=== PATIENT | male | born 1935 | race Caucasian/White ===

== ENCOUNTER 2016-07-15 08:56 | Inpatient (IN) | payer MEDICARE, OTHER ==
[~2016-07-15] VITALS: Ht 172.7 cm; Wt 85.5 kg
[~2016-07-15 08:56] MED LIST: ALEN70TA30 PO; AMLO-147 PO; ASPI81TA3 PO; ATEN50TA PO; BISA-57 PO; CLON-379 PO; CYCL5TAB PO; DIPH1TAB25 PO; DOCU50CA4 PO; FAMO10TA84 PO; LORA10CA PO; SIMV20TA2 PO; VALS320T11 PO
[2016-07-15] MEDS ORDERED: ONDANSETRON 4 MG INJ IV STA (09:17)
[2016-07-15] MEDS ORDERED: morphine 2 MG INJ IV ONE (09:30)
[2016-07-15 09:42] LABS: ADD SCAN DIFF NO
[2016-07-15 09:51] LABS: BASOPHILS % 0.3 % (0.0-2.0); EOSINOPHILS # 0.2 10^3/ul (0.0-0.5); EOSINOPHILS % 3.2 % (0.0-7.0); HEMATOCRIT 29.1 % (42.0-52.0); HEMOGLOBIN 9.6 g/dl (14.0-18.0); LYMPHOCYTES # 1.3 10^3/ul (0.8-2.9); LYMPHOCYTES % 17.8 % (15.0-51.0); MEAN CORPUSCULAR HEMOGLOBIN 32.7 pg (29.0-33.0); MEAN PLATELET VOLUME 9.9 fl (7.4-10.4); MONOCYTE # 0.6 10^3/ul (0.3-0.9); NEUTROPHILS % 70.3 % (39.0-77.0); PLATELET COUNT 247 10^3/UL (140-415); RED BLOOD COUNT 2.94 10^6/ul (4.70-6.10); RED CELL DISTRIBUTION WIDTH 13.1 % (11.5-14.5); WHITE BLOOD COUNT 7.2 10^3/ul (4.8-10.8)
[2016-07-15 10:03] LABS: ALBUMIN 3.3 g/dl (3.3-4.9)
[2016-07-15 10:04] LABS: POTASSIUM 4.9 mmol/L (3.5-5.1)
[2016-07-15 10:06] LABS: CREATININE 2.19 mg/dl (0.61-1.24)
[2016-07-15 10:07] LABS: ALBUMIN/GLOBULIN RATIO 0.89; CALCIUM 8.8 mg/dl (8.4-10.2)
[2016-07-15 10:13] LABS: ADD UMIC YES; URINE BILIRUBIN (Dip) NEGATIVE (NEGATIVE); URINE BLOOD (Dip) TRACE (NEGATIVE); URINE COLOR LT. YELLOW (YELLOW); URINE GLUCOSE (Dip) NEGATIVE (NEGATIVE); URINE KETONES (Dip) NEGATIVE (NEGATIVE); URINE LEUKOCYTE ESTERASE (Dip) 1+ (NEGATIVE); URINE NITRITE (Dip) NEGATIVE (NEGATIVE); URINE TOTAL PROTEIN (Dip) TRACE (NEGATIVE); URINE UROBILINOGEN (Dip) 0.2 E.U./dL (0.1-1.0)
--- NOTE | 2016-07-15 10:45 | RADRPT ---
PROCEDURE: CT Abdomen and pelvis without contrast. CLINICAL INDICATION: Abdominal pain. Rectal bleeding. History of hemorrhoidectomy and diverticul itis. TECHNIQUE: CT scan of the abdomen and pelvis with contrast was performed on a multidetector high-r esolution CT scan. . Coronal and sagittal reformatted images were obtained from the axial source i mages. Standard CT scan of the abdomen pelvis without contrast protocols were performed. The total exam CTDI equals 12.44 mGy and the total exam DLP equals 817.66 mGy-cm. One or more of the following dose reduction techniques were used: - Automated exposure control. - Adjustment of the mA and/or kV according to patient size. Use of iterative reconstruction technique. COMPARISON: CT pelvis without contrast 12/20/2012 FINDINGS: There is a 3.5 x 3.8 x 5.6 cm left perirectal abscess. The stomach, the stomach, small bowel, colon and appendix are unremarkable. Negative for intra-abdom inal free air, free fluid or lymphadenopathy. Again noted are calcified gallstones without gallbladder wall thickening and no evidence of pericho lecystic fluid collections. No evidence of biliary ductal dilation. The kidneys are normal in size without hydronephrosis bilaterally. No change in the large superior left renal cyst. There is a pedunculated lateral right mid renal 1.6 cm mass that may represent a h emorrhagic cyst though other etiologies cannot be excluded and interval follow up renal ultrasound o r triple phase CT scan of the abdomen with without contrast is suggested for further evaluation. The prostate gland is severely enlarged but appears unchanged. Urinary bladder is partially contrac angel with urinary bladder wall thickening and this may all relate to lack of optimal distension no ru le out cystitis. The liver spleen pancreas and adrenal glands are unremarkable. There is a small left pleural effusion. There is bibasilar atelectasis of the lung bases otherwise unremarkable. The heart is within normal limits in size without pericardial effusion. Pacemaker el ectrodes present. There is extensive atherosclerotic vascular disease of the aorta and its branches. There is extensi ve degenerative changes lower thoracic and lumbar spine. There are no acute osseous findings or ost eoblastic/osteolytic lesions. IMPRESSION: 1. 3.5 x 3.8 x 5.6 cm left perirectal abscess. 2. Again noted are calcified gallstones but no gallbladder wall thickening. No evidence biliary du ctal dilation. 3. Stable left superior renal cyst. 1.6 cm intermediate density pedunculated right lateral mid earlene al mass may represent a hemorrhagic cyst however other etiologies are not excluded and recommend fol low-up as above. 4. Severe enlarged prostate gland. 5. Urinary bladder wall thickening may all relate to partially contracted state however cystitis sh ould be considered. 6. Small left pleural effusion. Dr. Roderick hayes was telephoned this results on 07/15/2016 at 1040 hours. RPTAT:AAJJ Physician Jeannine Date Time Electronically viewed and signed by Zach Saxena Physician on 07/15/2016 10:45 BM/
--- NOTE | 2016-07-15 10:48 | ERA ---
ER Documentation Chief Complaint Date/Time DATE: 07/15/16 TIME: 916 Chief Complaint pt bib with c/o hypertension, "pimple to butt area" weakness HPI 81-year-old male presents to the emergency department with his complaining of generalized weakness, fevers, chills, pain in his buttock area. Patient and his explained that the patient has had what they thought is a hernia or a hemorrhoid. Patient has been draining pus and blood for the last 2- 3 weeks. Most recently, patient has had purulent drainage from the area with fevers chills and generalized weakness that has been continuing and worsening. Patient returns to the emergency department today complaining of the generalized weakness and a sensation of discomfort that he reports is a 4/10 and localized to that area. He reports nausea but no vomiting or diarrhea. ROS All systems reviewed and are negative except as per history of present illness. Medications Home Meds Reported Medications Bimatoprost* (Lumigan*) 0.01%-2.5 Ml Opht Drops, 1 DROP BOTH EYES HS, EA 07/15/16 Brimonidine/Timolol* (Combigan*) 5 Ml Drops, 1 DROP BOTH EYES BID, BOTTLE 07/15/16 Sodium Polystyrene Sulfonate (Sodium Polystyrene Sulfonate Powder) 454 Gm Powder , 2 TSP PO DAILY, EA 07/15/16 Clonidine Hcl* (Clonidine Hcl*) 0.2 Mg Tablet, 0.2 MG PO TID Y for ELEVATED BLOOD PRESSURE, TAB 07/15/16 Ergocalciferol (Vitamin D2) (VITAMIN D2) 50,000 Unit Capsule, 43694 UNIT PO every saturday, CAP 07/15/16 Calcitriol* (Rocaltrol*) 0.25 Mcg Capsule, 0.25 MCG PO three times a week, CAP 07/15/16 Docusate Sodium (Col-Rite) 100 Mg Capsule, 100 MG PO BID, CAP 07/15/16 Omeprazole* (Omeprazole*) 40 Mg Capsule.dr, 40 MG PO DAILY, #30 CAP 07/15/16 Furosemide* (Lasix*) 40 Mg Tablet, 60 MG PO DAILY, TAB 07/15/16 Famotidine* (Famotidine*) 20 Mg Tablet, 20 MG PO DAILY, #30 TAB 07/15/16 Alendronate Sodium* (Fosamax*) 70 Mg Tablet, 70 MG PO ON SATURDAYS, TAB 07/28/14 Amlodipine Besylate* (Amlodipine Besylate*) 10 Mg Tablet, 10 MG PO HS, TAB 07/29/13 Aspirin (Aspirin) 81 Mg Chew, 81 MG PO DAILY 12/20/12 Valsartan* (Diovan*) 320 Mg Tablet, 320 MG PO DAILY 12/20/12 Simvastatin (Simvastatin) 20 Mg Tablet, 20 MG PO HS 12/20/12 Atenolol* (Atenolol*) 50 Mg Tablet, 50 MG PO DAILY 12/20/12 Discontinued Reported Medications Loratadine* (Claritin*) 10 Mg Capsule, 10 MG PO DAILY, CAP 07/28/14 Cyclobenzaprine Hcl* (Cyclobenzaprine Hcl*) 5 Mg Tablet, 5 MG PO DAILY Y for MUSCLE SPASMS, TAB 07/28/14 Bisacodyl* (Dulcolax*) 5 Mg Tablet.dr, 10 MG PO DAILY Y for CONSTIPATION, TAB 07/28/14 Docusate Sodium* (Colace*) 50 Mg Capsule, 100 MG PO BID 07/29/13 Famotidine* (Famotidine*) 10 Mg Tablet, 20 MG PO DAILY 12/20/12 Discontinued Scripts Diphenoxylate Hcl-Atropine* (Lomotil*) 1 Tab Tab, 1 TAB PO Q6H Y for DIARRHEA, # 10 TAB Prov:AHMET MILLARD 04/09/15 Clonidine Hcl* (Clonidine Hcl*) 0.1 Mg Tab, 0.1 MG PO Q6, #10 TAB Take one tablet by mouth if systolic blood pressure greater then 150mmHg. Prov:AHMET MILLARD 04/09/15 Allergies Allergies: Coded Allergies: No Known Drug Allergy (Verified Allergy, Unknown, 07/15/16) PMhx/Soc History of Surgery: Yes (removal of lymph nodes to back x2, hemorrhoids removed ) Anesthesia Reaction: No Hx Neurological Disorder: No Hx Respiratory Disorders: No Hx Cardiac Disorders: Yes (htn) Hx Psychiatric Problems: No Hx Miscellaneous Medical Probl: Yes (diverticulitis, arthritis, hemorrhoids, high cholesterol) Hx Alcohol Use: No Hx Substance Use: No Hx Tobacco Use: Yes (1-2 packs a week) Smoking Status: Never smoker FmHx Noncontributory for chief complaint Physical Exam Vitals Vital Signs Date Time Temp Pulse Resp B/P Pulse Ox O2 Delivery O2 Flow Rate FiO2 07/15/16 10:47 68 18 167/60 98 Room Air 07/15/16 09:02 98.3 60 16 152/66 99 Physical Exam GENERAL: The patient is well developed and appropriate for usual state of health in no apparent distress HEENT: Pupils equal, round, and reactive to light. EOMI. There is no scleral icterus. NECK: C-spine is soft and supple, there is no meningismus. There is no cervical lymphadenopathy. LUNGS: Clear to auscultation bilaterally. There are no rales, wheezes or rhonchi. HEART: Regular rate and rhythm, no murmurs, clicks, rubs or gallops. ABDOMEN: Soft, non-tender, non-distended. There are bowel sounds in all four quadrants. No rebound or guarding. EXTREMITIES: There is no peripheral cyanosis or edema. No focal swelling or erythema. NEURO: The patient moves all four extremities with 5/5 strength. Cranial nerves II - XII are intact. Normal gait. Alert and oriented SKIN: Patient has a perirectal abscess. No stranding cellulitis. No crepitus. No involvement of the scrotum. HEME/LYMPHATIC: There is no evidence of excessive bruising or lymphedema. PSYCHIATRIC: The patient does not appear anxious or depressed. Result Diagram: 07/15/1693007/15/16930 Results 24 hrs Laboratory Tests Test 07/15/16 09:31 07/15/16 09:38 White Blood Count 7.210^3/ul Red Blood Count 2.9410^6/ul Hemoglobin 9.6g/dl Hematocrit 29.1% Mean Corpuscular Volume 99.0fl Mean Corpuscular Hemoglobin 32.7pg Mean Corpuscular Hemoglobin Concent 33.0g/dl Red Cell Distribution Width 13.1% Platelet Count 72300^3/UL Mean Platelet Volume 9.9fl Neutrophils % 70.3% Lymphocytes % 17.8% Monocytes % 8.0% Eosinophils % 3.2% Basophils % 0.3% Nucleated Red Blood Cells % 0.0/100WBC Neutrophils # 5.010^3/ul Lymphocytes # 1.310^3/ul Monocytes # 0.610^3/ul Eosinophils # 0.210^3/ul Basophils # 0.010^3/ul Nucleated Red Blood Cells # 0.010^3/ul Sodium Level 139mmol/L Potassium Level 4.9mmol/L Chloride Level 112mmol/L Carbon Dioxide Level 23mmol/L Anion Gap 9 Blood Urea Nitrogen 29mg/dl Creatinine 2.19mg/dl Glucose Level 109mg/dl Calcium Level 8.8mg/dl Total Bilirubin 0.0mg/dl Direct Bilirubin 0.00mg/dl Indirect Bilirubin 0.0mg/dl Aspartate Amino Transf (AST/SGOT) 15IU/L Alanine Aminotransferase (ALT/SGPT) 27IU/L Alkaline Phosphatase 68IU/L Total Protein 7.0g/dl Albumin 3.3g/dl Globulin 3.70g/dl Albumin/Globulin Ratio 0.89 Lipase 40U/L Urine Color LT. YELLOW Urine Clarity CLEAR Urine pH 5.5 Urine Specific [place] 1.010 Urine Ketones NEGATIVE Urine Nitrite NEGATIVE Urine Bilirubin NEGATIVE Urine Urobilinogen 0.2 E.U./dL Urine Leukocyte Esterase 1+ Urine Microscopic RBC 0-2/HPF Urine Microscopic WBC 5-10/HPF Urine Epithelial Cells RARE Urine Bacteria RARE Urine Hemoglobin TRACE Urine Glucose NEGATIVE% Urine Total Protein TRACE Current Medications Medications (Trade) Dose Ordered Sig/Belkis Route PRN Reason Start Time Stop Time Status Last Admin Dose Admin Morphine Sulfate (morphine) 2 mg ONCE ONCE IV 07/15/16 09:30 07/15/16 09:31 DC 07/15/16 09:29 Ondansetron HCl 4 mg 4 mg ONCE STAT IV 07/15/16 09:17 07/15/16 09:19 DC 07/15/16 09:28 Piperacillin Sod/ Tazobactam Sod 100 ml @ 200 mls/hr ONCE ONCE IVPB 07/15/16 11:00 07/15/16 11:29 DC 07/15/16 10:55 Vancomycin HCl (Vancocin) 250 ml @ 125 mls/hr ONCE IVPB 07/15/16 11:00 07/15/16 12:59 07/15/16 11:20 Procedures/MDM Patient was taken to a room, seen and evaluated. Comfort measures were initiated. Diagnostic tests were ordered and reviewed. 3 LEAD RHYTHM STRIP: Normal sinus rhythm without ectopy RADIOLOGY: reviewed with the radiologist CONSULTATION: hospitalist was notified for admission after the primary care doctor did not return the call. Surgical consultation was obtained. REEVALUATION: Patient is remained comfortable and hemodynamically stable. MEDICAL DECISION MAKING: This is an elderly 81-year-old male who presents to the emergency department with what appears to be a perirectal abscess and no systemic concerns regarding fevers and weakness. Given the history of spontaneous drainage with the ongoing systemic symptoms as well as findings on CT scan, I suggest that the patient will be best cared for with IV antibiotics and consideration of surgical management. After consulting with the family, patient will be admitted for IV antibiotics, surgical consultation and further treatment. Departure Diagnosis: Primary Impression: Perirectal abscess SEBAS IBANEZ July 15, 2016 10:48
[2016-07-15] MEDS ORDERED: VANCOMYCIN 1 GM (PMX) 250 ML IVPB SCH (11:00)
[2016-07-15] MEDS ORDERED: PIPER-TAZO 3.375 GM IV (PMX) 100 ML IVPB ONE (11:00)
[2016-07-15 11:04] LABS: BACTERIA,URINE RARE; URINE RBCS 0-2 /HPF (0)
[2016-07-15] MEDS ORDERED: FURO-109 PO (11:17)
[2016-07-15] MEDS ORDERED: OMEP40CA6 PO (11:17)
[2016-07-15] MEDS ORDERED: FAMO20TA18 PO (11:17)
[2016-07-15] MEDS ORDERED: DOCU100C59 PO (11:18)
[2016-07-15] MEDS ORDERED: CALC0.255 PO (11:19)
[2016-07-15] MEDS ORDERED: ERGO500037 PO (11:21)
[2016-07-15] MEDS ORDERED: CLON0.2T5 PO (11:22)
[2016-07-15] MEDS ORDERED: [UNRECOGNIZED DRUG - CODE] PO (11:23)
[2016-07-15] MEDS ORDERED: COMBIG5 BOTH EYES (11:25)
[2016-07-15] MEDS ORDERED: BIMA2.5D BOTH EYES (11:25)
[2016-07-15] MEDS: SOD CHLORIDE 0.9% 1,000 ML IV SCH ×2 (12:39→17:05)
[2016-07-15] MEDS ORDERED: HYDROCODONE/APAP (5/325) TAB PO PRN (13:00)
[2016-07-15] MEDS ORDERED: MAGNESIUM HYDROXIDE 30ML CUP PO PRN (13:00)
[2016-07-15] MEDS ORDERED: ACETAMINOPHEN 650 MG SUPP PR PRN (13:00)
[2016-07-15] MEDS ORDERED: BISACODYL 10 MG SUPP PR PRN (13:00)
[2016-07-15] MEDS ORDERED: ONDANSETRON 4 MG INJ IV PRN (13:00)
[2016-07-15] MEDS ORDERED: DOCUSATE SODIUM 100 MG CAP PO PRN (13:00)
[2016-07-15] MEDS ORDERED: ACETAMINOPHEN 325 MG TAB PO PRN (13:00)
[2016-07-15] MEDS ORDERED: NACL 0.9% 3 ML SYG IV SCH (13:00)
[2016-07-15] MEDS ORDERED: morphine 2 MG INJ IV PRN (13:00)
[2016-07-15 16:15] VITALS: BP 167/74; PULSE 60; RESP 16
[2016-07-15 16:42] VITALS: Ht 172.7 cm; Wt 85.5 kg
[2016-07-15] MEDS: PIPER-TAZO 2.25 GM (PMX) 50 ML IVPB SCH (18:10)
--- NOTE | 2016-07-15 18:33 | CONS ---
DATE OF ADMISSION: 07/15/2016 DATE OF CONSULTATION: 07/15/2016 TYPE OF CONSULTATION: Infectious disease. REASON FOR CONSULTATION: Antibiotic management. HISTORY OF PRESENT ILLNESS: Santo Gaming is an 81-year-old male who comes into the emergency room with generalized weakness, fever, chills, and pain in the buttock area. The explained that he thought he had hemorrhoid. He has been draining pus and blood for the last 2 to 3 weeks. Most rece ntly, he had purulent drainage from the area with fever and chills and generalized weakness that has been continuing and worsening. He was brought to the emergency department today complaining of gen eralized weakness and discomfort. PAST SURGICAL HISTORY: Removal of lymph node in the back x2 and removal of a hemorrhoid. MEDICAL PROBLEMS: Include hypertension, diverticulitis, arthritis, and hypercholesterolemia. FAMILY HISTORY: Noncontributory. SOCIAL HISTORY: He smokes 1 to 2 packs of cigarettes a week. He does not drink or abuse drugs. ALLERGIES: NONE TO PENICILLIN, SULFA, OR FOODS. MEDICATIONS: Per chart. REVIEW OF SYSTEMS: Noncontributory. PHYSICAL EXAMINATION: GENERAL: The patient is a well-developed, well-nourished male who is awake, responsive, in no acute distress. VITAL SIGNS: Stable. He is afebrile. SKIN: Without generalized rash. HEENT: Within normal limits. NECK: Supple. LYMPH NODES: None palpable. CHEST: Decreased breath sounds at the bases. HEART: Without murmur or gallop. ABDOMEN: Soft, nontender without organosplenomegaly or masses. EXTREMITIES: Without cyanosis, clubbing, or edema. RECTAL: Shows a perirectal abscess without crepitus. GENITAL: As outlined. NEUROLOGICAL: No focal neurological abnormality. ANCILLARY LABORATORY DATA: White count was 7.2, H and H 9.6 and 29.1, platelet count 247,000. BUN and creatinine 29/2.19, glucose of 109. IMPRESSION AND PLAN: The patient was started on vancomycin and Zosyn. He has a perirectal abscess. CT scan of the abdomen and pelvis shows a 3.5 x 3.8 x 5.6 left perirectal abscess. Wound care con sultation has been called. Cultures should be done. It should be probably surgical consultation. I will check that the blood culture is done. I will dictate my findings to the hospitalist. Dictated By: CHERYL MORIN MD, JD/RINKU Conf#: [id number] DID#: [id number] CC: FABRIZIO WEN;*EndCC*
[2016-07-15 19:38] VITALS: BP 146/68; RESP 18
[2016-07-15] MEDS: ATORVASTATIN 10 MG TAB PO SCH (21:36)
[2016-07-15] MEDS: DOCUSATE SODIUM 100 MG CAP PO SCH (21:36)
[2016-07-15] MEDS: AMLODIPINE 10 MG TAB PO SCH (21:39)
[2016-07-15] MEDS: LATANOPROST 0.005% 2.5 ML OPH BOTH EYES SCH (22:18)
[2016-07-15] MEDS: BRIMONIDINE 0.2%-TIMOLOL 0.5% 5ML OPH BOTH EYES SCH (22:18)
--- NOTE | 2016-07-15 22:56 | CONS ---
DATE OF ADMISSION: 07/15/2016 DATE OF CONSULTATION: TYPE OF CONSULTATION: Surgical. REFERRING PHYSICIAN: Dr. Sancho Mock CHIEF COMPLAINT: 1. Perirectal pain. 2. Perirectal abscess. HISTORY OF PRESENT ILLNESS: Santo Gaming is an 81-year-old male with comorbidities who presents wi th several weeks of perianal pain, discharge; on-and-off fevers, chills and generalized weakness. Elijah weaver was finally brought in after 3 weeks by family for further evaluation and treatment. He denies an y chest pain, shortness of breath. Denies any cough, seizure, vomiting, dysuria, bloating or abdomi nal pain. In the emergency room, he was found to be afebrile with stable vital signs except elevated blood pre ssure. CBC is normal except anemia. Chemistry shows some abnormalities with elevated creatinine, a nd urine is positive for leukocyte esterase. CT scan identifies 3.5 x 3.8 x 5.6 cm left perirectal abscess with calcified gallstones but no gallbladder wall thickening and no biliary ductal dilatatio n. Stable left superior renal cyst, severely enlarged prostate gland and small left pleural effusio n. The patient is admitted, and surgical consult is obtained for further evaluation and treatment. PAST MEDICAL HISTORY: 1. Subacute versus chronic perirectal abscess, 3.5 x 3.8 x 5.6 cm. 2. Calcified gallstones. 3. Left superior renal cyst. 4. A 1.6 cm pedunculated right lateral mid renal mass, possible hemorrhagic cyst. 5. Severely enlarged prostate gland. 6. Urinary bladder wall thickening. 7. Small left pleural effusion. 8. Hypertension. 9. Dysrhythmia. 10. History of stroke. 11. Diabetes. 12. Diverticulitis history. 13. Arthritis history. 14. Hypercholesterolemia. PAST SURGICAL HISTORY: 1. Excision of multiple lipomas by Dr. Arguello in 2007. 2. Dual chamber pacemaker [address] Whittaker. 3. Possible hemorrhoidectomy. FAMILY HISTORY: Noncontributory. SOCIAL HISTORY: One to 2 packs of cigarettes per week. No recreational drugs or alcohol. ALLERGIES: NONE. REVIEW OF SYSTEMS: A 12-point review of systems negative unless addressed in HPI. PHYSICAL EXAMINATION: VITAL SIGNS: Temperature is 97.8, pulse 60s, blood pressure 167/74, satting 100% per room air. GENERAL: No acute distress, however aggressive initially and angry initially but calmed down after further discussion. HEENT: Pupils equal, reactive. No scleral icterus. Mucous membranes are moist. Nasal deformity. NECK: Supple. Minimal JVD. PULMONARY: Normal respiratory effort. No wheezing. CARDIAC: S1, S2 present. ABDOMEN: Soft, nontender. Positive ventral umbilical reducible hernia. EXTREMITIES: No edema. VASCULAR: Capillary refill less than 2 seconds. NEUROLOGIC: Alert, however somewhat confused to full date but moves extremities grossly. SKIN: No rashes. No jaundice. LYMPHATICS: No inguinal, cervical lymphadenopathy. RECTAL: Indurated left perianal and rectal area with minimal purulent drainage. External hemorrhoi ds. Enlarged prostate. No blood noticed. LABORATORY AND RADIOGRAPHIC: As per chart. ASSESSMENT AND PLAN: Santo Gaming is an 81-year-old male with multiple significant comorbidities. 1. Left perirectal abscess, incompletely drained. Continue antibiotics, warm compress, sitz baths and will benefit from further incision and drainage. Will await medical optimization and clearance. 2. Positive urinalysis, possible urinary tract infection. The patient is already on antibiotics. 3. Anemia without evidence of acute blood loss. Continue monitoring. Will eventually need colonos copy and further workup. 4. Dysrhythmia. On pacemaker. 5. History of stroke. Continue medical and cardiac optimization. 6. Diabetes. Continue nutrition and medication control. 7. Hypertension. Continue medication and nutrition control. 8. Renal insufficiency. Continue judicious fluid management and avoid nephrotoxic agents. Thank you very much for consulting me in this patient's care. Dictated By: REGULO SCHMID/RINKU Conf#: [id number] DID#: [id number]
[2016-07-16] VITALS (22 sets, daily range): BP systolic 147–198; BP diastolic 61–87; PULSE 59–64; RESP 14–19
[2016-07-16] MEDS: PIPER-TAZO 2.25 GM (PMX) 50 ML IVPB SCH ×3 (00:25→11:10)
[2016-07-16] MEDS: SOD CHLORIDE 0.9% 1,000 ML IV SCH ×2 (00:29→06:01)
[2016-07-16] MEDS: PANTOPRAZOLE (EC) 40 MG TAB PO SCH (06:01)
[2016-07-16 06:05] LABS: INR 1.04; PARTIAL THROMBOPLASTIN TIME 32.2 Sec (25.0-35.0); PROTIME 13.6 Sec (12.2-14.2); PT RATIO 1.1
[2016-07-16 06:35] LABS: ALBUMIN/GLOBULIN RATIO 0.96; CALCIUM 9.1 mg/dl (8.4-10.2); CHOL/HDL RATIO 2.8 RATIO; CREATININE 1.9 mg/dl (0.61-1.24); MAGNESIUM 1.7 mg/dl (1.7-2.5); PHOSPHORUS 3.5 mg/dl (2.5-4.9); POTASSIUM 4.9 mmol/L (3.5-5.1); TOTAL PROTEIN 6.1 g/dl (6.1-8.1)
[2016-07-16 06:47] LABS: T3 UPTAKE 41.9 % (23.5-40.5)
[2016-07-16 07:01] LABS: THYROID STIMULATING HORMONE 0.893 MIU/L (0.465-4.680)
[2016-07-16] MEDS ORDERED: morphine SULFATE/PF (10 MG/10 ML) INJ ONE (08:25)
--- NOTE | 2016-07-16 08:29 | PN ---
Date/Time of Note Date/Time of Note DATE: 07/16/16 TIME: 08:27 Assessment/Plan Lines/Catheters IV Catheter Type (from [facility]): Saline Lock Romero in Place (from [facility]): No Assessment/Plan Chief Complaint/Hosp Course 1. Left perirectal abscess, incompletely drained. -antibiotics, -warm compress/sitz baths -incision and drainage 2. Positive urinalysis, possible urinary tract infection. The patient is already on antibiotics. 3. Anemia without evidence of acute blood loss. Continue monitoring. Will eventually need colonoscopy and further workup. 4. Dysrhythmia. On pacemaker. 5. History of stroke. Continue medical and cardiac optimization. 6. Diabetes. Continue nutrition and medication control. 7. Hypertension. Continue medication and nutrition control. 8. Renal insufficiency. Continue judicious fluid management and avoid nephrotoxic agents. Thank you Problems: Subjective 24 Hr Interval Summary No pain. No f/c. No n/v. No cp/sob. No cough. No baum/dizzy/visual or neuro changes. No dysuria. Exam/Review of Systems Vital Signs Vitals Vital Signs Date Time Temp Pulse Resp B/P Pulse Ox O2 Delivery O2 Flow Rate FiO2 07/15/16 19:38 98.1 60 18 146/68 98 07/15/16 16:15 Room Air Intake and Output 07/15/16 07/15/16 07/16/16 15:00 23:00 07:00 Intake Total 190 ml 1330 ml Output Total 1500 ml Balance 190 ml -170 ml Exam Free Text/Dictation GENERAL: No acute distress, pleasant today HEENT: Pupils equal, reactive. No scleral icterus. Mucous membranes are moist. Nasal deformity. NECK: Supple. Minimal JVD. PULMONARY: Normal respiratory effort. No wheezing. CARDIAC: S1, S2 present. ABDOMEN: Soft, nontender. Positive ventral umbilical reducible hernia. EXTREMITIES: No edema. VASCULAR: Capillary refill less than 2 seconds. NEUROLOGIC: Alert, however somewhat confused to full date but moves extremities grossly. SKIN: No rashes. No jaundice. LYMPHATICS: No inguinal, cervical lymphadenopathy. RECTAL: Indurated left perianal and rectal area with minimal purulent drainage. External hemorrhoids. Enlarged prostate. No blood noticed. Results Result Diagram: 07/15/16 0931 07/16/16 0433 REGULO JACQUES MD July 16, 2016 08:29
[2016-07-16] MEDS ORDERED: PHENYLephrine (100 MCG/ML) 5ML SYG ONE (08:35)
[2016-07-16] MEDS ORDERED: ONDANSETRON 4 MG INJ ONE (08:48)
[2016-07-16] MEDS: ASPIRIN 81 MG TAB PO SCH ×2 (09:00→11:07)
[2016-07-16] MEDS: DOCUSATE SODIUM 100 MG CAP PO SCH ×3 (09:00→21:18)
[2016-07-16] MEDS: VALSARTAN 160 MG TAB PO SCH ×2 (09:00→11:08)
[2016-07-16] MEDS: CALCITRIOL 0.25 MCG CAP PO SCH ×2 (09:00→11:06)
[2016-07-16] MEDS: ATENOLOL 50 MG TAB PO SCH ×2 (09:00→11:09)
[2016-07-16] MEDS: FUROSEMIDE 20 MG TAB PO SCH ×2 (09:00→11:10)
[2016-07-16] MEDS: BRIMONIDINE 0.2%-TIMOLOL 0.5% 5ML OPH BOTH EYES SCH ×3 (09:00→21:17)
[2016-07-16] MEDS: FAMOTIDINE 20 MG TAB PO SCH ×2 (09:00→11:06)
[2016-07-16] MEDS ORDERED: PROPOFOL 40 ML ONE (09:11)
[2016-07-16] MEDS ORDERED: BUPIVACAINE 0.25%/EPI (SDV) 30 ML INJ ONE (09:11)
[2016-07-16] MEDS ORDERED: MIDAZOLAM 1 MG/ML 2 ML INJ ONE (09:24)
[2016-07-16] MEDS ORDERED: DIPHENHYDRAMINE 50 MG INJ IV PRN (09:30)
[2016-07-16] MEDS ORDERED: HYDROmorphONE 1 MG/ML SYG IV PRN (09:30)
[2016-07-16] MEDS ORDERED: NALOXONE (0.4 MG/ML) INJ IV PRN (09:30)
[2016-07-16] MEDS ORDERED: ONDANSETRON 4 MG INJ IV PRN (09:30)
--- NOTE | 2016-07-16 13:32 | OPR ---
Date/Time of Note Date/Time of Note DATE: 07/16/16 TIME: 13:26 Operative Report Procedure Date: July 16, 2016 Preoperative Diagnosis Left perirectal abscess BMI 29 Postoperative Diagnosis Left perirectal abscess BMI 29 Operation Performed 1. Incision and drainage of left perirectal abscess 2. Local anesthetic injection Surgeon: REGULO JACQUES MD Anesthesia: spinal, other (local) Anesthesiologist: YENI LEMUS DO Estimated Blood Loss: 10 - 50 ml's Specimens Culture Tubes/Drains Packing Complications: None Pt Condition Post Procedure: stable Disposition: PACU Indications Per notes R/B/A were fully reviewed with patient and as per usual and customary Procedure Description Patient was placed in lithotomy after spinal. Area was prepped and draped sterilly and time out was performed. Local anesthetic was injected at the side. Finger manipulation identified a pocket which was cut into from the buttock and pus was drained. Finger dissection did not identify other pockets. Needle aspiration did not identified other pockets either. Cx was sent. Wound was irrigated and packed with betadine soaked kerlix. Dry dressing was applied. REGULO JACQUES MD July 16, 2016 13:32
--- NOTE | 2016-07-16 13:37 | PN ---
Date/Time of Note Date/Time of Note DATE: 07/16/16 TIME: 13:30 Assessment/Plan VTE Prophylaxis VTE Prophylaxis Intervention: SCD's Lines/Catheters IV C[facility]ter Type (from [facility]): Peripheral IV Urinary Cath still in place: No Assessment/Plan Assessment/Plan 69 yo M with pmhx #buttock abscess: sp I&D discontinue antibiotics given source control achieved with I and D. Given h/o DM2, will prescribe short course of Augmentin (5 days) #?UTI: no current dysuria. Augmentin as above. urine culture pending #CARRI: improving, stop IVFs as tolerating PO. Will watch closely. Unclear if underlying CKD or not. #elevated t4/t3 in setting of normal TSH: unclear why TFTs were checked. Will need to have these repeated by PCP following discharge #HTN, h/o CVA: cont home meds #h/o dysrhythmia: has ICD #DM2: a1c 6 this admission, cont current diet Subjective 24 Hr Interval Summary Free Text/Dictation Pt seen following his I and D. Denies pain. No complaints. Denies dysuria at this time. Had very mild dysuria a few days [employer]WORK[employer]ER Exam/Review of Systems Vital Signs Vitals Vital Signs Date Time Temp Pulse Resp B/P Pulse Ox O2 Delivery O2 Flow Rate FiO2 07/16/16 10:17 62 17 150/78 99 07/16/16 10:13 Room Air 07/16/16 09:45 98.3 Intake and Output 07/15/16 07/15/16 07/16/16 15:00 23:00 07:00 Intake Total 190 ml 1830 ml Output Total 1500 ml Balance 190 ml 330 ml Exam NAD, laying in bed no mrg lungs clear abd soft no rashes L buttock area sp I&D assessed with nurse, copious serosanguinous drainage on dressing. No erythema or induration around I and D area responds to questions appropriately Results Result Diagram: 07/15/16 0931 07/16/16 0433 Results 24 hrs Laboratory Tests Test 07/16/16 04:33 Prothrombin Time 13.6 Prothrombin Time Ratio 1.1 INR International Normalized Ratio 1.04 Activated Partial Thromboplast Time 32.2 Sodium Level 144 Potassium Level 4.9 Chloride Level 110 Carbon Dioxide Level 22 Anion Gap 17 #H Blood Urea Nitrogen 26 H Creatinine 1.90 H Glucose Level 90 Hemoglobin A1c 6.0 H Calcium Level 9.1 Phosphorus Level 3.5 Magnesium Level 1.7 Total Bilirubin 0.0 L Direct Bilirubin 0.00 Indirect Bilirubin 0.0 Aspartate Amino Transf (AST/SGOT) 20 Alanine Aminotransferase (ALT/SGPT) 37 Alkaline Phosphatase 73 Total Protein 6.1 Albumin 3.0 L Globulin 3.10 Albumin/Globulin Ratio 0.96 Triglycerides Level 100 Cholesterol Level 97 L LDL Cholesterol, Calculated 43 HDL Cholesterol 34 Cholesterol/HDL Ratio 2.8 Thyroid Stimulating Hormone (TSH) 0.893 Free Thyroxine Index 4.19 H Thyroxine (T4) 10.0 Triiodothyronine (T3) Uptake 41.9 H Medications Medications Current Medications Amlodipine Besylate (Norvasc) 10 mg HS PO Last administered on 07/15/16 21:39 ; Admin Dose 10 MG; Start 07/15/16 at 21:00 Aspirin (Aspirin) 81 mg DAILY PO Last administered on 07/16/16 11:07; Admin Dose 81 MG; Start 07/16/16 at 09:00 Atenolol (Tenormin) 50 mg DAILY PO Last administered on 07/16/16 11:09; Admin Dose 50 MG; Start 07/16/16 at 09:00 Latanoprost (Xalatan) 1 drop HS BOTH EYES Last administered on 07/15/16 22:18 ; Admin Dose 1 DROP; Start 07/15/16 at 21:00 Brimonidine/ Timolol (Combigan Oph) 1 drop BID BOTH EYES Last administered on 11:08; Admin Dose 1 DROP; Start 07/15/16 at 21:00 Calcitriol (Rocaltrol) 0.25 mcg DAILY PO Last administered on 07/16/16 11:06; Admin Dose 0.25 MCG; Start 07/16/16 at 09:00 Clonidine (Catapres) 0.2 mg TID PRN PO FOR SBP ABOVE 160; Start 07/15/16 at 13: 00 Docusate Sodium (Colace) 100 mg BID PO Last administered on 07/16/16 11:07; Admin Dose 100 MG; Start 07/15/16 at 21:00 Famotidine (Pepcid) 20 mg DAILY PO Last administered on 07/16/16 11:06; Admin Dose 20 MG; Start 07/16/16 at 09:00 Furosemide (Lasix) 60 mg DAILY PO Last administered on 07/16/16 11:10; Admin Dose 60 MG; Start 07/16/16 at 09:00 Valsartan (Diovan) 320 mg DAILY PO Last administered on 07/16/16 11:08; Admin Dose 320 MG; Start 07/16/16 at 09:00 Pantoprazole (Protonix Tab) 40 mg DAILY@06 PO Last administered on 07/16/16 06 :01; Admin Dose 40 MG; Start 07/16/16 at 06:00 Atorvastatin Calcium 10 mg 10 mg DAILY@21 PO Last administered on 07/15/16 21: 36; Admin Dose 10 MG; Start 07/15/16 at 21:00 Sodium Chloride (NS) 1,000 ml @ 80 mls/hr [id number] IV Last administered on 07/16 06:01; Admin Dose 80 MLS/HR; Start 07/15/16 at 12:39 Ondansetron HCl (Zofran Inj) 4 mg Q6H PRN IV NAUSEA AND/OR VOMITING; Start at 13:00 Acetaminophen (Tylenol Tab) 650 mg Q6H PRN PO PAIN LEVEL 1-3 OR FEVER; Start at 13:00 Acetaminophen (Tylenol Supp) 650 mg Q6H PRN [place] PAIN LEVEL 1-3 OR FEVER; Start 07/15/16 at 13:00 Acetaminophen/ Hydrocodone Bitart ([place] (5/325)) 1 tab Q6H PRN PO MODERATE PAIN LEVEL 4-6; Start 07/15/16 at 13:00 Acetaminophen/ Hydrocodone Bitart ([place] (5/325)) 2 tab Q6H PRN PO SEVERE PAIN LEVEL 7-10; Start 07/15/16 at 13:00 Morphine Sulfate (morphine) 2 mg Q4H PRN IV SEVERE PAIN LEVEL 7-10; Start 07/15 at 13:00 Docusate Sodium (Colace) 100 mg Q12H PRN PO CONSTIPATION; Start 07/15/16 at 13: 00 Magnesium Hydroxide (Milk Of Mag) 30 ml DAILY PRN PO CONSTIPATION; Start at 13:00 Bisacodyl 10 mg 10 mg DAILY PRN [place] CONSTIPATION; Start 07/15/16 at 13:00 Piperacillin Sod/ Tazobactam Sod (Zosyn 2.25gm/ 50ml (Pmx)) 50 ml @ 100 mls/hr Q6 IVPB Last administered on 07/16/16t 11:10; Admin Dose 100 MLS/HR; Start at 18:00 Naloxone HCl (Narcan) 0.1 mg Q2M PRN IV FOR RESP RATE 8 OR LESS; Start at 09:30; Stop 07/17/16 at 09:29 Hydromorphone HCl (Dilaudid) 0.2 mg Q3H PRN IV PAIN LEVEL 1-5; Start 07/16/16 at 09:30; Stop 07/17/16 at 09:29 Diphenhydramine HCl (Benadryl) 25 mg Q6H PRN IV ITCHING; Start 07/16/16 at 09: 30; Stop 07/17/16 at 09:29 Ondansetron HCl (Zofran Inj) 4 mg Q6H PRN IV NAUSEA AND/OR VOMITING; Start at 09:30; Stop 07/17/16 at 09:29 KITA SEGAL MD July 16, 2016 13:37 at 09:30; Stop 07/17/16 at 09:29 KITA SEGAL MD July 16, 2016 13:37
--- NOTE | 2016-07-16 15:36 | CONS ---
Date/Time of Note Date/Time of Note DATE: 07/16/16 TIME: 15:36 Assessment/Plan Assessment/Plan Chief Complaint/Hosp Course ID PROGRESS NOTE CURRENT ABX: Unasyn 24H INTERVAL SUMMARY = s/p op today, no fevers, VSS, patient is resting comfortably Procedure Date: July 16, 2016 Postoperative Diagnosis Left perirectal abscess BMI 29 Operation Performed 1. Incision and drainage of left perirectal abscess 2. Local anesthetic injection PHYSICAL EXAMINATION: VITAL SIGNS: Afebrile, VSS, NAD GENERAL:NAD HEENT: Unremarkable NECK: Full ROM LUNGS: Equal chest rise without dyspnea on observation HEART: RRR ABDOMEN: Soft EXTREMITIES: Warm SKIN: Intact ID IMPRESSION: 81 yo M admit with: 1. Left aramis-rectal abscess 2. POD #07/16/16 => s/p Incision and drainage of left perirectal abscess 3. HTN 4. Hx of CVA INVASIVES: PIV CURRENT ABX: UNASYN ID RECOMMENDATION 1. Continue current ABX & await clinical improvement. . Problems: Consultation Date/Type/Reason Admit Date/Time July 15, 2016 at 11:38 Initial Consult Date Exam/Review of Systems Vital Signs Vitals Vital Signs Date Time Temp Pulse Resp B/P Pulse Ox O2 Delivery O2 Flow Rate FiO2 07/16/16 15:00 98.2 60 16 155/72 99 Room Air Intake and Output 07/15/16 07/15/16 07/16/16 15:00 23:00 07:00 Intake Total 190 ml 1830 ml Output Total 1500 ml Balance 190 ml 330 ml Results Result Diagram: 07/15/16 0931 07/16/16 0433 Results 24 hrs Laboratory Tests Test 07/16/16 04:33 Prothrombin Time 13.6 Prothrombin Time Ratio 1.1 INR International Normalized Ratio 1.04 Activated Partial Thromboplast Time 32.2 Sodium Level 144 Potassium Level 4.9 Chloride Level 110 Carbon Dioxide Level 22 Anion Gap 17 #H Blood Urea Nitrogen 26 H Creatinine 1.90 H Glucose Level 90 Hemoglobin A1c 6.0 H Calcium Level 9.1 Phosphorus Level 3.5 Magnesium Level 1.7 Total Bilirubin 0.0 L Direct Bilirubin 0.00 Indirect Bilirubin 0.0 Aspartate Amino Transf (AST/SGOT) 20 Alanine Aminotransferase (ALT/SGPT) 37 Alkaline Phosphatase 73 Total Protein 6.1 Albumin 3.0 L Globulin 3.10 Albumin/Globulin Ratio 0.96 Triglycerides Level 100 Cholesterol Level 97 L LDL Cholesterol, Calculated 43 HDL Cholesterol 34 Cholesterol/HDL Ratio 2.8 Thyroid Stimulating Hormone (TSH) 0.893 Free Thyroxine Index 4.19 H Thyroxine (T4) 10.0 Triiodothyronine (T3) Uptake 41.9 H Medications Medications Current Medications Amlodipine Besylate (Norvasc) 10 mg HS PO Last administered on 07/15/16 21:39 ; Admin Dose 10 MG; Start 07/15/16 at 21:00 Aspirin (Aspirin) 81 mg DAILY PO Last administered on 07/16/16 11:07; Admin Dose 81 MG; Start 07/16/16 at 09:00 Atenolol (Tenormin) 50 mg DAILY PO Last administered on 07/16/16 11:09; Admin Dose 50 MG; Start 07/16/16 at 09:00 Latanoprost (Xalatan) 1 drop HS BOTH EYES Last administered on 07/15/16 22:18 ; Admin Dose 1 DROP; Start 07/15/16 at 21:00 Brimonidine/ Timolol (Combigan Oph) 1 drop BID BOTH EYES Last administered on 11:08; Admin Dose 1 DROP; Start 07/15/16 at 21:00 Calcitriol (Rocaltrol) 0.25 mcg DAILY PO Last administered on 07/16/16 11:06; Admin Dose 0.25 MCG; Start 07/16/16 at 09:00 Clonidine (Catapres) 0.2 mg TID PRN PO FOR SBP ABOVE 160 Last administered on 13:39; Admin Dose 0.2 MG; Start 07/15/16 at 13:00 Docusate Sodium (Colace) 100 mg BID PO Last administered on 07/16/16 11:07; Admin Dose 100 MG; Start 07/15/16 at 21:00 Famotidine (Pepcid) 20 mg DAILY PO Last administered on 07/16/16 11:06; Admin Dose 20 MG; Start 07/16/16 at 09:00 Furosemide (Lasix) 60 mg DAILY PO Last administered on 07/16/16 11:10; Admin Dose 60 MG; Start 07/16/16 at 09:00 Valsartan (Diovan) 320 mg DAILY PO Last administered on 07/16/16 11:08; Admin Dose 320 MG; Start 07/16/16 at 09:00 Pantoprazole (Protonix Tab) 40 mg DAILY@06 PO Last administered on 07/16/16 06 :01; Admin Dose 40 MG; Start 07/16/16 at 06:00 Atorvastatin Calcium (Lipitor) 10 mg DAILY@21 PO Last administered on 21:36; Admin Dose 10 MG; Start 07/15/16 at 21:00 Ondansetron HCl (Zofran Inj) 4 mg Q6H PRN IV NAUSEA AND/OR VOMITING; Start at 13:00 Acetaminophen (Tylenol Tab) 650 mg Q6H PRN PO PAIN LEVEL 1-3 OR FEVER; Start at 13:00 Acetaminophen (Tylenol Supp) 650 mg Q6H PRN [place] PAIN LEVEL 1-3 OR FEVER; Start 07/15/16 at 13:00 Acetaminophen/ Hydrocodone Bitart ([place] (5/325)) 1 tab Q6H PRN PO MODERATE PAIN LEVEL 4-6; Start 07/15/16 at 13:00 Acetaminophen/ Hydrocodone Bitart ([place] (5/325)) 2 tab Q6H PRN PO SEVERE PAIN LEVEL 7-10; Start 07/15/16 at 13:00 Morphine Sulfate (morphine) 2 mg Q4H PRN IV SEVERE PAIN LEVEL 7-10; Start 07/15 at 13:00 Docusate Sodium (Colace) 100 mg Q12H PRN PO CONSTIPATION; Start 07/15/16 at 13: 00 Magnesium Hydroxide (Milk Of Mag) 30 ml DAILY PRN PO CONSTIPATION; Start at 13:00 Bisacodyl (Dulcolax Supp) 10 mg DAILY PRN [place] CONSTIPATION; Start 07/15/16 at 13 :00 Naloxone HCl (Narcan) 0.1 mg Q2M PRN IV FOR RESP RATE 8 OR LESS; Start at 09:30; Stop 07/17/16 at 09:29 Hydromorphone HCl (Dilaudid) 0.2 mg Q3H PRN IV PAIN LEVEL 1-5; Start 07/16/16 at 09:30; Stop 07/17/16 at 09:29 Diphenhydramine HCl (Benadryl) 25 mg Q6H PRN IV ITCHING; Start 07/16/16 at 09: 30; Stop 07/17/16 at 09:29 Ondansetron HCl (Zofran Inj) 4 mg Q6H PRN IV NAUSEA AND/OR VOMITING; Start at 09:30; Stop 07/17/16 at 09:29 Amoxicillin/ Clavulanate Potassium (Augmentin) 875 mg BID PO ; Start 07/16/16 at 21:00 ROMA CARRERO NP July 16, 2016 15:36
[2016-07-16] MEDS: ATORVASTATIN 10 MG TAB PO SCH (21:17)
[2016-07-16] MEDS: LATANOPROST 0.005% 2.5 ML OPH BOTH EYES SCH (21:17)
[2016-07-16] MEDS: AMOXICILLIN/CLAV 875 MG TAB PO SCH (21:18)
[2016-07-16] MEDS: AMLODIPINE 10 MG TAB PO SCH (21:18)
[2016-07-17 00:15] VITALS: BP 153/70; RESP 19
[2016-07-17 05:10] LABS: ADD SCAN DIFF NO
[2016-07-17 05:17] LABS: BASOPHILS % 0.2 % (0.0-2.0); EOSINOPHILS # 0.2 10^3/ul (0.0-0.5); EOSINOPHILS % 2.1 % (0.0-7.0); HEMATOCRIT 30.3 % (42.0-52.0); LYMPHOCYTES # 1.4 10^3/ul (0.8-2.9); LYMPHOCYTES % 13.8 % (15.0-51.0); MEAN CORPUSCULAR HEMOGLOBIN 32.7 pg (29.0-33.0); MEAN PLATELET VOLUME 10.1 fl (7.4-10.4); MONOCYTE # 0.9 10^3/ul (0.3-0.9); MONOCYTES % 9.3 % (0.0-11.0); NEUTROPHIL # 7.4 10^3/ul (1.6-7.5); NEUTROPHILS % 74.2 % (39.0-77.0); PLATELET COUNT 260 10^3/UL (140-415); RED BLOOD COUNT 3.06 10^6/ul (4.70-6.10); RED CELL DISTRIBUTION WIDTH 13.1 % (11.5-14.5); WHITE BLOOD COUNT 9.9 10^3/ul (4.8-10.8)
[2016-07-17 05:36] LABS: CALCIUM 9.2 mg/dl (8.4-10.2); CREATININE 1.91 mg/dl (0.61-1.24); POTASSIUM 4.8 mmol/L (3.5-5.1)
[2016-07-17] MEDS: PANTOPRAZOLE (EC) 40 MG TAB PO SCH (06:27)
--- NOTE | 2016-07-17 07:16 | HP ---
DATE OF ADMISSION: 07/15/2016 CHIEF COMPLAINT: Perirectal abscess. HISTORY OF PRESENT ILLNESS: This is an 81-year-old male with reported past medical history of CKD, hypertension, dyslipidemia, diverticulosis, acid reflux, CHF, CKD, anemia, CVA x5 with left-sided we akness, pacemaker, who came to [facility] due to reports of left inner buttock per irectal abscess. According to the patient, he had been having left inner buttock rectal pain for a few weeks' duration with associated bleeding and pus. He also had associated fevers, but no other n ausea, vomiting, no chest pain or shortness of breath. According to the patient's family, his was the one who did help with placing antibiotic cream on the wound to no avail. Subsequently, he w ent to [facility] for further evaluation. Upon examination, he did have a CT scan of his abdomen that did show him to have a 3.5 x 3.8 x 5.6 cm left perirectal abscess. There were also noted calcified gallstones, but no gallbladder wall thickening, no evidence of biliary ductal dilation. There was also seen a stable left superior renal cyst measuring 1.6 cm and there is a sev erely enlarged prostate and enlarged bladder thickening, suspect for a cystitis. Per his labs, he w as noted with some anemia, but no leukocytosis, and he did remain afebrile upon admission. He did h ave some hypertension with blood pressure as high as 167/60 and, additionally, he was noted with wilver e renal insufficiency with a creatinine of 2.19. Patient, at present, does report having some disco mfort on perirectal area. He denies any other associated symptoms. He does report having some hist ory of hemorrhoids. We will evaluate him for that aforementioned issues. MEDICAL/SURGICAL HISTORY: 1. Chronic kidney disease. 2. Hypertension. 3. Dyslipidemia. 4. Diverticulosis. 5. Acid reflux. 6. Congestive heart failure. 7. Anemia. 8. Cerebrovascular accident x5 with left-sided weakness. 9. History of pacemaker. SOCIAL HISTORY: Patient denies any alcohol consumption or illicit drug use, but he does report smok ing 3 to 4 cigarettes a day. ALLERGIES: NO KNOWN ALLERGIES. FAMILY HISTORY: Noncontributory. REVIEW OF SYSTEMS: A 12-point review of systems obtained and entirely negative except that mentione d in the history of present illness. HOME MEDICATIONS: 1. Amlodipine 10 mg p.o. at bedtime. 2. Atenolol 50 mg p.o. daily. 3. Clonidine 0.2 mg p.o. t.i.d. as needed for elevated blood pressure. 4. Simvastatin 20 mg p.o. at bedtime. 5. Valsartan 320 mg p.o. daily. 6. Aspirin 81 mg p.o. daily. 7. Lasix 60 mg p.o. daily. 8. Sodium polystyrene sulfonate powder 2 teaspoons p.o. daily. 9. Lumigan 1 drop both eyes at bedtime. 10. Combigan 1 drop both eyes b.i.d. 11. Colace 100 mg p.o. b.i.d. 12. Famotidine 20 mg p.o. daily. 13. Omeprazole 40 mg p.o. daily. 14. Calcitriol 0.25 mcg p.o. 3 times a week. 15. Vitamin D2 at 50,000 units p.o. every Saturday. 16. Fosamax 70 mg p.o. on Saturdays. PHYSICAL EXAMINATION VITAL SIGNS: Temperature is 98.3, pulse 62, respiratory rate is 18, blood pressure 136/65, and puls e ox is 98% on room air. GENERAL: This is an 81-year-old male, appears stated age with no apparent distress noted at this ti me. EYES: Pupils equal, round and reactive to light. Anicteric sclerae. NECK: Supple, nontender. No JVD. CARDIAC: S1, S2 auscultated. A pacemaker noted. PULMONARY: Clear to auscultation bilaterally. No wheezing or rhonchi. ABDOMEN: Soft, nontender, nondistended. Noted with umbilical hernia. EXTREMITIES: No pitting edema in bilateral lower extremities. SKIN: Warm, dry, and intact, but noted with perirectal abscess, more in the buttocks. NEUROLOGIC: Alert and oriented x3. LABORATORY DATA: WBC 7.3, hemoglobin is 9.6, hematocrit is 29.1, and platelets are 274. Sodium is 139, potassium 4.9, BUN is 29, creatinine 2.19. IMAGING: Abdominal pelvic CT scan done on 07/15/2016 did show 3.5 x 3.8 x 5.6 cm left perirectal ab scess with also noted severe enlarged prostate and urinary bladder wall thickening, suspect for a cy stitis, as well as stable left superior renal cyst and gallstones, but no gallbladder wall thickenin g. IMPRESSION AND PLAN: 1. Left-sided perirectal abscess. Surgeon consulted. Will get Infectious Disease consult to ramy banegas. We will place on antibiotics for now. Will await recommendations. Analgesics as needed. 1. History of gallstones. No active issues noted at this time. Continue with IV hydration. 2. Suspect cystitis. Patient denies any dysuria. Follow up on urine culture. 3. Acute renal insufficiency, likely acute on-chronic. Will continue with IV hydration. Of note, trend does remain stable since his last admission in March of 2014. Will monitor for now. Will get a Press Assistant And Feeder pending clinical course. Medications to be renally dosed. Patient denies any di alysis at this time. 4. Anemia. It is likely of chronic disease. Will monitor hemoglobin and hematocrit. Stable at pr esent. 5. Essential hypertension. Will provide with antihypertensives and adjust as needed. 6. Benign prostatic hypertrophy. Continue on benign prostatic hypertrophy medications. 7. Dyslipidemia. The patient will be resumed on statin medication. Follow up on fasting lipid collier el. 8. History of congestive heart failure. Continue on Lasix. ADMISSION PROCESS TIME: 40 minutes. Discussed plan of care with Dr. Delgado. Dictated By: KAMRAN MO HOT TOP LINER HELPER for FABRIZIO MORALES/RINKU Conf#: [id number] DID#: [id number]
[2016-07-17 07:31] VITALS: BP 172/79; RESP 19
[2016-07-17] MEDS: BRIMONIDINE 0.2%-TIMOLOL 0.5% 5ML OPH BOTH EYES SCH (08:27)
[2016-07-17] MEDS: VALSARTAN 160 MG TAB PO SCH (08:30)
[2016-07-17] MEDS: ASPIRIN 81 MG TAB PO SCH (08:30)
[2016-07-17] MEDS: CALCITRIOL 0.25 MCG CAP PO SCH (08:30)
[2016-07-17] MEDS: FAMOTIDINE 20 MG TAB PO SCH (08:31)
[2016-07-17] MEDS: FUROSEMIDE 20 MG TAB PO SCH (08:31)
[2016-07-17] MEDS: DOCUSATE SODIUM 100 MG CAP PO SCH (08:31)
[2016-07-17] MEDS: AMOXICILLIN/CLAV 875 MG TAB PO SCH (08:32)
[2016-07-17] MEDS: ATENOLOL 50 MG TAB PO SCH (08:32)
[2016-07-17] MEDS: HYDROCODONE/APAP (5/325) TAB PO PRN ×2 (10:55→18:15)
[2016-07-17 13:15] VITALS: BP 123/60; PULSE 60
--- NOTE | 2016-07-17 13:26 | PN ---
DATE: 07/17/2016 SUBJECTIVE: The patient is awake, looks comfortable, complaining of rectal pain. No fevers. LABORATORY DATA: WBC 9.9, no shift, no bands. BUN 20, creatinine 1.91. MICROBIOLOGY: Rectal drainage growing gram-negative rods and strep species. ANTIMICROBIALS: The patient is on Unasyn. PHYSICAL EXAMINATION: GENERAL: This is a well-nourished, well-developed elderly man who is alert, in no distress. HEENT: Head atraumatic, normocephalic. Sclerae anicteric. Buccal mucosa dry. NECK: Supple. CHEST: Rise symmetrical. Breath sounds clear. HEART: S1, S2. ABDOMEN: Soft, bowel sounds present. EXTREMITIES: Without cyanosis. ASSESSMENT: 1. Rectal abscess, status post I and D. 2. Systemic inflammatory response syndrome. 3. Hypertension. PLAN: The patient remains stable on appropriate antimicrobials, awaiting for final cultures. Angelique nue pain management. Follow surgical recommendations. Dictated By: YOLANDA ANNE SECRETARY OF POLICE for CHERYL CONNER/RINKU Conf#: [id number] DID#: [id number]
--- NOTE | 2016-07-17 14:43 | PN ---
Date/Time of Note Date/Time of Note DATE: 07/17/16 TIME: 14:37 Assessment/Plan VTE Prophylaxis VTE Prophylaxis Intervention: SCD's Lines/Catheters IV Catheter Type (from Nrs): Peripheral IV Urinary Cath still in place: No Assessment/Plan Assessment/Plan 69 yo M with pmhx DM2, HTN, HL admitted for buttock abscess, sp I and D 5.29 #buttock abscess: sp I&D discontinue antibiotics given source control achieved with I and D. Given h/o DM2, cont short course of Augmentin (5 days) #?UTI: no current dysuria. urine culture neg #CARRI: resolved #elevated t4/t3 in setting of normal TSH: unclear why TFTs were checked. Will need to have these repeated by PCP following discharge #HTN, h/o CVA: cont home meds #h/o dysrhythmia: has ICD #DM2: a1c 6 this admission, cont current diet dispo when cleared by gen surg Subjective 24 Hr Interval Summary Free Text/Dictation Pt and wondering when pt can go home Exam/Review of Systems Vital Signs Vitals Vital Signs Date Time Temp Pulse Resp B/P Pulse Ox O2 Delivery O2 Flow Rate FiO2 07/17/16 13:15 60 123/60 07/17/16 07:31 98.0 19 98 07/16/16 15:00 Room Air Intake and Output 07/16/16 07/16/16 07/17/16 15:00 23:00 07:00 Intake Total 450 ml 800 ml 600 ml Output Total 360 ml 900 ml 500 ml Balance 90 ml -100 ml 100 ml Exam nad, laying in bed no mrg lungs clear abd soft wound assessed, packed and no surrounding erythema or drainage no le edema no rashes Results Result Diagram: 07/17/16 0420 07/17/16 0420 Results 24 hrs Laboratory Tests Test 07/17/16 04:20 White Blood Count 9.9 # Red Blood Count 3.06 L Hemoglobin 10.0 L Hematocrit 30.3 L Mean Corpuscular Volume 99.0 Mean Corpuscular Hemoglobin 32.7 Mean Corpuscular Hemoglobin Concent 33.0 Red Cell Distribution Width 13.1 Platelet Count 260 Mean Platelet Volume 10.1 Neutrophils % 74.2 Lymphocytes % 13.8 L Monocytes % 9.3 Eosinophils % 2.1 Basophils % 0.2 Nucleated Red Blood Cells % 0.0 Neutrophils # 7.4 Lymphocytes # 1.4 Monocytes # 0.9 Eosinophils # 0.2 Basophils # 0.0 Nucleated Red Blood Cells # 0.0 Sodium Level 138 Potassium Level 4.8 Chloride Level 108 Carbon Dioxide Level 25 Anion Gap 10 # Blood Urea Nitrogen 20 Creatinine 1.91 H Glucose Level 122 Calcium Level 9.2 Medications Medications Current Medications Amlodipine Besylate (Norvasc) 10 mg HS PO Last administered on 07/16/16 21:18 ; Admin Dose 10 MG; Start 07/15/16 at 21:00 Aspirin (Aspirin) 81 mg DAILY PO Last administered on 07/17/16 08:30; Admin Dose 81 MG; Start 07/16/16 at 09:00 Atenolol (Tenormin) 50 mg DAILY PO Last administered on 07/17/16 08:32; Admin Dose 50 MG; Start 07/16/16 at 09:00 Latanoprost (Xalatan) 1 drop HS BOTH EYES Last administered on 07/16/16 21:17 ; Admin Dose 1 DROP; Start 07/15/16 at 21:00 Brimonidine/ Timolol (Combigan Oph) 1 drop BID BOTH EYES Last administered on 08:27; Admin Dose 1 DROP; Start 07/15/16 at 21:00 Calcitriol (Rocaltrol) 0.25 mcg DAILY PO Last administered on 07/17/16 08:30; Admin Dose 0.25 MCG; Start 07/16/16 at 09:00 Docusate Sodium (Colace) 100 mg BID PO Last administered on 07/17/16 08:31; Admin Dose 100 MG; Start 07/15/16 at 21:00 Famotidine (Pepcid) 20 mg DAILY PO Last administered on 07/17/16 08:31; Admin Dose 20 MG; Start 07/16/16 at 09:00 Furosemide (Lasix) 60 mg DAILY PO Last administered on 07/17/16 08:31; Admin Dose 60 MG; Start 07/16/16 at 09:00 Valsartan (Diovan) 320 mg DAILY PO Last administered on 07/17/16 08:30; Admin Dose 320 MG; Start 07/16/16 at 09:00 Pantoprazole (Protonix Tab) 40 mg DAILY@06 PO Last administered on 07/17/16 06 :27; Admin Dose 40 MG; Start 07/16/16 at 06:00 Atorvastatin Calcium (Lipitor) 10 mg DAILY@21 PO Last administered on 21:17; Admin Dose 10 MG; Start 07/15/16 at 21:00 Ondansetron HCl (Zofran Inj) 4 mg Q6H PRN IV NAUSEA AND/OR VOMITING; Start at 13:00 Acetaminophen (Tylenol Tab) 650 mg Q6H PRN PO PAIN LEVEL 1-3 OR FEVER; Start at 13:00 Acetaminophen (Tylenol Supp) 650 mg Q6H PRN [place] PAIN LEVEL 1-3 OR FEVER; Start 07/15/16 at 13:00 Acetaminophen/ Hydrocodone Bitart ([place] (5/325)) 1 tab Q6H PRN PO MODERATE PAIN LEVEL 4-6; Start 07/15/16 at 13:00 Acetaminophen/ Hydrocodone Bitart ([place] (5/325)) 2 tab Q6H PRN PO SEVERE PAIN LEVEL 7-10 Last administered on 07/17/16 10:55; Admin Dose 2 TAB; Start at 13:00 Morphine Sulfate (morphine) 2 mg Q4H PRN IV SEVERE PAIN LEVEL 7-10; Start 07/15 at 13:00 Docusate Sodium (Colace) 100 mg Q12H PRN PO CONSTIPATION; Start 07/15/16 at 13: 00 Magnesium Hydroxide (Milk Of Mag) 30 ml DAILY PRN PO CONSTIPATION; Start at 13:00 Bisacodyl (Dulcolax Supp) 10 mg DAILY PRN [place] CONSTIPATION; Start 07/15/16 at 13 :00 Amoxicillin/ Clavulanate Potassium (Augmentin) 875 mg BID PO Last administered on 07/17/16 08:32; Admin Dose 875 MG; Start 07/16/16 at 21:00 Clonidine (Catapres) 0.2 mg TID PO Last administered on 07/17/16 08:31; Admin Dose 0.2 MG; Start 07/16/16 at 18:42 KITA SEGAL MD July 17, 2016 14:43
[2016-07-17] MEDS ORDERED: AMOX1TAB10 PO (14:59)
--- NOTE | 2016-07-17 15:01 | PDOCDIS ---
Discharge Instructions CONDITION Patient Condition: Good REFERRALS Other Referrals follow up with with general surgeon in 1-2 weeks the nurse will tell you how to care for your surgical site KITA SEGAL MD July 17, 2016 15:01
--- NOTE | 2016-07-17 15:08 | DS ---
Date/Time of Note Date/Time of Note DATE: 07/17/16 TIME: 15:02 Discharge Summary Admission/Discharge Info Admit Date/Time July 15, 2016 at 11:38 Discharge Date/Time Final Diagnosis perirectal abscess Patient Condition: Good Consults general surgery/Dr Schaefer Procedures 5.28 CT A/P IMPRESSION: 1. 3.5 x 3.8 x 5.6 cm left perirectal abscess. 2. Again noted are calcified gallstones but no gallbladder wall thickening. No evidence biliary ductal dilation. 3. Stable left superior renal cyst. 1.6 cm intermediate density pedunculated right lateral mid renal mass may represent a hemorrhagic cyst however other etiologies are not excluded and recommend follow-up as above. 4. Severe enlarged prostate gland. 5. Urinary bladder wall thickening may all relate to partially contracted state however cystitis should be considered. 6. Small left pleural effusion. L buttock abscess I&D 5.29 Hx of Present Illness This is an 81-year-old male with reported past medical history of CKD, hypertension, dyslipidemia, diverticulosis, acid reflux, CHF, CKD, anemia, CVA x5 with left-sided weakness, pacemaker, who came to [facility] due to reports of left inner buttock perirectal abscess. According to the patient, he had been having left inner buttock rectal pain for a few weeks' duration with associated bleeding and pus. He also had associated fevers, but no other nausea, vomiting, no chest pain or shortness of breath. According to the patient's family, his was the one who did help with placing antibiotic cream on the wound to no avail. Subsequently, he went to [facility] for further evaluation. Upon examination, he did have a CT scan of his abdomen that did show him to have a 3.5 x 3.8 x 5.6 cm left perirectal abscess. There were also noted calcified gallstones, but no gallbladder wall thickening, no evidence of biliary ductal dilation. There was also seen a stable left superior renal cyst measuring 1.6 cm and there is a severely enlarged prostate and enlarged bladder thickening, suspect for a cystitis. Per his labs, he was noted with some anemia, but no leukocytosis, and he did remain afebrile upon admission. He did have some hypertension with blood pressure as high as 167/60 and, additionally, he was noted with some renal insufficiency with a creatinine of 2.19. Patient, at present, does report having some discomfort on perirectal area. He denies any other associated symptoms. He does report having some history of hemorrhoids. We will evaluate him for that aforementioned issues. Hospital Course Pt underwent I and D of buttock abscess 5.29 with significant improvement in his pain. Pt given post drainage abx given his pre existing DM2. BP elevated date of I and D, but on just home meds returned to by date of discharge. Pt to f/u with general surgeon within 2 weeks arranged for wound care for I&D site Pt to f/u with PCP as admission CT A/P noted a small renal lesion. This was communicated to pt and prior to discharge and a copy of pt's CT report was provided. Home Meds Active Scripts Amoxicillin/Potassium Clav (Amox-Clav 875-125 mg Tablet) 875-125 mg Tab, 875 MG PO BID for 4 Days, #8 TAB Prov:KITA SEGAL MD 07/17/16 Reported Medications Bimatoprost* (Lumigan*) 0.01%-2.5 Ml Opht Drops, 1 DROP BOTH EYES HS, EA 07/15/16 Brimonidine/Timolol* (Combigan*) 5 Ml Drops, 1 DROP BOTH EYES BID, BOTTLE 07/15/16 Sodium Polystyrene Sulfonate (Sodium Polystyrene Sulfonate Powder) 454 Gm Powder , 2 TSP PO DAILY, EA 07/15/16 Clonidine Hcl* (Clonidine Hcl*) 0.2 Mg Tablet, 0.2 MG PO TID Y for ELEVATED BLOOD PRESSURE, TAB 07/15/16 Ergocalciferol (Vitamin D2) (VITAMIN D2) 50,000 Unit Capsule, 11533 UNIT PO every saturday, CAP 07/15/16 Calcitriol* (Rocaltrol*) 0.25 Mcg Capsule, 0.25 MCG PO three times a week, CAP 07/15/16 Docusate Sodium (Col-Rite) 100 Mg Capsule, 100 MG PO BID, CAP 07/15/16 Omeprazole* (Omeprazole*) 40 Mg Capsule.dr, 40 MG PO DAILY, #30 CAP 07/15/16 Furosemide* (Lasix*) 40 Mg Tablet, 60 MG PO DAILY, TAB 07/15/16 Famotidine* (Famotidine*) 20 Mg Tablet, 20 MG PO DAILY, #30 TAB 07/15/16 Alendronate Sodium* (Fosamax*) 70 Mg Tablet, 70 MG PO ON SATURDAYS, TAB 07/28/14 Amlodipine Besylate* (Amlodipine Besylate*) 10 Mg Tablet, 10 MG PO HS, TAB 07/29/13 Aspirin (Aspirin) 81 Mg Chew, 81 MG PO DAILY 12/20/12 Valsartan* (Diovan*) 320 Mg Tablet, 320 MG PO DAILY 12/20/12 Simvastatin (Simvastatin) 20 Mg Tablet, 20 MG PO HS 12/20/12 Atenolol* (Atenolol*) 50 Mg Tablet, 50 MG PO DAILY 12/20/12 Discontinued Reported Medications Loratadine* (Claritin*) 10 Mg Capsule, 10 MG PO DAILY, CAP 07/28/14 Cyclobenzaprine Hcl* (Cyclobenzaprine Hcl*) 5 Mg Tablet, 5 MG PO DAILY Y for MUSCLE SPASMS, TAB 07/28/14 Bisacodyl* (Dulcolax*) 5 Mg Tablet.dr, 10 MG PO DAILY Y for CONSTIPATION, TAB 07/28/14 Docusate Sodium* (Colace*) 50 Mg Capsule, 100 MG PO BID 07/29/13 Famotidine* (Famotidine*) 10 Mg Tablet, 20 MG PO DAILY 12/20/12 Discontinued Scripts Diphenoxylate Hcl-Atropine* (Lomotil*) 1 Tab Tab, 1 TAB PO Q6H Y for DIARRHEA, # 10 TAB Prov:AHMET MILLARD 04/09/15 Clonidine Hcl* (Clonidine Hcl*) 0.1 Mg Tab, 0.1 MG PO Q6, #10 TAB Take one tablet by mouth if systolic blood pressure greater then 150mmHg. Prov:AHMET MILLARD 04/09/15 Follow-up Plan follow up with general surgery within 1-2 weeks follow up with PCP for renal CT given cyst on CT A/P. This was communicated to patient and prior to discharge and a copy of CT was provided Primary Care Provider Jackelin Molina DO Time spent on discharge: > 30 minutes Pending Labs Laboratory Tests Test 07/17/16 04:20 White Blood Count 9.910^3/ul (4.8-10.8) Red Blood Count 3.0610^6/ul (4.70-6.10) Hemoglobin 10.0g/dl (14.0-18.0) Hematocrit 30.3% (42.0-52.0) Mean Corpuscular Volume 99.0fl (82.0-101.0) Mean Corpuscular Hemoglobin 32.7pg (29.0-33.0) Mean Corpuscular Hemoglobin Concent 33.0g/dl (32.0-37.0) Red Cell Distribution Width 13.1% (11.5-14.5) Platelet Count 45297^3/UL (140-415) Mean Platelet Volume 10.1fl (7.4-10.4) Neutrophils % 74.2% (39.0-77.0) Lymphocytes % 13.8% (15.0-51.0) Monocytes % 9.3% (0.0-11.0) Eosinophils % 2.1% (0.0-7.0) Basophils % 0.2% (0.0-2.0) Nucleated Red Blood Cells % 0.0/100WBC (0.0-0.0) Neutrophils # 7.410^3/ul (1.6-7.5) Lymphocytes # 1.410^3/ul (0.8-2.9) Monocytes # 0.910^3/ul (0.3-0.9) Eosinophils # 0.210^3/ul (0.0-0.5) Basophils # 0.010^3/ul (0.0-0.1) Nucleated Red Blood Cells # 0.010^3/ul (0.0-0.0) Sodium Level 138mmol/L (135-144) Potassium Level 4.8mmol/L (3.5-5.1) Chloride Level 108mmol/L (97-110) Carbon Dioxide Level 25mmol/L (21-31) Anion Gap 10 (8-16) Blood Urea Nitrogen 20mg/dl (7-20) Creatinine 1.91mg/dl (0.61-1.24) Glucose Level 122mg/dl (70-220) Calcium Level 9.2mg/dl (8.4-10.2) KITA SEGAL MD July 17, 2016 15:08
--- NOTE | 2016-07-17 18:58 | PN ---
Date/Time of Note Date/Time of Note DATE: 07/17/16 TIME: 18:53 Assessment/Plan Lines/Catheters IV Catheter Type (from [facility]): Saline Lock Romero in Place (from [facility]): No Assessment/Plan Chief Complaint/Hosp Course 1. Left perirectal abscess s/p I&D 529 -antibiotics -warm compress/sitz baths -local care -vit c -nutritional optimization 2. Positive urinalysis, possible urinary tract infection. The patient is already on antibiotics. 3. Anemia without evidence of acute blood loss. Continue monitoring. Will eventually need colonoscopy and further workup. 4. Dysrhythmia. On pacemaker. 5. History of stroke. Continue medical and cardiac optimization. 6. Diabetes. Continue nutrition and medication control. 7. Hypertension. Continue medication and nutrition control. 8. Renal insufficiency. Continue judicious fluid management and avoid nephrotoxic agents. Thank you Late entry Problems: Subjective 24 Hr Interval Summary s/p I&D 07/16. Min pain. No f/c. No n/v. No cp/sob. No cough. No baum/dizzy/ visual or neuro changes. No dysuria. Exam/Review of Systems Vital Signs Vitals Vital Signs Date Time Temp Pulse Resp B/P Pulse Ox O2 Delivery O2 Flow Rate FiO2 07/17/16 13:15 60 123/60 07/17/16 07:31 98.0 19 98 07/16/16 15:00 Room Air Intake and Output 07/16/16 07/16/16 07/17/16 15:00 23:00 07:00 Intake Total 450 ml 800 ml 600 ml Output Total 360 ml 900 ml 500 ml Balance 90 ml -100 ml 100 ml Exam Free Text/Dictation GENERAL: No acute distress, pleasant today HEENT: Pupils equal, reactive. No scleral icterus. Mucous membranes are moist. Nasal deformity. NECK: Supple. Minimal JVD. PULMONARY: Normal respiratory effort. No wheezing. CARDIAC: S1, S2 present. ABDOMEN: Soft, nontender. Positive ventral umbilical reducible hernia. EXTREMITIES: No edema. VASCULAR: Capillary refill less than 2 seconds. NEUROLOGIC: Alert, however somewhat confused to full date but moves extremities grossly. SKIN: No rashes. No jaundice. LYMPHATICS: No inguinal, cervical lymphadenopathy. RECTAL: Left perianal wound with packing. External hemorrhoids. No blood noticed. Results Result Diagram: 07/17/16 0420 07/17/16 0420 REGULO JACQUES MD July 17, 2016 18:58
== END 2016-07-17 18:23 | disposition home health service (06) | DRG 345 ==
LOC: E/R 08:56 → MS1 11:38
PROVIDERS: ADMIT Hospitalist; ATTEND Hospitalist
PROC: 0D9P0ZZ Drainage of Rectum, Open Approach (ICD-10-PCS; principal; 2016-07-16 08:00)
DX: K61.1 Rectal abscess (principal); N17.9 Acute kidney failure, unspecified; E11.22 Type 2 diabetes mellitus with diabetic chronic kidney disease; I13.0 Hypertensive heart and chronic kidney disease with heart failure and stage 1 through stage 4 chronic kidney disease, or unspecified chronic kidney disease; I50.9 Heart failure, unspecified; I69.954 Hemiplegia and hemiparesis following unspecified cerebrovascular disease affecting left non-dominant side; D64.9 Anemia, unspecified; F17.210 Nicotine dependence, cigarettes, uncomplicated; Z95.0 Presence of cardiac pacemaker; N18.9 Chronic kidney disease, unspecified; E78.5 Hyperlipidemia, unspecified; K57.90 Diverticulosis of intestine, part unspecified, without perforation or abscess without bleeding; R29.2 Abnormal reflex; N30.90 Cystitis, unspecified without hematuria
CPT/HCPCS: 36415; 74176; 80048; 80053; 80061; 81001; 83036; 83690; 83735; 84100; 84436; 84443; 84479; 85025; 85610; 85730; 87070; 87086; 96374; 96375; J2250; J2270; J2274; J2370; J2405; J2543; J3370; J7030

== ENCOUNTER 2017-05-27 08:32 | Emergency (ER) | END 2017-05-27 10:06 | disposition home or self-care (01) ==

== ENCOUNTER 2018-04-15 07:33 | Observation (INO) | payer MEDICARE, MEDICAID ==
[~2018-04-15] VITALS: Ht 172.7 cm; Wt 75.3 kg
[~2018-04-15 07:33] MED LIST changes: -ALEN70TA30 PO; +ALEN70TA5 PO; +AMOX1TAB10 PO; +ASPI-831 PO; -ASPI81TA3 PO; +BEN50 PO; +BIMA2.5D BOTH EYES; -BISA-57 PO; +CALC0.255 PO; -CLON-379 PO; +CLON0.2T5 PO; +COMBIG5 BOTH EYES; -CYCL5TAB PO; -DIPH1TAB25 PO; +DOCU100C59 PO; -DOCU50CA4 PO; +ERGO500013 PO; -FAMO10TA84 PO; +FAMO20TA18 PO; +FURO-109 PO; +KETO5DRO71 OP; -LORA10CA PO; +OMEP40CA6 PO; +PRED20TA PO; -VALS320T11 PO; +VALS320T2 PO; +[UNRECOGNIZED DRUG - CODE] PO
[2018-04-15] MEDS ORDERED: ASPIRIN 81 MG TAB PO STA (07:56)
[2018-04-15] MEDS ORDERED: NITROGLYCERIN 2% 1 GM OINT PKT TD STA (07:56)
[2018-04-15] MEDS ORDERED: NITROGLYCERIN (SL) 0.4 MG TAB SL PRN ×2 (08:00→12:00)
[2018-04-15] MEDS ORDERED: FER325 PO (09:18)
[2018-04-15] MEDS ORDERED: DOCU-159 PO (09:19)
[2018-04-15] MEDS ORDERED: DONE5TAB7 PO (09:19)
[2018-04-15] MEDS ORDERED: FEBU40TA PO (09:20)
[2018-04-15] MEDS ORDERED: DIFL5DRO BOTH EYES (09:21)
[2018-04-15] MEDS ORDERED: ACETAMINOPHEN 325 MG TAB PO PRN ×2 (10:00→12:00)
[2018-04-15] MEDS ORDERED: ONDANSETRON 4 MG INJ IV PRN ×2 (10:00→12:00)
--- NOTE | 2018-04-15 11:29 | ERD ---
ER Documentation Chief Complaint Chief Complaint C/O CP SINCE THIS MORNING, ON AND OFF PALPITATION, HARD TO WALK, USING CANE HPI Patient is an 82-year-old male with a stroke and hypertension who presents with chest pain. It started this morning. He has had 3 episodes of chest pain that lasted 3-4 minutes apiece. He also has pain in his hands and legs. He has had no treatment as of yet. Upon review of old medical records the patient has multiple visits for various complaints. His primary doctor is Dr. Molina. ROS All systems reviewed and are negative except as per history of present illness. Medications Home Meds Reported Medications Difluprednate (Durezol) 5 Ml Drops, 1 DROP BOTH EYES QID, BOTTLE 04/15/18 Febuxostat* (Uloric*) 40 Mg Tablet, 40 MG PO QHS, TAB 04/15/18 Donepezil* (Donepezil*) 5 Mg Tablet, 5 MG PO DAILY, #30 TAB 04/15/18 Docusate Sodium* (Docusate Sodium*) 100 Mg Capsule, 100 MG PO TID, #30 CAP 04/15/18 Ferrous Sulfate* (Ferrous Sulfate*) 325 Mg Tabec, 325 MG PO TID, TAB 04/15/18 Bimatoprost* (Lumigan*) 0.01%-2.5 Ml Opht Drops, 1 DROP BOTH EYES HS, EA 07/15/16 Clonidine Hcl* (Clonidine Hcl*) 0.2 Mg Tablet, 0.2 MG PO TID PRN for ELEVATED BLOOD PRESSURE, TAB 07/15/16 Calcitriol* (Rocaltrol*) 0.25 Mcg Capsule, 0.25 MCG PO FIVE TIMES WEEKLY, CAP 07/15/16 Furosemide* (Lasix*) 40 Mg Tablet, 60 MG PO DAILY, TAB 07/15/16 Famotidine* (Famotidine*) 20 Mg Tablet, 20 MG PO DAILY, #30 TAB 07/15/16 Alendronate Sodium* (Fosamax*) 70 Mg Tablet, 70 MG PO ON SATURDAYS, TAB 07/28/14 Amlodipine Besylate* (Amlodipine Besylate*) 10 Mg Tablet, 10 MG PO HS, TAB 07/29/13 Aspirin (Aspirin) 81 Mg Chew, 81 MG PO DAILY 12/20/12 Valsartan* (Diovan*) 320 Mg Tablet, 320 MG PO DAILY 12/20/12 Simvastatin (Simvastatin) 20 Mg Tablet, 20 MG PO HS 12/20/12 Atenolol* (Atenolol*) 50 Mg Tablet, 50 MG PO DAILY 12/20/12 Discontinued Reported Medications Brimonidine/Timolol* (Combigan*) 5 Ml Drops, 1 DROP BOTH EYES BID, BOTTLE 07/15/16 Sodium Polystyrene Sulfonate (Sodium Polystyrene Sulfonate Powder) 454 Gm Powder, 2 TSP PO DAILY, EA 07/15/16 Ergocalciferol (Vitamin D2) (VITAMIN D2) 50,000 Unit Capsule, 16486 UNIT PO every saturday, CAP 07/15/16 Omeprazole* (Omeprazole*) 40 Mg Capsule.dr, 40 MG PO DAILY, #30 CAP 07/15/16 Discontinued Scripts Ketotifen Fumarate (ZADITOR) 5 Ml Drops, 1 DROP OP Q12 PRN for it, #1 BOTTLE Prov:CHERI العلي. STILL OPERATOR GIN 05/27/17 Diphenhydramine Hcl* (Benadryl*) 50 Mg Cap, 50 MG PO Q6H PRN for ITCHING/RASH, #30 CAP Prov:CHERI العلي. STILL OPERATOR GIN 05/27/17 Prednisone* (Prednisone*) 20 Mg Tab, 60 MG PO DAILY for 3 Days, TAB Prov:CHERI العلي STILL OPERATOR GIN 05/27/17 Amoxicillin/Potassium Clav (Amox-Clav 875-125 mg Tablet) 875-125 mg Tab, 875 MG PO BID for 4 Days, #8 TAB Prov:KITA SEGAL MD 07/17/16 Allergies Allergies: Coded Allergies: epoetin kayley (Verified Allergy, Severe, ITCHING AND FACE SWELLING, 04/15/18) PER PT AND PMhx/Soc History of Surgery: Yes (BACK SURGERY 2011) Anesthesia Reaction: No Hx Neurological Disorder: No Hx Respiratory Disorders: No Hx Cardiac Disorders: Yes (HTN, HYPERLIPIDEMIA) Hx Psychiatric Problems: No Hx Miscellaneous Medical Probl: Yes (Chronic kidney disease, gout) Hx Alcohol Use: No Hx Substance Use: No Hx Tobacco Use: Yes (2 a day) Smoking Status: Current every day smoker FmHx Family History: No coronary disease Physical Exam Vitals Vital Signs Date Temp Pulse Resp B/P (MAP) Pulse Ox O2 O2 Flow FiO2 Time Delivery Rate 04/15/18 63 18 125/109 100 Room Air 11:20 (114) 04/15/18 63 18 162/82 100 Room Air 08:20 (108) 04/15/18 97.9 88 18 177/76 100 07:38 (109) Physical Exam Const: No acute distress Head: Atraumatic Eyes: Normal Conjunctiva ENT: Normal External Ears, Nose and Mouth. Neck: Full range of motion. No meningismus. Resp: Clear to auscultation bilaterally Cardio: Regular rate and rhythm, no murmurs Abd: Soft, non tender, non distended. Normal bowel sounds Skin: No petechiae or rashes Back: No midline or flank tenderness Ext: No cyanosis, or edema Neur: Awake and alert Psych: Normal Mood and Affect Result Diagram: 04/15/18 0832 04/15/18 0832 Results 24 hrs Laboratory Tests Test 04/15/18 08:32 White Blood Count 7.7 10^3/ul Red Blood Count 3.17 10^6/ul Hemoglobin 10.3 g/dl Hematocrit 31.4 % Mean Corpuscular Volume 99.1 fl Mean Corpuscular Hemoglobin 32.5 pg Mean Corpuscular Hemoglobin Concent 32.8 g/dl Red Cell Distribution Width 12.8 % Platelet Count 192 10^3/UL Mean Platelet Volume 9.6 fl Immature Granulocytes % 0.500 % Neutrophils % 75.4 % Lymphocytes % 16.4 % Monocytes % 6.4 % Eosinophils % 1.0 % Basophils % 0.3 % Nucleated Red Blood Cells % 0.0 /100WBC Immature Granulocytes # 0.040 10^3/ul Neutrophils # 5.8 10^3/ul Lymphocytes # 1.3 10^3/ul Monocytes # 0.5 10^3/ul Eosinophils # 0.1 10^3/ul Basophils # 0.0 10^3/ul Nucleated Red Blood Cells # 0.0 10^3/ul Sodium Level 143 mmol/L Potassium Level 4.9 mmol/L Chloride Level 108 mmol/L Carbon Dioxide Level 26 mmol/L Anion Gap 9 Blood Urea Nitrogen 36 mg/dl Creatinine 2.81 mg/dl Est Glomerular Filtrat Rate mL/min mL/min Glucose Level 112 mg/dl Calcium Level 10.7 mg/dl Troponin I 0.015 ng/ml Current Medications Medications Dose Sig/Belkis Start Time Status Last (Trade) Ordered Route PRN Stop Time Admin Dose Reason Admin Aspirin 162 mg ONCE STAT 04/15/18 DC 04/15/18 (Aspirin) PO 07:56 08:36 04/15/18 07:57 1 inch ONCE STAT 04/15/18 DC 04/15/18 Nitroglycerin TD 07:56 08:39 04/15/18 07:57 (Nitroglyceri n 2% Oint) 1 tab Q5M UP TO 3 04/15/18 04/15/18 Nitroglycerin DOSES PRN 08:00 08:35 SL .CHEST (Nitroglyceri PAIN n (Sl Tab) 0.4 Mg) Ondansetron 4 mg ER BRIDGE 04/15/18 HCl (Zofran PRN IV 10:00 Inj) NAUSEA/VOMITI 04/16/18 09:59 NG 650 mg ER BRIDGE 04/15/18 Acetaminophen PRN PO 10:00 (Tylenol .MILD PAIN 04/16/18 09:59 Tab) 1-3 OR TEMP Procedures/MDM EKG read by me: Rate/Rhythm: Regular rate and rhythm at a normal rate Intervals: Normal Impression: No evidence of ischemia or arrhythmia Chest x-ray read by radiology. Smoking Cessation Therapy: Pt. was lectured for greater than 3 minutes on the health risks of continued smoking and the benefits of cessation. Patient is an 82-year-old male with multiple cardiac risk factors including smoking who presents with chest pain. I am concerned for possible acute coronary syndrome. I doubt pneumonia, pneumothorax, pulmonary embolism, or aortic dissection. The patient will be admitted to the care of the panel team to a telemetry observation bed. Initial troponin is within normal limits. Patient was given aspirin and nitroglycerin. Departure Diagnosis: Primary Impression: Chest pain Chest pain type: unspecified Qualified Codes: R07.9 - Chest pain, unspecified Condition: LATOSHA Navarro MD Apr 15, 2018 11:29
--- NOTE | 2018-04-15 11:43 | HP ---
Date/Time of Note Date/Time of Note DATE: 04/15/18 TIME: 11:43 Assessment/Plan VTE Prophylaxis SCD applied (from Nsg): Yes Pharmacological prophylaxis: heparin Lines/Catheters IV Catheter Type (from Nrsg): Saline Lock Assessment/Plan Hospital Course SUBJECTIVE: Seen and evaluated patient in ER room 8. Currently no chest pain, p alpitation, or other distress. OBJECTIVE: Vital signs-see below PHYSICAL EXAM: Constitutional: Well-developed, adequately built, lying in bed comfortably. Psych: nl mood/affect, no complaints Head: atraumatic, normocephalic Eyes: nl conjunctiva, nl sclera ENMT: mucosa pink and moist, nl external ears & nose Neck: non-tender, supple Respiratory: clear to auscultation, normal air movement Cardiovascular: +Pacemaker. nl pulses, regular rate and rhythm Gastrointestinal: non-tender, soft, bowel sounds active in all 4 quadrants. Musculoskeletal/extremities: nl extremities to inspection, motor strength equal bilaterally, no focal deficit. Normal pulses,no cyanosis, no edema. Neurological: Alert oriented 3,nl speech, nl strength Skin: nl turgor ASSESSMENT/PLAN: 82-year-old male with a history of congestive heart failure, pacemaker placed, dyslipidemia, hypertension, gouty arthritis, here with sudden onset of chest pain w/ palpitation woke him up from bed this morning at 4:40 AM. 1. Chest pain w/high risk factor, rule out acute coronary syndrome. -Serial EKG,Follow cardiac enzymes, ECHO if not done within 6 mos -Morphine for pain control -Continue ASA, NTG SL PRN, O2 if indicated -Cardiology consult -Get lipid profile,A1C and TSH levels in am. 2. Acute kidney injury on likely CKD. Baseline creatinine unknown. -Obtain renal ultrasound -In the setting of heart failure, will hold off to hydration. -Avoid nephrotoxins -Nephrology consult and monitor renal function closely. 3. Congestive heart failure, pacemaker placed -Resume medical management. Currently appears compensated. -We will follow up echocardiogram 4. Iron deficient anemia -Stable H&H. Resume oral iron. 5. Hypertension, suboptimally controlled -Resume home medications will adjust dose as needed. 6. Dyslipidemia -Resume statin 7. Gouty Arthritis -Resume home medications DVT prophylaxis: Heparin PUD prophylaxis: Pepcid CODE STATUS: Full code Diet: Low-cholesterol/low-fat diet. Rest of the management depend on hospital course. Approximately 60 m spent on this history and physical. Patient was seen in collaboration with Result Diagram: 04/15/18 0832 04/15/18 0832 Results 24hrs Laboratory Tests Test 04/15/18 08:32 White Blood Count 7.7 # Red Blood Count 3.17 L Hemoglobin 10.3 L Hematocrit 31.4 L Mean Corpuscular Volume 99.1 Mean Corpuscular Hemoglobin 32.5 Mean Corpuscular Hemoglobin Concent 32.8 Red Cell Distribution Width 12.8 Platelet Count 192 # Mean Platelet Volume 9.6 Immature Granulocytes % 0.500 H Neutrophils % 75.4 Lymphocytes % 16.4 Monocytes % 6.4 Eosinophils % 1.0 Basophils % 0.3 Nucleated Red Blood Cells % 0.0 Immature Granulocytes # 0.040 H Neutrophils # 5.8 Lymphocytes # 1.3 Monocytes # 0.5 Eosinophils # 0.1 Basophils # 0.0 Nucleated Red Blood Cells # 0.0 Sodium Level 143 Potassium Level 4.9 Chloride Level 108 Carbon Dioxide Level 26 Anion Gap 9 Blood Urea Nitrogen 36 H Creatinine 2.81 H Est Glomerular Filtrat Rate mL/min Glucose Level 112 Calcium Level 10.7 H Troponin I 0.015 HPI/ROS Admit Date/Time Admit Date/Time Hx of Present Illness This is a 82-year-old male with a past medical history of CVA, congestive heart failure, status post pacemaker placed, dyslipidemia, hypertension, arthritis, iron deficiency anemia, gouty arthritis, tobacco use, CKD, admitted with sudden onset of substernal chest pain associated with palpitation, woke patient up from bed this morning at 4:45 AM. Patient again had one more episode of chest pain around 5:30 AM. He denied nausea, vomiting, abdominal pain, diaphoresis, loss of consciousness, dizziness, numbness, tingling, speech difficulties, vision c hanges, fever, chills, cough or other constitutional symptoms. In the emergency room, initial labs showed hemoglobin 10.3, hematocrit 31.4, BUN 36, creatinine 2.81. Chest x-ray showed no acute cardiopulmonary disease, there is a left-sided dual-chamber cardiac pacemaker.On arrival patient had a blood pressure 177/76. In ER: Aspirin 162 mg, nitro 1 inch patch. Patient was admitted to rule out A CS. ROS 12 point review of system was assessed and is negative other than what is mentioned in the HPI. PMH/Family/Social Past Medical History See HPI Medications Current Medications Nitroglycerin (Nitroglycerin (Sl Tab) 0.4 Mg) 1 tab Q5M UP TO 3 DOSES PRN SL .CHEST PAIN Last administered on 04/15/18at 08:35; Admin Dose 1 TAB; Start 04/15/18 at 08:00 Ondansetron HCl (Zofran Inj) 4 mg ER BRIDGE PRN IV NAUSEA/VOMITING; Start 04/15/18 at 10:00; Stop 04/16/18 at 09:59 Acetaminophen (Tylenol Tab) 650 mg ER BRIDGE PRN PO .MILD PAIN 1-3 OR TEMP; Start 04/15/18 at 10:00; Stop 04/16/18 at 09:59 Coded Allergies: epoetin kayley (Verified Allergy, Severe, ITCHING AND FACE SWELLING, 04/15/18) PER PT AND Past Surgical History See HPI Social History Current every day tobacco use 2 cigarettes/day. Denied alcohol or other subst ance abuse history. Smoking Status: Current every day smoker Exam/Review of Systems Vital Signs Vitals Vital Signs Date Temp Pulse Resp B/P (MAP) Pulse Ox O2 O2 Flow FiO2 Time Delivery Rate 04/15/18 63 18 125/109 100 Room Air 11:20 (114) 04/15/18 97.9 07:38 MIRANDA COLLINS NP Apr 15, 2018 11:43
--- NOTE | 2018-04-15 11:59 | CONS ---
Assessment/Plan Assessment/Plan Assessment/Plan (Daily) 1. acute Kidney injury vs progressively worsening CKD 2. acute chest pain 3. H/o CHF< acute on chronic 4. H/o HTN 5. H/o HL Plan: seen in ED, will follow up on Floor renal US to assess for Kidney size, to assess for hydronephrosis Urine Na, urine protein/cr ration, urine Eosinophils, CK total, Uric acid cardiology has been consulted for work up fo chest pain if pt needs procedure for work up of chest pain then please let me know. Thanks for consultation, i will continue to follow up Consultation Date/Type/Reason Admit Date/Time 04/15/2018 Date of Consultation: Apr 15, 2018 Type of Consult NEPHROLOGY Reason for Consultation acute vs acute on chronic renal failure Requesting Provider: MIRANDA COLLINS NP Date/Time of Note DATE: 04/15/18 TIME: 11:59 Hx of Present Illness 82-year-old male with a history of congestive heart failure, pacemaker placed, dyslipidemia, hypertension, gouty arthritis, here with sudden onset of chest pain w/ palpitation woke him up from bed today Morning, pt was noted to have BUN/Cr 36/2.81, Ca 10.7- Renal has been consulted for acute kidney injury on CKD and hypercalcemia no h/o kidney stone, no h/o kidney disease before as per family Constitutional: poor po Respiratory: pleuritic pain Cardiovascular: chest pain Gastrointestinal: no complaints Genitourinary: no complaints Musculoskeletal: no complaints Skin: no complaints Neurologic: no complaints Endocrine: no complaints Lymphatic: no complaints Psychological: no complaints Immunologic: no complaints Past Medical History Home Meds Reported Medications Difluprednate (Durezol) 5 Ml Drops, 1 DROP BOTH EYES QID, BOTTLE 04/15/18 Febuxostat* (Uloric*) 40 Mg Tablet, 40 MG PO QHS, TAB 04/15/18 Donepezil* (Donepezil*) 5 Mg Tablet, 5 MG PO DAILY, #30 TAB 04/15/18 Docusate Sodium* (Docusate Sodium*) 100 Mg Capsule, 100 MG PO TID, #30 CAP 04/15/18 Ferrous Sulfate* (Ferrous Sulfate*) 325 Mg Tabec, 325 MG PO TID, TAB 04/15/18 Bimatoprost* (Lumigan*) 0.01%-2.5 Ml Opht Drops, 1 DROP BOTH EYES HS, EA 07/15/16 Clonidine Hcl* (Clonidine Hcl*) 0.2 Mg Tablet, 0.2 MG PO TID PRN for ELEVATED BLOOD PRESSURE, TAB 07/15/16 Calcitriol* (Rocaltrol*) 0.25 Mcg Capsule, 0.25 MCG PO FIVE TIMES WEEKLY, CAP 07/15/16 Furosemide* (Lasix*) 40 Mg Tablet, 60 MG PO DAILY, TAB 07/15/16 Famotidine* (Famotidine*) 20 Mg Tablet, 20 MG PO DAILY, #30 TAB 07/15/16 Alendronate Sodium* (Fosamax*) 70 Mg Tablet, 70 MG PO ON SATURDAYS, TAB 07/28/14 Amlodipine Besylate* (Amlodipine Besylate*) 10 Mg Tablet, 10 MG PO HS, TAB 07/29/13 Aspirin (Aspirin) 81 Mg Chew, 81 MG PO DAILY 12/20/12 Valsartan* (Diovan*) 320 Mg Tablet, 320 MG PO DAILY 12/20/12 Simvastatin (Simvastatin) 20 Mg Tablet, 20 MG PO HS 12/20/12 Atenolol* (Atenolol*) 50 Mg Tablet, 50 MG PO DAILY 12/20/12 Discontinued Reported Medications Brimonidine/Timolol* (Combigan*) 5 Ml Drops, 1 DROP BOTH EYES BID, BOTTLE 07/15/16 Sodium Polystyrene Sulfonate (Sodium Polystyrene Sulfonate Powder) 454 Gm Powder, 2 TSP PO DAILY, EA 07/15/16 Ergocalciferol (Vitamin D2) (VITAMIN D2) 50,000 Unit Capsule, 65346 UNIT PO every saturday, CAP 07/15/16 Omeprazole* (Omeprazole*) 40 Mg Capsule.dr, 40 MG PO DAILY, #30 CAP 07/15/16 Discontinued Scripts Ketotifen Fumarate (ZADITOR) 5 Ml Drops, 1 DROP OP Q12 PRN for it, #1 BOTTLE Prov:CHERI العلي [employer] 05/27/17 Diphenhydramine Hcl* (Benadryl*) 50 Mg Cap, 50 MG PO Q6H PRN for ITCHING/RASH, #30 CAP Prov:CHERI العلي [employer] 05/27/17 Prednisone* (Prednisone*) 20 Mg Tab, 60 MG PO DAILY for 3 Days, TAB Prov:CHERI العلي NP 05/27/17 Amoxicillin/Potassium Clav (Amox-Clav 875-125 mg Tablet) 875-125 mg Tab, 875 MG PO BID for 4 Days, #8 TAB Prov:KITA SEGAL MD 07/17/16 Medications Current Medications Nitroglycerin (Nitroglycerin (Sl Tab) 0.4 Mg) 1 tab Q5M UP TO 3 DOSES PRN SL .CHEST PAIN Last administered on 04/15/18at 08:35; Admin Dose 1 TAB; Start 04/15/18 at 08:00 Ondansetron HCl (Zofran Inj) 4 mg ER BRIDGE PRN IV NAUSEA/VOMITING; Start 04/15/18 at 10:00; Stop 04/16/18 at 09:59 Acetaminophen (Tylenol Tab) 650 mg ER BRIDGE PRN PO .MILD PAIN 1-3 OR TEMP; Start 04/15/18 at 10:00; Stop 04/16/18 at 09:59 Alendronate Sodium (Fosamax) 70 mg Sa@0630 PO ; Start 04/19/18 at 06:30 Amlodipine Besylate (Norvasc) 10 mg HS PO ; Start 04/15/18 at 21:00 Aspirin (Aspirin) 81 mg DAILY PO ; Start 04/16/18 at 09:00 Atenolol (Tenormin) 50 mg DAILY PO ; Start 04/16/18 at 09:00 Bimatoprost (Lumigan 0.01% Oph) 1 drop HS BOTH EYES ; Start 04/15/18 at 21:00 Famotidine (Pepcid) 20 mg DAILY PO ; Start 04/16/18 at 09:00 IV Flush (NS 3 ml) 3 ml PER PROTOCOL IV ; Start 04/15/18 at 12:00 Ondansetron HCl (Zofran Inj) 4 mg Q6H PRN IV NAUSEA/VOMITING; Start 04/15/18 at 12:00 Acetaminophen (Tylenol Tab) 650 mg Q6H PRN PO .PAIN 1-3 OR TEMP; Start 04/15/18 at 12:00 Acetaminophen/ Hydrocodone Bitart ([place] (5/325)) 1 tab Q6H PRN PO .MOD PAIN 4- 6; Start 04/15/18 at 12:00 Heparin Sodium (Porcine) (Heparin (5000 Units/1ml)) 5,000 unit Q12 SC ; Start 04/15/18 at 21:00 Nitroglycerin (Nitroglycerin (Sl Tab) 0.4 Mg) 1 tab Q5M PRN SL ANGINA; Start 04/15/18 at 12:00 Allergies: Coded Allergies: epoetin kayley (Verified Allergy, Severe, ITCHING AND FACE SWELLING, 04/15/18) PER PT AND Social History Smoking Status: Current every day smoker Exam/Review of Systems Exam Vitals Vital Signs Date Temp Pulse Resp B/P (MAP) Pulse Ox O2 O2 Flow FiO2 Time Delivery Rate 04/15/18 63 18 125/109 100 Room Air 11:20 (114) 04/15/18 97.9 07:38 Exam Constitutional: alert, oriented Psych: nl mood/affect Head: normocephalic, atraumatic Eyes: nl conjunctiva, EOMI, nl lids, nl sclera ENMT: nl lips & teeth, nl nasal mucosa & septum, other (nose enlarged) Neck: supple; Respiratory: clear to auscultation, normal air movement Cardiovascular: regular rate and rhythm, nl pulses; Gastrointestinal: soft, nl liver, spleen, non-tender Musculoskeletal: nl extremities to inspection Extremities: normal pulses Neurological: nl mental status, nl speech, other (left hemiparesis) Results Result Diagram: 04/15/18 0832 04/15/18 0832 Results 24hrs Laboratory Tests Test 04/15/18 08:32 White Blood Count 7.7 # Red Blood Count 3.17 L Hemoglobin 10.3 L Hematocrit 31.4 L Mean Corpuscular Volume 99.1 Mean Corpuscular Hemoglobin 32.5 Mean Corpuscular Hemoglobin Concent 32.8 Red Cell Distribution Width 12.8 Platelet Count 192 # Mean Platelet Volume 9.6 Immature Granulocytes % 0.500 H Neutrophils % 75.4 Lymphocytes % 16.4 Monocytes % 6.4 Eosinophils % 1.0 Basophils % 0.3 Nucleated Red Blood Cells % 0.0 Immature Granulocytes # 0.040 H Neutrophils # 5.8 Lymphocytes # 1.3 Monocytes # 0.5 Eosinophils # 0.1 Basophils # 0.0 Nucleated Red Blood Cells # 0.0 Sodium Level 143 Potassium Level 4.9 Chloride Level 108 Carbon Dioxide Level 26 Anion Gap 9 Blood Urea Nitrogen 36 H Creatinine 2.81 H Est Glomerular Filtrat Rate mL/min Glucose Level 112 Calcium Level 10.7 H Troponin I 0.015 Medications Medication Current Medications Nitroglycerin (Nitroglycerin (Sl Tab) 0.4 Mg) 1 tab Q5M UP TO 3 DOSES PRN SL .C HEST PAIN Last administered on 04/15/18at 08:35; Admin Dose 1 TAB; Start 04/15/18 at 08:00 Ondansetron HCl (Zofran Inj) 4 mg ER BRIDGE PRN IV NAUSEA/VOMITING; Start 04/15/18 at 10:00; Stop 04/16/18 at 09:59 Acetaminophen (Tylenol Tab) 650 mg ER BRIDGE PRN PO .MILD PAIN 1-3 OR TEMP; Start 04/15/18 at 10:00; Stop 04/16/18 at 09:59 Alendronate Sodium (Fosamax) 70 mg Sa@0630 PO ; Start 04/19/18 at 06:30 Amlodipine Besylate (Norvasc) 10 mg HS PO ; Start 04/15/18 at 21:00 Aspirin (Aspirin) 81 mg DAILY PO ; Start 04/16/18 at 09:00 Atenolol (Tenormin) 50 mg DAILY PO ; Start 04/16/18 at 09:00 Bimatoprost (Lumigan 0.01% Oph) 1 drop HS BOTH EYES ; Start 04/15/18 at 21:00 Famotidine (Pepcid) 20 mg DAILY PO ; Start 04/16/18 at 09:00 IV Flush (NS 3 ml) 3 ml PER PROTOCOL IV ; Start 04/15/18 at 12:00 Ondansetron HCl (Zofran Inj) 4 mg Q6H PRN IV NAUSEA/VOMITING; Start 04/15/18 at 12:00 Acetaminophen (Tylenol Tab) 650 mg Q6H PRN PO .PAIN 1-3 OR TEMP; Start 04/15/18 at 12:00 Acetaminophen/ Hydrocodone Bitart ([place] (5/325)) 1 tab Q6H PRN PO .MOD PAIN 4- 6; Start 04/15/18 at 12:00 Heparin Sodium (Porcine) (Heparin (5000 Units/1ml)) 5,000 unit Q12 SC ; Start 04/15/18 at 21:00 Nitroglycerin (Nitroglycerin (Sl Tab) 0.4 Mg) 1 tab Q5M PRN SL ANGINA; Start 04/15/18 at 12:00 ABENA CARSON MD Apr 15, 2018 11:59
[2018-04-15] MEDS ORDERED: NACL 0.9% 3 ML SYG IV SCH (12:00)
[2018-04-15] MEDS ORDERED: HYDROCODONE/APAP (5/325) TAB PO PRN (12:00)
--- NOTE | 2018-04-15 14:41 | RADRPT ---
Echocardiogram Report Patient Name: NIRAJ CAMEJOPatient ID: [id number] : 1935 (82y 11m)Study Date: 04/15/2018 1:58:37 PM Gender: MAccession #: [id number] Tech: Vijay Dye RDCS Location: [facility] Ref.Physician: MIRANDA COLLINS Height(Cm): BSA: Weight(Kg): Quality: AdequateAccount #: Procedures: Echocardiographic Report: Transthoracic echocardiogram with complete 2D, M-Mode, and doppler examination. Indications: Chest Pain. Measurements: 2D/M Mode Doppler Measurement Value Normal Range Measurement Value Normal Range LVIDd 2D 4.1 [ 4.2 - 5.8 ] cm AV Peak Vishnu 1.7 [ 100.0 - 170.0 ] cm/sec LVIDs 2D 2.1 [ 2.5 - 4.0 ] cm AV Peak PG 11.0 [ 2.0 - 9.0 ] mmHg LVPWd 2D 1.4 [ 0.6 - 1.0 ] cm LVOT Peak Vishnu 1.1 [ 70.0 - 110.0 ] cm/sec IVSd 2D 1.4 [ 0.6 - 1.0 ] cm LVOT Peak PG 5.0 [ 2.0 - 6.0 ] mmHg IVS/LVPW 2D 1.1 ratio MV E Peak Vishnu 0.7 [ 60.0 - 130.0 ] cm/sec AoR Diam 2D 3.5 [ 2.6 - 3.4 ] cm MV A Peak Vishnu 1.1 [ 100.0 - 120.0 ] cm/sec LA/Ao 2D 1 ratio MV E/A 0.7 [ 0.8 - 1.5 ] ratio LA Dimen 2D 3.2 [ 3.0 - 4.0 ] cm MV Decel Time 352 [ 104 - 258 ] msec Lat E` Vishnu 0.1 [ 10.0 - 15.0 ] cm/sec MV E/A 0.7 [ 0.8 - 1.5 ] ratio TR Peak Vishnu 2.5 [ 100.0 - 280.0 ] cm/sec TR Peak PG 26.0 mmHg RVSP 29.0 [ 10.0 - 36.0 ] mmHg RA Pressure 3.0 mmHg Findings: Left Ventricle: Normal left ventricular systolic function. Normal left ventricular cavity size. Moderate concentric left ventricular hypertrophy. Ejection fraction is visually estimated at 65 %. Tissue Doppler/Mitral Doppler indices are consistent with impaired relaxation (Stage I diastolic dysfunction). Right Ventricle: Normal right ventricular size. Normal right ventricular systolic function. Linear artifact in right ventricle suggestive of catheter, pacer lead, or ICD lead. Left Atrium: The left atrium is normal in size. Right Atrium: The right atrium is normal in size. Mitral Valve: Mild mitral leaflet calcification. Mild mitral annular calcification. Trace mitral regurgitation. Aortic Valve: Aortic valve not well visualized. Aortic cusps appear mildly calcified. Tricuspid Valve: Normal appearance of the tricuspid valve. Estimated peak PA systolic pressure 29 mmHg. There is trace tricuspid regurgitation. Pulmonic Valve: Pulmonic valve not well visualized. Pericardium: Small pericardial effusion. Aorta: Normal aortic root. IVC: Normal size and normal respiratory collapse consistent with normal right atrial pressure. Conclusions: Fair quality study. Moderate concentric left ventricular hypertrophy with normal systolic function. Grade 1 diastolic dysfunction. Pacer wire in RV. Trace tricuspid regurgitaiton and normal pulmonary pressures. Trace mitral regurgitation. Small circumferential pericardial effusion. Electronically Signed By: Zulema Valdez 2018-04-15 14:41:23 PST
[2018-04-15 15:35] VITALS: BP 171/78; PULSE 61; RESP 19
[2018-04-15 16:00] VITALS: Ht 172.7 cm; Wt 75.3 kg
[2018-04-15 16:30] VITALS: BP 148/69
[2018-04-15 16:37] VITALS: PULSE 62
--- NOTE | 2018-04-15 17:41 | CONS ---
Assessment/Plan Assessment/Plan Hospital Course (Demo Recall) 82 yo with multiple medical problems, h/o CVA, pacer in place, who experienced a brief episode of chest pressure, palpitations, and dyspnea. Etiology unclear, troponins negative thus far. Impression: Chest pain/palpitations, unclear etiology H/o CVAs Chronic kidney disease stage 4 with ? acute renal insufficiency Tobacco abuse Recommendations: Tobacco cessation urged He should be on asa and statin, lipids to be checked Contacted Nader from [employer], device will be checked in the AM Continue asa, will start atorvastatin Consultation Date/Type/Reason Admit Date/Time 04/15/2018 Date of Consultation: Apr 15, 2018 Type of Consult Cardiology Reason for Consultation chest pain Requesting Provider: MIRANDA COLLINS NP Date/Time of Note DATE: 04/15/18 TIME: 17:26 Hx of Present Illness 82 yo with pacer, h/o multiple cva's, hypertension, ckd stage 4, presents with sudden onset around 4 am of chest pressure, palpitations, dyspnea and leg cramping, lasted for about 3-4 minutes, has not recurred. At present he feels fine. He gets around the home, uses a cane, but does not do regular exercise. He also smokes two cigarettes a day. He has a [employer] pacer, [place] [address] Whittaker, which was a generator change from [place] [address] Luna, patient has not seen a pipe fitter maintenance in 3 years and does not believe the device has been checked in more than 2 years. At baseline he is not limited by chest pain or dyspnea. Constitutional: no complaints Eyes: no complaints ENT: no complaints Respiratory: shortness of breath Cardiovascular: chest pain, palpitations Gastrointestinal: no complaints Genitourinary: no complaints Musculoskeletal: other (leg pain) Skin: no complaints Neurologic: no complaints Endocrine: no complaints Lymphatic: no complaints Psychological: no complaints Immunologic: no complaints Past Medical History Medical History: congestive heart failure, hypertension, renal disease Home Meds Reported Medications Difluprednate (Durezol) 5 Ml Drops, 1 DROP BOTH EYES QID, BOTTLE 04/15/18 Febuxostat* (Uloric*) 40 Mg Tablet, 40 MG PO QHS, TAB 04/15/18 Donepezil* (Donepezil*) 5 Mg Tablet, 5 MG PO DAILY, #30 TAB 04/15/18 Docusate Sodium* (Docusate Sodium*) 100 Mg Capsule, 100 MG PO TID, #30 CAP 04/15/18 Ferrous Sulfate* (Ferrous Sulfate*) 325 Mg Tabec, 325 MG PO TID, TAB 04/15/18 Bimatoprost* (Lumigan*) 0.01%-2.5 Ml Opht Drops, 1 DROP BOTH EYES HS, EA 07/15/16 Clonidine Hcl* (Clonidine Hcl*) 0.2 Mg Tablet, 0.2 MG PO TID PRN for ELEVATED BLOOD PRESSURE, TAB 07/15/16 Calcitriol* (Rocaltrol*) 0.25 Mcg Capsule, 0.25 MCG PO FIVE TIMES WEEKLY, CAP 07/15/16 Furosemide* (Lasix*) 40 Mg Tablet, 60 MG PO DAILY, TAB 07/15/16 Famotidine* (Famotidine*) 20 Mg Tablet, 20 MG PO DAILY, #30 TAB 07/15/16 Alendronate Sodium* (Fosamax*) 70 Mg Tablet, 70 MG PO ON SATURDAYS, TAB 07/28/14 Amlodipine Besylate* (Amlodipine Besylate*) 10 Mg Tablet, 10 MG PO HS, TAB 07/29/13 Aspirin (Aspirin) 81 Mg Chew, 81 MG PO DAILY 12/20/12 Valsartan* (Diovan*) 320 Mg Tablet, 320 MG PO DAILY 12/20/12 Simvastatin (Simvastatin) 20 Mg Tablet, 20 MG PO HS 12/20/12 Atenolol* (Atenolol*) 50 Mg Tablet, 50 MG PO DAILY 12/20/12 Discontinued Reported Medications Brimonidine/Timolol* (Combigan*) 5 Ml Drops, 1 DROP BOTH EYES BID, BOTTLE 07/15/16 Sodium Polystyrene Sulfonate (Sodium Polystyrene Sulfonate Powder) 454 Gm Powder, 2 TSP PO DAILY, EA 07/15/16 Ergocalciferol (Vitamin D2) (VITAMIN D2) 50,000 Unit Capsule, 01793 UNIT PO every saturday, CAP 07/15/16 Omeprazole* (Omeprazole*) 40 Mg Capsule.dr, 40 MG PO DAILY, #30 CAP 07/15/16 Discontinued Scripts Ketotifen Fumarate (ZADITOR) 5 Ml Drops, 1 DROP OP Q12 PRN for it, #1 BOTTLE Prov:CHERI العلي NP 05/27/17 Diphenhydramine Hcl* (Benadryl*) 50 Mg Cap, 50 MG PO Q6H PRN for ITCHING/RASH, #30 CAP Prov:CHERI العلي. [employer] 05/27/17 Prednisone* (Prednisone*) 20 Mg Tab, 60 MG PO DAILY for 3 Days, TAB Prov:CHERI العلي NP 05/27/17 Amoxicillin/Potassium Clav (Amox-Clav 875-125 mg Tablet) 875-125 mg Tab, 875 MG PO BID for 4 Days, #8 TAB Prov:KITA SEGAL MD 07/17/16 Medications Current Medications Nitroglycerin (Nitroglycerin (Sl Tab) 0.4 Mg) 1 tab Q5M UP TO 3 DOSES PRN SL . CHEST PAIN Last administered on 04/15/18at 08:35; Admin Dose 1 TAB; Start 04/15/18 at 08:00 Ondansetron HCl (Zofran Inj) 4 mg ER BRIDGE PRN IV NAUSEA/VOMITING; Start 04/15/18 at 10:00; Stop 04/16/18 at 09:59 Acetaminophen (Tylenol Tab) 650 mg ER BRIDGE PRN PO .MILD PAIN 1-3 OR TEMP; Start 04/15/18 at 10:00; Stop 04/16/18 at 09:59 Alendronate Sodium (Fosamax) 70 mg Sa@0630 PO ; Start 04/19/18 at 06:30 Amlodipine Besylate (Norvasc) 10 mg HS PO ; Start 04/15/18 at 21:00 Aspirin (Aspirin) 81 mg DAILY PO ; Start 04/16/18 at 09:00 Atenolol (Tenormin) 50 mg DAILY PO ; Start 04/16/18 at 09:00 Bimatoprost ([place] 0.01% Oph) 1 drop HS BOTH EYES ; Start 04/15/18 at 21:00 Famotidine (Pepcid) 20 mg DAILY PO ; Start 04/16/18 at 09:00 IV Flush (NS 3 ml) 3 ml PER PROTOCOL IV ; Start 04/15/18 at 12:00 Ondansetron HCl (Zofran Inj) 4 mg Q6H PRN IV NAUSEA/VOMITING; Start 04/15/18 at 12:00 Acetaminophen (Tylenol Tab) 650 mg Q6H PRN PO .PAIN 1-3 OR TEMP; Start 04/15/18 at 12:00 Acetaminophen/ Hydrocodone Bitart ([place] (5/325)) 1 tab Q6H PRN PO .MOD PAIN 4- 6; Start 04/15/18 at 12:00 Heparin Sodium (Porcine) (Heparin (5000 Units/1ml)) 5,000 unit Q12 SC ; Start 04/15/18 at 21:00 Nitroglycerin (Nitroglycerin (Sl Tab) 0.4 Mg) 1 tab Q5M PRN SL ANGINA; Start 04/15/18 at 12:00 Allergies: Coded Allergies: epoetin kayley (Verified Allergy, Severe, ITCHING AND FACE SWELLING, ) PER PT AND Past Surgical History Past Surgical Hx: other (pacemaker) Family History Significant Family History: no pertinent family hx Social History Smoking Status: Current every day smoker (2 cigarettes daily) Exam/Review of Systems Vital Signs Vitals Vital Signs Date Temp Pulse Resp B/P (MAP) Pulse Ox O2 O2 Flow FiO2 Time Delivery Rate 04/15/18 62 16:37 04/15/18 98.4 19 171/78 99 15:35 (109) 04/15/18 Room Air 15:04 Exam Constitutional: alert, oriented Psych: nl mood/affect Head: normocephalic, atraumatic Eyes: nl conjunctiva, EOMI, nl lids, nl sclera ENMT: nl lips & teeth, nl nasal mucosa & septum, other (nose enlarged) Neck: supple; No jvd, No bruits Respiratory: clear to auscultation, normal air movement Cardiovascular: regular rate and rhythm, nl pulses; No murmurs/extra sounds Gastrointestinal: soft, nl liver, spleen, non-tender Musculoskeletal: nl extremities to inspection Extremities: normal pulses Neurological: nl mental status, nl speech, other (left hemiparesis) Skin: nl turgor; No rash or lesions Labs Result Diagram: 04/15/18 0832 04/15/18 0832 Results 24hrs Laboratory Tests Test 04/15/18 08:32 04/15/18 13:54 04/15/18 14:50 White Blood Count 7.7 # Red Blood Count 3.17 L Hemoglobin 10.3 L Hematocrit 31.4 L Mean Corpuscular Volume 99.1 Mean Corpuscular Hemoglobin 32.5 Mean Corpuscular Hemoglobin Concent 32.8 Red Cell Distribution Width 12.8 Platelet Count 192 # Mean Platelet Volume 9.6 Immature Granulocytes % 0.500 H Neutrophils % 75.4 Lymphocytes % 16.4 Monocytes % 6.4 Eosinophils % 1.0 Basophils % 0.3 Nucleated Red Blood Cells % 0.0 Immature Granulocytes # 0.040 H Neutrophils # 5.8 Lymphocytes # 1.3 Monocytes # 0.5 Eosinophils # 0.1 Basophils # 0.0 Nucleated Red Blood Cells # 0.0 Sodium Level 143 Potassium Level 4.9 Chloride Level 108 Carbon Dioxide Level 26 Anion Gap 9 Blood Urea Nitrogen 36 H Creatinine 2.81 H Est Glomerular Filtrat Rate mL/min Glucose Level 112 Calcium Level 10.7 H Troponin I 0.015 0.012 Creatine Kinase 42 Creatine Kinase Index 1.9 Creatinine Kinase MB (Mass) 0.78 Urine Color YELLOW Urine Clarity CLEAR Urine pH 6.0 Urine Specific [place] 1.011 Urine Ketones NEGATIVE Urine Nitrite NEGATIVE Urine Bilirubin NEGATIVE Urine Urobilinogen NEGATIVE Urine Leukocyte Esterase NEGATIVE Urine Microscopic RBC 2 Urine Microscopic WBC 1 Urine Hemoglobin 1+ H Urine Random Creatinine 57.06 Urine Random Sodium 96 H Urine Protein/Creatinine Ratio 5.78 Urine Glucose 1+ H Urine Total Protein 330.0 H Imaging Imaging EKG shows NSR at 83 bpm, atrial pacing, RBBB, one vpc Echo shows NSR, concentric LVH, small pericardial effusion Medications Medications Current Medications Nitroglycerin (Nitroglycerin (Sl Tab) 0.4 Mg) 1 tab Q5M UP TO 3 DOSES PRN SL .CHEST PAIN Last administered on 04/15/18at 08:35; Admin Dose 1 TAB; Start 04/15/18 at 08:00 Ondansetron HCl (Zofran Inj) 4 mg ER BRIDGE PRN IV NAUSEA/VOMITING; Start 04/15/18 at 10:00; Stop 04/16/18 at 09:59 Acetaminophen (Tylenol Tab) 650 mg ER BRIDGE PRN PO .MILD PAIN 1-3 OR TEMP; Start 04/15/18 at 10:00; Stop 04/16/18 at 09:59 Alendronate Sodium (Fosamax) 70 mg Sa@0630 PO ; Start 04/19/18 at 06:30 Amlodipine Besylate (Norvasc) 10 mg HS PO ; Start 04/15/18 at 21:00 Aspirin (Aspirin) 81 mg DAILY PO ; Start 04/16/18 at 09:00 Atenolol (Tenormin) 50 mg DAILY PO ; Start 04/16/18 at 09:00 Bimatoprost ([place] 0.01% Oph) 1 drop HS BOTH EYES ; Start 04/15/18 at 21:00 Famotidine (Pepcid) 20 mg DAILY PO ; Start 04/16/18 at 09:00 IV Flush (NS 3 ml) 3 ml PER PROTOCOL IV ; Start 04/15/18 at 12:00 Ondansetron HCl (Zofran Inj) 4 mg Q6H PRN IV NAUSEA/VOMITING; Start 04/15/18 at 12:00 Acetaminophen (Tylenol Tab) 650 mg Q6H PRN PO .PAIN 1-3 OR TEMP; Start 04/15/18 at 12:00 Acetaminophen/ Hydrocodone Bitart ([place] (5/325)) 1 tab Q6H PRN PO .MOD PAIN 4- 6; Start 04/15/18 at 12:00 Heparin Sodium (Porcine) (Heparin (5000 Units/1ml)) 5,000 unit Q12 SC ; Start 04/15/18 at 21:00 Nitroglycerin (Nitroglycerin (Sl Tab) 0.4 Mg) 1 tab Q5M PRN SL ANGINA; Start 04/15/18 at 12:00 RAQUEL YOUNG Apr 15, 2018 17:37
[2018-04-15 18:59] VITALS: PULSE 166
[2018-04-15 19:23] VITALS: BP 160/77; PULSE 84; RESP 18
[2018-04-15 20:00] VITALS: PULSE 65
[2018-04-15] MEDS ORDERED: AMLODIPINE 10 MG TAB PO SCH (21:00)
[2018-04-15] MEDS ORDERED: ATORVASTATIN 20 MG TAB PO SCH (21:00)
[2018-04-15] MEDS ORDERED: BIMATOPROST 0.01% 2.5 ML BTL BOTH EYES SCH (21:00)
[2018-04-15] MEDS ORDERED: FAMOTIDINE 20 MG TAB PO SCH (21:00)
[2018-04-15] MEDS: METOPROLOL (XL) 100 MG TAB PO SCH (21:36)
[2018-04-15] MEDS: HEPARIN 5,000 UNIT/1 ML VIAL SC SCH (21:54)
[2018-04-16] VITALS (7 sets, daily range): BP systolic 139–177; BP diastolic 64–78; PULSE 61–84; RESP 18–19
[2018-04-16] MEDS: METOPROLOL (XL) 100 MG TAB PO SCH (08:16)
[2018-04-16] MEDS: HEPARIN 5,000 UNIT/1 ML VIAL SC SCH (08:21)
[2018-04-16] MEDS ORDERED: ASPIRIN 81 MG TAB PO SCH (09:00)
[2018-04-16] MEDS ORDERED: ATENOLOL 50 MG TAB PO SCH (09:00)
[2018-04-16] MEDS ORDERED: FAMOTIDINE 20 MG TAB PO SCH (09:00)
--- NOTE | 2018-04-16 09:13 | CONS ---
Assessment/Plan Assessment/Plan Assessment/Plan (Daily) 1. acute Kidney injury vs progressively worsening CKD 2. acute chest pain 3. H/o CHF< acute on chronic 4. H/o HTN 5. H/o HL Plan: BUN/Cr 31/2.76, BP has been stable US renal c/w Medical renal disease ok to d/c with outpatient renal follow up Consultation Date/Type/Reason Admit Date/Time Apr 15, 2018 at 09:36 Initial Consult Date 04/15/18 Type of Consult NEPHROLOGY Requesting Provider: MIRANDA COLLINS NP Date/Time of Note DATE: 04/16/18 TIME: 09:13 Exam/Review of Systems Exam Vitals Vital Signs Date Temp Pulse Resp B/P (MAP) Pulse Ox O2 O2 Flow FiO2 Time Delivery Rate 04/16/18 64 08:26 04/16/18 155/74 08:22 (101) 04/16/18 98.4 18 98 07:17 04/15/18 Room Air 15:04 Intake and Output 04/15/18 04/15/18 04/16/18 1515:00 23:00 07:00 IntakeIntake Total 240 ml BalanceBalance 240 ml Exam Constitutional: alert, oriented Respiratory: clear to auscultation, normal air movement Cardiovascular: regular rate and rhythm, nl pulses; Gastrointestinal: soft, nl liver, spleen, non-tender Musculoskeletal: nl extremities to inspection Extremities: normal pulses Neurological: awake, alert Results Result Diagram: 04/16/18 0606 04/16/18 0606 Results 24hrs Laboratory Tests Test 04/15/18 13:54 04/15/18 14:50 04/15/18 19:43 04/16/18 06:06 Creatine Kinase 42 53 54 Creatine Kinase 1.9 1.7 Index Creatinine Kinase MB 0.78 0.89 (Mass) Troponin I 0.012 < 0.012 Urine Color YELLOW Urine Clarity CLEAR Urine pH 6.0 Urine Specific 1.011 [place] Urine Ketones NEGATIVE Urine Nitrite NEGATIVE Urine Bilirubin NEGATIVE Urine Urobilinogen NEGATIVE Urine Leukocyte NEGATIVE Esterase Urine Microscopic 2 RBC Urine Microscopic 1 WBC Urine Eosinophils % 0.0 Urine Hemoglobin 1+ H Urine Random 57.06 Creatinine Urine Random Sodium 96 H Urine 5.78 Protein/Creatinine Ratio Urine Glucose 1+ H Urine Total Protein 330.0 H White Blood Count 7.0 Red Blood Count 3.02 L Hemoglobin 10.1 L Hematocrit 29.7 L Mean Corpuscular 98.3 Volume Mean Corpuscular 33.4 H Hemoglobin Mean Corpuscular 34.0 Hemoglobin Concent Red Cell 12.6 Distribution Width Platelet Count 194 Mean Platelet Volume 10.0 Immature 0.400 Granulocytes % Neutrophils % 59.0 Lymphocytes % 30.3 Monocytes % 8.0 Eosinophils % 2.0 Basophils % 0.3 Nucleated Red Blood 0.0 Cells % Immature 0.030 Granulocytes # Neutrophils # 4.2 Lymphocytes # 2.1 Monocytes # 0.6 Eosinophils # 0.1 Basophils # 0.0 Nucleated Red Blood 0.0 Cells # Sodium Level 141 Potassium Level 4.5 Chloride Level 108 Carbon Dioxide Level 26 Anion Gap 7 Blood Urea Nitrogen 31 H Creatinine 2.76 H Est Glomerular Filtrat Rate mL/min Glucose Level 94 Hemoglobin A1c 5.3 Uric Acid 5.0 Calcium Level 10.1 Phosphorus Level 3.7 Magnesium Level 1.8 Total Bilirubin 0.1 L Direct Bilirubin 0.00 Indirect Bilirubin 0.1 Aspartate Amino 21 Transf (AST/SGOT) Alanine 20 Aminotransferase (AL T/SGPT) Alkaline Phosphatase 74 Total Protein 7.0 Albumin 3.8 Globulin 3.20 Albumin/Globulin 1.18 Ratio Triglycerides Level 100 Cholesterol Level 111 LDL Cholesterol, 48 Calculated HDL Cholesterol 43 Cholesterol/HDL 2.5 Ratio Thyroid Stimulating 1.240 Hormone (TSH) Medications Medication Current Medications Nitroglycerin (Nitroglycerin (Sl Tab) 0.4 Mg) 1 tab Q5M UP TO 3 DOSES PRN SL .CHEST PAIN Last administered on 04/15/18at 08:35; Admin Dose 1 TAB; Start 04/15/18 at 08:00 Alendronate Sodium (Fosamax) 70 mg Sa@0630 PO ; Start 04/19/18 at 06:30 Amlodipine Besylate (Norvasc) 10 mg HS PO Last administered on 04/15/18at 21:36; Admin Dose 10 MG; Start 04/15/18 at 21:00 Aspirin (Aspirin) 81 mg DAILY PO Last administered on 04/16/18at 08:14; Admin Dose 81 MG; Start 04/16/18 at 09:00 Bimatoprost (Lumigan 0.01% Oph) 1 drop HS BOTH EYES Last administered on 04/15/18at 21:37; Admin Dose 1 DROP; Start 04/15/18 at 21:00 Famotidine (Pepcid) 20 mg DAILY PO Last administered on 04/16/18at 08:14; Admin Dose 20 MG; Start 04/16/18 at 09:00 IV Flush (NS 3 ml) 3 ml PER PROTOCOL IV ; Start 04/15/18 at 12:00 Ondansetron HCl (Zofran Inj) 4 mg Q6H PRN IV NAUSEA/VOMITING; Start 04/15/18 at 12:00 Acetaminophen (Tylenol Tab) 650 mg Q6H PRN PO .PAIN 1-3 OR TEMP; Start 04/15/18 at 12:00 Acetaminophen/ Hydrocodone Bitart ([place] (5/325)) 1 tab Q6H PRN PO .MOD PAIN 4- 6; Start 04/15/18 at 12:00 Heparin Sodium (Porcine) (Heparin (5000 Units/1ml)) 5,000 unit Q12 SC Last administered on 04/16/18at 08:21; Admin Dose 5,000 UNIT; Start 04/15/18 at 21:00 Nitroglycerin (Nitroglycerin (Sl Tab) 0.4 Mg) 1 tab Q5M PRN SL ANGINA; Start 04/15/18 at 12:00 Atorvastatin Calcium (Lipitor) 20 mg HS PO Last administered on 04/15/18at 21:36; Admin Dose 20 MG; Start 04/15/18 at 21:00 Metoprolol Succinate (Toprol Xl) 100 mg BID PO Last administered on 04/16/18at 08:16; Admin Dose 100 MG; Start 04/15/18 at 20:00 ABENA CARSON MD Apr 16, 2018 09:13
--- NOTE | 2018-04-16 09:18 | CONS ---
Assessment/Plan Assessment/Plan Hospital Course (Demo Recall) 82 yo with multiple medical problems, h/o CVA, pacer in place, who experienced a brief episode of chest pressure, palpitations, and dyspnea, likely secondary to SVT which was documented here. Impression: SVT H/o CVAs Chronic kidney disease stage 4 with ? acute renal insufficiency Tobacco abuse Hypertension Recommendations: Continue aspirin and statin therapy Change atenolol to metoprolol succinate 200 mg po daily. Tobacco cessation urged Pacemaker to be checked today Patient stable for discharge, follow with me in 2 weeks in the office Consultation Date/Type/Reason Admit Date/Time Apr 15, 2018 at 09:36 Initial Consult Date 04/15/18 Type of Consult Cardiology Requesting Provider: MIRANDA COLLINS NP Date/Time of Note DATE: 04/16/18 TIME: 09:14 24 HR Interval Summary Free Text/Dictation Overnight patient had a run of SVT noted on monitor, reviewed by me, none since. Metoprolol tartrate given as a verbal order from me, but metoprolol succinate entered by the RN. Patient feels well, no pain, no palpitations at present. Exam/Review of Systems Vital Signs Vitals Vital Signs Date Temp Pulse Resp B/P (MAP) Pulse Ox O2 O2 Flow FiO2 Time Delivery Rate 04/16/18 64 08:26 04/16/18 155/74 08:22 (101) 04/16/18 98.4 18 98 07:17 04/15/18 Room Air 15:04 Intake and Output 04/15/18 04/15/18 04/16/18 1515:00 23:00 07:00 IntakeIntake Total 240 ml BalanceBalance 240 ml Exam Constitutional: alert, oriented, well developed Psych: nl mood/affect Head: normocephalic, atraumatic Eyes: nl conjunctiva, EOMI, nl lids, nl sclera ENMT: nl external ears & nose Neck: supple; No jvd, No bruits Respiratory: clear to auscultation, normal air movement Cardiovascular: regular rate and rhythm; No murmurs/extra sounds Gastrointestinal: soft, nl liver, spleen, non-tender Musculoskeletal: nl extremities to inspection Extremities: No edema Neurological: nl mental status, nl speech Skin: No rash or lesions Labs Result Diagram: 04/16/1860504/16/18 0606 Results 24hrs Laboratory Tests Test 04/15/18 13:54 04/15/18 14:50 04/15/18 19:43 04/16/18 06:06 Creatine Kinase 42 53 54 Creatine Kinase 1.9 1.7 Index Creatinine Kinase MB 0.78 0.89 (Mass) Troponin I 0.012 < 0.012 Urine Color YELLOW Urine Clarity CLEAR Urine pH 6.0 Urine Specific 1.011 [place] Urine Ketones NEGATIVE Urine Nitrite NEGATIVE Urine Bilirubin NEGATIVE Urine Urobilinogen NEGATIVE Urine Leukocyte NEGATIVE Esterase Urine Microscopic 2 RBC Urine Microscopic 1 WBC Urine Eosinophils % 0.0 Urine Hemoglobin 1+ H Urine Random 57.06 Creatinine Urine Random Sodium 96 H Urine 5.78 Protein/Creatinine Ratio Urine Glucose 1+ H Urine Total Protein 330.0 H White Blood Count 7.0 Red Blood Count 3.02 L Hemoglobin 10.1 L Hematocrit 29.7 L Mean Corpuscular 98.3 Volume Mean Corpuscular 33.4 H Hemoglobin Mean Corpuscular 34.0 Hemoglobin Concent Red Cell 12.6 Distribution Width Platelet Count 194 Mean Platelet Volume 10.0 Immature 0.400 Granulocytes % Neutrophils % 59.0 Lymphocytes % 30.3 Monocytes % 8.0 Eosinophils % 2.0 Basophils % 0.3 Nucleated Red Blood 0.0 Cells % Immature 0.030 Granulocytes # Neutrophils # 4.2 Lymphocytes # 2.1 Monocytes # 0.6 Eosinophils # 0.1 Basophils # 0.0 Nucleated Red Blood 0.0 Cells # Sodium Level 141 Potassium Level 4.5 Chloride Level 108 Carbon Dioxide Level 26 Anion Gap 7 Blood Urea Nitrogen 31 H Creatinine 2.76 H Est Glomerular Filtrat Rate mL/min Glucose Level 94 Hemoglobin A1c 5.3 Uric Acid 5.0 Calcium Level 10.1 Phosphorus Level 3.7 Magnesium Level 1.8 Total Bilirubin 0.1 L Direct Bilirubin 0.00 Indirect Bilirubin 0.1 Aspartate Amino 21 Transf (AST/SGOT) Alanine 20 Aminotransferase (AL T/SGPT) Alkaline Phosphatase 74 Total Protein 7.0 Albumin 3.8 Globulin 3.20 Albumin/Globulin 1.18 Ratio Triglycerides Level 100 Cholesterol Level 111 LDL Cholesterol, 48 Calculated HDL Cholesterol 43 Cholesterol/HDL 2.5 Ratio Thyroid Stimulating 1.240 Hormone (TSH) Medications Medications Current Medications Nitroglycerin (Nitroglycerin (Sl Tab) 0.4 Mg) 1 tab Q5M UP TO 3 DOSES PRN SL .CHEST PAIN Last administered on 04/15/18at 08:35; Admin Dose 1 TAB; Start 04/15/18 at 08:00 Alendronate Sodium (Fosamax) 70 mg Sa@0630 PO ; Start 04/19/18 at 06:30 Amlodipine Besylate (Norvasc) 10 mg HS PO Last administered on 04/15/18at 21:36; Admin Dose 10 MG; Start 04/15/18 at 21:00 Aspirin (Aspirin) 81 mg DAILY PO Last administered on 04/16/18at 08:14; Admin Dose 81 MG; Start 04/16/18 at 09:00 Bimatoprost ([place]um[place] 0.01% Oph) 1 drop HS BOTH EYES Last administered on 04/15/18 21:37; Admin Dose 1 DROP; Start 04/15/18 at 21:00 Famotidine (Pepcid) 20 mg DAILY PO Last administered on 04/16/18 08:14; Admin Dose 20 MG; Start 04/16/18 at 09:00 IV Flush (NS 3 ml) 3 ml PER PROTOCOL IV ; Start 04/15/18 at 12:00 Ondansetron HCl (Zofran Inj) 4 mg Q6H PRN IV NAUSEA/VOMITING; Start 04/15/18 at 12:00 Acetaminophen (Tylenol Tab) 650 mg Q6H PRN PO .PAIN 1-3 OR TEMP; Start 04/15/18 at 12:00 Acetaminophen/ Hydrocodone Bitart ([place] (5/325)) 1 tab Q6H PRN PO .MOD PAIN 4- 6; Start 04/15/18 at 12:00 Heparin Sodium (Porcine) (Heparin (5000 Units/1ml)) 5,000 unit Q12 SC Last administered on 04/16/18at 08:21; Admin Dose 5,000 UNIT; Start 04/15/18 at 21:00 Nitroglycerin (Nitroglycerin (Sl Tab) 0.4 Mg) 1 tab Q5M PRN SL ANGINA; Start 04/15/18 at 12:00 Atorvastatin Calcium (Lipitor) 20 mg HS PO Last administered on 04/15/18at 21:36; Admin Dose 20 MG; Start 04/15/18 at 21:00 Metoprolol Succinate (Toprol Xl) 100 mg BID PO Last administered on 04/16/18at 08:16; Admin Dose 100 MG; Start 04/15/18 at 20:00 RAQUEL YOUNG Apr 16, 2018 09:18
[2018-04-16] MEDS ORDERED: TAMSULOSIN (SR) 0.4 MG CAP PO SCH (09:30)
--- NOTE | 2018-04-16 09:43 | PDOCDIS ---
Discharge Instructions CONDITION [id number] Patient Condition: [id number] Stable FOLLOW UP/APPOINTMENTS Follow-up Plan You have kidney disease and need to follow-up with your Kidney doctor Dr. Boswell in his clinic in 1 week. Travis Boswell M.D., [facility] [address] [facility] [address] [place] [address] Office You need to see building carpenter helper Dr. Valdez in 2 weeks in her clinic. [id number] [facility] [address] [place] [address] Office You need to see her primary care doctor for regular checkups and follow-up in 1 week. MIRANDA COLLINS NP Apr 16, 2018 09:43
[2018-04-16] MEDS ORDERED: METO-336 PO (09:46)
[2018-04-16] MEDS ORDERED: TAMS-14 PO (09:46)
--- NOTE | 2018-04-16 10:19 | DS ---
Date/Time of Note Date/Time of Note DATE: 04/16/18 TIME: 10:11 Discharge Summary Admission/Discharge Info Admit Date/Time Apr 16, 2018 at 09:03 Discharge Date/Time Discharge Diagnosis 1. Chest pain/palpitation, likely secondary to SVT. Stable. ACS ruled out. 2. SVT. Stable. Status post pacemaker interrogation. 3. Acute kidney injury on likely CKD. Stable at baseline. 4. Congestive heart failure, pacemaker placed 5. Iron deficient anemia 6. Hypertension 7. Dyslipidemia 8. Gouty Arthritis Patient Condition: Stable Consults , cardiology Dr. Boswell, nephrology Procedures 04/15/2018. Renal ultrasound. IMPRESSION: 1. No evidence renal calculi or obstructive uropathy. 2. Increased bilateral renal cortical echogenicity suggest medical renal disease. 3. Multiple simple appearing left renal cyst. 4. Incidental prostatomegaly. Recommend correlation with PSA level 04/15/2018 Chest x-ray. IMPRESSION: 1. No acute pulmonary disease. 2. Aortic atherosclerosis. 3. Left-sided dual chamber cardiac pacemaker. 04/15/2018. 2D echocardiogram. Conclusions: Fair quality study. Moderate concentric left ventricular hypertrophy with normal systolic function. Grade 1 diastolic dysfunction. Pacer wire in RV. Trace tricuspid regurgitaiton and normal pulmonary pressures. Trace mitral regurgitation. Small circumferential pericardial effusion. Electronically Signed By: Zulema Valdez 2018-04-15 14:41:23 PST Hx of Present Illness This is a 82-year-old male with a past medical history of CVA, congestive heart failure, status post pacemaker placed, dyslipidemia, hypertension, arthritis, iron deficiency anemia, gouty arthritis, tobacco use, CKD, admitted with sudden onset of substernal chest pain associated with palpitation, woke patient up from bed this morning at 4:45 AM. Patient again had one more episode of chest pain around 5:30 AM. He denied nausea, vomiting, abdominal pain, diaphoresis, loss of consciousness, dizziness, numbness, tingling, speech difficulties, vision changes, fever, chills, cough or other constitutional symptoms. In the emergency room, initial labs showed hemoglobin 10.3, hematocrit 31.4, BUN 36, creatinine 2.81. Chest x-ray showed no acute cardiopulmonary disease, there is a left-sided dual-chamber cardiac pacemaker.On arrival patient had a blood pressure 177/76. In ER: Aspirin 162 mg, nitro 1 inch patch. Patient was admitted to rule out ACS. Hospital Course 82-year-old male with a history of congestive heart failure, pacemaker placed, dyslipidemia, hypertension, gouty arthritis, here with sudden onset of chest pain w/ palpitation woke him up from bed at 4:40 AM. Patient had cardiology evaluation. As per customer operations intern, brief episode of chest pressure with palpitation and dyspnea most likely secondary to SVT which was noted while he was admitted here. Pacemaker interrogation was ordered. He was continued on aspirin and statin therapy. Blood pressure medications titrated to metoprolol from atenolol. 2D echocardiogram with stable ejection fraction. Hospitalization was also noted for acute kidney injury on top of CKD stage IV for which he was being followed by a billboard erector helper. Renal function remains stable at baseline. He was counseled on cessation of tobacco abuse. At this time, as per cardiology and nephrology, patient is medically stable for discharge with outpatient follow-up in clinic. Patient with no further chest pain, palpitation or other symptoms. His labs and vital signs stable at baseline. Patient is stable for discharge after pacemaker is interrogated which is communicated to the nursing staff. Approximately 60 m spent on coordinating the discharge on this patient. [facility] Metoprolol Succinate* (Toprol XL*) 100 Mg Tab.sr.24h, 200 MG PO DAILY, #30 TAB Prov:MIRANDA COLLINS V. NAIL STICKER 04/16/18 Tamsulosin Hcl* (Flomax*) 0.4 Mg Cap.er.24h, 0.4 MG PO BID, #60 CAP Prov:MIRANDA COLLINS V. NAIL STICKER 04/16/18 Reported Medications Difluprednate (Durezol) 5 Ml Drops, 1 DROP BOTH EYES QID, BOTTLE 04/15/18 Febuxostat* (Uloric*) 40 Mg Tablet, 40 MG PO QHS, TAB 04/15/18 Donepezil* (Donepezil*) 5 Mg Tablet, 5 MG PO DAILY, #30 TAB 04/15/18 Docusate Sodium* (Docusate Sodium*) 100 Mg Capsule, 100 MG PO TID, #30 CAP 04/15/18 Ferrous Sulfate* (Ferrous Sulfate*) 325 Mg Tabec, 325 MG PO TID, TAB 04/15/18 Bimatoprost* (Lumigan*) 0.01%-2.5 Ml Opht Drops, 1 DROP BOTH EYES HS, EA 07/15/16 Clonidine Hcl* (Clonidine Hcl*) 0.2 Mg Tablet, 0.2 MG PO TID PRN for ELEVATED BLOOD PRESSURE, TAB 07/15/16 Calcitriol* (Rocaltrol*) 0.25 Mcg Capsule, 0.25 MCG PO FIVE TIMES WEEKLY, CAP 07/15/16 Furosemide* (Lasix*) 40 Mg Tablet, 60 MG PO DAILY, TAB 07/15/16 Famotidine* (Famotidine*) 20 Mg Tablet, 20 MG PO DAILY, #30 TAB 07/15/16 Alendronate Sodium* (Fosamax*) 70 Mg Tablet, 70 MG PO ON SATURDAYS, TAB 07/28/14 Amlodipine Besylate* (Amlodipine Besylate*) 10 Mg Tablet, 10 MG PO HS, TAB 07/29/13 Aspirin (Aspirin) 81 Mg Chew, 81 MG PO DAILY 12/20/12 Valsartan* (Diovan*) 320 Mg Tablet, 320 MG PO DAILY 12/20/12 Simvastatin (Simvastatin) 20 Mg Tablet, 20 MG PO HS 12/20/12 Atenolol* (Atenolol*) 50 Mg Tablet, 50 MG PO DAILY 12/20/12 Discontinued Reported Medications Brimonidine/Timolol* (Combigan*) 5 Ml Drops, 1 DROP BOTH EYES BID, BOTTLE 07/15/16 Sodium Polystyrene Sulfonate (Sodium Polystyrene Sulfonate Powder) 454 Gm Powder, 2 TSP PO DAILY, EA 07/15/16 Ergocalciferol (Vitamin D2) (VITAMIN D2) 50,000 Unit Capsule, 01955 UNIT PO every saturday, CAP 07/15/16 Omeprazole* (Omeprazole*) 40 Mg Capsule.dr, 40 MG PO DAILY, #30 CAP 07/15/16 Discontinued Scripts Ketotifen Fumarate (ZADITOR) 5 Ml Drops, 1 DROP OP Q12 PRN for it, #1 BOTTLE Prov:CHERI العلي. NAIL STICKER 05/27/17 Diphenhydramine Hcl* (Benadryl*) 50 Mg Cap, 50 MG PO Q6H PRN for ITCHING/RASH, #30 CAP Prov:CHERI العلي NAIL STICKER 05/27/17 Prednisone* (Prednisone*) 20 Mg Tab, 60 MG PO DAILY for 3 Days, TAB Prov:SEVERIANOCHERI Bradford. NAIL STICKER 05/27/17 Amoxicillin/Potassium Clav (Amox-Clav 875-125 mg Tablet) 875-125 mg Tab, 875 MG PO BID for 4 Days, #8 TAB Prov:KITA SEGAL MD 07/17/16 Follow-up Plan You have kidney disease and need to follow-up with your Kidney doctor Dr. Boswell in his clinic in 1 week. Travis Boswell M.D[facility] [address] [facility] [address] [place] [address] Office You need to see customer operations intern Dr. Valdez in 2 weeks in her clinic. [address] [facility] [address] [place] [address] Office You need to see her primary care doctor for regular checkups and follow-up in 1 week. Primary Care Provider Jackelin Molina DO Pending Labs Laboratory Tests Test 04/15/18 13:54 04/15/18 14:50 04/15/18 19:43 04/16/18 06:06 Creatine 42 53 54 Kinase IU/L (23-200) IU/L (23-200) IU/L (23-200) Creatine Kinase 1.9 1.7 Index Creatinine 0.78 0.89 Kinase MB ng/ml (0.0-2.4) ng/ml (0.0-2.4 (Mass) ) Troponin I 0.012 < 0.012 ng/ml (0.000-0. ng/ml (0.000-0 120) .120) Urine Color YELLOW (YELLOW ) Urine Clarity CLEAR (CLEAR) Urine pH 6.0 (5.0-9.0) Urine Specific 1.011 (1.003-1 [place] .030) Urine Ketones NEGATIVE mg/dL (NEGATIV E) Urine Nitrite NEGATIVE mg/dL (NEGATIV E) Urine NEGATIVE Bilirubin mg/dL (NEGATIV E) Urine NEGATIVE Urobilinogen mg/dL (NEGATIV E) Urine Leukocyte NEGATIVE Luiz/u Esterase l Urine 2 /HPF (0-5) Microscopic RBC Urine 1 /HPF (0-5) Microscopic WBC Urine 0.0 % (0-1.9) Eosinophils % Urine 1+ Hemoglobin mg/dL (NEGATIV E) Urine Random 57.06 Creatinine mg/dl (20-370) Urine Random 96 Sodium mmol/L (30-90) Urine 5.78 RATIO Protein/Creatin ine Ratio Urine Glucose 1+ mg/dL (NEGATIV E) Urine Total 330.0 Protein mg/dl (0.0-11. 9) White Blood 7.0 Count 10^3/ul (4.8-1 0.8) Red Blood 3.02 Count 10^6/ul (4.70- 6.10) Hemoglobin 10.1 g/dl (14.0-18. 0) Hematocrit 29.7 % (42.0-52.0) Mean 98.3 Corpuscular fl (82.0-101.0 Volume ) Mean 33.4 Corpuscular pg (29.0-33.0) Hemoglobin Mean 34.0 Corpuscular g/dl (32.0-37. Hemoglobin Conc 0) ent Red Cell 12.6 Distribution % (11.5-14.5) Width Platelet Count 194 10^3/UL (140-4 15) Mean Platelet 10.0 Volume fl (7.4-10.4) Immature 0.400 Granulocytes % % (0.001-0.429 ) Neutrophils % 59.0 % (39.0-77.0) Lymphocytes % 30.3 % (15.0-51.0) Monocytes % 8.0 % (0.0-11.0) Eosinophils % 2.0 % (0.0-7.0) Basophils % 0.3 % (0.0-2.0) Nucleated Red 0.0 Blood Cells % /100WBC (0.0-0 .0) Immature 0.030 Granulocytes # 10^3/ul (0.0-0 .031) Neutrophils # 4.2 10^3/ul (1.6-7 .5) Lymphocytes # 2.1 10^3/ul (0.8-2 .9) Monocytes # 0.6 10^3/ul (0.3-0 .9) Eosinophils # 0.1 10^3/ul (0.0-0 .5) Basophils # 0.0 10^3/ul (0.0-0 .1) Nucleated Red 0.0 Blood Cells # 10^3/ul (0.0-0 .0) Sodium Level 141 mmol/L (135-14 4) Potassium 4.5 Level mmol/L (3.5-5. 1) Chloride Level 108 mmol/L (97-110 ) Carbon Dioxide 26 Level mmol/L (21-31) Anion Gap 7 (5-13) Blood Urea 31 Nitrogen mg/dl (7-20) Creatinine 2.76 mg/dl (0.61-1. 24) Est Glomerular mL/min (>60) Filtrat Rate mL/min Glucose Level 94 mg/dl (70-220) Hemoglobin A1c 5.3 % (0-5.9) Uric Acid 5.0 mg/dl (3.1-7.9 ) Calcium Level 10.1 mg/dl (8.4-10. 2) Phosphorus 3.7 Level mg/dl (2.5-4.9 ) Magnesium 1.8 Level mg/dl (1.7-2.5 ) Total 0.1 Bilirubin mg/dl (0.2-1.3 ) Direct 0.00 Bilirubin mg/dl (0.00-0. 20) Indirect 0.1 Bilirubin mg/dl (0-1.1) Aspartate Amino 21 Transf (AST/SGO IU/L (15-46) T) Alanine 20 Aminotransferas IU/L (13-69) e (ALT/SGPT) Alkaline 74 Phosphatase IU/L (42-121) Total Protein 7.0 g/dl (6.1-8.1) Albumin 3.8 g/dl (3.3-4.9) Globulin 3.20 g/dl (1.3-3.2) Albumin/Globuli 1.18 n Ratio Triglycerides 100 Level mg/dl (0-149) Cholesterol 111 Level mg/dl (100-200 ) LDL 48 mg/dl Cholesterol, Calculated HDL 43 Cholesterol mg/dl (31-75) Cholesterol/HDL 2.5 RATIO Ratio Thyroid 1.240 Stimulating MIU/L (0.465-4 Hormone (TSH) .680) Test 04/16/18 09:58 Lab Scanned LAB [id number] Report MIRANDA COLLINS NP Apr 16, 2018 10:19
[2018-04-16] MEDS ORDERED: METOPROLOL (XL) 100 MG TAB PO ONE (12:00)
[2018-04-17] MEDS ORDERED: METOPROLOL (XL) 100 MG TAB PO SCH (20:00)
--- NOTE | 2018-04-18 13:36 | RADRPT ---
Vent Rate: 66 bpm RR Interval: 0 msec NV Interval: 160 msec QRS Duration: 134 msec QT Interval: 420 msec QTC Interval: 440 msec P-R-T [place]: 0 - 21 - 46 degrees Electronic atrial pacemaker Right bundle branch block Abnormal ECG Electronically Signed By: Kyle Barlow
[2018-04-19] MEDS ORDERED: ALENDRONATE 70 MG TAB PO SCH (06:30)
== END 2018-04-16 11:20 | disposition home or self-care (01) ==
LOC: E/R 07:33 → TEL 09:36 → INTOOBSV 04-16 09:03 → OBSVTOIN 04-16 09:03 → UNDODISIN 04-16 11:20
PROVIDERS: ADMIT Hospitalist; ATTEND Hospitalist
DX: I47.1 Supraventricular tachycardia (principal); R07.9 Chest pain, unspecified; R00.2 Palpitations; I13.0 Hypertensive heart and chronic kidney disease with heart failure and stage 1 through stage 4 chronic kidney disease, or unspecified chronic kidney disease; N18.4 Chronic kidney disease, stage 4 (severe); I50.9 Heart failure, unspecified; N17.9 Acute kidney failure, unspecified; D50.9 Iron deficiency anemia, unspecified; E78.5 Hyperlipidemia, unspecified; M10.9 Gout, unspecified; Z95.0 Presence of cardiac pacemaker; F17.200 Nicotine dependence, unspecified, uncomplicated; Z86.73 Personal history of transient ischemic attack (TIA), and cerebral infarction without residual deficits
CPT/HCPCS: 36415; 71045; 76775; 80048; 80053; 80061; 81001; 81003; 82550; 82553; 82570; 83036; 83735; 84100; 84155; 84300; 84443; 84484; 84560; 85025; 89190; 93005; 93306; 99285; G0378; J1644; 99217

== ENCOUNTER 2018-06-23 17:16 | Inpatient (IN) | payer MEDICARE, OTHER ==
[~2018-06-23] VITALS: Ht 167.6 cm; Wt 78.2 kg
[~2018-06-23 17:16] MED LIST changes: -AMOX1TAB10 PO; -ATEN50TA PO; -BEN50 PO; -CLON0.2T5 PO; -COMBIG5 BOTH EYES; +DIFL5DRO BOTH EYES; +DOCU-159 PO; -DOCU100C59 PO; +DONE5TAB7 PO; -ERGO500013 PO; +FEBU40TA PO; +FER325 PO; -FURO-109 PO; -KETO5DRO71 OP; +METO-336 PO; -OMEP40CA6 PO; -PRED20TA PO; +TAMS-14 PO; -VALS320T2 PO; -[UNRECOGNIZED DRUG - CODE] PO
--- NOTE | 2018-06-23 18:30 | ERD ---
ER Documentation Chief Complaint Chief Complaint HATFIELD, Dizziness HPI The patient is a 83-year-old male, presenting to the ER because of headache, dizziness, right eye blurred vision that began about 6:30 AM today. He denies syncope, near syncope, neck pain, chest pain, dyspnea, abdominal pain, vomiting, dizzy, diarrhea denies eye pain. He smokes socially, denies drinking Past medical history: CAD, dyslipidemia, left eye glaucoma, history of 5 CVA with mild right hemiplegia, chronic kidney disease, hypertension Surgical history: Pacemaker 14 years ago ROS All systems reviewed and are negative except as per history of present illness. Medications Home Meds Active Scripts Metoprolol Succinate* (Toprol XL*) 100 Mg Tab.sr.24h, 200 MG PO DAILY, #30 TAB Prov:MIRANDA COLLINS V. SKEINER 04/16/18 Tamsulosin Hcl* (Flomax*) 0.4 Mg Cap.er.24h, 0.4 MG PO BID, #60 CAP Prov:MIRANDA COLLINS V. SKEINER 04/16/18 Reported Medications Difluprednate (Durezol) 5 Ml Drops, 1 DROP BOTH EYES QID, BOTTLE 04/15/18 Febuxostat* (Uloric*) 40 Mg Tablet, 40 MG PO QHS, TAB 04/15/18 Donepezil* (Donepezil*) 5 Mg Tablet, 5 MG PO DAILY, #30 TAB 04/15/18 Docusate Sodium* (Docusate Sodium*) 100 Mg Capsule, 100 MG PO TID, #30 CAP 04/15/18 Ferrous Sulfate* (Ferrous Sulfate*) 325 Mg Tabec, 325 MG PO TID, TAB 04/15/18 Bimatoprost* (Lumigan*) 0.01%-2.5 Ml Opht Drops, 1 DROP BOTH EYES HS, EA 07/15/16 Calcitriol* (Rocaltrol*) 0.25 Mcg Capsule, 0.25 MCG PO FIVE TIMES WEEKLY, CAP 07/15/16 Famotidine* (Famotidine*) 20 Mg Tablet, 20 MG PO DAILY, #30 TAB 07/15/16 Alendronate Sodium* (Fosamax*) 70 Mg Tablet, 70 MG PO ON SATURDAYS, TAB 07/28/14 Amlodipine Besylate* (Amlodipine Besylate*) 10 Mg Tablet, 10 MG PO HS, TAB 07/29/13 Aspirin (Aspirin) 81 Mg Chew, 81 MG PO DAILY 12/20/12 Simvastatin (Simvastatin) 20 Mg Tablet, 20 MG PO HS 12/20/12 Allergies Allergies: Coded Allergies: epoetin kayley (Verified Allergy, Severe, ITCHING AND FACE SWELLING, 04/15/18) PER PT AND PMhx/Soc History of Surgery: Yes Anesthesia Reaction: No Hx Neurological Disorder: No Hx Respiratory Disorders: No Hx Cardiac Disorders: Yes (HTN CHF) Hx Psychiatric Problems: No Hx Miscellaneous Medical Probl: Yes (HX OF CVA) Hx Alcohol Use: No Hx Substance Use: No Hx Tobacco Use: Yes Physical Exam Vitals Vital Signs Date Temp Pulse Resp B/P (MAP) Pulse Ox O2 O2 Flow FiO2 Time Delivery Rate 06/23/18 60 18 143/109 100 Room Air 19:00 (120) 06/23/18 97.0 56 20 155/70 99 17:47 (98) Physical Exam Const: No acute distress. Head: Atraumatic. Eyes: Normal Conjunctiva. ENT: Normal External Ears, Nose and Mouth. He is unable to move his right eye superiorly, no nystagmus Neck: Full range of motion. No meningismus. Resp: Clear to auscultation bilaterally. Cardio: Regular rate and rhythm. Abd: Soft, non distended, normal bowel sounds, non tender. Skin: No petechiae or rashes. Back: No midline or flank tenderness. Ext: No cyanosis, or edema. Neur: Awake and alert. Right upper and right lower extremity 4+, left upper and left lower extremity 5/5 Psych: Normal Mood and Affect. Result Diagram: 06/23/18 1855 06/23/18 1855 Results 24 hrs Laboratory Tests Test 06/23/18 18:55 White Blood Count 6.2 10^3/ul Red Blood Count 2.77 10^6/ul Hemoglobin 9.1 g/dl Hematocrit 28.1 % Mean Corpuscular Volume 101.4 fl Mean Corpuscular Hemoglobin 32.9 pg Mean Corpuscular Hemoglobin Concent 32.4 g/dl Red Cell Distribution Width 14.0 % Platelet Count 159 10^3/UL Mean Platelet Volume 9.8 fl Immature Granulocytes % 0.500 % Neutrophils % 63.5 % Lymphocytes % 23.2 % Monocytes % 8.8 % Eosinophils % 3.7 % Basophils % 0.3 % Nucleated Red Blood Cells % 0.0 /100WBC Immature Granulocytes # 0.030 10^3/ul Neutrophils # 3.9 10^3/ul Lymphocytes # 1.4 10^3/ul Monocytes # 0.5 10^3/ul Eosinophils # 0.2 10^3/ul Basophils # 0.0 10^3/ul Nucleated Red Blood Cells # 0.0 10^3/ul Prothrombin Time 12.9 Sec Prothrombin Time Ratio 1.0 INR International Normalized Ratio 0.96 Activated Partial Thromboplast Time 30.7 Sec Sodium Level 145 mmol/L Potassium Level 4.6 mmol/L Chloride Level 112 mmol/L Carbon Dioxide Level 22 mmol/L Anion Gap 11 Blood Urea Nitrogen 39 mg/dl Creatinine 2.70 mg/dl Est Glomerular Filtrat Rate mL/min mL/min Glucose Level 136 mg/dl Hemoglobin A1c 5.4 % Calcium Level 9.7 mg/dl Troponin I < 0.012 ng/ml Triglycerides Level 56 mg/dl Cholesterol Level 109 mg/dl LDL Cholesterol, Calculated 51 mg/dl HDL Cholesterol 47 mg/dl Cholesterol/HDL Ratio 2.3 [facility] Procedures/[place] [id number] Radiology Main Line: [phone] DIAGNOSTIC IMAGING REPORT Patient: NIRAJ CAMEJO : 1935 Age: 83 Sex: M MR #: [id number] DOS: 06/23/18 1830 Ordering MD: LATOSHA DORMAN MD Location: E/R Room/Bed: PROCEDURE: CT Brain without contrast. CLINICAL INDICATION: Neurologic deficit, possible stroke. History of prior strokes. TECHNIQUE: A CT of the brain was performed on a multi-slice CT scanner utilizing axial imaging from the skull base through the vertex without intraveno us contrast. Multiplanar reformatted images were made. One or more the following dose reduction techniques were utilized: Automated exposure control, adjustment of the mA/ or kV according to patient's size, or use of iterative reconstruction technique. DICOM images are available for review. The CTDIvol is 38.9 mGy and the DLP is 713.5 mGycm. COMPARISON: CT BRAIN 04/09/2015 FINDINGS: There is no acute intracranial hemorrhage, mass effect, or midline shift. No extra-axial fluid collection is seen. Mild to moderate cerebral and cerebellar atrophy is identified with compensatory ventricular and sulcal enlargement. There is moderate vasogenic edema within the left thalamus extending into the cerebral peduncle and much of the midbrain. There appears to be an 11 mm rounded lesion in the inferior left thalamus/cerebral peduncle. Chronic lacunar infarcts are seen in the left velasquez radiata and left lentiform nucleus with asymmetric volume loss and ex vacuo dilatation of the left lateral ventricle. Mild overall decreased attenuation is seen in the periventricular and deep white matter, compatible with microvascular ischemic disease. A punctate calcification is seen in the right posterior operculum, which may reflect sequelae related to prior infection such as cysticercosis. There is a chronic left medial orbital wall fracture. The visualized paranasal sinuses are grossly clear. IMPRESSION: 1. There is moderate vasogenic edema within the left thalamus and midbrain as o utlined above. There appears to be an underlying 11 mm lesion for which further evaluation with a pre and postcontrast enhanced MRI of the brain is recommended. 2. Mild to moderate diffuse atrophy. 3. There is mild microvascular ischemic disease in the periventricular and deep white matter. Chronic lacunar infarcts are seen in the left velasquez radiata and basal ganglia with ex vacuo dilatation of the left lateral ventricle. 4. There is a punctate calcification in the right posterior operculum, which may reflect sequelae from prior infection such as cysticercosis. A call report was made to Latosha Mccartney and Dr. Talbot on 06/23/2018 7:57 PM following completion of the examination by Dr. Comer. RPTAT: HJAH .Rosangela Comer MD, Date Time Electronically viewed and signed by .Rosangela Comer MD, on 06/23/2018 20:02 .H/ CC: LATOSHA DORMAN MD [id number] [place] [id number] Radiology Main Line: [phone] DIAGNOSTIC IMAGING REPORT Patient: NIRAJ CAMEJO : 1935 Age: 83 Sex: M MR #: [id number] DOS: 06/23/18 1830 Ordering MD: LATOSHA DORMAN MD Location: E/R Room/Bed: PROCEDURE: XR Chest. CLINICAL INDICATION: Cerebrovascular accident. TECHNIQUE: PA and Lateral views of the chest were obtained. COMPARISON: Plain film chest dated 04/09/2015. FINDINGS: Left anterior chest wall dual chamber cardiac pacer is without significant private branch exchange service adviser interval. Cardiomegaly. Atherosclerotic calcifications in the thoracic aorta. Pulmonary mass congestion and mild bibasilar atelectasis versus airspace disease. Small bilateral pleural effusions. No pneumothorax. Remote right rib fractures again seen, without significant private branch exchange service adviser interval, involving the third, fourth and fifth ribs. Otherwise, the osseous structures and soft tissues are unremarkable. IMPRESSION: 1. No significant change in cardiomegaly and atherosclerotic calcifications in the thoracic aorta. 2. New mild failure with bilateral small pleural effusions. RPTAT: [facility] Physician Ghassan Date Time Electronically viewed and signed by Physician Ghassan on 06/23/2018 19:04 RS/ CC: LATOSHA DORMAN MD [id number] EKG: Read by emergency physician Rate/Rhythm: pacer 61 beats/min no further attempt to interpret the ECG Consultation: I discussed the patient with the neurosurgeon Dr Vee at 8:10p, who was made aware of the patient condition, CT scan/labs finding. He recommend a CT with IV contrast of the brain because the patient cannot have MRI due to a pacemaker. MEDICAL MAKING DECISION: The patient is 83-year-old male, presenting with probable acute brain lesion, bilateral pleural effusion. I discussed the necessity of the CT scan with IV contrast of the brain requested by neurosurgeon with the patient and the spouse via a optometry teacher. He is aware that he may need dialysis after the CT scan due to CKD and agrees to proceed with a CT scan The differential diagnoses considered include but are not limited CVA, metastatic dz, to subarachnoid hemorrhage, occult trauma, CVA, meningitis, encephalitis, hypertension, tension, migraine, cluster, narcotic withdrawal, cervical spine disease. Departure Diagnosis: Primary Impression: Brain lesion Additional Impressions: Bilateral pleural effusion Anemia Condition: Stable Comments I discussed the findings with the patient. I discussed the patient with Amde at 8:20 PM, who was made aware of the lab, the treatment, the patient condition. The patient is admitted to [facility] Disclaimer: Inadvertent spelling and grammatical errors are likely due to EHR/dictation software use and do not reflect on the overall quality of patient care. Also, please note that the electronic time recorded on this note does not necessarily reflect the actual time of the patient encounter. DEBBY TALBOT MD June 23, 2018 18:30
[2018-06-23] MEDS ORDERED: ATEN50TA PO (21:50)
[2018-06-23] MEDS ORDERED: VALS320T15 PO (21:50)
[2018-06-23] MEDS ORDERED: CLON0.2T5 PO (21:50)
[2018-06-23] MEDS ORDERED: FURO40TA4 PO (21:50)
[2018-06-23] MEDS ORDERED: CLON1PAT2 TD (21:50)
[2018-06-23] MEDS ORDERED: DOCU100C59 PO (21:50)
--- NOTE | 2018-06-23 23:50 | HP ---
Date/Time of Note Date/Time of Note DATE: 06/23/18 TIME: 23:50 Assessment/Plan VTE Prophylaxis SCD contraindicated: low risk/ambulating Pharmacological prophylaxis: NA/contraindicated Pharm contraindication: other (Patient presented with brain lesion so will not initiate at this time ) Lines/Catheters IV Catheter Type (from Nrsg): Saline Lock Assessment/Plan Assessment/Plan 1. Vasogenic edema most likely brain lesion -Neurosurgery was consulted in the ER who recommended CT with IV contrast since patient cannot have an MRI as a result of pacemaker -Follow-up neurosurgery recommendation -Oncology consult as needed 2. Headache: Most likely secondary to above -Pain management 3. Hypertension: Adjust antihypertensive as needed 4. History of CVA with mild right-sided deficit -Aspirin and statin 5. History of diastolic CHF -Continue home meds 6. Pacemaker: Placed 14 years ago 7. Dyslipidemia: Continue statin 8. CKD: Stable 9. History of large pericardial effusion: Status post pericardiocentesis in 2013 -No acute issue 10. Iron deficiency anemia: Continue ferrous sulfate Result Diagram: 06/23/18 1855 06/23/18 1855 Results 24hrs Laboratory Tests Test 06/23/18 18:55 06/23/18 21:33 White Blood Count 6.2 Red Blood Count 2.77 L Hemoglobin 9.1 L Hematocrit 28.1 L Mean Corpuscular Volume 101.4 H Mean Corpuscular Hemoglobin 32.9 Mean Corpuscular Hemoglobin Concent 32.4 Red Cell Distribution Width 14.0 Platelet Count 159 Mean Platelet Volume 9.8 Immature Granulocytes % 0.500 H Neutrophils % 63.5 Lymphocytes % 23.2 Monocytes % 8.8 Eosinophils % 3.7 Basophils % 0.3 Nucleated Red Blood Cells % 0.0 Immature Granulocytes # 0.030 Neutrophils # 3.9 Lymphocytes # 1.4 Monocytes # 0.5 Eosinophils # 0.2 Basophils # 0.0 Nucleated Red Blood Cells # 0.0 Prothrombin Time 12.9 Prothrombin Time Ratio 1.0 INR International Normalized Ratio 0.96 Activated Partial Thromboplast Time 30.7 Sodium Level 145 H Potassium Level 4.6 Chloride Level 112 H Carbon Dioxide Level 22 Anion Gap 11 Blood Urea Nitrogen 39 H Creatinine 2.70 H Est Glomerular Filtrat Rate mL/min Glucose Level 136 Hemoglobin A1c 5.4 Calcium Level 9.7 Troponin I < 0.012 Triglycerides Level 56 Cholesterol Level 109 LDL Cholesterol, Calculated 51 HDL Cholesterol 47 Cholesterol/HDL Ratio 2.3 Urine Color YELLOW Urine Clarity CLEAR Urine pH 5.0 Urine Specific [place] 1.013 Urine Ketones NEGATIVE Urine Nitrite NEGATIVE Urine Bilirubin NEGATIVE Urine Urobilinogen NEGATIVE Urine Leukocyte Esterase NEGATIVE Urine Microscopic RBC 2 Urine Microscopic WBC 1 Urine Bacteria FEW A Urine Mucus FEW A Urine Hemoglobin 1+ H Urine Glucose 1+ H Urine Total Protein 3+ H Urine Opiates Screen Negative Urine Barbiturates Negative Urine Amphetamines Screen Negative Urine Benzodiazepines Screen Negative Urine Cocaine Screen Negative Urine Cannabinoids Negative HPI/ROS Admit Date/Time Admit Date/Time Hx of Present Illness Patient is an 83-year-old male with a history of hypertension, dyslipidemia, CAD, left eye glaucoma, CVA diagnosed 5 years ago with residual mild slurred speech and mild right sided deficit, CKD, CHF, pacemaker, SVT, large pericardial effusion status post pericardiocentesis in 2012 and glaucoma. Patient presented to ER complaining of headache, dizziness and blurry vision x 1 day. was at the bedside the ER and she helped with history. Headache has been going on for the past 1 week. Denied worsening slurred speech or focal weakness. Patient was admitted here about 6 weeks ago for palpitation. At that time he was found with SVT and his pacemaker was interrogated. 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 Head CT in the ER showed the followin. There is moderate vasogenic edema within the left thalamus and midbrain as outlined above. There appears to be an underlying 11 mm lesion for which further evaluation with a pre and postcontrast enhanced MRI of the brain is recommended. 2. Mild to moderate diffuse atrophy. 3. There is mild microvascular ischemic disease in the periventricular and deep white matter. Chronic lacunar infarcts are seen in the left velasquez radiata and basal ganglia with ex vacuo dilatation of the left lateral ventricle. 4. There is a punctate calcification in the right posterior operculum, which may reflect sequelae from prior infection such as cysticercosis. PMH/Family/Social Past Medical History Medical History: other (See HPI) Medications Current Medications IV Flush (NS 3 ml) 3 ml PER PROTOCOL IV ; Start 06/24/18 at 00:00; Status UNV Ondansetron HCl (Zofran Inj) 4 mg Q6H PRN IV NAUSEA/VOMITING; Start 5/7/19 at 00:00; Status UNV Acetaminophen (Tylenol Tab) 650 mg Q6H PRN PO .PAIN 1-3 OR TEMP; Start 06/24/18 at 00:00; Status UNV Coded Allergies: epoetin kayley (Verified Allergy, Severe, ITCHING AND FACE SWELLING, 04/15/18) PER PT AND Past Surgical History Past Surgical Hx: other (See HPI) Family History Significant Family History: no pertinent family hx Social History Alcohol Use: none Smoking Status: Former smoker Drug Use: none Exam/Review of Systems Vital Signs Vitals Vital Signs Date Temp Pulse Resp B/P (MAP) Pulse Ox O2 O2 Flow FiO2 Time Delivery Rate 06/23/18 67 16 157/68 98 Room Air 22:00 (97) 06/23/18 97.0 17:47 Exam Constitutional: other (Patient lying in the gurney. No acute distress) Head: normocephalic, atraumatic Eyes: other (Drooping of the left side of the eye) ENMT: other (What appears to be a lipoma but the nose) Respiratory: clear to auscultation Cardiovascular: regular rate and rhythm Gastrointestinal: soft Extremities: normal pulses Skin: other (There are several soft tissue swelling including surrounding the pacemaker) HIEU RENEE MD June 23, 2018 23:50
[2018-06-24] VITALS (10 sets, daily range): BP systolic 146–175; BP diastolic 69–79; PULSE 60–86; RESP 18–20; Ht 167.6 cm; Wt 78.2 kg
[2018-06-24] MEDS ORDERED: NACL 0.9% 3 ML SYG IV SCH
[2018-06-24] MEDS ORDERED: ONDANSETRON 4 MG INJ IV PRN
[2018-06-24] MEDS ORDERED: FUROSEMIDE 40 MG TAB PO SCH (09:00)
[2018-06-24] MEDS: FERROUS SULFATE (EC) 325 MG TAB PO SCH ×3 (09:30→21:26)
[2018-06-24] MEDS: DONEPEZIL 5 MG TAB PO SCH (09:30)
[2018-06-24] MEDS: FAMOTIDINE 20 MG TAB PO SCH (09:30)
[2018-06-24] MEDS: DOCUSATE SODIUM 100 MG CAP PO SCH ×3 (09:30→21:26)
[2018-06-24] MEDS: TAMSULOSIN (SR) 0.4 MG CAP PO SCH ×2 (09:30→21:26)
[2018-06-24] MEDS: ASPIRIN 81 MG TAB PO SCH (09:30)
[2018-06-24] MEDS: METOPROLOL (XL) 100 MG TAB PO SCH (09:31)
[2018-06-24] MEDS: AMLODIPINE 10 MG TAB PO SCH (09:31)
[2018-06-24] MEDS ORDERED: hydrALAzine 20 MG INJ IV SCH (12:00)
[2018-06-24] MEDS: hydrALAzine 20 MG INJ IV PRN (12:26)
--- NOTE | 2018-06-24 14:59 | PN ---
Date/Time of Note Date/Time of Note DATE: 06/24/18 TIME: 14:50 Assessment/Plan VTE Prophylaxis SCD applied (from Nsg): Yes Pharmacological prophylaxis: other Pharm contraindication: other Lines/Catheters IV Catheter Type (from Nrsg): Peripheral IV Urinary Cath still in place: No Assessment/Plan Assessment/Plan 1. 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 CKD, relatively stable Cr level, will check with nephrology since he needs CT with iv contrast, renal US 3. LVEF 65% on 04/15/2018, hold lasix 4. Hypertension, adjust antihypertensives 5. History of CVA with mild right-sided deficit, on aspirin and lipitor 6. Pacemaker: Placed 14 years ago 7. Dyslipidemia: Continue statin 8. Macrocytic anemia, chronic, follow up with PCP Result Diagram: 06/24/18 0537 06/24/18 0537 Results 24hrs Laboratory Tests Test 06/23/18 18:55 06/23/18 21:33 06/24/18 05:37 White Blood Count 6.2 5.7 Red Blood Count 2.77 L 2.64 L Hemoglobin 9.1 L 8.6 L Hematocrit 28.1 L 26.4 L Mean Corpuscular Volume 101.4 H 100.0 Mean Corpuscular Hemoglobin 32.9 32.6 Mean Corpuscular Hemoglobin Concent 32.4 32.6 Red Cell Distribution Width 14.0 13.7 Platelet Count 159 144 Mean Platelet Volume 9.8 9.4 Immature Granulocytes % 0.500 H 0.400 Neutrophils % 63.5 61.8 Lymphocytes % 23.2 25.0 Monocytes % 8.8 9.1 Eosinophils % 3.7 3.5 Basophils % 0.3 0.2 Nucleated Red Blood Cells % 0.0 0.0 Immature Granulocytes # 0.030 0.020 Neutrophils # 3.9 3.5 Lymphocytes # 1.4 1.4 Monocytes # 0.5 0.5 Eosinophils # 0.2 0.2 Basophils # 0.0 0.0 Nucleated Red Blood Cells # 0.0 0.0 Prothrombin Time 12.9 Prothrombin Time Ratio 1.0 INR International Normalized Ratio 0.96 Activated Partial Thromboplast Time 30.7 Sodium Level 145 H 145 H Potassium Level 4.6 4.2 Chloride Level 112 H 115 H Carbon Dioxide Level 22 24 Anion Gap 11 6 Blood Urea Nitrogen 39 H 36 H Creatinine 2.70 H 2.40 H Est Glomerular Filtrat Rate mL/min Glucose Level 136 90 # Hemoglobin A1c 5.4 Calcium Level 9.7 9.4 Troponin I < 0.012 Triglycerides Level 56 76 Cholesterol Level 109 96 L LDL Cholesterol, Calculated 51 39 HDL Cholesterol 47 42 Cholesterol/HDL Ratio 2.3 2.2 Urine Color YELLOW Urine Clarity CLEAR Urine pH 5.0 Urine Specific [place] 1.013 Urine Ketones NEGATIVE Urine Nitrite NEGATIVE Urine Bilirubin NEGATIVE Urine Urobilinogen NEGATIVE Urine Leukocyte Esterase NEGATIVE Urine Microscopic RBC 2 Urine Microscopic WBC 1 Urine Bacteria FEW A Urine Mucus FEW A Urine Hemoglobin 1+ H Urine Glucose 1+ H Urine Total Protein 3+ H Urine Opiates Screen Negative Urine Barbiturates Negative Urine Amphetamines Screen Negative Urine Benzodiazepines Screen Negative Urine Cocaine Screen Negative Urine Cannabinoids Negative Magnesium Level 1.9 Total Bilirubin 0.2 Direct Bilirubin 0.00 Indirect Bilirubin 0.2 Aspartate Amino Transf (AST/SGOT) 20 Alanine Aminotransferase (ALT/SGPT) 29 Alkaline Phosphatase 67 Total Protein 6.2 Albumin 3.3 Globulin 2.90 Albumin/Globulin Ratio 1.13 Thyroid Stimulating Hormone (TSH) 2.350 Subjective 24 Hr Interval Summary Free Text/Dictation less headache, less blurring Exam/Review of Systems Exam Vitals Vital Signs Date Temp Pulse Resp B/P (MAP) Pulse Ox O2 O2 Flow FiO2 Time Delivery Rate 06/24/18 86 14:44 06/24/18 97.6 20 175/79 100 12:05 (111) 06/24/18 Room Air 10:20 Constitutional: alert, oriented, well developed Psych: no complaints, nl mood/affect Head: normocephalic, atraumatic Eyes: nl conjunctiva, EOMI, nl lids, PERRL ENMT: nl external ears & nose, nl lips & teeth, nl nasal mucosa & septum Neck: supple, non-tender Respiratory: clear to auscultation, normal air movement; No congested cough, No crackles/rales, No diminished breath sounds, No intercostal retraction, No labored breathing, No respirations, No tactile fremitus, No wheezing, No other Cardiovascular: regular rate and rhythm, nl pulses; No bruits, No diastolic murmur, No edema, No gallop, No irregular rhythm, No jugular venous distention (JVD), No murmurs/extra sounds, No rub, No systolic murmur, No S3, No S4, No other Gastrointestinal: soft, nl liver, spleen, non-tender Musculoskeletal: nl extremities to inspection Extremities: normal pulses; No calf tenderness, No cyanosis, No clubbing, No edema, No pitting pedal edema, No palpable cord, No tenderness, No other Neurological: 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 II-XII 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, nl mental status Results Results 24hrs Laboratory Tests Test 06/23/18 18:55 06/23/18 21:33 06/24/18 05:37 White Blood Count 6.2 5.7 Red Blood Count 2.77 L 2.64 L Hemoglobin 9.1 L 8.6 L Hematocrit 28.1 L 26.4 L Mean Corpuscular Volume 101.4 H 100.0 Mean Corpuscular Hemoglobin 32.9 32.6 Mean Corpuscular Hemoglobin Concent 32.4 32.6 Red Cell Distribution Width 14.0 13.7 Platelet Count 159 144 Mean Platelet Volume 9.8 9.4 Immature Granulocytes % 0.500 H 0.400 Neutrophils % 63.5 61.8 Lymphocytes % 23.2 25.0 Monocytes % 8.8 9.1 Eosinophils % 3.7 3.5 Basophils % 0.3 0.2 Nucleated Red Blood Cells % 0.0 0.0 Immature Granulocytes # 0.030 0.020 Neutrophils # 3.9 3.5 Lymphocytes # 1.4 1.4 Monocytes # 0.5 0.5 Eosinophils # 0.2 0.2 Basophils # 0.0 0.0 Nucleated Red Blood Cells # 0.0 0.0 Prothrombin Time 12.9 Prothrombin Time Ratio 1.0 INR International Normalized Ratio 0.96 Activated Partial Thromboplast Time 30.7 Sodium Level 145 H 145 H Potassium Level 4.6 4.2 Chloride Level 112 H 115 H Carbon Dioxide Level 22 24 Anion Gap 11 6 Blood Urea Nitrogen 39 H 36 H Creatinine 2.70 H 2.40 H Est Glomerular Filtrat Rate mL/min Glucose Level 136 90 # Hemoglobin A1c 5.4 Calcium Level 9.7 9.4 Troponin I < 0.012 Triglycerides Level 56 76 Cholesterol Level 109 96 L LDL Cholesterol, Calculated 51 39 HDL Cholesterol 47 42 Cholesterol/HDL Ratio 2.3 2.2 Urine Color YELLOW Urine Clarity CLEAR Urine pH 5.0 Urine Specific [place] 1.013 Urine Ketones NEGATIVE Urine Nitrite NEGATIVE Urine Bilirubin NEGATIVE Urine Urobilinogen NEGATIVE Urine Leukocyte Esterase NEGATIVE Urine Microscopic RBC 2 Urine Microscopic WBC 1 Urine Bacteria FEW A Urine Mucus FEW A Urine Hemoglobin 1+ H Urine Glucose 1+ H Urine Total Protein 3+ H Urine Opiates Screen Negative Urine Barbiturates Negative Urine Amphetamines Screen Negative Urine Benzodiazepines Screen Negative Urine Cocaine Screen Negative Urine Cannabinoids Negative Magnesium Level 1.9 Total Bilirubin 0.2 Direct Bilirubin 0.00 Indirect Bilirubin 0.2 Aspartate Amino Transf (AST/SGOT) 20 Alanine Aminotransferase (ALT/SGPT) 29 Alkaline Phosphatase 67 Total Protein 6.2 Albumin 3.3 Globulin 2.90 Albumin/Globulin Ratio 1.13 Thyroid Stimulating Hormone (TSH) 2.350 Medications Medication Current Medications IV Flush (NS 3 ml) 3 ml PER PROTOCOL IV ; Start 06/24/18 at 00:00 Ondansetron HCl (Zofran Inj) 4 mg Q6H PRN IV NAUSEA/VOMITING; Start 06/24/18 at 00:00 Acetaminophen (Tylenol Tab) 650 mg Q6H PRN PO .PAIN 1-3 OR TEMP; Start 06/24/18 at 00:00 Acetaminophen/ Hydrocodone Bitart ([place] (5/325)) 1 tab Q6H PRN PO .PAIN 4-6; Start 06/24/18 at 00:00 Albuterol/ Ipratropium (Duoneb) 3 ml Q2H RESP THERAPY PRN HHN SHORTNESS OF BREATH; Start 06/24/18 at 00:00 Amlodipine Besylate (Norvasc) 10 mg QAM PO Last administered on 06/24/18at 09:31; Admin Dose 10 MG; Start 06/24/18 at 09:00 Aspirin (Aspirin) 81 mg DAILY PO Last administered on 06/24/18at 09:30; Admin Dose 81 MG; Start 06/24/18 at 09:00 Latanoprost (Xalatan) 1 drop HS BOTH EYES ; Start 06/24/18 at 21:00 Docusate Sodium (Colace) 100 mg TID PO Last administered on 06/24/18at 12:26; Admin Dose 100 MG; Start 06/24/18 at 09:00 Donepezil HCl (Aricept) 5 mg DAILY PO Last administered on 06/24/18at 09:30; Admin Dose 5 MG; Start 06/24/18 at 09:00 Famotidine (Pepcid) 20 mg DAILY PO Last administered on 06/24/18 09:30; Admin Dose 20 MG; Start 06/24/18 at 09:00 Febuxostat (Uloric) 40 mg QHS PO ; Start 06/24/18 at 21:00 Ferrous Sulfate (Ferrous Sulfate (Ec)) 325 mg TID PO Last administered on 06/24/18 12:26; Admin Dose 325 MG; Start 06/24/18 at 09:00 Furosemide (Lasix) 40 mg DAILY PO Last administered on 06/24/18 09:47; Admin Dose 40 MG; Start 06/24/18 at 09:00 Metoprolol Succinate (Toprol Xl) 200 mg DAILY PO Last administered on 06/24/18 09:31; Admin Dose 200 MG; Start 06/24/18 at 09:00 Tamsulosin HCl (Flomax) 0.4 mg BID PO Last administered on 06/24/18 09:30; Admin Dose 0.4 MG; Start 06/24/18 at 09:00 Hydralazine HCl (Apresoline) 10 mg Q6 PRN IV SBP>160 Last administered on 06/24/18 12:26; Admin Dose 10 MG; Start 06/24/18 at 12:00 MATILDA WHITE MD June 24, 2018 14:59
--- NOTE | 2018-06-24 15:58 | CONS ---
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 Cannot have MRI or CT with contrast. - Plan for CT C/A/P to rule out systemic malignancy Consultation Date/Type/Reason Admit Date/Time Date of Consultation: June 24, 2018 Type of Consult Neurosurgery Reason for Consultation Brain lesion Date/Time of Note DATE: 06/24/18 TIME: 15:52 Hx of Present Illness 83 year old male with history of left velasquez radiata stroke who has had 2 days of difficulty with looking up in the right eye. He has no vision in the left eye due to glaucoma. He has longstanding balance difficulty and right sided weakness, but no worsening of these symptoms. He has a pacemaker so he cannot have an MRI, and kidney dysfunction limiting contrast administration. Past Medical History Medical History: other (See HPI) Home Meds Active Scripts Metoprolol Succinate* (Toprol XL*) 100 Mg Tab.sr.24h, 200 MG PO DAILY, #30 TAB Prov:MIRANDA COLLINS V. [employer] 04/16/18 Tamsulosin Hcl* (Flomax*) 0.4 Mg Cap.er.24h, 0.4 MG PO BID, #60 CAP Prov:MIRANDA COLLINS [employer]. [employer] 04/16/18 Reported Medications Furosemide* (Furosemide*) 40 Mg Tablet, 40 MG PO DAILY for 90 Days 06/23/18 Docusate Sodium (Col-Rite) 100 Mg Capsule, 100 MG PO TID for 90 Days, #270 take 1 capsule by mouth three times a day 06/23/18 Valsartan (Valsartan) 320 Mg Tablet, 320 MG PO DAILY for 90 Days, #90 take 1 tablet by mouth once daily 06/23/18 Atenolol* (Atenolol*) 50 Mg Tablet, 50 MG PO DAILY for 90 Days, #90 take 1 tablet by mouth once daily 06/23/18 Clonidine Patch (CLONIDINE PATCH) 0.2 Mg/24 Hr Patch, 1 PATCH.WK TD Q7D, #4 PATCH.WK 06/23/18 Clonidine Hcl* (Clonidine Hcl*) 0.2 Mg Tablet, 0.2 MG PO TID for 30 Days, #90 06/23/18 Difluprednate (Durezol) 5 Ml Drops, 1 DROP BOTH EYES QID, BOTTLE 2/26/19 Febuxostat* (Uloric*) 40 Mg Tablet, 40 MG PO QHS, TAB 04/15/18 Donepezil* (Donepezil*) 5 Mg Tablet, 5 MG PO DAILY, #30 TAB take 1 tablet by mouth once daily 04/15/18 Docusate Sodium* (Docusate Sodium*) 100 Mg Capsule, 100 MG PO TID, #30 CAP 04/15/18 Ferrous Sulfate* (Ferrous Sulfate*) 325 Mg Tabec, 325 MG PO TID, TAB 04/15/18 Bimatoprost* ([place]*) 0.01%-2.5 Ml Opht Drops, 1 DROP BOTH EYES HS, EA 07/15/16 Calcitriol* (Rocaltrol*) 0.25 Mcg Capsule, 0.25 MCG PO FIVE TIMES WEEKLY, CAP 07/15/16 Famotidine* (Famotidine*) 20 Mg Tablet, 20 MG PO DAILY, #30 TAB take 1 tablet by mouth once daily 07/15/16 Alendronate Sodium* (Fosamax*) 70 Mg Tablet, 70 MG PO ON SATURDAYS, TAB 07/28/14 Amlodipine Besylate* (Amlodipine Besylate*) 10 Mg Tablet, 10 MG PO QAM, TAB 07/29/13 Aspirin (Aspirin) 81 Mg Chew, 81 MG PO DAILY take 1 tablet by mouth once daily 12/20/12 Simvastatin (Simvastatin) 20 Mg Tablet, 20 MG PO HS 12/20/12 Medications Current Medications IV Flush (NS 3 ml) 3 ml PER PROTOCOL IV ; Start 06/24/18 at 00:00 Ondansetron HCl (Zofran Inj) 4 mg Q6H PRN IV NAUSEA/VOMITING; Start 06/24/18 at 00:00 Acetaminophen (Tylenol Tab) 650 mg Q6H PRN PO .PAIN 1-3 OR TEMP; Start 06/24/18 at 00:00 Acetaminophen/ Hydrocodone Bitart ([place] (5/325)) 1 tab Q6H PRN PO .PAIN 4-6; Start 06/24/18 at 00:00 Albuterol/ Ipratropium (Duoneb) 3 ml Q2H RESP THERAPY PRN HHN SHORTNESS OF BREATH; Start 06/24/18 at 00:00 Amlodipine Besylate (Norvasc) 10 mg QAM PO Last administered on 06/24/18 09:31; Admin Dose 10 MG; Start 06/24/18 at 09:00 Aspirin (Aspirin) 81 mg DAILY PO Last administered on 06/24/18 09:30; Admin Dose 81 MG; Start 06/24/18 at 09:00 Latanoprost (Xalatan) 1 drop HS BOTH EYES ; Start 06/24/18 at 21:00 Docusate Sodium (Colace) 100 mg TID PO Last administered on 06/24/18 12:26; Adm in Dose 100 MG; Start 06/24/18 at 09:00 Donepezil HCl (Aricept) 5 mg DAILY PO Last administered on 06/24/18 09:30; Admin Dose 5 MG; Start 06/24/18 at 09:00 Famotidine (Pepcid) 20 mg DAILY PO Last administered on 06/24/18 09:30; Admin Dose 20 MG; Start 06/24/18 at 09:00 Febuxostat (Uloric) 40 mg QHS PO ; Start 06/24/18 at 21:00 Ferrous Sulfate (Ferrous Sulfate (Ec)) 325 mg TID PO Last administered on 06/24/18 12:26; Admin Dose 325 MG; Start 06/24/18 at 09:00 Metoprolol Succinate (Toprol Xl) 200 mg DAILY PO Last administered on 06/24/18 09:31; Admin Dose 200 MG; Start 06/24/18 at 09:00 Tamsulosin HCl (Flomax) 0.4 mg BID PO Last administered on 06/24/18 09:30; Admin Dose 0.4 MG; Start 06/24/18 at 09:00 Hydralazine HCl (Apresoline) 10 mg Q6 PRN IV SBP>160 Last administered on 06/24/18 12:26; Admin Dose 10 MG; Start 06/24/18 at 12:00 Allergies: Coded Allergies: epoetin kayley (Verified Allergy, Severe, ITCHING AND FACE SWELLING, 04/15/18) PER PT AND Past Surgical History Past Surgical Hx: other (See HPI) Social History Alcohol Use: none Smoking Status: Current every day smoker Drug Use: none Exam/Review of Systems Exam Vitals Vital Signs Date Temp Pulse Resp B/P (MAP) Pulse Ox O2 O2 Flow FiO2 Time Delivery Rate 06/24/18 86 14:44 06/24/18 97.6 20 175/79 100 12:05 (111) 06/24/18 Room Air 10:20 Exam 4/5 on Left 5/5 on right no vision OS vision intact OD, but EOM limited when looking up Results Result Diagram: 06/24/18 0537 06/24/18 0537 Results 24hrs Laboratory Tests Test 06/23/18 18:55 06/23/18 21:33 06/24/18 05:37 White Blood Count 6.2 5.7 Red Blood Count 2.77 L 2.64 L Hemoglobin 9.1 L 8.6 L Hematocrit 28.1 L 26.4 L Mean Corpuscular Volume 101.4 H 100.0 Mean Corpuscular Hemoglobin 32.9 32.6 Mean Corpuscular Hemoglobin Concent 32.4 32.6 Red Cell Distribution Width 14.0 13.7 Platelet Count 159 144 Mean Platelet Volume 9.8 9.4 Immature Granulocytes % 0.500 H 0.400 Neutrophils % 63.5 61.8 Lymphocytes % 23.2 25.0 Monocytes % 8.8 9.1 Eosinophils % 3.7 3.5 Basophils % 0.3 0.2 Nucleated Red Blood Cells % 0.0 0.0 Immature Granulocytes # 0.030 0.020 Neutrophils # 3.9 3.5 Lymphocytes # 1.4 1.4 Monocytes # 0.5 0.5 Eosinophils # 0.2 0.2 Basophils # 0.0 0.0 Nucleated Red Blood Cells # 0.0 0.0 Prothrombin Time 12.9 Prothrombin Time Ratio 1.0 INR International Normalized Ratio 0.96 Activated Partial Thromboplast Time 30.7 Sodium Level 145 H 145 H Potassium Level 4.6 4.2 Chloride Level 112 H 115 H Carbon Dioxide Level 22 24 Anion Gap 11 6 Blood Urea Nitrogen 39 H 36 H Creatinine 2.70 H 2.40 H Est Glomerular Filtrat Rate mL/min Glucose Level 136 90 # Hemoglobin A1c 5.4 Calcium Level 9.7 9.4 Troponin I < 0.012 Triglycerides Level 56 76 Cholesterol Level 109 96 L LDL Cholesterol, Calculated 51 39 HDL Cholesterol 47 42 Cholesterol/HDL Ratio 2.3 2.2 Urine Color YELLOW Urine Clarity CLEAR Urine pH 5.0 Urine Specific [place] 1.013 Urine Ketones NEGATIVE Urine Nitrite NEGATIVE Urine Bilirubin NEGATIVE Urine Urobilinogen NEGATIVE Urine Leukocyte Esterase NEGATIVE Urine Microscopic RBC 2 Urine Microscopic WBC 1 Urine Bacteria FEW A Urine Mucus FEW A Urine Hemoglobin 1+ H Urine Glucose 1+ H Urine Total Protein 3+ H Urine Opiates Screen Negative Urine Barbiturates Negative Urine Amphetamines Screen Negative Urine Benzodiazepines Screen Negative Urine Cocaine Screen Negative Urine Cannabinoids Negative Magnesium Level 1.9 Total Bilirubin 0.2 Direct Bilirubin 0.00 Indirect Bilirubin 0.2 Aspartate Amino Transf (AST/SGOT) 20 Alanine Aminotransferase (ALT/SGPT) 29 Alkaline Phosphatase 67 Total Protein 6.2 Albumin 3.3 Globulin 2.90 Albumin/Globulin Ratio 1.13 Thyroid Stimulating Hormone (TSH) 2.[address] 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 Medications Medication Current Medications IV Flush (NS 3 ml) 3 ml PER PROTOCOL IV ; Start 06/24/18 at 00:00 Ondansetron HCl (Zofran Inj) 4 mg Q6H PRN IV NAUSEA/VOMITING; Start 06/24/18 at 00:00 Acetaminophen (Tylenol Tab) 650 mg Q6H PRN PO .PAIN 1-3 OR TEMP; Start 06/24/18 at 00:00 Acetaminophen/ Hydrocodone Bitart ([place] (5/325)) 1 tab Q6H PRN PO .PAIN 4-6; Start 06/24/18 at 00:00 Albuterol/ Ipratropium (Duoneb) 3 ml Q2H RESP THERAPY PRN HHN SHORTNESS OF BREATH; Start 06/24/18 at 00:00 Amlodipine Besylate (Norvasc) 10 mg QAM PO Last administered on 06/24/18at 09:31; Admin Dose 10 MG; Start 06/24/18 at 09:00 Aspirin (Aspirin) 81 mg DAILY PO Last administered on 06/24/18at 09:30; Admin Dose 81 MG; Start 06/24/18 at 09:00 Latanoprost (Xalatan) 1 drop HS BOTH EYES ; Start 06/24/18 at 21:00 Docusate Sodium (Colace) 100 mg TID PO Last administered on 06/24/18at 12:26; Admin Dose 100 MG; Start 06/24/18 at 09:00 Donepezil HCl (Aricept) 5 mg DAILY PO Last administered on 06/24/18at 09:30; Admin Dose 5 MG; Start 06/24/18 at 09:00 Famotidine (Pepcid) 20 mg DAILY PO Last administered on 06/24/18 09:30; Admin Dose 20 MG; Start 06/24/18 at 09:00 Febuxostat (Uloric) 40 mg QHS PO ; Start 06/24/18 at 21:00 Ferrous Sulfate (Ferrous Sulfate (Ec)) 325 mg TID PO Last administered on 06/24/18 12:26; Admin Dose 325 MG; Start 06/24/18 at 09:00 Metoprolol Succinate (Toprol Xl) 200 mg DAILY PO Last administered on 06/24/18 09:31; Admin Dose 200 MG; Start 06/24/18 at 09:00 Tamsulosin HCl (Flomax) 0.4 mg BID PO Last administered on 06/24/18 09:30; Admin Dose 0.4 MG; Start 06/24/18 at 09:00 Hydralazine HCl (Apresoline) 10 mg Q6 PRN IV SBP>160 Last administered on 06/24/18 12:26; Admin Dose 10 MG; Start 06/24/18 at 12:00 TYLER MEDINA MD June 24, 2018 15:58
--- NOTE | 2018-06-24 18:24 | CONS ---
DATE OF ADMISSION: 06/23/2018 DATE OF CONSULTATION: 06/24/2018 TYPE OF CONSULTATION: Nephrology. REASON FOR CONSULTATION: Acute kidney injury, CKD. PHYSICIAN REQUESTING CONSULT: Chava Machado MD HISTORY OF PRESENT ILLNESS: This is an 83-year-old male with a past medical history of chronic kidne y disease stage III-B/IV with a baseline eGFR around 30 mL per minute per patient, a history of hyper tension, dyslipidemia, coronary artery disease, history of left eye glaucoma, history of CVA, history of CHF, history of arrhythmia, status post pacemaker, who presents to the emergency room complaining of headaches, dizziness, blurry vision x1 day. The patient in the emergency room states that sympto ms of headache had been ongoing for 1 week. He denied any slurred speech or focal deficits. The pat ient in the emergency room had CT scan of the head which showed moderate vasogenic edema in the left thalamus and midbrain with possible appearance of the left millimeter lesion. The patient was subseq uently admitted to telemetry for evaluation. In terms of the patient's renal history, the patient has a history of CKD. The patient states that h is eGFR baseline is around 30 to 35 mL per minute per patient's . 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 He denies any hemoptysi s, hematemesis, hematochezia, any frothy urine. PAST MEDICAL HISTORY: As stated above, history of CKD, CHF, history of coronary artery disease, dysl ipidemia, hypertension, history of glaucoma. SOCIAL HISTORY: Does not drink or actively smoke. FAMILY HISTORY: No family history of kidney disease. MEDICATIONS: Have been reviewed. PAST SURGICAL HISTORY: Has been reviewed. REVIEW OF SYSTEMS: A 14-point review of systems was conducted. Pertinent positives as stated in the HPI, otherwise negative. PHYSICAL EXAMINATION: VITAL SIGNS: Blood pressure 150/69, respirations 20, pulse 66, temperature 97.9. HEENT: Head is normocephalic. The patient's nose was noted to have bullous lesions. NECK: Supple. HEART: Regular rate. LUNGS: Show diminished breath sounds at the base. ABDOMEN: Soft, nontender to palpation. No rebound or guarding. EXTREMITIES: Negative for clubbing, cyanosis. No edema. DERMATOLOGIC: No rashes. MUSCULOSKELETAL: No joint effusion. NEUROLOGIC: No focal deficits. LABORATORY DATA: Have been reviewed. ASSESSMENT AND PLAN: This is an 83-year-old male who presents with: 1. Nonoliguric acute kidney injury on top of chronic kidney disease with baseline creatinine around 2.0 to 2.5 mg/dL. Etiology of current acute kidney injury may be multifactorial secondary to hemodyn amics, from diuretic use. The patient's urinalysis was reviewed, which shows evidence of proteinuria but no significant pyuria or hematuria. Renal ultrasound was reviewed. No evidence of obstruction. Increased echogenicity consistent with medical renal disease. Recommendation at this point is to r epeat UA with microanalysis. We will check urine electrolytes. Calculate a fractional excretion of urea. We would recommend to hold diuretic therapy. We would continue current treatment plan, suppor tive care, renally dose meds, avoid nephrotoxins. The patient is at moderate risk for possibility of contrast-associated nephropathy given underlying chronic kidney disease, acute kidney injury. We wo uld defer CT angio at this time until renal function stabilized. We would then hydrate the patient a ppropriately before any procedure. We will continue to monitor renal function and electrolytes close ly. 2. Hypernatremia. Encourage free water intake. 3. Anemia. Monitor hemoglobin and hematocrit levels. 4. Mineral bone disorder. Monitor calcium and phosphorus levels. 5. Hypertension. Continue current blood pressure regimen. 6. Diastolic heart failure. The patient is currently compensated. We will hold diuretic therapy. 7. History of cerebrovascular accident with mild right-sided deficit. Continue current medical rosemary men. 8. Arrhythmia, status post pacemaker. Continue to monitor. 9. Dyslipidemia. Continue statin therapy. 10. Possible brain mass. The patient is pending possible CT angio. We will hold at this time until renal function stabilizes. Continue to monitor. Continue medical management. Consider neurology e valuation. Thank you, Dr. Machado, for this interesting consult. It will be a pleasure to follow patient with you throughout the hospital course. Dictated By: CAMPOS JOHNSTON DO NR/NTS Conf#: [id number] DID#: [id number] CC: HIEU RENEE MD; CHAVA MACHADO MD;*EndCC*
[2018-06-24] MEDS: FEBUXOSTAT 40 MG TABLET PO SCH (21:26)
[2018-06-24] MEDS: ACETAMINOPHEN 325 MG TAB PO PRN (21:49)
[2018-06-24] MEDS: LATANOPROST 0.005% 2.5 ML OPH BOTH EYES SCH (23:30)
[2018-06-25] VITALS (12 sets, daily range): BP systolic 150–159; BP diastolic 67–72; PULSE 60–72; RESP 18–20
[2018-06-25] MEDS: ASPIRIN 81 MG TAB PO SCH (08:42)
[2018-06-25] MEDS: DOCUSATE SODIUM 100 MG CAP PO SCH ×3 (08:42→20:23)
[2018-06-25] MEDS: FERROUS SULFATE (EC) 325 MG TAB PO SCH ×3 (08:42→20:23)
[2018-06-25] MEDS: DONEPEZIL 5 MG TAB PO SCH (08:42)
[2018-06-25] MEDS: TAMSULOSIN (SR) 0.4 MG CAP PO SCH ×2 (08:42→20:24)
[2018-06-25] MEDS: FAMOTIDINE 20 MG TAB PO SCH (08:42)
[2018-06-25] MEDS: METOPROLOL (XL) 100 MG TAB PO SCH (08:43)
[2018-06-25] MEDS: AMLODIPINE 10 MG TAB PO SCH (08:44)
--- NOTE | 2018-06-25 09:19 | PN ---
DATE: 06/25/2018 SUBJECTIVE: The patient is stable, no events overnight. No fevers, chills, nausea, or vomiting. OBJECTIVE: VITAL SIGNS: Blood pressure is 159/72, respirations 20, pulse 60, temperature 98.5. HEENT: Head is normocephalic. NECK: Supple. HEART: Regular rate. LUNGS: Show diminished breath sounds at the base. ABDOMEN: Soft, nontender to palpation without rebound or guarding. EXTREMITIES: Negative for clubbing, cyanosis, no edema. DERMATOLOGIC: No rashes. MUSCULOSKELETAL: No joint effusion. NEUROLOGIC: No change in exam. MEDICATIONS: Reviewed. LABORATORY DATA: Reviewed. Urinalysis was reviewed. IMAGING STUDIES: Renal ultrasound was reviewed, shows increased echogenicity, no evidence of obstruc tion, no hydronephrosis. ASSESSMENT AND PLAN: 1. Nonoliguric acute kidney injury on top of chronic kidney disease with previous baseline creatinin e of around 2 to 2.5 mg/dL. Etiology of current acute kidney injury appears to be secondary to hemod ynamics. Renal function is fluctuating between a creatinine 2.4 to 2.7 mg/dL. The patient's urinaly sis was reviewed, no evidence of active sediment. Renal ultrasound shows no evidence of obstruction. 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 Recommendation would be to continue current treatment plan, supportive care, renally dose all medications. Please note that the patient is at moderate risk for contrast-associated nephropathy g iven underlying history of chronic kidney disease. We would monitor closely. If the CT angio needs to be done, we would hydrate the patient prior to procedure. 2. Hypernatremia, improved. Continue to encourage free water intake. 3. Anemia. Continue to monitor hemoglobin and hematocrit levels. 4. Mineral bone disorder, monitor calcium and phosphorus levels. 5. Hypertension. Continue current blood pressure regimen, adjust as needed. 6. Diastolic heart failure. The patient appears compensated. Continue to monitor. 7. History of cerebrovascular accident with right-sided hemideficit. Continue to monitor. 8. Possible brain mass. The patient has been evaluated by neurology. CT angio or MRI may be needed . We will monitor closely. As stated above, the patient does have risk for contrast-associated neph ropathy. Continue to optimize care. We will continue to treat acute kidney injury, chronic kidney i njury as stated above. 9. Dyslipidemia. Continue statin therapy. 10. Arrhythmia, status post pacemaker. Continue to monitor. Dictated By: CAMPOS JOHNSTON DO NR/NTS Conf#: [id number] DID#: [id number] CC: MATILDA WHITE MD; HIEU RENEE MD; CAMPOS JOHNSTON DO;*EndCC*
[2018-06-25] MEDS: NIFEdipine (XL) 60 MG TAB PO SCH (15:06)
[2018-06-25] MEDS: SOD CHLORIDE 0.45% 1,000 ML IV SCH (15:07)
--- NOTE | 2018-06-25 15:13 | PN ---
Date/Time of Note Date/Time of Note DATE: 06/25/18 TIME: 15:02 Assessment/Plan VTE Prophylaxis Risk score (from [facility])>0 risk: 4 SCD applied (from [facility]): Yes Pharmacological prophylaxis: other Pharm contraindication: other Lines/Catheters IV C[facility] Type (from [facility] Saline Lock Assessment/Plan Assessment/Plan 1. 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 CKD, relatively stable Cr level, IVF for CT with iv contrast 3. LVEF 65% on 04/15/2018, hold lasix 4. Hypertension, adjust antihypertensives 5. History of CVA with mild right-sided deficit, on aspirin and lipitor 6. Pacemaker: Placed 14 years ago 7. Dyslipidemia: Continue statin 8. Macrocytic anemia, chronic, follow up with PCP 9. Redness lesion on sacral/left buttock, follow up with wound care Result Diagram: 06/25/18 0715 06/25/18 0715 Results 24hrs Laboratory Tests Test 06/24/18 23:12 06/25/18 07:15 Urine Color STRAW Urine Clarity CLEAR Urine pH 6.0 Urine Specific Dille 1.011 Urine Ketones NEGATIVE Urine Nitrite NEGATIVE Urine Bilirubin NEGATIVE Urine Urobilinogen NEGATIVE Urine Leukocyte Esterase NEGATIVE Urine Microscopic RBC 3 Urine Microscopic WBC 2 Urine Hemoglobin 1+ H Urine Random Creatinine 60.91 Urine Random Sodium 106 H Urine Glucose 1+ H Urine Total Protein 426.0 H White Blood Count 5.7 Red Blood Count 2.44 L Hemoglobin 8.1 L Hematocrit 24.5 L Mean Corpuscular Volume 100.4 Mean Corpuscular Hemoglobin 33.2 H Mean Corpuscular Hemoglobin Concent 33.1 Red Cell Distribution Width 14.1 Platelet Count 137 L Mean Platelet Volume 9.9 Immature Granulocytes % 0.300 Neutrophils % 58.3 Lymphocytes % 29.7 Monocytes % 8.6 Eosinophils % 2.8 Basophils % 0.3 Nucleated Red Blood Cells % 0.0 Immature Granulocytes # 0.020 Neutrophils # 3.3 Lymphocytes # 1.7 Monocytes # 0.5 Eosinophils # 0.2 Basophils # 0.0 Nucleated Red Blood Cells # 0.0 Sodium Level 144 Potassium Level 4.5 Chloride Level 114 H Carbon Dioxide Level 23 Anion Gap 7 Blood Urea Nitrogen 37 H Creatinine 2.64 H Est Glomerular Filtrat Rate mL/min Glucose Level 89 Calcium Level 9.1 Subjective 24 Hr Interval Summary Free Text/Dictation no pain, weak Exam/Review of Systems Exam Vitals Vital Signs Date Temp Pulse Resp B/P (MAP) Pulse Ox O2 O2 Flow FiO2 Time Delivery Rate 06/25/18 72 12:58 06/25/18 98.5 20 157/71 97 Room Air 11:02 (99) Intake and Output 06/24/18 06/24/18 06/25/18 1515:00 23:00 07:00 IntakeIntake Total 1200 ml 300 ml OutputOutput Total 260 ml 500 ml BalanceBalance -260 ml 1200 ml -200 ml Constitutional: alert, oriented, well developed Psych: no complaints, nl mood/affect Head: normocephalic, atraumatic Eyes: nl conjunctiva, EOMI, nl lids, PERRL ENMT: nl external ears & nose, nl lips & teeth, nl nasal mucosa & septum Neck: supple, non-tender Respiratory: clear to auscultation, normal air movement; No congested cough, No crackles/rales, No diminished breath sounds, No intercostal retraction, No labored breathing, No respirations, No tactile fremitus, No wheezing, No other Cardiovascular: regular rate and rhythm, nl pulses; No bruits, No diastolic murmur, No edema, No gallop, No irregular rhythm, No jugular venous distention (JVD), No murmurs/extra sounds, No rub, No systolic murmur, No S3, No S4, No other Gastrointestinal: soft, nl liver, spleen, non-tender; No ascites, No bowel sounds, No distended, No firm, No hepatomegaly, No mass, No rebound or guarding, No splenomegaly, No surgical scars, No tender, No other Musculoskeletal: nl extremities to inspection Extremities: normal pulses; No calf tenderness, No cyanosis, No clubbing, No edema, No pitting pedal edema, No palpable cord, No tenderness, No other Neurological: [employer] II-XII intact, nl mental status, nl speech, nl strength Results Results 24hrs Laboratory Tests Test 06/24/18 23:12 06/25/18 07:15 Urine Color STRAW Urine Clarity CLEAR Urine pH 6.0 Urine Specific Dille 1.011 Urine Ketones NEGATIVE Urine Nitrite NEGATIVE Urine Bilirubin NEGATIVE Urine Urobilinogen NEGATIVE Urine Leukocyte Esterase NEGATIVE Urine Microscopic RBC 3 Urine Microscopic WBC 2 Urine Hemoglobin 1+ H Urine Random Creatinine 60.91 Urine Random Sodium 106 H Urine Glucose 1+ H Urine Total Protein 426.0 H White Blood Count 5.7 Red Blood Count 2.44 L Hemoglobin 8.1 L Hematocrit 24.5 L Mean Corpuscular Volume 100.4 Mean Corpuscular Hemoglobin 33.2 H Mean Corpuscular Hemoglobin Concent 33.1 Red Cell Distribution Width 14.1 Platelet Count 137 L Mean Platelet Volume 9.9 Immature Granulocytes % 0.300 Neutrophils % 58.3 Lymphocytes % 29.7 Monocytes % 8.6 Eosinophils % 2.8 Basophils % 0.3 Nucleated Red Blood Cells % 0.0 Immature Granulocytes # 0.020 Neutrophils # 3.3 Lymphocytes # 1.7 Monocytes # 0.5 Eosinophils # 0.2 Basophils # 0.0 Nucleated Red Blood Cells # 0.0 Sodium Level 144 Potassium Level 4.5 Chloride Level 114 H Carbon Dioxide Level 23 Anion Gap 7 Blood Urea Nitrogen 37 H Creatinine 2.64 H Est Glomerular Filtrat Rate mL/min Glucose Level 89 Calcium Level 9.1 Medications Medication Current Medications IV Flush (NS 3 ml) 3 ml PER PROTOCOL IV ; Start 06/24/18 at 00:00 Ondansetron HCl (Zofran Inj) 4 mg Q6H PRN IV NAUSEA/VOMITING; Start 06/24/18 at 00:00 Acetaminophen (Tylenol Tab) 650 mg Q6H PRN PO .PAIN 1-3 OR TEMP Last administered on 06/24/18at 21:49; Admin Dose 650 MG; Start 06/24/18 at 00:00 Acetaminophen/ Hydrocodone Bitart ([place] (5/325)) 1 tab Q6H PRN PO .PAIN 4-6; Start 06/24/18 at 00:00 Albuterol/ Ipratropium (Duoneb) 3 ml Q2H RESP THERAPY PRN HHN SHORTNESS OF BREATH; Start 06/24/18 at 00:00 Aspirin (Aspirin) 81 mg DAILY PO Last administered on 06/25/18at 08:42; Admin Dose 81 MG; Start 06/24/18 at 09:00 Latanoprost (Xalatan) 1 drop HS BOTH EYES Last administered on 06/24/18at 23:30; Admin Dose 1 DROP; Start 06/24/18 at 21:00 Docusate Sodium (Colace) 100 mg TID PO Last administered on 06/25/18 14:13; Admin Dose 100 MG; Start 06/24/18 at 09:00 Donepezil HCl (Aricept) 5 mg DAILY PO Last administered on 06/25/18 08:42; Admin Dose 5 MG; Start 06/24/18 at 09:00 Famotidine (Pepcid) 20 mg DAILY PO Last administered on 06/25/18 08:42; Admin Dose 20 MG; Start 06/24/18 at 09:00 Febuxostat (Uloric) 40 mg QHS PO Last administered on 06/24/18 21:26; Admin Dose 40 MG; Start 06/24/18 at 21:00 Ferrous Sulfate (Ferrous Sulfate (Ec)) 325 mg TID PO Last administered on 06/25/18 14:13; Admin Dose 325 MG; Start 06/24/18 at 09:00 Metoprolol Succinate (Toprol Xl) 200 mg DAILY PO Last administered on 06/25/18 08:43; Admin Dose 200 MG; Start 06/24/18 at 09:00 Tamsulosin HCl (Flomax) 0.4 mg BID PO Last administered on 06/25/18 08:42; Admin Dose 0.4 MG; Start 06/24/18 at 09:00 Hydralazine HCl (Apresoline) 10 mg Q6 PRN IV SBP>160 Last administered on 06/24/18 12:26; Admin Dose 10 MG; Start 06/24/18 at 12:00 Nifedipine (Procardia Xl) 60 mg DAILY PO ; Start 06/25/18 at 15:00 Sodium Chloride 1,000 ml @ 70 mls/hr [id number] IV ; Start 06/25/18 at 15:00 MATILDA WHITE MD June 25, 2018 15:13
[2018-06-25] MEDS: FEBUXOSTAT 40 MG TABLET PO SCH (20:24)
[2018-06-25] MEDS: LATANOPROST 0.005% 2.5 ML OPH BOTH EYES SCH (20:28)
[2018-06-26] VITALS (12 sets, daily range): BP systolic 140–156; BP diastolic 63–71; PULSE 60–84; RESP 18–20
[2018-06-26] MEDS: SOD CHLORIDE 0.45% 1,000 ML IV SCH ×2 (05:18→12:11)
[2018-06-26] MEDS: FAMOTIDINE 20 MG TAB PO SCH (08:30)
[2018-06-26] MEDS: DONEPEZIL 5 MG TAB PO SCH (08:30)
[2018-06-26] MEDS: DOCUSATE SODIUM 100 MG CAP PO SCH ×3 (08:30→20:36)
[2018-06-26] MEDS: TAMSULOSIN (SR) 0.4 MG CAP PO SCH ×2 (08:30→20:36)
[2018-06-26] MEDS: METOPROLOL (XL) 100 MG TAB PO SCH (08:31)
[2018-06-26] MEDS: FERROUS SULFATE (EC) 325 MG TAB PO SCH ×3 (08:31→20:36)
[2018-06-26] MEDS: ASPIRIN 81 MG TAB PO SCH (08:31)
[2018-06-26] MEDS: NIFEdipine (XL) 60 MG TAB PO SCH (08:32)
--- NOTE | 2018-06-26 10:33 | PN ---
DATE: 06/26/2018 SUBJECTIVE: The patient is stable. No events overnight. No fevers, chills, nausea or vomiting. OBJECTIVE: VITAL SIGNS: Blood pressure is 156/71, respirations 18, pulse 78, temperature 97.5. HEENT: Head is normocephalic. NECK: Supple. HEART: Regular rate. LUNGS: Diminished breath sounds at the base. ABDOMEN: Soft. Nontender to palpation without rebound or guarding. EXTREMITIES: Negative for clubbing, cyanosis, no edema. DERMATOLOGIC: No rashes. MUSCULOSKELETAL: No joint effusion. NEUROLOGIC: No change in exam. MEDICATIONS: The patient's medications have been reviewed. LABORATORY DATA: From 06/25/18 was reviewed. ASSESSMENT AND PLAN: 1. Nonoliguric acute kidney injury on top of chronic kidney disease with previous baseline creatinin e of around 2 to 2.5 mg/dL. Etiology of current acute kidney injury is secondary to hemodynamics. R enal function appears stabilizing back to previous baseline. The patient is currently on IV hydratio n pending contrast study in order to determine whether there is underlying brain mass. The patient d oes have moderate risk for contrast-associated nephropathy. Risks and benefits were explained to the patient's family. We will continue to monitor closely. 2. Hypernatremia, improved. Continue to encourage current free water intake. 3. Anemia. Continue to monitor hemoglobin and hematocrit levels. 4. Mineral bone disorder, monitor calcium and phosphorus levels. 5. Hypertension. Continue current blood pressure regimen. 6. Diastolic heart failure. The patient is currently compensated. Continue to monitor. 7. History of cerebrovascular accident with left sided hemideficit. Continue to monitor. 8. Possible brain mass. CT angio is pending. Continue to monitor. Followup with neurology. 9. Dyslipidemia. Continue statin therapy. 10. Arrhythmia status post pacemaker. Dictated By: CAMPOS JOHNSTON DO NR/NTS Conf#: [id number] DID#: [id number] CC: MATILDA WHITE MD; CAMPOS JOHNSTON DO; HIEU RENEE MD;*EndCC*
--- NOTE | 2018-06-26 14:41 | PN ---
Date/Time of Note Date/Time of Note DATE: 06/26/18 TIME: 14:31 Assessment/Plan VTE Prophylaxis Risk score (from [facility])>0 risk: 10 SCD applied (from [facility]): Yes Pharmacological prophylaxis: other Pharm contraindication: other Lines/Catheters IV Catheter Type (from [facility] Saline Lock Urinary Cath still in place: Yes Reason Cath still needed: other (indicate) Assessment/Plan Assessment/Plan 1. 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 CKD, relatively stable Cr level, IVF for CT with iv contrast 3. LVEF 65% on 04/15/2018, hold lasix 4. Hypertension, adjust antihypertensives 5. History of CVA with mild right-sided deficit, on aspirin and lipitor 6. Pacemaker: Placed 14 years ago 7. Dyslipidemia: Continue statin 8. Macrocytic anemia, chronic, follow up with PCP 9. Redness lesion on sacral/left buttock, follow up with wound care Result Diagram: 06/26/18 0742 06/26/18 0742 Results 24hrs Laboratory Tests Test 06/26/18 07:42 White Blood Count 6.5 Red Blood Count 2.64 L Hemoglobin 8.7 L Hematocrit 26.0 L Mean Corpuscular Volume 98.5 Mean Corpuscular Hemoglobin 33.0 Mean Corpuscular Hemoglobin Concent 33.5 Red Cell Distribution Width 13.8 Platelet Count 138 L Mean Platelet Volume 10.1 Immature Granulocytes % 0.300 Neutrophils % 66.1 Lymphocytes % 21.5 Monocytes % 8.7 Eosinophils % 3.1 Basophils % 0.3 Nucleated Red Blood Cells % 0.0 Immature Granulocytes # 0.020 Neutrophils # 4.3 Lymphocytes # 1.4 Monocytes # 0.6 Eosinophils # 0.2 Basophils # 0.0 Nucleated Red Blood Cells # 0.0 Sodium Level 142 Potassium Level 4.7 Chloride Level 114 H Carbon Dioxide Level 22 Anion Gap 6 Blood Urea Nitrogen 37 H Creatinine 2.65 H Est Glomerular Filtrat Rate mL/min Glucose Level 96 Calcium Level 8.7 Phosphorus Level 3.6 Magnesium Level 1.9 Subjective 24 Hr Interval Summary Free Text/Dictation headache, weak, no respiratory distress Exam/Review of Systems Exam Vitals Vital Signs Date Temp Pulse Resp B/P (MAP) Pulse Ox O2 O2 Flow FiO2 Time Delivery Rate 06/26/18 63 12:43 06/26/18 97.6 20 141/67 95 Room Air 11:35 (91) Intake and Output 06/25/18 06/25/18 06/26/18 1515:00 23:00 07:00 IntakeIntake Total 250 ml 720 ml 1240 ml OutputOutput Total 1000 ml 1150 ml BalanceBalance 250 ml -280 ml 90 ml Constitutional: alert, oriented, well developed Head: normocephalic, atraumatic Eyes: nl conjunctiva, EOMI, nl lids ENMT: nl external ears & nose, nl lips & teeth, nl nasal mucosa & septum Neck: supple, non-tender Respiratory: clear to auscultation Cardiovascular: regular rate and rhythm, nl pulses; No bruits, No diastolic murmur, No edema, No gallop, No irregular rhythm, No jugular venous distention (JVD), No murmurs/extra sounds, No rub, No systolic murmur, No S3, No S4, No other Gastrointestinal: soft, nl liver, spleen, non-tender Musculoskeletal: nl extremities to inspection Extremities: normal pulses Neurological: [employer] OPERATOR II-XII intact, nl mental status, nl speech, nl strength Results Results 24hrs Laboratory Tests Test 06/26/18 07:42 White Blood Count 6.5 Red Blood Count 2.64 L Hemoglobin 8.7 L Hematocrit 26.0 L Mean Corpuscular Volume 98.5 Mean Corpuscular Hemoglobin 33.0 Mean Corpuscular Hemoglobin Concent 33.5 Red Cell Distribution Width 13.8 Platelet Count 138 L Mean Platelet Volume 10.1 Immature Granulocytes % 0.300 Neutrophils % 66.1 Lymphocytes % 21.5 Monocytes % 8.7 Eosinophils % 3.1 Basophils % 0.3 Nucleated Red Blood Cells % 0.0 Immature Granulocytes # 0.020 Neutrophils # 4.3 Lymphocytes # 1.4 Monocytes # 0.6 Eosinophils # 0.2 Basophils # 0.0 Nucleated Red Blood Cells # 0.0 Sodium Level 142 Potassium Level 4.7 Chloride Level 114 H Carbon Dioxide Level 22 Anion Gap 6 Blood Urea Nitrogen 37 H Creatinine 2.65 H Est Glomerular Filtrat Rate mL/min Glucose Level 96 Calcium Level 8.7 Phosphorus Level 3.6 Magnesium Level 1.9 Medications Medication Current Medications IV Flush (NS 3 ml) 3 ml PER PROTOCOL IV ; Start 06/24/18 at 00:00 Ondansetron HCl (Zofran Inj) 4 mg Q6H PRN IV NAUSEA/VOMITING; Start 06/24/18 at 00:00 Acetaminophen (Tylenol Tab) 650 mg Q6H PRN PO .PAIN 1-3 OR TEMP Last administered on 06/24/18 21:49; Admin Dose 650 MG; Start 06/24/18 at 00:00 Acetaminophen/ Hydrocodone Bitart ([place] (5/325)) 1 tab Q6H PRN PO .PAIN 4-6; Start 06/24/18 at 00:00 Albuterol/ Ipratropium (Duoneb) 3 ml Q2H RESP THERAPY PRN HHN SHORTNESS OF BREATH; Start 06/24/18 at 00:00 Aspirin (Aspirin) 81 mg DAILY PO Last administered on 06/26/18 08:31; Admin Dose 81 MG; Start 06/24/18 at 09:00 Latanoprost (Xalatan) 1 drop HS BOTH EYES Last administered on 06/25/18 20:28; Admin Dose 1 DROP; Start 06/24/18 at 21:00 Docusate Sodium (Colace) 100 mg TID PO Last administered on 06/26/18 12:11; Admin Dose 100 MG; Start 06/24/18 at 09:00 Donepezil HCl (Aricept) 5 mg DAILY PO Last administered on 06/26/18 08:30; Admin Dose 5 MG; Start 06/24/18 at 09:00 Famotidine (Pepcid) 20 mg DAILY PO Last administered on 06/26/18 08:30; Admin Dose 20 MG; Start 06/24/18 at 09:00 Febuxostat (Uloric) 40 mg QHS PO Last administered on 06/25/18 20:24; Admin Dose 40 MG; Start 06/24/18 at 21:00 Ferrous Sulfate (Ferrous Sulfate (Ec)) 325 mg TID PO Last administered on 06/26/18 12:11; Admin Dose 325 MG; Start 06/24/18 at 09:00 Metoprolol Succinate (Toprol Xl) 200 mg DAILY PO Last administered on 06/26/18 08:31; Admin Dose 200 MG; Start 06/24/18 at 09:00 Tamsulosin HCl (Flomax) 0.4 mg BID PO Last administered on 06/26/18 08:30; Admin Dose 0.4 MG; Start 06/24/18 at 09:00 Hydralazine HCl (Apresoline) 10 mg Q6 PRN IV SBP>160 Last administered on 06/24/18at 12:26; Admin Dose 10 MG; Start 06/24/18 at 12:00 Nifedipine (Procardia Xl) 60 mg DAILY PO Last administered on 06/26/18at 08:32; Admin Dose 60 MG; Start 06/25/18 at 15:00 Sodium Chloride 1,000 ml @ 70 mls/hr [id number] IV Last administered on 06/26/18at 12:11; Admin Dose 70 MLS/HR; Start 06/25/18 at 15:00 MATILDA WHITE MD June 26, 2018 14:41
--- NOTE | 2018-06-26 15:53 | CONS ---
Assessment/Plan Assessment/Plan Hospital Course 83 yo M with hx of CVA, pacemaker and other comorbidities who presents for evaluation of headache, dizziness, and blurred vision. CTH was concerning for malignancy, for which neurology is consulted. MRI is contraindicated d/t pacemaker. Contrast is contraindicated d/t renal insufficiency. P: Consider oncology evaluation Await neurosurgery follow up PT/OT/ST as necessary Other medical management per primary Will follow Consultation Date/Type/Reason Admit Date/Time Type of Consult Neurology Reason for Consultation abnl HCT results Requesting Provider: MATILDA WHITE MD Date/Time of Note DATE: 06/26/18 TIME: 15:53 Hx of Present Illness 83 yo M with hx of CVA, pacemaker placement, smoking and multiple other comorbidities who presented to the ED with complaints of headache, blurred vision, and dizziness. History was obtained from chart review as pt is a limited historian. He currently endorses headache and R sided weakness, though he states the weak ness is not new. Denies focal sx currently. It is elsewhere noted: Hx of Present Illness Patient is an 83-year-old male with a history of hypertension, dyslipidemia, CAD, left eye glaucoma, CVA diagnosed 5 years ago with residual mild slurred speech and mild right sided deficit, CKD, CHF, pacemaker, SVT, large pericardial effusion status post pericardiocentesis in 2012 and glaucoma. Patient presented to ER complaining of headache, dizziness and blurry vision x 1 day. was at the bedside the ER and she helped with history. Headache has been going on for the past 1 week. Denied worsening slurred speech or focal weakness. Patient was admitted here about 6 weeks ago for palpitation. At that time he was found with SVT and his pacemaker was interrogated. 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 Head CT in the ER showed the followin. There is moderate vasogenic edema within the left thalamus and midbrain as outlined above. There appears to be an underlying 11 mm lesion for which further evaluation with a pre and postcontrast enhanced MRI of the brain is recommended. 2. Mild to moderate diffuse atrophy. 3. There is mild microvascular ischemic disease in the periventricular and deep white matter. Chronic lacunar infarcts are seen in the left velasquez radiata and basal ganglia with ex vacuo dilatation of the left lateral ventricle. 4. There is a punctate calcification in the right posterior operculum, which may reflect sequelae from prior infection such as cysticercosis. negative unless noted otherwise in HPI Exam/Review of Systems Exam Vitals Vital Signs Date Temp Pulse Resp B/P (MAP) Pulse Ox O2 O2 Flow FiO2 Time Delivery Rate 06/26/18 63 12:43 06/26/18 97.6 20 141/67 95 Room Air 11:35 (91) Intake and Output 06/25/18 06/25/18 06/26/18 1515:00 23:00 07:00 IntakeIntake Total 250 ml 720 ml 1240 ml OutputOutput Total 1000 ml 1150 ml BalanceBalance 250 ml -280 ml 90 ml Exam PE: Gen Appearance: No Apparent Distress HEENT: Normocephalic Cardiovascular: Regular rate Lungs: Clear bilaterally Abdomen: Soft Extremities: Dry NE: The patient was alert and grossly oriented. Language was slightly dysarthric. Fund of knowledge was adequate. Pupils were equal and reactive to light. There was no afferent pupillary defect. Visual neumann were diminished in the L eye. Funduscopic examination was limited. Extra-ocular movements were full. Ptosis was absent. There was no nystagmus. Facial sensation was normal. Face was symmetric with normal strength. Hearing was intact. Palate movements were normal. Neck strength was normal. There was normal tongue bulk and speed of movement. Tone was normal. Muscle bulk was normal. I did not see fasciculations. Arms and legs were mildly weak on the R. Vibration sensation was normal. Temperature and pinprick sensation was normal. Rapid alternating movements were normal. There was no dysmetria. There was no intention tremor. Gait was deferred due to bedrest. Arm and leg reflexes were 2+ and symmetric. Botello's sign was absent. Plantar responses were flexor. Results Result Diagram: 06/26/18 0742 06/26/18 0742 Results 24hrs Laboratory Tests Test 06/26/18 07:42 White Blood Count 6.5 Red Blood Count 2.64 L Hemoglobin 8.7 L Hematocrit 26.0 L Mean Corpuscular Volume 98.5 Mean Corpuscular Hemoglobin 33.0 Mean Corpuscular Hemoglobin Concent 33.5 Red Cell Distribution Width 13.8 Platelet Count 138 L Mean Platelet Volume 10.1 Immature Granulocytes % 0.300 Neutrophils % 66.1 Lymphocytes % 21.5 Monocytes % 8.7 Eosinophils % 3.1 Basophils % 0.3 Nucleated Red Blood Cells % 0.0 Immature Granulocytes # 0.020 Neutrophils # 4.3 Lymphocytes # 1.4 Monocytes # 0.6 Eosinophils # 0.2 Basophils # 0.0 Nucleated Red Blood Cells # 0.0 Sodium Level 142 Potassium Level 4.7 Chloride Level 114 H Carbon Dioxide Level 22 Anion Gap 6 Blood Urea Nitrogen 37 H Creatinine 2.65 H Est Glomerular Filtrat Rate mL/min Glucose Level 96 Calcium Level 8.7 Phosphorus Level 3.6 Magnesium Level 1.9 Medications Medication Current Medications IV Flush (NS 3 ml) 3 ml PER PROTOCOL IV ; Start 06/24/18 at 00:00 Ondansetron HCl (Zofran Inj) 4 mg Q6H PRN IV NAUSEA/VOMITING; Start 06/24/18 at 00:00 Acetaminophen (Tylenol Tab) 650 mg Q6H PRN PO .PAIN 1-3 OR TEMP Last administered on 06/24/18 21:49; Admin Dose 650 MG; Start 06/24/18 at 00:00 Acetaminophen/ Hydrocodone Bitart ([place] (5/325)) 1 tab Q6H PRN PO .PAIN 4-6; Start 06/24/18 at 00:00 Albuterol/ Ipratropium (Duoneb) 3 ml Q2H RESP THERAPY PRN HHN SHORTNESS OF BREATH; Start 06/24/18 at 00:00 Aspirin (Aspirin) 81 mg DAILY PO Last administered on 06/26/18 08:31; Admin Dose 81 MG; Start 06/24/18 at 09:00 Latanoprost (Xalatan) 1 drop HS BOTH EYES Last administered on 06/25/18 20:28; Admin Dose 1 DROP; Start 06/24/18 at 21:00 Docusate Sodium (Colace) 100 mg TID PO Last administered on 06/26/18 12:11; Admin Dose 100 MG; Start 06/24/18 at 09:00 Donepezil HCl (Aricept) 5 mg DAILY PO Last administered on 06/26/18 08:30; Admin Dose 5 MG; Start 06/24/18 at 09:00 Famotidine (Pepcid) 20 mg DAILY PO Last administered on 06/26/18 08:30; Admin Dose 20 MG; Start 06/24/18 at 09:00 Febuxostat (Uloric) 40 mg QHS PO Last administered on 06/25/18 20:24; Admin Dose 40 MG; Start 06/24/18 at 21:00 Ferrous Sulfate (Ferrous Sulfate (Ec)) 325 mg TID PO Last administered on 06/26/18 12:11; Admin Dose 325 MG; Start 06/24/18 at 09:00 Metoprolol Succinate (Toprol Xl) 200 mg DAILY PO Last administered on 06/26/18 08:31; Admin Dose 200 MG; Start 06/24/18 at 09:00 Tamsulosin HCl (Flomax) 0.4 mg BID PO Last administered on 06/26/18 08:30; Admin Dose 0.4 MG; Start 06/24/18 at 09:00 Hydralazine HCl (Apresoline) 10 mg Q6 PRN IV SBP>160 Last administered on 06/24/18 12:26; Admin Dose 10 MG; Start 06/24/18 at 12:00 Nifedipine (Procardia Xl) 60 mg DAILY PO Last administered on 06/26/18 08:32; Admin Dose 60 MG; Start 06/25/18 at 15:00 Past Medical History reviewed Medical History: other (See HPI) Home Meds Active Scripts Metoprolol Succinate* (Toprol XL*) 100 Mg Tab.sr.24h, 200 MG PO DAILY, #30 TAB Prov:MIRANDA COLLINS V. STACK ATTENDANT 04/16/18 Tamsulosin Hcl* (Flomax*) 0.4 Mg Cap.er.24h, 0.4 MG PO BID, #60 CAP Prov:MIRANDA COLLINS V. STACK ATTENDANT 04/16/18 Reported Medications Furosemide* (Furosemide*) 40 Mg Tablet, 40 MG PO DAILY for 90 Days 06/23/18 Docusate Sodium (Col-Rite) 100 Mg Capsule, 100 MG PO TID for 90 Days, #270 take 1 capsule by mouth three times a day 06/23/18 Valsartan (Valsartan) 320 Mg Tablet, 320 MG PO DAILY for 90 Days, #90 take 1 tablet by mouth once daily 06/23/18 Atenolol* (Atenolol*) 50 Mg Tablet, 50 MG PO DAILY for 90 Days, #90 take 1 tablet by mouth once daily 06/23/18 Clonidine Patch (CLONIDINE PATCH) 0.2 Mg/24 Hr Patch, 1 PATCH.WK TD Q7D, #4 PATCH.WK 06/23/18 Clonidine Hcl* (Clonidine Hcl*) 0.2 Mg Tablet, 0.2 MG PO TID for 30 Days, #90 06/23/18 Febuxostat* (Uloric*) 40 Mg Tablet, 40 MG PO QHS, TAB 04/15/18 Donepezil* (Donepezil*) 5 Mg Tablet, 5 MG PO DAILY, #30 TAB take 1 tablet by mouth once daily 04/15/18 Docusate Sodium* (Docusate Sodium*) 100 Mg Capsule, 100 MG PO TID, #30 CAP 04/15/18 Ferrous Sulfate* (Ferrous Sulfate*) 325 Mg Tabec, 325 MG PO TID, TAB 04/15/18 Bimatoprost* (Lumigan*) 0.01%-2.5 Ml Opht Drops, 1 DROP BOTH EYES HS, EA 07/15/16 Calcitriol* (Rocaltrol*) 0.25 Mcg Capsule, 0.25 MCG PO FIVE TIMES WEEKLY, CAP 07/15/16 Famotidine* (Famotidine*) 20 Mg Tablet, 20 MG PO DAILY, #30 TAB take 1 tablet by mouth once daily 07/15/16 Alendronate Sodium* (Fosamax*) 70 Mg Tablet, 70 MG PO ON SATURDAYS, TAB 07/28/14 Amlodipine Besylate* (Amlodipine Besylate*) 10 Mg Tablet, 10 MG PO QAM, TAB 07/29/13 Aspirin (Aspirin) 81 Mg Chew, 81 MG PO DAILY take 1 tablet by mouth once daily 12/20/12 Simvastatin (Simvastatin) 20 Mg Tablet, 20 MG PO HS 12/20/12 Medications Current Medications IV Flush (NS 3 ml) 3 ml PER PROTOCOL IV ; Start 06/24/18 at 00:00 Ondansetron HCl (Zofran Inj) 4 mg Q6H PRN IV NAUSEA/VOMITING; Start 06/24/18 at 00:00 Acetaminophen (Tylenol Tab) 650 mg Q6H PRN PO .PAIN 1-3 OR TEMP Last administered on 06/24/18at 21:49; Admin Dose 650 MG; Start 06/24/18 at 00:00 Acetaminophen/ Hydrocodone Bitart ([place] (5/325)) 1 tab Q6H PRN PO .PAIN 4-6; Start 06/24/18 at 00:00 Albuterol/ Ipratropium (Duoneb) 3 ml Q2H RESP THERAPY PRN HHN SHORTNESS OF BREATH; Start 06/24/18 at 00:00 Aspirin (Aspirin) 81 mg DAILY PO Last administered on 06/26/18 08:31; Admin Dose 81 MG; Start 06/24/18 at 09:00 Latanoprost (Xalatan) 1 drop HS BOTH EYES Last administered on 06/25/18 20:28; Admin Dose 1 DROP; Start 06/24/18 at 21:00 Docusate Sodium (Colace) 100 mg TID PO Last administered on 06/26/18 12:11; Admin Dose 100 MG; Start 06/24/18 at 09:00 Donepezil HCl (Aricept) 5 mg DAILY PO Last administered on 06/26/18 08:30; Admin Dose 5 MG; Start 06/24/18 at 09:00 Famotidine (Pepcid) 20 mg DAILY PO Last administered on 06/26/18 08:30; Admin Dose 20 MG; Start 06/24/18 at 09:00 Febuxostat (Uloric) 40 mg QHS PO Last administered on 06/25/18 20:24; Admin Dose 40 MG; Start 06/24/18 at 21:00 Ferrous Sulfate (Ferrous Sulfate (Ec)) 325 mg TID PO Last administered on 06/26/18 12:11; Admin Dose 325 MG; Start 06/24/18 at 09:00 Metoprolol Succinate (Toprol Xl) 200 mg DAILY PO Last administered on 06/26/18 08:31; Admin Dose 200 MG; Start 06/24/18 at 09:00 Tamsulosin HCl (Flomax) 0.4 mg BID PO Last administered on 06/26/18 08:30; Admin Dose 0.4 MG; Start 06/24/18 at 09:00 Hydralazine HCl (Apresoline) 10 mg Q6 PRN IV SBP>160 Last administered on 06/24/18 12:26; Admin Dose 10 MG; Start 06/24/18 at 12:00 Nifedipine (Procardia Xl) 60 mg DAILY PO Last administered on 06/26/18at 08:32; Admin Dose 60 MG; Start 06/25/18 at 15:00 Allergies: Coded Allergies: epoetin kayley (Verified Allergy, Severe, ITCHING AND FACE SWELLING, 04/15/18) PER PT AND Past Surgical History reviewed Past Surgical Hx: other (See HPI) Social History reviewed Alcohol Use: none Smoking Status: Current every day smoker Drug Use: none CATHY NUNEZ NP June 26, 2018 15:53
[2018-06-26] MEDS: FEBUXOSTAT 40 MG TABLET PO SCH (20:35)
[2018-06-26] MEDS: LATANOPROST 0.005% 2.5 ML OPH BOTH EYES SCH (20:35)
[2018-06-27] VITALS (12 sets, daily range): BP systolic 142–170; BP diastolic 63–82; PULSE 60–108; RESP 17–20
[2018-06-27] MEDS: HYDROCODONE/APAP (5/325) TAB PO PRN (01:44)
[2018-06-27] MEDS: ACETAMINOPHEN 325 MG TAB PO PRN (06:29)
[2018-06-27] MEDS: NIFEdipine (XL) 60 MG TAB PO SCH (08:28)
[2018-06-27] MEDS: FERROUS SULFATE (EC) 325 MG TAB PO SCH ×3 (08:28→20:33)
[2018-06-27] MEDS: DONEPEZIL 5 MG TAB PO SCH (08:28)
[2018-06-27] MEDS: TAMSULOSIN (SR) 0.4 MG CAP PO SCH ×2 (08:28→20:33)
[2018-06-27] MEDS: ASPIRIN 81 MG TAB PO SCH (08:28)
[2018-06-27] MEDS: METOPROLOL (XL) 100 MG TAB PO SCH (08:28)
[2018-06-27] MEDS: DOCUSATE SODIUM 100 MG CAP PO SCH ×3 (08:28→20:33)
[2018-06-27] MEDS: FAMOTIDINE 20 MG TAB PO SCH (08:28)
--- NOTE | 2018-06-27 08:54 | PN ---
DATE: 06/27/2018 SUBJECTIVE: The patient is stable, no events overnight. No fevers, chills, nausea, or vomiting. OBJECTIVE: VITAL SIGNS: Blood pressure is 142/63, respirations 20, pulse 68, temperature 98.3. HEENT: Head is normocephalic. NECK: Supple. HEART: Regular rate. LUNGS: Show diminished breath sounds at the base. ABDOMEN: Soft, nontender to palpation without rebound or guarding. EXTREMITIES: Negative for clubbing, cyanosis, no edema. DERMATOLOGIC: No rashes. MUSCULOSKELETAL: No joint effusion. NEUROLOGIC: No change in exam. MEDICATIONS: The patient's medications have been reviewed. LABORATORY DATA: From 06/27/18 has been reviewed. ASSESSMENT AND PLAN: 1. Nonoliguric acute kidney injury on top of chronic kidney disease with previous baseline creatinin e of around 2 to 2.5 mg/dL. Etiology of acute kidney injury is secondary to hemodynamics. The patie nt is status post IV hydration. Renal function appears to be at baseline. Continue to monitor, cont inue supportive care, renally dose all medications. 2. Hypernatremia, improved. 3. Anemia. Continue to monitor hemoglobin and hematocrit levels. 4. Mineral bone disorder, monitor calcium and phosphorus levels. 5. Hypertension. Blood pressure controlled. Continue current blood pressure regimen. 6. History of diastolic heart failure. The patient is currently compensated. Continue to monitor. 7. History of cerebrovascular accident with hemideficit. Continue to monitor. 8. Lung mass concerning for malignancy. The patient is pending a pulmonary evaluation. CT scan was reviewed. 9. Possible brain mass. The patient may require CT angio. Risks and benefits of contrast have been explained to the patient. Continue to monitor. Follow up recommendations. 10. Dyslipidemia. Continue statin therapy. 11. Arrhythmia history of pacemaker. 12. Leukocytosis, possible systemic inflammatory response syndrome. Continue to monitor. Consider infectious workup. Defer to primary team. Dictated By: CAMPOS JOHNSTON DO NR/NTS Conf#: [id number] DID#: [id number] CC: HIEU RENEE MD; MATILDA WHITE MD; CAMPOS JOHNSTON DO;*EndCC*
--- NOTE | 2018-06-27 14:42 | CONS ---
DATE OF ADMISSION: 06/23/2018 DATE OF CONSULTATION: TYPE OF CONSULTATION: Pulmonary. REFERRING PHYSICIAN: Brian Renee MD REASON FOR CONSULTATION: Lung mass. HISTORY OF PRESENT ILLNESS: This is an 83-year-old gentleman who initially presented to ER with comp laints of headache, dizziness and blurry vision. CT scan of the head was done which showed some vaso genic edema along left thalamus and midbrain. Also, 11 mm lesion was seen. Neurosurgical evaluation was requested. Subsequently, CT scan of chest, abdomen and pelvis was done. CT chest revealed righ t upper lobe 2 cm mass along with seems to be multiloculated right pleural effusion. The patient is a heavy smoker up until this admission, currently lying in bed and does not appear in acute distress. Due to language barrier, not much more history could be obtained from the patient. REVIEW OF SYSTEMS: Could not be obtained due to language barrier. PAST MEDICAL HISTORY: Apparently history of hypertension, history of CVA with mild right-sided defic it, history of chronic diastolic congestive heart failure, status post pacemaker, dyslipidemia, CKD, history of pericardial effusion, status post pericardiocentesis in 2012, history of anemia. ALLERGIES: NONE KNOWN TO ME. SOCIAL HISTORY: Habits: Reportedly smoker up until admission. No alcohol. FAMILY HISTORY: Unavailable at this time. PHYSICAL EXAMINATION: VITAL SIGNS: Blood pressure 169/72, pulse 70, respirations 20, temperature 97.5. The patient is sat urating 97% on room air. HEENT: Pupils are equal and reactive to light. NECK: Supple. No JVD noted, no cervical adenopathy noted. LUNGS: Decreased breath sounds at the right base. CARDIOVASCULAR: S1, S2 normal. ABDOMEN: Soft, nontender, no megaly or masses noted. EXTREMITIES: No clubbing, cyanosis or edema noted. NEUROLOGIC: Easily arousable and moving all 4 extremities. LABORATORIES: WBC 18.8, hemoglobin 8.6, hematocrit 25.5, platelets 128. Sodium 142, potassium 4.8, chloride 112, CO2 of 22, BUN 41, creatinine 2.59, glucose 89. DIAGNOSTIC DATA: CT chest shows 2 x 2 cm mass in the posterolateral aspect of the right upper lobe. Also, emphysematous changes present and moderate sized right pleural effusion with loculations. Als o, enlarged mediastinal lymph nodes noted. There is a 1.6 cm hypodense lesion in the caudate lobe of liver, which is slightly increased compared to 2017. Also, there is exophytic lesion arising from t he right lower pole of the kidney measuring 1.7 to 1.6 cm. This has slightly increased in size since 2017 as well. IMPRESSION: 1. Most likely primary lung cancer with potential brain metastasis. 2. Chronic obstructive pulmonary disease. 3. Chronic kidney disease. 4. Loculated effusion. 5. Anemia. 6. History of hypertension. 7. History of cerebrovascular accident. 8. History of arrhythmia, status post pacemaker. RECOMMENDATIONS: 1. Consider CT-guided biopsy of the right upper lobe lesion. 2. Oncology evaluation consider. 3. Bronchodilators. 4. Oxygen p.r.n. Dictated By: LOLA AMEZQUITA MD, MA/RINKU Conf#: [id number] DID#: [id number] CC: BRIAN RENEE MD; MATILDA WHITE MD; CAMPOS JOHNSTON DO;*EndCC*
--- NOTE | 2018-06-27 14:45 | PN ---
Date/Time of Note Date/Time of Note DATE: 06/27/18 TIME: 14:37 Assessment/Plan VTE [place]axis [place] [facility] [place] risk: 7 SCD applied [place] [facility] [place] Yes Pharmacological prophylaxis: other Pharm contraindication: other Lines/Catheters IV Catheter Type (from [facility] Saline Lock Urinary Cath still in place: No Assessment/Plan Assessment/Plan 1. Right upper lobe lung parenchymal mass with lymphadenopathy, small bilateral pleural effusion, no thoracentesis, pulmonology consultation, ?biopsy 2. 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 CKD, relatively stable cr 3. LVEF 65% on 04/15/2018, hold lasix 4. Hypertension, increase procardia 5. History of CVA with mild right-sided deficit, on aspirin and lipitor 6. Pacemaker: Placed 14 years ago 7. Dyslipidemia: Continue statin 8. Macrocytic anemia, chronic, follow up with PCP 9. Redness lesion on sacral/left buttock, follow up with wound care 10. Leukocytosis, ?etiology, repeat WBC in am 11. Skin tumors on nose for 5 years Result Diagram: 06/27/18 0613 06/27/18 0613 Results 24hrs Laboratory Tests Test 06/27/18 06:13 White Blood Count 18.8 #H Red Blood Count 2.60 L Hemoglobin 8.6 L Hematocrit 25.5 L Mean Corpuscular Volume 98.1 Mean Corpuscular Hemoglobin 33.1 H Mean Corpuscular Hemoglobin Concent 33.7 Red Cell Distribution Width 13.7 Platelet Count 128 L Mean Platelet Volume 10.2 Immature Granulocytes % 0.800 H Neutrophils % 85.5 H Lymphocytes % 4.7 L Monocytes % 8.8 Eosinophils % 0.1 Basophils % 0.1 Nucleated Red Blood Cells % 0.0 Immature Granulocytes # 0.150 H Neutrophils # 16.1 H Lymphocytes # 0.9 Monocytes # 1.7 H Eosinophils # 0.0 Basophils # 0.0 Nucleated Red Blood Cells # 0.0 Sodium Level 142 Potassium Level 4.8 Chloride Level 112 H Carbon Dioxide Level 22 Anion Gap 8 Blood Urea Nitrogen 41 H Creatinine 2.59 H Est Glomerular Filtrat Rate mL/min Glucose Level 89 Calcium Level 9.0 Phosphorus Level 3.0 Magnesium Level 1.8 Subjective 24 Hr Interval Summary Free Text/Dictation no cough, no shortness of breath intermittent headache no fever or chills Exam/Review of Systems Exam Vitals Vital Signs Date Temp Pulse Resp B/P (MAP) Pulse Ox O2 O2 Flow FiO2 Time Delivery Rate 06/27/18 60 13:25 06/27/18 97.5 20 169/72 97 Room Air 11:13 (104) Intake and Output 06/26/18 06/26/18 06/27/18 1515:00 23:00 07:00 IntakeIntake Total 280 ml 1400 ml 500 ml OutputOutput Total 2000 ml BalanceBalance 280 ml -600 ml 500 ml Constitutional: alert, oriented, well developed Psych: no complaints, nl mood/affect Head: normocephalic, atraumatic Eyes: nl conjunctiva, EOMI, nl lids ENMT: nl lips & teeth, nl nasal mucosa & septum, other (multiple tumors on nose) Neck: supple, non-tender Respiratory: clear to auscultation, normal air movement; No congested cough, No crackles/rales, No diminished breath sounds, No in tercostal retraction, No labored breathing, No respirations, No tactile fremitus, No wheezing, No other Cardiovascular: regular rate and rhythm, nl pulses; No bruits, No diastolic murmur, No edema, No gallop, No irregular rhythm, No jugular venous distention (JVD), No murmurs/extra sounds, No rub, No systolic murmur, No S3, No S4, No other Gastrointestinal: soft, nl liver, spleen, non-tender Musculoskeletal: nl extremities to inspection Extremities: normal pulses; No calf tenderness, No cyanosis, No clubbing, No edema, No pitting pedal edema, No palpable cord, No tenderness, No other Neurological: EXTRA [employer] SUPER[employer]OR II-XII intact, nl mental status, nl speech, nl strength Results Results 24hrs Laboratory Tests Test 06/27/18 06:13 White Blood Count 18.8 #H Red Blood Count 2.60 L Hemoglobin 8.6 L Hematocrit 25.5 L Mean Corpuscular Volume 98.1 Mean Corpuscular Hemoglobin 33.1 H Mean Corpuscular Hemoglobin Concent 33.7 Red Cell Distribution Width 13.7 Platelet Count 128 L Mean Platelet Volume 10.2 Immature Granulocytes % 0.800 H Neutrophils % 85.5 H Lymphocytes % 4.7 L Monocytes % 8.8 Eosinophils % 0.1 Basophils % 0.1 Nucleated Red Blood Cells % 0.0 Immature Granulocytes # 0.150 H Neutrophils # 16.1 H Lymphocytes # 0.9 Monocytes # 1.7 H Eosinophils # 0.0 Basophils # 0.0 Nucleated Red Blood Cells # 0.0 Sodium Level 142 Potassium Level 4.8 Chloride Level 112 H Carbon Dioxide Level 22 Anion Gap 8 Blood Urea Nitrogen 41 H Creatinine 2.59 H Est Glomerular Filtrat Rate mL/min Glucose Level 89 Calcium Level 9.0 Phosphorus Level 3.0 Magnesium Level 1.8 Medications Medication Current Medications IV Flush (NS 3 ml) 3 ml PER PROTOCOL IV ; Start 06/24/18 at 00:00 Ondansetron HCl (Zofran Inj) 4 mg Q6H PRN IV NAUSEA/VOMITING; Start 06/24/18 at 00:00 Acetaminophen (Tylenol Tab) 650 mg Q6H PRN PO .PAIN 1-3 OR TEMP Last administered on 06/27/18 06:29; Admin Dose 650 MG; Start 06/24/18 at 00:00 Acetaminophen/ Hydrocodone Bitart ([place] (5/325)) 1 tab Q6H PRN PO .PAIN 4-6 Last administered on 06/27/18 01:44; Admin Dose 1 TAB; Start 06/24/18 at 00:00 Albuterol/ Ipratropium (Duoneb) 3 ml Q2H RESP THERAPY PRN HHN SHORTNESS OF BREATH; Start 06/24/18 at 00:00 Aspirin (Aspirin) 81 mg DAILY PO Last administered on 06/27/18 08:28; Admin Dose 81 MG; Start 06/24/18 at 09:00 Latanoprost (Xalatan) 1 drop HS BOTH EYES Last administered on 06/26/18 20:35; Admin Dose 1 DROP; Start 06/24/18 at 21:00 Docusate Sodium (Colace) 100 mg TID PO Last administered on 06/27/18 14:01; Admin Dose 100 MG; Start 06/24/18 at 09:00 Donepezil HCl (Aricept) 5 mg DAILY PO Last administered on 06/27/18 08:28; Admin Dose 5 MG; Start 06/24/18 at 09:00 Famotidine (Pepcid) 20 mg DAILY PO Last administered on 06/27/18 08:28; Admin Dose 20 MG; Start 06/24/18 at 09:00 Febuxostat (Uloric) 40 mg QHS PO Last administered on 06/26/18 20:35; Admin Dose 40 MG; Start 06/24/18 at 21:00 Ferrous Sulfate (Ferrous Sulfate (Ec)) 325 mg TID PO Last administered on 06/27/18 14:01; Admin Dose 325 MG; Start 06/24/18 at 09:00 Metoprolol Succinate (Toprol Xl) 200 mg DAILY PO Last administered on 06/27/18 08:28; Admin Dose 200 MG; Start 06/24/18 at 09:00 Tamsulosin HCl (Flomax) 0.4 mg BID PO Last administered on 06/27/18 08:28; Admin Dose 0.4 MG; Start 06/24/18 at 09:00 Hydralazine HCl (Apresoline) 10 mg Q6 PRN IV SBP>160 Last administered on 06/24/18 12:26; Admin Dose 10 MG; Start 06/24/18 at 12:00 Nifedipine (Procardia Xl) 60 mg DAILY PO Last administered on 06/27/18 08:28; Admin Dose 60 MG; Start 06/25/18 at 15:00 MATILDA WHITE MD June 27, 2018 14:45
--- NOTE | 2018-06-27 16:56 | CONS ---
Assessment/Plan Assessment/Plan Hospital Course 83 yo M with hx of CVA, pacemaker and other comorbidities who presents for evaluation of headache, dizziness, and blurred vision. CTH was concerning for malignancy, for which neurology is consulted. MRI is contraindicated d/t pacemaker. Contrast is contraindicated d/t renal insufficiency. P: Consider oncology evaluation PT/OT/ST as necessary Other medical management and supportive care per primary Will follow clinically Consultation Date/Type/Reason Admit Date/Time June 23, 2018 at 20:27 Type of Consult Neurology Reason for Consultation abnl HCT results Requesting Provider: MATILDA WHITE MD Date/Time of Note DATE: 06/27/18 TIME: 16:56 24 HR Interval Summary Free Text/Dictation Continues acute care. Pt is without complaints at this time. Exam Vital Signs Vitals Vital Signs Date Temp Pulse Resp B/P (MAP) Pulse Ox O2 O2 Flow FiO2 Time Delivery Rate 06/27/18 60 16:26 06/27/18 98.2 20 156/74 94 Room Air 15:14 (101) Intake and Output 06/26/18 06/26/18 06/27/18 1515:00 23:00 07:00 IntakeIntake Total 280 ml 1400 ml 500 ml OutputOutput Total 2000 ml BalanceBalance 280 ml -600 ml 500 ml Exam PE: Gen Appearance: No Apparent Distress HEENT: Normocephalic Cardiovascular: Regular rate Lungs: Clear bilaterally Abdomen: Soft Extremities: Dry NE: The patient was alert and grossly oriented. Language was slightly dysarthric. Fund of knowledge was adequate. Pupils were equal and reactive to light. There was no afferent pupillary defect. Visual neumann were diminished in the L eye. Funduscopic examination was limited. Extra-ocular movements were full. Ptosis was absent. There was no nystagmus. Facial sensation was normal. Face was symmetric with normal strength. Hearing was intact. Palate movements were normal. Neck strength was normal. There was normal tongue bulk and speed of movement. Tone was normal. Muscle bulk was normal. I did not see fasciculations. Arms and legs were mildly weak on the R. Vibration sensation was normal. Temperature and pinprick sensation was normal. Rapid alternating movements were normal. There was no dysmetria. There was no intention tremor. Gait was deferred due to bedrest. Arm and leg reflexes were 2+ and symmetric. Botello's sign was absent. Plantar responses were flexor. CATHY NUNEZ NP June 27, 2018 16:56 CANDACE REYNA June 28, 2018 06:42
--- NOTE | 2018-06-27 16:59 | CONS ---
DATE OF ADMISSION: 06/23/2018 DATE OF CONSULTATION: 06/27/2018 TYPE OF CONSULTATION: Infectious disease. REASON FOR CONSULTATION: Antibiotic management. HISTORY OF PRESENT ILLNESS: Santo Gaming is an 83-year-old male admitted on 06/23/2018 with a heada oni and dizziness. The patient also complained of right eye blurred vision that began early in the m orning. He has no syncope or near syncope. No complaints of pain in the neck, chest, abdomen. He d enies vomiting or eye pain. PAST MEDICAL HISTORY: Positive for: 1. Coronary artery disease. 2. Dyslipidemia. 3. Left eye glaucoma. 4. History of 5 CVAs with mild right hemiplegia. 5. Chronic renal disease. 6. Hypertension. 7. Pacemaker 14 years ago. PAST MEDICAL HISTORY: Operations as outlined, status post pacemaker placement. FAMILY HISTORY: Noncontributory. SOCIAL HISTORY: He smokes tobacco. He does not drink or abuse drugs. ALLERGIES: NONE TO PENICILLIN, SULFA OR FOODS. MEDICATIONS: Per chart. REVIEW OF SYSTEMS: As per HPI. PHYSICAL EXAMINATION: GENERAL: The patient is a well-developed, well-nourished male who is alert, responsive, in no acute distress. VITAL SIGNS: Stable. He is afebrile. SKIN: Without generalized rash. HEENT: Within normal limits. NECK: Supple. LYMPH NODES: None palpable. CHEST: Decreased breath sounds at the bases. HEART: Without murmur or gallop. ABDOMEN: Soft, nontender without organosplenomegaly or masses. EXTREMITIES: He has right upper and lower extremity 4+, left upper and lower, 5/5. HOSPITAL COURSE: On admission, white count 6.2 with 64% polys or neutrophils, H and H of 9.1 and 28. 1, platelet count 159,000. BUN and creatinine is 39/2.7. Blood sugar of 136. The patient was seen by neurology. The patient with pacemaker. The patient has headache, right-sided weakness with the w eakness is not new. CT scan showed moderate vasogenic edema within the left thalamus and midbrain as outlined in the report. There is an underlying 11 mm lesion for which further evaluation with pre a nd post-contrast enhancement MRI of the brain is recommended. Unfortunately, the MRI is contraindica angel because of the pacemaker. Mild to moderate diffuse atrophy, mild microvascular ischemic disease in the periventricular and deep white matter, chronic lacunar infarcts seen in the left velasquez radiat a and basal ganglia with ex vacuo dilatation of the left lateral ventricle. There is punctate calcif ication in the right posterior operculum which may reflect sequelae from prior infection such as cyst ic necrosis, negative unless noted otherwise. On 06/26/2018, his white count was 6.5. White count t blanca jumped up to 18.8. The patient is not on antibiotic therapy. An ultrasound of the chest showed small bilateral pleural effusions. A CT scan of the abdomen and pelvis shows a posterolateral right upper lobe lung parenchymal mass concerning for primary neoplasm, patchy reticulonodular opacities s een in both lungs on although this may represent infectious/inflammatory process, metastatic disease in the differential diagnosis, multiloculated lobulated moderate sized right-sided pleural effusion, small to moderate left-sided pleural effusion, mediastinal adenopathy likely metastatic, mild pericar dial effusion, marked coronary artery calcification, evidence of pulmonary hypertension, cholelithias is, moderate to severe atherosclerotic calcifications of the aorta and side branches. The patient's BUN and creatinine is 41/2.59. The patient has some new leukocytosis. The patient was seen by Dr. Elias talbert in pulmonary, most likely primary lung cancer, chronic obstructive pulmonary disease, chronic re nal disease, loculated effusion. IMPRESSION AND PLAN: The patient has elevated white count, but is afebrile. He could be developing pneumonitis. His x-rays though consistent with mostly neoplasm could also have infectious or inflamm atory process. If the white count remains elevated, I would start the patient on cefepime or Zosyn a fter getting him some sputum for C and S. At the present time, we will continue him on current thera py. I will dictate my findings to the hospitalist and the aforementioned consultants including Dr. Bang roy, Dr. Ramos. Dictated By: CHERYL MORIN MD, JD/RINKU Conf#: [id number] DID#: [id number] CC: YOLANDA ANNE NP; HIEU RENEE MD; MATILDA WHITE MD;*EndCC*
[2018-06-27] MEDS: CEFEPIME 1GM/50 ML (PMX) 50 ML IVPB SCH (17:20)
[2018-06-27] MEDS: FEBUXOSTAT 40 MG TABLET PO SCH (20:33)
[2018-06-27] MEDS: LATANOPROST 0.005% 2.5 ML OPH BOTH EYES SCH (20:34)
[2018-06-28] VITALS (12 sets, daily range): BP systolic 134–156; BP diastolic 62–76; PULSE 64–89; RESP 16–19
--- NOTE | 2018-06-28 10:33 | CONS ---
Assessment/Plan Assessment/Plan Hospital Course 83 yo M with hx of CVA, pacemaker and other comorbidities who presents for evaluation of headache, dizziness, and blurred vision. CTH was concerning for malignancy, for which neurology is consulted. MRI is contraindicated d/t pacemaker. Contrast is contraindicated d/t renal insufficiency. P: Consider oncology evaluation PT/OT/ST as necessary Other medical management and supportive care per primary Will sign off for now. Please call with Qs. Consultation Date/Type/Reason Admit Date/Time June 23, 2018 at 20:27 Type of Consult Neurology Reason for Consultation abnl HCT results Requesting Provider: MATILDA WHITE MD Date/Time of Note DATE: 06/28/18 TIME: 10:33 24 HR Interval Summary Free Text/Dictation Continues acute care. Exam Vital Signs Vitals Vital Signs Date Temp Pulse Resp B/P (MAP) Pulse Ox O2 O2 Flow FiO2 Time Delivery Rate 06/28/18 82 08:14 06/28/18 101.5 17 156/72 93 07:44 (100) 06/27/18 Room Air 15:14 Intake and Output 06/27/18 06/27/18 06/28/18 1515:00 23:00 07:00 IntakeIntake Total 960 ml 400 ml BalanceBalance 960 ml 400 ml Exam PE: Gen Appearance: No Apparent Distress HEENT: Normocephalic Cardiovascular: Regular rate Lungs: Clear bilaterally Abdomen: Soft Extremities: Dry NE: The patient was alert and oriented to self, place. Language was slightly dysarthric. Fund of knowledge was adequate. Pupils were equal and reactive to light. There was no afferent pupillary defect. Visual neumann were diminished in the L eye. Funduscopic examination was limited. Extra-ocular movements were full. Ptosis was absent. There was no nystagmus. Facial sensation was normal. Face was symmetric with normal strength. Hearing was intact. Palate movements were normal. Neck strength was normal. There was normal tongue bulk and speed of movement. Tone was normal. Muscle bulk was normal. I did not see fasciculations. Arms and legs were mildly weak on the R side Vibration sensation was normal. Temperature and pinprick sensation was normal. Rapid alternating movements were normal. There was no dysmetria. There was no intention tremor. Gait was deferred due to bedrest. Arm and leg reflexes were 2+ and symmetric. Botello's sign was absent. Plantar responses were flexor. CATHY NUNEZ NP June 28, 2018 10:33
--- NOTE | 2018-06-28 11:52 | CONS ---
Assessment/Plan Assessment/Plan Hospital Course (Demo Recall) 1. Nonoliguric acute kidney injury on top of chronic kidney disease with previous baseline creatinine of around 2 to 2.5 mg/dL. Etiology of acute kidney injury is secondary to hemodynamics. The patient is status post IV hydration. keep pt euvolemic. if cr continues to rise, will repeat urine studies. Continue to monitor, continue supportive care, renally dose all medications. 2. Hypernatremia, improved. 3. Anemia. Continue to monitor hemoglobin and hematocrit levels. 4. Mineral bone disorder, monitor calcium and phosphorus levels. 5. Hypertension. Blood pressure controlled. Continue current blood pressure regimen. 6. History of diastolic heart failure. The patient is currently compensated. Continue to monitor. 7. History of cerebrovascular accident with hemideficit. Continue to monitor. 8. Lung mass concerning for malignancy. The patient is pending a pulmonary ev aluation. CT scan was reviewed. 9. Possible brain mass. The patient may require CT angio. Risks and benefits of contrast have been explained to the patient. Continue to monitor. Follow up recommendations. 10. Dyslipidemia. Continue statin therapy. 11. Arrhythmia history of pacemaker. 12. Leukocytosis, possible systemic inflammatory response syndrome. Continue to monitor. Consider infectious workup. Defer to primary team. Consultation Date/Type/Reason Admit Date/Time June 23, 2018 at 20:27 Initial Consult Date 06/24/18 Requesting Provider: MATILDA WHITE MD Date/Time of Note DATE: 06/28/18 TIME: 11:50 24 HR Interval Summary Free Text/Dictation denies shortness of breath, n/v or urinary issues d.w rn gen nad cv rrr pulm ctab abd soft, nd nt +bs ext: no edema Exam/Review of Systems Exam Vitals Vital Signs Date Temp Pulse Resp B/P (MAP) Pulse Ox O2 O2 Flow FiO2 Time Delivery Rate 06/28/18 98.7 86 16 140/63 94 11:41 (88) 06/27/18 Room Air 15:14 Intake and Output 06/27/18 06/27/18 06/28/18 1515:00 23:00 07:00 IntakeIntake Total 960 ml 400 ml BalanceBalance 960 ml 400 ml Results Result Diagram: 06/28/18 0611 06/28/18 0611 Results 24hrs Laboratory Tests Test 06/28/18 06:11 White Blood Count 16.8 H Red Blood Count 2.68 L Hemoglobin 8.9 L Hematocrit 27.1 L Mean Corpuscular Volume 101.1 H Mean Corpuscular Hemoglobin 33.2 H Mean Corpuscular Hemoglobin Concent 32.8 Red Cell Distribution Width 14.0 Platelet Count 122 L Mean Platelet Volume 10.2 Immature Granulocytes % 0.700 H Neutrophils % 87.2 H Lymphocytes % 5.5 L Monocytes % 6.4 Eosinophils % 0.1 Basophils % 0.1 Nucleated Red Blood Cells % 0.0 Immature Granulocytes # 0.110 H Neutrophils # 14.6 H Lymphocytes # 0.9 Monocytes # 1.1 H Eosinophils # 0.0 Basophils # 0.0 Nucleated Red Blood Cells # 0.0 Sodium Level 143 Potassium Level 4.5 Chloride Level 113 H Carbon Dioxide Level 17 L Anion Gap 13 Blood Urea Nitrogen 46 H Creatinine 2.98 H Est Glomerular Filtrat Rate mL/min Glucose Level 116 Calcium Level 9.5 Phosphorus Level 3.9 Magnesium Level 2.1 Medications Medication Current Medications IV Flush (NS 3 ml) 3 ml PER PROTOCOL IV ; Start 06/24/18 at 00:00 Ondansetron HCl (Zofran Inj) 4 mg Q6H PRN IV NAUSEA/VOMITING; Start 06/24/18 at 00:00 Acetaminophen (Tylenol Tab) 650 mg Q6H PRN PO .PAIN 1-3 OR TEMP Last administered on 06/27/18at 06:29; Admin Dose 650 MG; Start 06/24/18 at 00:00 Acetaminophen/ Hydrocodone Bitart ([place] (5/325)) 1 tab Q6H PRN PO .PAIN 4-6 Last administered on 06/27/18at 01:44; Admin Dose 1 TAB; Start 06/24/18 at 00:00 Albuterol/ Ipratropium (Duoneb) 3 ml Q2H RESP THERAPY PRN HHN SHORTNESS OF BREATH; Start 06/24/18 at 00:00 Aspirin (Aspirin) 81 mg DAILY PO Last administered on 06/27/18at 08:28; Admin Dose 81 MG; Start 06/24/18 at 09:00 Latanoprost (Xalatan) 1 drop HS BOTH EYES Last administered on 06/27/18at 20:34; Admin Dose 1 DROP; Start 06/24/18 at 21:00 Docusate Sodium (Colace) 100 mg TID PO Last administered on 06/27/18 20:33; Admin Dose 100 MG; Start 06/24/18 at 09:00 Donepezil HCl (Aricept) 5 mg DAILY PO Last administered on 06/27/18 08:28; Admin Dose 5 MG; Start 06/24/18 at 09:00 Famotidine (Pepcid) 20 mg DAILY PO Last administered on 06/27/18 08:28; Admin Dose 20 MG; Start 06/24/18 at 09:00 Febuxostat (Uloric) 40 mg QHS PO Last administered on 06/27/18 20:33; Admin Dose 40 MG; Start 06/24/18 at 21:00 Ferrous Sulfate (Ferrous Sulfate (Ec)) 325 mg TID PO Last administered on 20:33; Admin Dose 325 MG; Start 06/24/18 at 09:00 Metoprolol Succinate (Toprol Xl) 200 mg DAILY PO Last administered on 06/27/18 08:28; Admin Dose 200 MG; Start 06/24/18 at 09:00 Tamsulosin HCl (Flomax) 0.4 mg BID PO Last administered on 06/27/18 20:33; Admin Dose 0.4 MG; Start 06/24/18 at 09:00 Hydralazine HCl (Apresoline) 10 mg Q6 PRN IV SBP>160 Last administered on 06/24/18 12:26; Admin Dose 10 MG; Start 06/24/18 at 12:00 Nifedipine (Procardia Xl) 90 mg DAILY PO ; Start 06/28/18 at 09:00 Cefepime HCl 50 ml @ 100 mls/hr Q24H IVPB Last administered on 06/27/18 17:20; Admin Dose 100 MLS/HR; Start 06/27/18 at 17:00 JAYCE MORTENSEN MD June 28, 2018 11:51
[2018-06-28] MEDS: ASPIRIN 81 MG TAB PO SCH (12:02)
[2018-06-28] MEDS: DOCUSATE SODIUM 100 MG CAP PO SCH ×2 (12:02→12:04)
[2018-06-28] MEDS: FERROUS SULFATE (EC) 325 MG TAB PO SCH ×3 (12:02→20:43)
[2018-06-28] MEDS: METOPROLOL (XL) 100 MG TAB PO SCH (12:03)
[2018-06-28] MEDS: FAMOTIDINE 20 MG TAB PO SCH (12:03)
[2018-06-28] MEDS: DONEPEZIL 5 MG TAB PO SCH (12:03)
[2018-06-28] MEDS: NIFEdipine (XL) 90 MG TAB PO SCH (12:03)
[2018-06-28] MEDS: TAMSULOSIN (SR) 0.4 MG CAP PO SCH ×2 (12:04→20:43)
--- NOTE | 2018-06-28 13:15 | CONS ---
Assessment/Plan Assessment/Plan Hospital Course (Demo Recall) ID PROGRESS NOTE CURRENT ABX: DAY # => CEFEPIME #1 06/28/18 0611 06/28/18 0611 24H INTERVAL SUMMARY * Awake, alert, responsive, feeling better, resting comfortably, VSS, currently afebrile spiked fever this am * Chart reviewed RADIOLOGY * CT CHEST/ABD-PELV: * 1. Posterolateral right upper lobe lung parenchymal mass concerning for primary neoplasm. * 2. Patchy reticulonodular opacities are seen at both lungs. Although this may represent infectious/inflammatory process the metastatic disease is in the differential diagnosis. * 3. Multiloculated/lobulated moderate size right-sided pleural effusion. Small to moderate left-sided pleural effusion. * 4. Mediastinal adenopathy, likely metastatic. * 5. Mild pericardial effusion. * 6. Marked coronary artery calcifications. Evidence of pulmonary hypertension. * 7. Indeterminate 1.6 cm hypodense lesion in the caudate lobe has been increased in size compared to 2017 which was measured 1 cm. * 8. Cholelithiasis. * 9. Indeterminate 1.7 cm exophytic right renal lesion has been slightly increased in size compared to 2017 CT which was measured 1.5 cm. Evaluation is limited due to lack of IV contrast. Consider MRI with contrast to further evaluate renal as well as liver lesions. * 10. Moderate to severe atherosclerotic calcifications of the aorta and side branches. MICRO/OTHER * 06/27/18> BCX (+)GNR BLOOD CULTURE Preliminary BCULT GRAM BOTTLE 1 Gram negative rods . seen on gram stain of the broth BCULT GRAM BOTTLE 2 Gram negative rods . seen on gram stain of the broth Organism 1 GRAM NEGATIVE SHAUNA PHYSICAL EXAMINATION: GENERAL: VSS, NAD HEENT: AT, NC, anicteric, opaque sclera, (+)enlarged nasal tissue, bulbous skin /scarring NECK: Supple, CHEST: Equal chest rise bilaterally, without dyspnea on observation HEART: Pulse RRR ABDOMEN: Soft / NT EXTREMITIES: Warm, dry SKIN: No rash, no diaphoresis ID ASSESSMENT 83 yo M admit with: 1. SEPSIS w/GNR bacteremia, fevers, tachycardia, leukocytosis == ASP vs Obstructive PNA 2. Right upper lobe lung parenchymal mass with lymphadenopathy, small bilateral pleural effusion, no thoracentesis, pulmonology consultation, ?biopsy 3. 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 CKD, relatively stable cr 3. LVEF 65% on 04/15/2018 4. Hypertension 5. History of CVA with mild right-sided deficit, on aspirin and Lipitor 6. Pacemaker: Placed 14 years ago 7. Dyslipidemia-> Currently on statin 8. Macrocytic anemia, chronic 9. Redness lesion on sacral/left buttock, follow up with wound care 10. (+)Tobaccoism 11. Skin tumors on nose for 5 years (-)MRSA Nares ABX ALLERGIES: None to ABX INVASIVES: PIV CURRENT ABX: DAY # > Cefepime ID RECOMMENDATIONS/PLAN: 1. Continue current ABX -> Await GNR BCx results 2. UA C&S not ordered for yesterday -- send today == Hx of BPH . Consultation Date/Type/Reason Admit Date/Time June 23, 2018 at 20:27 Initial Consult Date 06/24/18 Requesting Provider: MATILDA WHITE MD Date/Time of Note DATE: 06/28/18 TIME: 13:15 Exam/Review of Systems Exam Vitals Vital Signs Date Temp Pulse Resp B/P (MAP) Pulse Ox O2 O2 Flow FiO2 Time Delivery Rate 06/28/18 77 12:40 06/28/18 98.7 16 140/63 94 11:41 (88) 06/27/18 Room Air 15:14 Intake and Output 06/27/18 06/27/18 06/28/18 1515:00 23:00 07:00 IntakeIntake Total 960 ml 400 ml BalanceBalance 960 ml 400 ml Results Result Diagram: 06/28/18 0611 06/28/18 0611 Results 24hrs Laboratory Tests Test 06/28/18 06:11 White Blood Count 16.8 H Red Blood Count 2.68 L Hemoglobin 8.9 L Hematocrit 27.1 L Mean Corpuscular Volume 101.1 H Mean Corpuscular Hemoglobin 33.2 H Mean Corpuscular Hemoglobin Concent 32.8 Red Cell Distribution Width 14.0 Platelet Count 122 L Mean Platelet Volume 10.2 Immature Granulocytes % 0.700 H Neutrophils % 87.2 H Lymphocytes % 5.5 L Monocytes % 6.4 Eosinophils % 0.1 Basophils % 0.1 Nucleated Red Blood Cells % 0.0 Immature Granulocytes # 0.110 H Neutrophils # 14.6 H Lymphocytes # 0.9 Monocytes # 1.1 H Eosinophils # 0.0 Basophils # 0.0 Nucleated Red Blood Cells # 0.0 Sodium Level 143 Potassium Level 4.5 Chloride Level 113 H Carbon Dioxide Level 17 L Anion Gap 13 Blood Urea Nitrogen 46 H Creatinine 2.98 H Est Glomerular Filtrat Rate mL/min Glucose Level 116 Calcium Level 9.5 Phosphorus Level 3.9 Magnesium Level 2.1 Medications Medication Current Medications IV Flush (NS 3 ml) 3 ml PER PROTOCOL IV ; Start 06/24/18 at 00:00 Ondansetron HCl (Zofran Inj) 4 mg Q6H PRN IV NAUSEA/VOMITING; Start 06/24/18 at 00:00 Acetaminophen (Tylenol Tab) 650 mg Q6H PRN PO .PAIN 1-3 OR TEMP Last administered on 06/27/18 06:29; Admin Dose 650 MG; Start 06/24/18 at 00:00 Acetaminophen/ Hydrocodone Bitart ([place] (5/325)) 1 tab Q6H PRN PO .PAIN 4-6 Last administered on 06/27/18 01:44; Admin Dose 1 TAB; Start 06/24/18 at 00:00 Albuterol/ Ipratropium (Duoneb) 3 ml Q2H RESP THERAPY PRN HHN SHORTNESS OF BREATH; Start 06/24/18 at 00:00 Aspirin (Aspirin) 81 mg DAILY PO Last administered on 06/28/18 12:02; Admin Dose 81 MG; Start 06/24/18 at 09:00 Latanoprost (Xalatan) 1 drop HS BOTH EYES Last administered on 06/27/18 20:34; Admin Dose 1 DROP; Start 06/24/18 at 21:00 Docusate Sodium (Colace) 100 mg TID PO Last administered on 06/28/18 12:02; Admin Dose 100 MG; Start 06/24/18 at 09:00 Donepezil HCl (Aricept) 5 mg DAILY PO Last administered on 06/28/18 12:03; Admin Dose 5 MG; Start 06/24/18 at 09:00 Famotidine (Pepcid) 20 mg DAILY PO Last administered on 06/28/18 12:03; Admin Dose 20 MG; Start 06/24/18 at 09:00 Febuxostat (Uloric) 40 mg QHS PO Last administered on 06/27/18 20:33; Admin Dose 40 MG; Start 06/24/18 at 21:00 Ferrous Sulfate (Ferrous Sulfate (Ec)) 325 mg TID PO Last administered on 06/28/18 12:02; Admin Dose 325 MG; Start 06/24/18 at 09:00 Metoprolol Succinate (Toprol Xl) 200 mg DAILY PO Last administered on 06/28/18 12:03; Admin Dose 200 MG; Start 06/24/18 at 09:00 Tamsulosin HCl (Flomax) 0.4 mg BID PO Last administered on 06/28/18 12:04; Admin Dose 0.4 MG; Start 06/24/18 at 09:00 Hydralazine HCl (Apresoline) 10 mg Q6 PRN IV SBP>160 Last administered on 06/24/18 12:26; Admin Dose 10 MG; Start 06/24/18 at 12:00 Nifedipine (Procardia Xl) 90 mg DAILY PO Last administered on 06/28/18 12:03; Admin Dose 90 MG; Start 06/28/18 at 09:00 Cefepime HCl 50 ml @ 100 mls/hr Q24H IVPB Last administered on 06/27/18 17:20; Admin Dose 100 MLS/HR; Start 06/27/18 at 17:00 ROMA CARRERO NP June 28, 2018 13:15
--- NOTE | 2018-06-28 15:39 | PN ---
Date/Time of Note Date/Time of Note DATE: 06/28/18 TIME: 15:34 Assessment/Plan VTE Prophylaxis Risk score (from Ns)>0 risk: 5 SCD applied (from Ns): Yes SCD contraindicated: low risk/ambulating Pharmacological prophylaxis: LMWH Lines/Catheters IV C[facility]ter Type [facility]from [facility] [place] Urinary Cath still in place: No Assessment/Plan Hospital Course A/P 1. Suspected brain mets, vasogenic edema, unable to do MRI due to pacemaker. CT with contrast due to CKD. T supportive care 2. Lung mass, patient for biopsy on Saturday 3. Past tobacco 4. Abimael maker status 5. Left-sided glaucoma 6. History of SVT 7. Osteoporosis 8. Chronic hypertension 9. Chronic dyslipidemia 10. Chronic coronary disease 11. History of stroke right-sided deficits 12. Paroxysmal A. fib, probably not a candidate for long-term anticoagulation 13. Peripheral vascular disease? 13. History of ulcerative colitis chronic 15. History of pericardial effusion 16. Multiple lipomas 17. Pleural effusion appears minimal at this time 18. Suspected metastatic lung cancer, may need palliative care/onc once pathology back 19. Chronic kidney disease stage III-IV. Contrast would be challenging. S: no distress. Not oriented to year. No headache nausea vomiting fever. Speech clear possibly oriented to month. at bedside updated. O: Vital signs stable PE No pallor adenopathy mild droop, chronic left vision loss Appears reg; no m/r/g Diminished no tachypnea at rest Bs + nt nd no RRG overweight No edema Hemiparesis Result Diagram: 06/28/18 0611 06/28/18 0611 Results 24hrs Laboratory Tests Test 06/28/18 06:11 White Blood Count 16.8 H Red Blood Count 2.68 L Hemoglobin 8.9 L Hematocrit 27.1 L Mean Corpuscular Volume 101.1 H Mean Corpuscular Hemoglobin 33.2 H Mean Corpuscular Hemoglobin Concent 32.8 Red Cell Distribution Width 14.0 Platelet Count 122 L Mean Platelet Volume 10.2 Immature Granulocytes % 0.700 H Neutrophils % 87.2 H Lymphocytes % 5.5 L Monocytes % 6.4 Eosinophils % 0.1 Basophils % 0.1 Nucleated Red Blood Cells % 0.0 Immature Granulocytes # 0.110 H Neutrophils # 14.6 H Lymphocytes # 0.9 Monocytes # 1.1 H Eosinophils # 0.0 Basophils # 0.0 Nucleated Red Blood Cells # 0.0 Sodium Level 143 Potassium Level 4.5 Chloride Level 113 H Carbon Dioxide Level 17 L Anion Gap 13 Blood Urea Nitrogen 46 H Creatinine 2.98 H Est Glomerular Filtrat Rate mL/min Glucose Level 116 Calcium Level 9.5 Phosphorus Level 3.9 Magnesium Level 2.1 Exam/Review of Systems Exam Vitals Vital Signs Date Temp Pulse Resp B/P (MAP) Pulse Ox O2 O2 Flow FiO2 Time Delivery Rate 06/28/18 98.7 70 16 134/62 94 15:20 (86) 06/27/18 Room Air 15:14 Intake and Output 06/27/18 06/27/18 06/28/18 1414:59 22:59 06:59 IntakeIntake Total 960 ml 400 ml BalanceBalance 960 ml 400 ml Results Results 24hrs Laboratory Tests Test 06/28/18 06:11 White Blood Count 16.8 H Red Blood Count 2.68 L Hemoglobin 8.9 L Hematocrit 27.1 L Mean Corpuscular Volume 101.1 H Mean Corpuscular Hemoglobin 33.2 H Mean Corpuscular Hemoglobin Concent 32.8 Red Cell Distribution Width 14.0 Platelet Count 122 L Mean Platelet Volume 10.2 Immature Granulocytes % 0.700 H Neutrophils % 87.2 H Lymphocytes % 5.5 L Monocytes % 6.4 Eosinophils % 0.1 Basophils % 0.1 Nucleated Red Blood Cells % 0.0 Immature Granulocytes # 0.110 H Neutrophils # 14.6 H Lymphocytes # 0.9 Monocytes # 1.1 H Eosinophils # 0.0 Basophils # 0.0 Nucleated Red Blood Cells # 0.0 Sodium Level 143 Potassium Level 4.5 Chloride Level 113 H Carbon Dioxide Level 17 L Anion Gap 13 Blood Urea Nitrogen 46 H Creatinine 2.98 H Est Glomerular Filtrat Rate mL/min Glucose Level 116 Calcium Level 9.5 Phosphorus Level 3.9 Magnesium Level 2.1 Medications Medication Current Medications IV Flush (NS 3 ml) 3 ml PER PROTOCOL IV ; Start 06/24/18 at 00:00 Ondansetron HCl (Zofran Inj) 4 mg Q6H PRN IV NAUSEA/VOMITING; Start 06/24/18 at 00:00 Acetaminophen (Tylenol Tab) 650 mg Q6H PRN PO .PAIN 1-3 OR TEMP Last administered on 06/27/18at 06:29; Admin Dose 650 MG; Start 06/24/18 at 00:00 Acetaminophen/ Hydrocodone Bitart ([place] (5/325)) 1 tab Q6H PRN PO .PAIN 4-6 Last administered on 06/27/18 01:44; Admin Dose 1 TAB; Start 06/24/18 at 00:00 Albuterol/ Ipratropium (Duoneb) 3 ml Q2H RESP THERAPY PRN HHN SHORTNESS OF BREATH; Start 06/24/18 at 00:00 Aspirin (Aspirin) 81 mg DAILY PO Last administered on 06/28/18 12:02; Admin Dose 81 MG; Start 06/24/18 at 09:00 Latanoprost (Xalatan) 1 drop HS BOTH EYES Last administered on 06/27/18 20:34; Admin Dose 1 DROP; Start 06/24/18 at 21:00 Docusate Sodium (Colace) 100 mg TID PO Last administered on 06/28/18 12:02; Admin Dose 100 MG; Start 06/24/18 at 09:00 Donepezil HCl (Aricept) 5 mg DAILY PO Last administered on 06/28/18 12:03; Admin Dose 5 MG; Start 06/24/18 at 09:00 Famotidine (Pepcid) 20 mg DAILY PO Last administered on 06/28/18 12:03; Admin Dose 20 MG; Start 06/24/18 at 09:00 Febuxostat (Uloric) 40 mg QHS PO Last administered on 06/27/18 20:33; Admin Dose 40 MG; Start 06/24/18 at 21:00 Ferrous Sulfate (Ferrous Sulfate (Ec)) 325 mg TID PO Last administered on 12:02; Admin Dose 325 MG; Start 06/24/18 at 09:00 Metoprolol Succinate (Toprol Xl) 200 mg DAILY PO Last administered on 06/28/18 12:03; Admin Dose 200 MG; Start 06/24/18 at 09:00 Tamsulosin HCl (Flomax) 0.4 mg BID PO Last administered on 06/28/18 12:04; Admin Dose 0.4 MG; Start 06/24/18 at 09:00 Hydralazine HCl (Apresoline) 10 mg Q6 PRN IV SBP>160 Last administered on 06/24/18at 12:26; Admin Dose 10 MG; Start 06/24/18 at 12:00 Nifedipine (Procardia Xl) 90 mg DAILY PO Last administered on 06/28/18at 12:03; Admin Dose 90 MG; Start 06/28/18 at 09:00 Cefepime HCl 50 ml @ 100 mls/hr Q24H IVPB Last administered on 06/27/18at 17:20; Admin Dose 100 MLS/HR; Start 06/27/18 at 17:00 BIBIANA SUH MD June 28, 2018 15:39
--- NOTE | 2018-06-28 15:42 | CONS ---
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 # Likely stage IV lung cancer with mets to the liver and brain -Unfortunately patient likely has an incurable stage IV lung cancer to the liver and the brain. -Biopsy pending Saturday to see what type of lung cancer the patient has. -In terms of the brain met, I recommend dexamethasone 4 mg IV q8h to decrease the edema. -Also recommend consultation for radiation oncology for radiation to the brain met. Since he has metastatic disease and with multiple comorbidities and ECO, he would not be a candidate for a high risk neurosurgery. -With the patient's comorbidities, the types of palliative chemotherapy are limited. I recommend testing PDL-1 to see if he is a candidate for immunotherapy which would likely be the only therapy he would tolerate. 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 -I told the family that if this is lung cancer with mets to the brain that he has and incurable cancer but hopefully we can palliate his symptoms with possible immunotherapy. -Radiation to the brain is palliative as well. -Will check CEA. -Patient will follow up with Dr. Bird in outpatient clinic upon discharge. Thank you for allowing us to participate in the care of this patient. I am covering for Dr. Bird for the weekend. Consultation Date/Type/Reason Admit Date/Time June 23, 2018 at 20:27 Date of Consultation: June 28, 2018 Type of Consult hematology/oncology Reason for Consultation lung lesion with mets to brain and liver Date/Time of Note DATE: 06/28/18 TIME: 15:29 Hx of Present Illness 83-year-old male with a history of hypertension, dyslipidemia, CAD, left eye glaucoma, CVA diagnosed 5 years ago with residual mild slurred speech and mild right sided deficit, CKD, CHF, pacemaker, SVT, large pericardial effusion status post pericardiocentesis in 2013 and glaucoma who was in his baseline state of health until a day prior admission when he was complaining of headache, dizziness and blurry vision x 1 day. Headache has been going on for the past 1 week. Denied worsening slurred speech or focal weakness. Patient was admitted here about 6 weeks ago for palpitation. At that time he was found with SVT and his pacemaker was interrogated. 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 Head CT in the ER showed the followin. There is moderate vasogenic edema within the left thalamus and midbrain as outlined above. There appears to be an underlying 11 mm lesion for which further evaluation with a pre and postcontrast enhanced MRI of the brain is recommended. 2. Mild to moderate diffuse atrophy. 3. There is mild microvascular ischemic disease in the periventricular and deep white matter. Chronic lacunar infarcts are seen in the left velasquez radiata and basal ganglia with ex vacuo dilatation of the left lateral ventricle. 4. There is a punctate calcification in the right posterior operculum, which may reflect sequelae from prior infection such as cysticercosis. CT Chest showed: There is a 2.1 x 1.5 x 2 cm mass in the posterolateral aspect of right upper lobe extending along the major fissure extending to the proximal aspect of right lower lobe. CT A/P showed: Patchy reticulonodular opacities are seen at both lungs. Although this may represent infectious/inflammatory process the metastatic disease is in the differential diagnosis. 3. Multiloculated/lobulated moderate size right-sided pleural effusion. Small to moderate left-sided pleural effusion. 4. Mediastinal adenopathy, likely metastatic. 5. Mild pericardial effusion. 6. Marked coronary artery calcifications. Evidence of pulmonary hypertension. 7. Indeterminate 1.6 cm hypodense lesion in the caudate lobe has been increased in size compared to 2017 which was measured 1 cm. 8. Cholelithiasis. 9. Indeterminate 1.7 cm exophytic right renal lesion has been slightly increased in size compared to 2017 CT which was measured 1.5 cm. Evaluation is limited due to lack of IV contrast. Consider MRI with contrast to further evaluate renal as well as liver lesions. Due to the above we are asked to see the patient for medical oncology work up. PMH: as above PSxH: as above SH: Tobacco: 1 ppd x 40 years ETOH: denies IVDA: denies FH: denies any family history of blood disorders or cancers. Meds: see list All: see list. Constitutional: no complaints, improved Eyes: visual change ENT: no complaints Respiratory: no complaints Cardiovascular: no complaints Gastrointestinal: no complaints Genitourinary: no complaints Musculoskeletal: no complaints Skin: no complaints Neurologic: dizziness, headache Endocrine: no complaints Lymphatic: No no complaints, No adenopathy, No tender nodes, No lymphadema, No other Psychological: no complaints, nl mood/affect Immunologic: no complaints Past Medical History Medical History: other (See HPI) Home Meds Active Scripts Metoprolol Succinate* (Toprol XL*) 100 Mg Tab.sr.24h, 200 MG PO DAILY, #30 TAB Prov:COLLINSMIRANDA V. EDGE KITTER 04/16/18 Tamsulosin Hcl* (Flomax*) 0.4 Mg Cap.er.24h, 0.4 MG PO BID, #60 CAP Prov:MIRANDA COLLINS V. EDGE KITTER 04/16/18 Reported Medications Furosemide* (Furosemide*) 40 Mg Tablet, 40 MG PO DAILY for 90 Days 06/23/18 Docusate Sodium (Col-Rite) 100 Mg Capsule, 100 MG PO TID for 90 Days, #270 take 1 capsule by mouth three times a day 06/23/18 Valsartan (Valsartan) 320 Mg Tablet, 320 MG PO DAILY for 90 Days, #90 take 1 tablet by mouth once daily 06/23/18 Atenolol* (Atenolol*) 50 Mg Tablet, 50 MG PO DAILY for 90 Days, #90 take 1 tablet by mouth once daily 06/23/18 Clonidine Patch (CLONIDINE PATCH) 0.2 Mg/24 Hr Patch, 1 PATCH.WK TD Q7D, #4 PATC H.WK 06/23/18 Clonidine Hcl* (Clonidine Hcl*) 0.2 Mg Tablet, 0.2 MG PO TID for 30 Days, #90 06/23/18 Febuxostat* (Uloric*) 40 Mg Tablet, 40 MG PO QHS, TAB 04/15/18 Donepezil* (Donepezil*) 5 Mg Tablet, 5 MG PO DAILY, #30 TAB take 1 tablet by mouth once daily 2/26/19 Docusate Sodium* (Docusate Sodium*) 100 Mg Capsule, 100 MG PO TID, #30 CAP 04/15/18 Ferrous Sulfate* (Ferrous Sulfate*) 325 Mg Tabec, 325 MG PO TID, TAB 04/15/18 Bimatoprost* (Lumigan*) 0.01%-2.5 Ml Opht Drops, 1 DROP BOTH EYES HS, EA 07/15/16 Calcitriol* (Rocaltrol*) 0.25 Mcg Capsule, 0.25 MCG PO FIVE TIMES WEEKLY, CAP 07/15/16 Famotidine* (Famotidine*) 20 Mg Tablet, 20 MG PO DAILY, #30 TAB take 1 tablet by mouth once daily 07/15/16 Alendronate Sodium* (Fosamax*) 70 Mg Tablet, 70 MG PO ON SATURDAYS, TAB 07/28/14 Amlodipine Besylate* (Amlodipine Besylate*) 10 Mg Tablet, 10 MG PO QAM, TAB 07/29/13 Aspirin (Aspirin) 81 Mg Chew, 81 MG PO DAILY take 1 tablet by mouth once daily 12/20/12 Simvastatin (Simvastatin) 20 Mg Tablet, 20 MG PO HS 12/20/12 Medications Current Medications IV Flush (NS 3 ml) 3 ml PER PROTOCOL IV ; Start 06/24/18 at 00:00 Ondansetron HCl (Zofran Inj) 4 mg Q6H PRN IV NAUSEA/VOMITING; Start 06/24/18 at 00:00 Acetaminophen (Tylenol Tab) 650 mg Q6H PRN PO .PAIN 1-3 OR TEMP Last administered on 06/27/18at 06:29; Admin Dose 650 MG; Start 06/24/18 at 00:00 Acetaminophen/ Hydrocodone Bitart ([place] (5/325)) 1 tab Q6H PRN PO .PAIN 4-6 Last administered on 06/27/18at 01:44; Admin Dose 1 TAB; Start 06/24/18 at 00:00 Albuterol/ Ipratropium (Duoneb) 3 ml Q2H RESP THERAPY PRN HHN SHORTNESS OF BREATH; Start 06/24/18 at 00:00 Aspirin (Aspirin) 81 mg DAILY PO Last administered on 06/28/18at 12:02; Admin Dose 81 MG; Start 06/24/18 at 09:00 Latanoprost (Xalatan) 1 drop HS BOTH EYES Last administered on 06/27/18 20:34; Admin Dose 1 DROP; Start 06/24/18 at 21:00 Docusate Sodium (Colace) 100 mg TID PO Last administered on 06/28/18 12:02; Admin Dose 100 MG; Start 06/24/18 at 09:00 Donepezil HCl (Aricept) 5 mg DAILY PO Last administered on 06/28/18 12:03; Admin Dose 5 MG; Start 06/24/18 at 09:00 Famotidine (Pepcid) 20 mg DAILY PO Last administered on 06/28/18 12:03; Admin Dose 20 MG; Start 06/24/18 at 09:00 Febuxostat (Uloric) 40 mg QHS PO Last administered on 06/27/18 20:33; Admin Dose 40 MG; Start 06/24/18 at 21:00 Ferrous Sulfate (Ferrous Sulfate (Ec)) 325 mg TID PO Last administered on 06/28/18 12:02; Admin Dose 325 MG; Start 06/24/18 at 09:00 Metoprolol Succinate (Toprol Xl) 200 mg DAILY PO Last administered on 06/28/18 12:03; Admin Dose 200 MG; Start 06/24/18 at 09:00 Tamsulosin HCl (Flomax) 0.4 mg BID PO Last administered on 06/28/18 12:04; Admin Dose 0.4 MG; Start 06/24/18 at 09:00 Hydralazine HCl (Apresoline) 10 mg Q6 PRN IV SBP>160 Last administered on 06/24/18 12:26; Admin Dose 10 MG; Start 06/24/18 at 12:00 Nifedipine (Procardia Xl) 90 mg DAILY PO Last administered on 06/28/18 12:03; Admin Dose 90 MG; Start 06/28/18 at 09:00 Cefepime HCl 50 ml @ 100 mls/hr Q24H IVPB Last administered on 06/27/18 17:20; Admin Dose 100 MLS/HR; Start 06/27/18 at 17:00 Allergies: Coded Allergies: epoetin kayley (Verified Allergy, Severe, ITCHING AND FACE SWELLING, 04/15/18) PER PT AND Past Surgical History Past Surgical Hx: other (See HPI) Social History Alcohol Use: none Smoking Status: Current every day smoker Drug Use: none Exam/Review of Systems Exam Vitals Vital Signs Date Temp Pulse Resp B/P (MAP) Pulse Ox O2 O2 Flow FiO2 Time Delivery Rate 06/28/18 98.7 70 16 134/62 94 15:20 (86) 06/27/18 Room Air 15:14 Intake and Output 06/27/18 06/27/18 06/28/18 1515:00 23:00 07:00 IntakeIntake Total 960 ml 400 ml BalanceBalance 960 ml 400 ml Constitutional: alert, oriented, well developed Psych: no complaints, nl mood/affect Head: normocephalic, atraumatic Eyes: nl conjunctiva, EOMI, nl sclera, PERRL, other (there is mild nystagums and eyelid droop) ENMT: nl external ears & nose, nl lips & teeth, nl nasal mucosa & septum Neck: supple, non-tender Respiratory: clear to auscultation, normal air movement Cardiovascular: regular rate and rhythm, nl pulses Gastrointestinal: soft, nl liver, spleen, non-tender Musculoskeletal: nl extremities to inspection, nl gait and stance Extremities: normal pulses Neurological: 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, focal weakness Skin: nl turgor; No rash or lesions Lymph: nl lymph nodes Results Result Diagram: 06/28/18 0611 06/28/18 0611 Results 24hrs Laboratory Tests Test 06/28/18 06:11 White Blood Count 16.8 H Red Blood Count 2.68 L Hemoglobin 8.9 L Hematocrit 27.1 L Mean Corpuscular Volume 101.1 H Mean Corpuscular Hemoglobin 33.2 H Mean Corpuscular Hemoglobin Concent 32.8 Red Cell Distribution Width 14.0 Platelet Count 122 L Mean Platelet Volume 10.2 Immature Granulocytes % 0.700 H Neutrophils % 87.2 H Lymphocytes % 5.5 L Monocytes % 6.4 Eosinophils % 0.1 Basophils % 0.1 Nucleated Red Blood Cells % 0.0 Immature Granulocytes # 0.110 H Neutrophils # 14.6 H Lymphocytes # 0.9 Monocytes # 1.1 H Eosinophils # 0.0 Basophils # 0.0 Nucleated Red Blood Cells # 0.0 Sodium Level 143 Potassium Level 4.5 Chloride Level 113 H Carbon Dioxide Level 17 L Anion Gap 13 Blood Urea Nitrogen 46 H Creatinine 2.98 H Est Glomerular Filtrat Rate mL/min Glucose Level 116 Calcium Level 9.5 Phosphorus Level 3.9 Magnesium Level 2.1 Medications Medication Current Medications IV Flush (NS 3 ml) 3 ml PER PROTOCOL IV ; Start 06/24/18 at 00:00 Ondansetron HCl (Zofran Inj) 4 mg Q6H PRN IV NAUSEA/VOMITING; Start 06/24/18 at 00:00 Acetaminophen (Tylenol Tab) 650 mg Q6H PRN PO .PAIN 1-3 OR TEMP Last administered on 06/27/18 06:29; Admin Dose 650 MG; Start 06/24/18 at 00:00 Acetaminophen/ Hydrocodone Bitart ([place] (5/325)) 1 tab Q6H PRN PO .PAIN 4-6 Last administered on 06/27/18 01:44; Admin Dose 1 TAB; Start 06/24/18 at 00:00 Albuterol/ Ipratropium (Duoneb) 3 ml Q2H RESP THERAPY PRN HHN SHORTNESS OF BREATH; Start 06/24/18 at 00:00 Aspirin (Aspirin) 81 mg DAILY PO Last administered on 06/28/18 12:02; Admin Dose 81 MG; Start 06/24/18 at 09:00 Latanoprost (Xalatan) 1 drop HS BOTH EYES Last administered on 06/27/18 20:34; Admin Dose 1 DROP; Start 06/24/18 at 21:00 Docusate Sodium (Colace) 100 mg TID PO Last administered on 06/28/18 12:02; Admin Dose 100 MG; Start 06/24/18 at 09:00 Donepezil HCl (Aricept) 5 mg DAILY PO Last administered on 06/28/18 12:03; Admin Dose 5 MG; Start 06/24/18 at 09:00 Famotidine (Pepcid) 20 mg DAILY PO Last administered on 06/28/18 12:03; Admin Dose 20 MG; Start 06/24/18 at 09:00 Febuxostat (Uloric) 40 mg QHS PO Last administered on 06/27/18 20:33; Admin Dose 40 MG; Start 06/24/18 at 21:00 Ferrous Sulfate (Ferrous Sulfate (Ec)) 325 mg TID PO Last administered on 06/28/18 12:02; Admin Dose 325 MG; Start 06/24/18 at 09:00 Metoprolol Succinate (Toprol Xl) 200 mg DAILY PO Last administered on 06/28/18 12:03; Admin Dose 200 MG; Start 06/24/18 at 09:00 Tamsulosin HCl (Flomax) 0.4 mg BID PO Last administered on 06/28/18 12:04; Admin Dose 0.4 MG; Start 06/24/18 at 09:00 Hydralazine HCl (Apresoline) 10 mg Q6 PRN IV SBP>160 Last administered on 06/24/18 12:26; Admin Dose 10 MG; Start 06/24/18 at 12:00 Nifedipine (Procardia Xl) 90 mg DAILY PO Last administered on 06/28/18 12:03; Admin Dose 90 MG; Start 06/28/18 at 09:00 Cefepime HCl 50 ml @ 100 mls/hr Q24H IVPB Last administered on 06/27/18 17:20; Admin Dose 100 MLS/HR; Start 06/27/18 at 17:00 JESS STEWART DO June 28, 2018 15:42
[2018-06-28] MEDS: DEXAMETHASONE 4 MG/ML 1 ML INJ IV SCH ×2 (16:05→20:43)
[2018-06-28] MEDS: CEFEPIME 1GM/50 ML (PMX) 50 ML IVPB SCH (16:05)
--- NOTE | 2018-06-28 17:23 | CONS ---
Consult Date/Type/Reason Admit Date/Time June 23, 2018 at 20:27 Initial Consult Date 06/28/18 Type of Consultation: Pulm Requesting Provider: MATILDA WHITE MD Date/Time of Note DATE: 06/28/18 TIME: 17:22 Subjective No events overnight. CT imaging reviewed in detail. Objective Vitals Vital Signs Date Temp Pulse Resp B/P (MAP) Pulse Ox O2 O2 Flow FiO2 Time Delivery Rate 06/28/18 67 16:44 06/28/18 98.7 16 134/62 94 15:20 (86) 06/27/18 Room Air 15:14 Intake and Output 06/27/18 06/27/18 06/28/18 1515:00 23:00 07:00 IntakeIntake Total 960 ml 400 ml BalanceBalance 960 ml 400 ml Exam HEENT: Neck supple; no JVD; no LAD CVS: RRR, S1 and S2 CHEST: Diminished BS ABD: Soft, NT, + BS EXT: No c/c/e Results/Medications Result Diagram: 06/28/18 0611 06/28/18 0611 Results 24 hrs Laboratory Tests Test 06/28/18 06:11 White Blood Count 16.8 H Red Blood Count 2.68 L Hemoglobin 8.9 L Hematocrit 27.1 L Mean Corpuscular Volume 101.1 H Mean Corpuscular Hemoglobin 33.2 H Mean Corpuscular Hemoglobin Concent 32.8 Red Cell Distribution Width 14.0 Platelet Count 122 L Mean Platelet Volume 10.2 Immature Granulocytes % 0.700 H Neutrophils % 87.2 H Lymphocytes % 5.5 L Monocytes % 6.4 Eosinophils % 0.1 Basophils % 0.1 Nucleated Red Blood Cells % 0.0 Immature Granulocytes # 0.110 H Neutrophils # 14.6 H Lymphocytes # 0.9 Monocytes # 1.1 H Eosinophils # 0.0 Basophils # 0.0 Nucleated Red Blood Cells # 0.0 Sodium Level 143 Potassium Level 4.5 Chloride Level 113 H Carbon Dioxide Level 17 L Anion Gap 13 Blood Urea Nitrogen 46 H Creatinine 2.98 H Est Glomerular Filtrat Rate mL/min Glucose Level 116 Calcium Level 9.5 Phosphorus Level 3.9 Magnesium Level 2.1 Carcinoembryonic Antigen 3.8 Home Meds Active Scripts Metoprolol Succinate* (Toprol XL*) 100 Mg Tab.sr.24h, 200 MG PO DAILY, #30 TAB Prov:MIRANDA COLLINS [employer] 04/16/18 Tamsulosin Hcl* (Flomax*) 0.4 Mg Cap.er.24h, 0.4 MG PO BID, #60 CAP Prov:MIRANDA COLLINS 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2 MG PO TID for 30 Days, #90 06/23/18 Febuxostat* (Uloric*) 40 Mg Tablet, 40 MG PO QHS, TAB 04/15/18 Donepezil* (Donepezil*) 5 Mg Tablet, 5 MG PO DAILY, #30 TAB take 1 tablet by mouth once daily 04/15/18 Docusate Sodium* (Docusate Sodium*) 100 Mg Capsule, 100 MG PO TID, #30 CAP 04/15/18 Ferrous Sulfate* (Ferrous Sulfate*) 325 Mg Tabec, 325 MG PO TID, TAB 04/15/18 Bimatoprost* (Lumigan*) 0.01%-2.5 Ml Opht Drops, 1 DROP BOTH EYES HS, EA 07/15/16 Calcitriol* (Rocaltrol*) 0.25 Mcg Capsule, 0.25 MCG PO FIVE TIMES WEEKLY, CAP 07/15/16 Famotidine* (Famotidine*) 20 Mg Tablet, 20 MG PO DAILY, #30 TAB take 1 tablet by mouth once daily 07/15/16 Alendronate Sodium* (Fosamax*) 70 Mg Tablet, 70 MG PO ON SATURDAYS, TAB 07/28/14 Amlodipine Besylate* (Amlodipine Besylate*) 10 Mg Tablet, 10 MG PO QAM, TAB 07/29/13 Aspirin (Aspirin) 81 Mg Chew, 81 MG PO DAILY take 1 tablet by mouth once daily 12/20/12 Simvastatin (Simvastatin) 20 Mg Tablet, 20 MG PO HS 12/20/12 Medications Current Medications IV Flush (NS 3 ml) 3 ml PER PROTOCOL IV ; Start 06/24/18 at 00:00 Ondansetron HCl (Zofran Inj) 4 mg Q6H PRN IV NAUSEA/VOMITING; Start 06/24/18 at 00:00 Acetaminophen (Tylenol Tab) 650 mg Q6H PRN PO .PAIN 1-3 OR TEMP Last administered on 06/27/18 06:29; Admin Dose 650 MG; Start 06/24/18 at 00:00 Acetaminophen/ Hydrocodone Bitart ([place] (5/325)) 1 tab Q6H PRN PO .PAIN 4-6 Last administered on 06/27/18 01:44; Admin Dose 1 TAB; Start 06/24/18 at 00:00 Albuterol/ Ipratropium (Duoneb) 3 ml Q2H RESP THERAPY PRN HHN SHORTNESS OF BREATH; Start 06/24/18 at 00:00 Aspirin (Aspirin) 81 mg DAILY PO Last administered on 06/28/18 12:02; Admin Dose 81 MG; Start 06/24/18 at 09:00 Latanoprost (Xalatan) 1 drop HS BOTH EYES Last administered on 06/27/18 20:34; Admin Dose 1 DROP; Start 06/24/18 at 21:00 Donepezil HCl (Aricept) 5 mg DAILY PO Last administered on 06/28/18 12:03; Admin Dose 5 MG; Start 06/24/18 at 09:00 Famotidine (Pepcid) 20 mg DAILY PO Last administered on 06/28/18 12:03; Admin Dose 20 MG; Start 06/24/18 at 09:00 Febuxostat (Uloric) 40 mg QHS PO Last administered on 06/27/18 20:33; Admin Dose 40 MG; Start 06/24/18 at 21:00 Ferrous Sulfate (Ferrous Sulfate (Ec)) 325 mg TID PO Last administered on 06/28/18 12:02; Admin Dose 325 MG; Start 06/24/18 at 09:00 Metoprolol Succinate (Toprol Xl) 200 mg DAILY PO Last administered on 06/28/18 12:03; Admin Dose 200 MG; Start 06/24/18 at 09:00 Tamsulosin HCl (Flomax) 0.4 mg BID PO Last administered on 06/28/18 12:04; Admin Dose 0.4 MG; Start 06/24/18 at 09:00 Hydralazine HCl (Apresoline) 10 mg Q6 PRN IV SBP>160 Last administered on 9at 12:26; Admin Dose 10 MG; Start 06/24/18 at 12:00 Nifedipine (Procardia Xl) 90 mg DAILY PO Last administered on 06/28/18 12:03; Admin Dose 90 MG; Start 06/28/18 at 09:00 Cefepime HCl 50 ml @ 100 mls/hr Q24H IVPB Last administered on 06/28/18 16:05; Admin Dose 100 MLS/HR; Start 06/27/18 at 17:00 Docusate Sodium (Colace) 200 mg DAILY PO ; Start 06/29/18 at 09:00 Enoxaparin Sodium (Lovenox) 30 mg DAILY SC ; Start 06/29/18 at 09:00 Dexamethasone (Decadron) 4 mg Q8 IV Last administered on 06/28/18 16:05; Admin Dose 4 MG; Start 06/28/18 at 16:00 Assessment/Plan Assessment/Plan (Daily) IMP: 1. 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 Await CT-guided bx on Saturday. RONDA TORRES MD June 28, 2018 17:23
[2018-06-28] MEDS: LATANOPROST 0.005% 2.5 ML OPH BOTH EYES SCH (20:42)
[2018-06-28] MEDS: FEBUXOSTAT 40 MG TABLET PO SCH (20:43)
[2018-06-29] VITALS (12 sets, daily range): BP systolic 110–144; BP diastolic 56–74; PULSE 61–76; RESP 16–18
--- NOTE | 2018-06-29 05:48 | CONS ---
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 # Likely stage IV lung cancer with mets to the liver and brain -Unfortunately patient likely has an incurable stage IV lung cancer to the liver and the brain. -Biopsy pending Saturday to see what type of lung cancer the patient has. -In terms of the brain met, I recommend dexamethasone 4 mg IV q8h to decrease the edema. -Also recommend consultation for radiation oncology for radiation to the brain met. Since he has metastatic disease and with multiple comorbidities and ECO, he would not be a candidate for a high risk neurosurgery. -With the patient's comorbidities, the types of palliative chemotherapy are limited. I recommend testing PDL-1 to see if he is a candidate for immunotherapy which would likely be the only therapy he would tolerate. -He is a chronic tobacco abuser and thus unlikely to have a otr flatbed driver mutation but recommend running EGFR, ALK, ROS1, and BRAF. -I told the family that if this is lung cancer with mets to the brain that he has and incurable cancer but hopefully we can palliate his symptoms with possible immunotherapy. -Radiation to the brain is palliative as well. -Will check CEA. -Patient will follow up with Dr. Bird in outpatient clinic upon discharge. Patient seen in collaboration with Dr Daniel Consultation Date/Type/Reason Admit Date/Time June 23, 2018 at 20:27 Initial Consult Date 06/28/18 Type of Consult ONCOLOGY Reason for Consultation brain lesion concerning for neoplasm. stage IV lung cancer with mets to the liver and brain Requesting Provider: MATILDA WHITE MD Date/Time of Note DATE: 06/29/18 TIME: 05:48 24 HR Interval Summary Free Text/Dictation sitting up in bed denies any headache or any pain family at bed side- all Qs answered no new issues reported last night Detailed Summary Eyes: no complaints ENT: no complaints Respiratory: no complaints Cardiovascular: no complaints Gastrointestinal: no complaints Genitourinary: no complaints Musculoskeletal: no complaints Skin: no complaints Exam/Review of Systems Exam Vitals Vital Signs Date Temp Pulse Resp B/P (MAP) Pulse Ox O2 O2 Flow FiO2 Time Delivery Rate 06/29/18 98.5 65 18 124/60 97 04:35 (81) 06/27/18 Room Air 15:14 Intake and Output 06/28/18 06/28/18 06/29/18 1414:59 22:59 06:59 IntakeIntake Total 450 ml OutputOutput Total 800 ml BalanceBalance -350 ml Constitutional: alert, oriented Psych: nl mood/affect Head: normocephalic Eyes: nl lids ENMT: nl external ears & nose Neck: non-tender Respiratory: clear to auscultation Cardiovascular: nl pulses, other (S1S2) Gastrointestinal: soft, non-tender Musculoskeletal: nl extremities to inspection Extremities: normal pulses Neurological: nl speech, other (alert/reponsive) Skin: nl turgor Lymph: nontender Results Result Diagram: 06/28/18 0611 06/28/18 0611 Results 24hrs Laboratory Tests Test 06/28/18 06:11 06/29/18 04:34 White Blood Count 16.8 H Pending Red Blood Count 2.68 L Pending Hemoglobin 8.9 L Pending Hematocrit 27.1 L Pending Mean Corpuscular Volume 101.1 H Pending Mean Corpuscular Hemoglobin 33.2 H Pending Mean Corpuscular Hemoglobin Concent 32.8 Pending Red Cell Distribution Width 14.0 Pending Platelet Count 122 L Pending Mean Platelet Volume 10.2 Pending Immature Granulocytes % 0.700 H Neutrophils % 87.2 H Lymphocytes % 5.5 L Monocytes % 6.4 Eosinophils % 0.1 Basophils % 0.1 Nucleated Red Blood Cells % 0.0 Immature Granulocytes # 0.110 H Neutrophils # 14.6 H Lymphocytes # 0.9 Monocytes # 1.1 H Eosinophils # 0.0 Basophils # 0.0 Nucleated Red Blood Cells # 0.0 Sodium Level 143 Potassium Level 4.5 Chloride Level 113 H Carbon Dioxide Level 17 L Anion Gap 13 Blood Urea Nitrogen 46 H Creatinine 2.98 H Est Glomerular Filtrat Rate mL/min Glucose Level 116 Calcium Level 9.5 Phosphorus Level 3.9 Magnesium Level 2.1 Carcinoembryonic Antigen 3.8 Prothrombin Time 13.9 Prothrombin Time Ratio 1.1 INR International Normalized Ratio 1.06 Medications Medication Current Medications IV Flush (NS 3 ml) 3 ml PER PROTOCOL IV ; Start 06/24/18 at 00:00 Ondansetron HCl (Zofran Inj) 4 mg Q6H PRN IV NAUSEA/VOMITING; Start 06/24/18 at 00:00 Acetaminophen (Tylenol Tab) 650 mg Q6H PRN PO .PAIN 1-3 OR TEMP Last administered on 06/27/18 06:29; Admin Dose 650 MG; Start 06/24/18 at 00:00 Acetaminophen/ Hydrocodone Bitart ([place] (5/325)) 1 tab Q6H PRN PO .PAIN 4-6 Last administered on 06/27/18 01:44; Admin Dose 1 TAB; Start 06/24/18 at 00:00 Albuterol/ Ipratropium (Duoneb) 3 ml Q2H RESP THERAPY PRN HHN SHORTNESS OF BREATH; Start 06/24/18 at 00:00 Aspirin (Aspirin) 81 mg DAILY PO Last administered on 06/28/18 12:02; Admin Dose 81 MG; Start 06/24/18 at 09:00 Latanoprost (Xalatan) 1 drop HS BOTH EYES Last administered on 06/28/18 20:42; Admin Dose 1 DROP; Start 06/24/18 at 21:00 Donepezil HCl (Aricept) 5 mg DAILY PO Last administered on 06/28/18 12:03; Admin Dose 5 MG; Start 06/24/18 at 09:00 Famotidine (Pepcid) 20 mg DAILY PO Last administered on 06/28/18 12:03; Admin Dose 20 MG; Start 06/24/18 at 09:00 Febuxostat (Uloric) 40 mg QHS PO Last administered on 06/28/18 20:43; Admin Dose 40 MG; Start 06/24/18 at 21:00 Ferrous Sulfate (Ferrous Sulfate (Ec)) 325 mg TID PO Last administered on 06/28/18 20:43; Admin Dose 325 MG; Start 06/24/18 at 09:00 Metoprolol Succinate (Toprol Xl) 200 mg DAILY PO Last administered on 06/28/18 12:03; Admin Dose 200 MG; Start 06/24/18 at 09:00 Tamsulosin HCl (Flomax) 0.4 mg BID PO Last administered on 06/28/18 20:43; Admin Dose 0.4 MG; Start 06/24/18 at 09:00 Hydralazine HCl (Apresoline) 10 mg Q6 PRN IV SBP>160 Last administered on 06/24/18 12:26; Admin Dose 10 MG; Start 06/24/18 at 12:00 Nifedipine (Procardia Xl) 90 mg DAILY PO Last administered on 06/28/18 12:03; Admin Dose 90 MG; Start 06/28/18 at 09:00 Cefepime HCl 50 ml @ 100 mls/hr Q24H IVPB Last administered on 06/28/18 16:05; Admin Dose 100 MLS/HR; Start 06/27/18 at 17:00 Docusate Sodium (Colace) 200 mg DAILY PO ; Start 06/29/18 at 09:00 Enoxaparin Sodium (Lovenox) 30 mg DAILY SC ; Start 06/29/18 at 09:00 Dexamethasone (Decadron) 4 mg Q8 IV Last administered on 06/28/18 20:43; Admin Dose 4 MG; Start 06/28/18 at 16:00 KELLE HERNANDEZ June 29, 2018 05:48
[2018-06-29] MEDS: DEXAMETHASONE 4 MG/ML 1 ML INJ IV SCH ×3 (06:15→20:15)
[2018-06-29] MEDS: NIFEdipine (XL) 90 MG TAB PO SCH (08:10)
[2018-06-29] MEDS: METOPROLOL (XL) 100 MG TAB PO SCH ×2 (08:10→09:00)
[2018-06-29] MEDS: TAMSULOSIN (SR) 0.4 MG CAP PO SCH ×2 (08:11→20:15)
[2018-06-29] MEDS: DONEPEZIL 5 MG TAB PO SCH (08:11)
[2018-06-29] MEDS: FAMOTIDINE 20 MG TAB PO SCH (08:12)
[2018-06-29] MEDS: ASPIRIN 81 MG TAB PO SCH (08:12)
[2018-06-29] MEDS: FERROUS SULFATE (EC) 325 MG TAB PO SCH (08:12)
[2018-06-29] MEDS ORDERED: DOCUSATE SODIUM 100 MG CAP PO SCH (09:00)
[2018-06-29] MEDS ORDERED: ENOXAPARIN 30 MG/0.3 ML SYG SC SCH (09:00)
--- NOTE | 2018-06-29 11:59 | CONS ---
Assessment/Plan Assessment/Plan Hospital Course (Demo Recall) 1. Nonoliguric acute kidney injury on top of chronic kidney disease with previous baseline creatinine of around 2 to 2.5 mg/dL. Etiology of acute kidney injury is secondary to hemodynamics. worsening renal function with hypervolemia (+JVD). will give dose of lasix 40mg ivpx1. also check urine eosinophils as pt is on cefepime. Continue to monitor, continue supportive care, renally dose all medications. 2. Hypernatremia, improved. 3. Anemia. Continue to monitor hemoglobin and hematocrit levels. 4. Mineral bone disorder, monitor calcium and phosphorus levels. 5. Hypertension. Blood pressure controlled. Continue current blood pressure regimen. 6. History of diastolic heart failure. The patient is currently compensated. Continue to monitor. 7. History of cerebrovascular accident with hemideficit. Continue to monitor. 8. Lung mass concerning for malignancy. The patient is pending a pulmonary evaluation. CT scan was reviewed. 9. Possible brain mass. The patient may require CT angio. Risks and benefits of contrast have been explained to the patient. Continue to monitor. Follow up recommendations. 10. Dyslipidemia. Continue statin therapy. 11. Arrhythmia history of pacemaker. 12. Leukocytosis, possible systemic inflammatory response syndrome. Continue to monitor. Consider infectious workup. Defer to primary team. 13. dvt prophylaxis: stop lovenox due to low egfr. change to heparin Consultation Date/Type/Reason Admit Date/Time June 23, 2018 at 20:27 Initial Consult Date 06/24/18 Requesting Provider: MATILDA WHITE MD Date/Time of Note DATE: 06/29/18 TIME: 11:56 24 HR Interval Summary Free Text/Dictation denies shortness of breath urinating without issues into urinal d/w rn gen nad neck +JVD cv rrr pulm ctab abd soft, nd, nt +bs ext: no edema Exam/Review of Systems Exam Vitals Vital Signs Date Temp Pulse Resp B/P (MAP) Pulse Ox O2 O2 Flow FiO2 Time Delivery Rate 06/29/18 97.7 65 16 123/58 95 11:20 (79) 06/27/18 Room Air 15:14 Intake and Output 06/28/18 06/28/18 06/29/18 1515:00 23:00 07:00 IntakeIntake Total 450 ml 400 ml OutputOutput Total 800 ml BalanceBalance -350 ml 400 ml Results Result Diagram: 06/29/18 0434 06/29/18 0434 Results 24hrs Laboratory Tests Test 06/29/18 04:34 06/29/18 07:30 White Blood Count 7.3 # Red Blood Count 2.59 L Hemoglobin 8.4 L Hematocrit 25.7 L Mean Corpuscular Volume 99.2 Mean Corpuscular Hemoglobin 32.4 Mean Corpuscular Hemoglobin Concent 32.7 Red Cell Distribution Width 13.5 Platelet Count 125 L Mean Platelet Volume 11.3 H Immature Granulocytes % 0.600 H Neutrophils % 88.2 H Lymphocytes % 9.1 L Monocytes % 2.1 Eosinophils % 0.0 Basophils % 0.0 Nucleated Red Blood Cells % 0.0 Immature Granulocytes # 0.040 H Neutrophils # 6.4 Lymphocytes # 0.7 L Monocytes # 0.2 L Eosinophils # 0.0 Basophils # 0.0 Nucleated Red Blood Cells # 0.0 Prothrombin Time 13.9 Prothrombin Time Ratio 1.1 INR International Normalized Ratio 1.06 Sodium Level 145 H Potassium Level 4.7 Chloride Level 115 H Carbon Dioxide Level 20 L Anion Gap 10 Blood Urea Nitrogen 62 H Creatinine 3.38 H Est Glomerular Filtrat Rate mL/min Glucose Level 180 Calcium Level 8.9 Phosphorus Level 4.9 Total Bilirubin 0.1 L Direct Bilirubin 0.00 Indirect Bilirubin 0.1 Aspartate Amino Transf (AST/SGOT) 14 L Alanine Aminotransferase (ALT/SGPT) 23 Alkaline Phosphatase 76 Total Protein 6.5 Albumin 3.1 L Globulin 3.40 H Albumin/Globulin Ratio 0.91 Urine Color YELLOW Urine Clarity SLIGHTLY CLOUDY A Urine pH 5.0 Urine Specific [place] 1.014 Urine Ketones TRACE A Urine Nitrite NEGATIVE Urine Bilirubin NEGATIVE Urine Urobilinogen NEGATIVE Urine Leukocyte Esterase 2+ H Urine Microscopic RBC 9 H Urine Microscopic WBC 22 H Urine Squamous Epithelial Cells FEW Urine Bacteria FEW A Urine Hemoglobin 2+ H Urine Glucose 1+ H Urine Total Protein 2+ H Medications Medication Current Medications IV Flush (NS 3 ml) 3 ml PER PROTOCOL IV ; Start 06/24/18 at 00:00 Ondansetron HCl (Zofran Inj) 4 mg Q6H PRN IV NAUSEA/VOMITING; Start 06/24/18 at 00:00 Acetaminophen (Tylenol Tab) 650 mg Q6H PRN PO .PAIN 1-3 OR TEMP Last administered on 06/27/18 06:29; Admin Dose 650 MG; Start 06/24/18 at 00:00 Acetaminophen/ Hydrocodone Bitart ([place] (5/325)) 1 tab Q6H PRN PO .PAIN 4-6 Last administered on 06/27/18 01:44; Admin Dose 1 TAB; Start 06/24/18 at 00:00 Albuterol/ Ipratropium (Duoneb) 3 ml Q2H RESP THERAPY PRN HHN SHORTNESS OF BREATH; Start 06/24/18 at 00:00 Aspirin (Aspirin) 81 mg DAILY PO Last administered on 06/29/18 08:12; Admin Dose 81 MG; Start 06/24/18 at 09:00 Latanoprost (Xalatan) 1 drop HS BOTH EYES Last administered on 06/28/18 20:42; Admin Dose 1 DROP; Start 06/24/18 at 21:00 Donepezil HCl (Aricept) 5 mg DAILY PO Last administered on 06/29/18 08:11; Admin Dose 5 MG; Start 06/24/18 at 09:00 Famotidine (Pepcid) 20 mg DAILY PO Last administered on 06/29/18 08:12; Admin Dose 20 MG; Start 06/24/18 at 09:00 Febuxostat (Uloric) 40 mg QHS PO Last administered on 06/28/18 20:43; Admin Dose 40 MG; Start 06/24/18 at 21:00 Ferrous Sulfate (Ferrous Sulfate (Ec)) 325 mg TID PO Last administered on 06/29/18 08:12; Admin Dose 325 MG; Start 06/24/18 at 09:00 Metoprolol Succinate (Toprol Xl) 200 mg DAILY PO Last administered on 06/28/18 12:03; Admin Dose 200 MG; Start 06/24/18 at 09:00 Tamsulosin HCl (Flomax) 0.4 mg BID PO Last administered on 06/29/18 08:11; Admin Dose 0.4 MG; Start 06/24/18 at 09:00 Hydralazine HCl (Apresoline) 10 mg Q6 PRN IV SBP>160 Last administered on 06/24/18 12:26; Admin Dose 10 MG; Start 06/24/18 at 12:00 Nifedipine (Procardia Xl) 90 mg DAILY PO Last administered on 06/29/18 08:10; Admin Dose 90 MG; Start 06/28/18 at 09:00 Cefepime HCl 50 ml @ 100 mls/hr Q24H IVPB Last administered on 06/28/18at 16:05; Admin Dose 100 MLS/HR; Start 06/27/18 at 17:00 Docusate Sodium (Colace) 200 mg DAILY PO Last administered on 06/29/18at 08:11; Admin Dose 200 MG; Start 06/29/18 at 09:00 Enoxaparin Sodium (Lovenox) 30 mg DAILY SC Last administered on 06/29/18at 08:13; Admin Dose 30 MG; Start 06/29/18 at 09:00 Dexamethasone (Decadron) 4 mg Q8 IV Last administered on 06/29/18at 06:15; Admin Dose 4 MG; Start 06/28/18 at 16:00 JAYCE MORTENSEN MD June 29, 2018 11:59
[2018-06-29] MEDS ORDERED: FUROSEMIDE 40 MG INJ IV ONE (12:00)
--- NOTE | 2018-06-29 12:17 | PN ---
Date/Time of Note Date/Time of Note DATE: 06/29/18 TIME: 12:14 Assessment/Plan VTE Prophylaxis Risk score (from Ns)>0 risk: 4 SCD applied (from [facility] [place] SCD contraindicated: low risk/ambulating Pharmacological prophylaxis: NA/contraindicated Pharm contraindication: surgical contra Lines/Catheters IV Catheter Type (from [facility]): [place] Urinary Cath still in place: No Assessment/Plan Hospital Course A/P 1. Suspected brain mets, vasogenic edema, unable to do MRI due to pacemaker, or CT w contrast due to CKD. Cont supportive care/ steroids/ xrt? 2. Lung mass, patient for biopsy on Saturday; palliative chemo? 3. Past tobacco 4. Pacemaker status 5. Left glaucoma 6. History of SVT 7. Osteoporosis 8. Chronic hypertension 9. Chronic dyslipidemia 10. Chronic cad 11. History of stroke right-sided deficits 12. Paroxysmal A. fib, probably not a candidate for long-term anticoagulation 13. Peripheral vascular disease? 13. History of ulcerative colitis chronic 15. History of pericardial effusion 16. Multiple lipomas 17. Pleural effusion appears minimal at this time 18. Suspected metastatic lung cancer, may need palliative care once pathology back 19. Chronic kidney disease stage III-IV. Contrast would be challenging. 20. Sepsis/ bacteremia? 21. Buttock abscess? consult surgery S: 06/28 no distress. Not oriented to year. No headache nausea vomiting fever. Speech clear possibly oriented to month. at bedside updated. 06/29: no distress O: Vital signs stable PE No pallor; mild droop, chr left vision loss Appears reg; no m/r/g Diminished no tachypnea at rest Bs + nt nd no RRG overweight No edema Hemiparesis Result Diagram: 06/29/18 0434 06/29/18 0434 Results 24hrs Laboratory Tests Test 06/29/18 04:34 06/29/18 07:30 White Blood Count 7.3 # Red Blood Count 2.59 L Hemoglobin 8.4 L Hematocrit 25.7 L Mean Corpuscular Volume 99.2 Mean Corpuscular Hemoglobin 32.4 Mean Corpuscular Hemoglobin Concent 32.7 Red Cell Distribution Width 13.5 Platelet Count 125 L Mean Platelet Volume 11.3 H Immature Granulocytes % 0.600 H Neutrophils % 88.2 H Lymphocytes % 9.1 L Monocytes % 2.1 Eosinophils % 0.0 Basophils % 0.0 Nucleated Red Blood Cells % 0.0 Immature Granulocytes # 0.040 H Neutrophils # 6.4 Lymphocytes # 0.7 L Monocytes # 0.2 L Eosinophils # 0.0 Basophils # 0.0 Nucleated Red Blood Cells # 0.0 Prothrombin Time 13.9 Prothrombin Time Ratio 1.1 INR International Normalized Ratio 1.06 Sodium Level 145 H Potassium Level 4.7 Chloride Level 115 H Carbon Dioxide Level 20 L Anion Gap 10 Blood Urea Nitrogen 62 H Creatinine 3.38 H Est Glomerular Filtrat Rate mL/min Glucose Level 180 Calcium Level 8.9 Phosphorus Level 4.9 Total Bilirubin 0.1 L Direct Bilirubin 0.00 Indirect Bilirubin 0.1 Aspartate Amino Transf (AST/SGOT) 14 L Alanine Aminotransferase (ALT/SGPT) 23 Alkaline Phosphatase 76 Total Protein 6.5 Albumin 3.1 L Globulin 3.40 H Albumin/Globulin Ratio 0.91 Urine Color YELLOW Urine Clarity SLIGHTLY CLOUDY A Urine pH 5.0 Urine Specific [place] 1.014 Urine Ketones TRACE A Urine Nitrite NEGATIVE Urine Bilirubin NEGATIVE Urine Urobilinogen NEGATIVE Urine Leukocyte Esterase 2+ H Urine Microscopic RBC 9 H Urine Microscopic WBC 22 H Urine Squamous Epithelial Cells FEW Urine Bacteria FEW A Urine Hemoglobin 2+ H Urine Glucose 1+ H Urine Total Protein 2+ H Exam/Review of Systems Exam Vitals Vital Signs Date Temp Pulse Resp B/P (MAP) Pulse Ox O2 O2 Flow FiO2 Time Delivery Rate 06/29/18 97.7 65 16 123/58 95 11:20 (79) 06/27/18 Room Air 15:14 Intake and Output 06/28/18 06/28/18 06/29/18 1515:00 23:00 07:00 IntakeIntake Total 450 ml 400 ml OutputOutput Total 800 ml BalanceBalance -350 ml 400 ml Results Results 24hrs Laboratory Tests Test 06/29/18 04:34 06/29/18 07:30 White Blood Count 7.3 # Red Blood Count 2.59 L Hemoglobin 8.4 L Hematocrit 25.7 L Mean Corpuscular Volume 99.2 Mean Corpuscular Hemoglobin 32.4 Mean Corpuscular Hemoglobin Concent 32.7 Red Cell Distribution Width 13.5 Platelet Count 125 L Mean Platelet Volume 11.3 H Immature Granulocytes % 0.600 H Neutrophils % 88.2 H Lymphocytes % 9.1 L Monocytes % 2.1 Eosinophils % 0.0 Basophils % 0.0 Nucleated Red Blood Cells % 0.0 Immature Granulocytes # 0.040 H Neutrophils # 6.4 Lymphocytes # 0.7 L Monocytes # 0.2 L Eosinophils # 0.0 Basophils # 0.0 Nucleated Red Blood Cells # 0.0 Prothrombin Time 13.9 Prothrombin Time Ratio 1.1 INR International Normalized Ratio 1.06 Sodium Level 145 H Potassium Level 4.7 Chloride Level 115 H Carbon Dioxide Level 20 L Anion Gap 10 Blood Urea Nitrogen 62 H Creatinine 3.38 H Est Glomerular Filtrat Rate mL/min Glucose Level 180 Calcium Level 8.9 Phosphorus Level 4.9 Total Bilirubin 0.1 L Direct Bilirubin 0.00 Indirect Bilirubin 0.1 Aspartate Amino Transf (AST/SGOT) 14 L Alanine Aminotransferase (ALT/SGPT) 23 Alkaline Phosphatase 76 Total Protein 6.5 Albumin 3.1 L Globulin 3.40 H Albumin/Globulin Ratio 0.91 Urine Color YELLOW Urine Clarity SLIGHTLY CLOUDY A Urine pH 5.0 Urine Specific [place] 1.014 Urine Ketones TRACE A Urine Nitrite NEGATIVE Urine Bilirubin NEGATIVE Urine Urobilinogen NEGATIVE Urine Leukocyte Esterase 2+ H Urine Microscopic RBC 9 H Urine Microscopic WBC 22 H Urine Squamous Epithelial Cells FEW Urine Bacteria FEW A Urine Hemoglobin 2+ H Urine Glucose 1+ H Urine Total Protein 2+ H Medications Medication Current Medications IV Flush (NS 3 ml) 3 ml PER PROTOCOL IV ; Start 06/24/18 at 00:00 Ondansetron HCl (Zofran Inj) 4 mg Q6H PRN IV NAUSEA/VOMITING; Start 06/24/18 at 00:00 Acetaminophen (Tylenol Tab) 650 mg Q6H PRN PO .PAIN 1-3 OR TEMP Last administered on 06/27/18at 06:29; Admin Dose 650 MG; Start 06/24/18 at 00:00 Acetaminophen/ Hydrocodone Bitart ([place] (5/325)) 1 tab Q6H PRN PO .PAIN 4-6 Last administered on 06/27/18at 01:44; Admin Dose 1 TAB; Start 06/24/18 at 00:00 Albuterol/ Ipratropium (Duoneb) 3 ml Q2H RESP THERAPY PRN HHN SHORTNESS OF BREATH; Start 06/24/18 at 00:00 Aspirin (Aspirin) 81 mg DAILY PO Last administered on 06/29/18at 08:12; Admin D ose 81 MG; Start 06/24/18 at 09:00 Latanoprost (Xalatan) 1 drop HS BOTH EYES Last administered on 06/28/18 20:42; Admin Dose 1 DROP; Start 06/24/18 at 21:00 Donepezil HCl (Aricept) 5 mg DAILY PO Last administered on 06/29/18 08:11; Admin Dose 5 MG; Start 06/24/18 at 09:00 Famotidine (Pepcid) 20 mg DAILY PO Last administered on 06/29/18 08:12; Admin Dose 20 MG; Start 06/24/18 at 09:00 Febuxostat (Uloric) 40 mg QHS PO Last administered on 06/28/18 20:43; Admin Dose 40 MG; Start 06/24/18 at 21:00 Ferrous Sulfate (Ferrous Sulfate (Ec)) 325 mg TID PO Last administered on 06/29/18 08:12; Admin Dose 325 MG; Start 06/24/18 at 09:00 Metoprolol Succinate (Toprol Xl) 200 mg DAILY PO Last administered on 06/28/18 12:03; Admin Dose 200 MG; Start 06/24/18 at 09:00 Tamsulosin HCl (Flomax) 0.4 mg BID PO Last administered on 06/29/18 08:11; Admin Dose 0.4 MG; Start 06/24/18 at 09:00 Hydralazine HCl (Apresoline) 10 mg Q6 PRN IV SBP>160 Last administered on 06/24/18 12:26; Admin Dose 10 MG; Start 06/24/18 at 12:00 Nifedipine (Procardia Xl) 90 mg DAILY PO Last administered on 06/29/18 08:10; Admin Dose 90 MG; Start 06/28/18 at 09:00 Cefepime HCl 50 ml @ 100 mls/hr Q24H IVPB Last administered on 06/28/18 16:05; Admin Dose 100 MLS/HR; Start 06/27/18 at 17:00 Docusate Sodium (Colace) 200 mg DAILY PO Last administered on 06/29/18 08:11; Admin Dose 200 MG; Start 06/29/18 at 09:00 Dexamethasone (Decadron) 4 mg Q8 IV Last administered on 06/29/18 06:15; Admin Dose 4 MG; Start 06/28/18 at 16:00 Heparin Sodium (Porcine) (Heparin (5000 Units/1ml)) 5,000 unit BID SC ; Start 06/30/18 at 09:00; Status UNV Furosemide (Lasix) 40 mg ONCE ONCE IV ; Start 06/29/18 at 12:00; Stop 06/29/18 at 12:01; Status UNV BIBIANA SUH MD June 29, 2018 12:16
--- NOTE | 2018-06-29 12:28 | CONS ---
Assessment/Plan Assessment/Plan Hospital Course (Demo Recall) ID PROGRESS NOTE CURRENT ABX: DAY # => CEFEPIME #3 24H INTERVAL SUMMARY * A/A responds appropriately, VSS, NAD, feeling better, polite, fevers resolved - spouse present * WBC normalized today --- Repeat BCx sent 06/28/18 pending RADIOLOGY * CT CHEST/ABD-PELV: * 1. Posterolateral right upper lobe lung parenchymal mass concerning for primary neoplasm. * 2. Patchy reticulonodular opacities are seen at both lungs. Although this may represent infectious/inflammatory process the metastatic disease is in the differential diagnosis. * 3. Multiloculated/lobulated moderate size right-sided pleural effusion. Small to moderate left-sided pleural effusion. * 4. Mediastinal adenopathy, likely metastatic. * 5. Mild pericardial effusion. * 6. Marked coronary artery calcifications. Evidence of pulmonary hypertension. * 7. Indeterminate 1.6 cm hypodense lesion in the caudate lobe has been increased in size compared to 2017 which was measured 1 cm. * 8. Cholelithiasis. * 9. Indeterminate 1.7 cm exophytic right renal lesion has been slightly increased in size compared to 2017 CT which was measured 1.5 cm. Evaluation is limited due to lack of IV contrast. Consider MRI with contrast to further evaluate renal as well as liver lesions. * 10. Moderate to severe atherosclerotic calcifications of the aorta and side branches. MICRO/OTHER * 06/27/18> BCX (+)GNR BLOOD CULTURE Preliminary BCULT GRAM BOTTLE 1 Gram negative rods . seen on gram stain of the broth BCULT GRAM BOTTLE 2 Gram negative rods . seen on gram stain of the broth Organism 1 GRAM NEGATIVE SHAUNA PHYSICAL EXAMINATION: GENERAL: VSS, NAD HEENT: AT, NC, anicteric, opaque sclera, (+)enlarged nasal tissue, bulbous skin /scarring NECK: Supple, CHEST: Equal chest rise bilaterally, without dyspnea on observation HEART: Pulse RRR ABDOMEN: Soft / NT EXTREMITIES: Warm, dry SKIN: No rash, no diaphoresis ID ASSESSMENT 83 yo M admit with: 1. SEPSIS w/GNR bacteremia, fevers, tachycardia, leukocytosis == ASP vs Obstructive PNA vs UTI ? * UA, C&S not sent until >48H of ABX 2. Right upper lobe lung parenchymal mass with lymphadenopathy, small bilateral pleural effusion, no thoracentesis, pulmonology consultation, ?biopsy 3. 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 CKD, relatively stable cr 3. LVEF 65% on 04/15/2018 4. Hypertension 5. History of CVA with mild right-sided deficit, on aspirin and Lipitor 6. Pacemaker: Placed 14 years ago 7. Dyslipidemia-> Currently on statin 8. Macrocytic anemia, chronic 9. Redness lesion on sacral/left buttock, follow up with wound care 10. (+)Tobaccoism 11. Skin tumors on nose for 5 years (-)MRSA Nares ABX ALLERGIES: None to ABX INVASIVES: PIV CURRENT ABX: DAY #3 > Cefepime ID RECOMMENDATIONS/PLAN: 1. Continue current ABX -> Await GNR BCx results 2. UA C&S not ordered at time of fevers -- sent 06/28/18 after ABX onboard . Consultation Date/Type/Reason Admit Date/Time June 23, 2018 at 20:27 Initial Consult Date 06/24/18 Requesting Provider: MATILDA WHITE MD Date/Time of Note DATE: 06/29/18 TIME: 12:25 Exam/Review of Systems Exam Vitals Vital Signs Date Temp Pulse Resp B/P (MAP) Pulse Ox O2 O2 Flow FiO2 Time Delivery Rate 06/29/18 97.7 65 16 123/58 95 11:20 (79) 06/27/18 Room Air 15:14 Intake and Output 06/28/18 06/28/18 06/29/18 1515:00 23:00 07:00 IntakeIntake Total 450 ml 400 ml OutputOutput Total 800 ml BalanceBalance -350 ml 400 ml Results Result Diagram: 06/29/18 0434 06/29/18 0434 Results 24hrs Laboratory Tests Test 06/29/18 04:34 06/29/18 07:30 White Blood Count 7.3 # Red Blood Count 2.59 L Hemoglobin 8.4 L Hematocrit 25.7 L Mean Corpuscular Volume 99.2 Mean Corpuscular Hemoglobin 32.4 Mean Corpuscular Hemoglobin Concent 32.7 Red Cell Distribution Width 13.5 Platelet Count 125 L Mean Platelet Volume 11.3 H Immature Granulocytes % 0.600 H Neutrophils % 88.2 H Lymphocytes % 9.1 L Monocytes % 2.1 Eosinophils % 0.0 Basophils % 0.0 Nucleated Red Blood Cells % 0.0 Immature Granulocytes # 0.040 H Neutrophils # 6.4 Lymphocytes # 0.7 L Monocytes # 0.2 L Eosinophils # 0.0 Basophils # 0.0 Nucleated Red Blood Cells # 0.0 Prothrombin Time 13.9 Prothrombin Time Ratio 1.1 INR International Normalized Ratio 1.06 Sodium Level 145 H Potassium Level 4.7 Chloride Level 115 H Carbon Dioxide Level 20 L Anion Gap 10 Blood Urea Nitrogen 62 H Creatinine 3.38 H Est Glomerular Filtrat Rate mL/min Glucose Level 180 Calcium Level 8.9 Phosphorus Level 4.9 Total Bilirubin 0.1 L Direct Bilirubin 0.00 Indirect Bilirubin 0.1 Aspartate Amino Transf (AST/SGOT) 14 L Alanine Aminotransferase (ALT/SGPT) 23 Alkaline Phosphatase 76 Total Protein 6.5 Albumin 3.1 L Globulin 3.40 H Albumin/Globulin Ratio 0.91 Urine Color YELLOW Urine Clarity SLIGHTLY CLOUDY A Urine pH 5.0 Urine Specific [place] 1.014 Urine Ketones TRACE A Urine Nitrite NEGATIVE Urine Bilirubin NEGATIVE Urine Urobilinogen NEGATIVE Urine Leukocyte Esterase 2+ H Urine Microscopic RBC 9 H Urine Microscopic WBC 22 H Urine Squamous Epithelial Cells FEW Urine Bacteria FEW A Urine Hemoglobin 2+ H Urine Glucose 1+ H Urine Total Protein 2+ H Medications Medication Current Medications IV Flush (NS 3 ml) 3 ml PER PROTOCOL IV ; Start 06/24/18 at 00:00 Ondansetron HCl (Zofran Inj) 4 mg Q6H PRN IV NAUSEA/VOMITING; Start 06/24/18 at 00:00 Acetaminophen (Tylenol Tab) 650 mg Q6H PRN PO .PAIN 1-3 OR TEMP Last administ ered on 06/27/18 06:29; Admin Dose 650 MG; Start 06/24/18 at 00:00 Acetaminophen/ Hydrocodone Bitart ([place] (5/325)) 1 tab Q6H PRN PO .PAIN 4-6 Last administered on 06/27/18 01:44; Admin Dose 1 TAB; Start 06/24/18 at 00:00 Albuterol/ Ipratropium (Duoneb) 3 ml Q2H RESP THERAPY PRN HHN SHORTNESS OF BREATH; Start 06/24/18 at 00:00 Latanoprost (Xalatan) 1 drop HS BOTH EYES Last administered on 06/28/18 20:42; Admin Dose 1 DROP; Start 06/24/18 at 21:00 Donepezil HCl (Aricept) 5 mg DAILY PO Last administered on 06/29/18 08:11; Admin Dose 5 MG; Start 06/24/18 at 09:00 Famotidine (Pepcid) 20 mg DAILY PO Last administered on 06/29/18 08:12; Admin Dose 20 MG; Start 06/24/18 at 09:00 Febuxostat (Uloric) 40 mg QHS PO Last administered on 06/28/18 20:43; Admin Dose 40 MG; Start 06/24/18 at 21:00 Metoprolol Succinate (Toprol Xl) 200 mg DAILY PO Last administered on 06/28/18 12:03; Admin Dose 200 MG; Start 06/24/18 at 09:00 Tamsulosin HCl (Flomax) 0.4 mg BID PO Last administered on 06/29/18 08:11; Admin Dose 0.4 MG; Start 06/24/18 at 09:00 Hydralazine HCl (Apresoline) 10 mg Q6 PRN IV SBP>160 Last administered on 06/24/18 12:26; Admin Dose 10 MG; Start 06/24/18 at 12:00 Nifedipine (Procardia Xl) 90 mg DAILY PO Last administered on 06/29/18 08:10; Admin Dose 90 MG; Start 06/28/18 at 09:00 Cefepime HCl 50 ml @ 100 mls/hr Q24H IVPB Last administered on 06/28/18 16:05; Admin Dose 100 MLS/HR; Start 06/27/18 at 17:00 Dexamethasone (Decadron) 4 mg Q8 IV Last administered on 06/29/18 06:15; Admin Dose 4 MG; Start 06/28/18 at 16:00 Docusate Sodium (Colace) 100 mg DAILY PO ; Start 06/30/18 at 09:00 Ferrous Sulfate (Ferrous Sulfate (Ec)) 325 mg TID PO ; Start 07/02/18 at 09:00 Heparin Sodium (Porcine) (Heparin (5000 Units/1ml)) 5,000 unit BID SC ; Start 07/01/18 at 09:00; Status UNV Aspirin (Halfprin) 81 mg DAILY PO ; Start 07/01/18 at 09:00 ROMA CARRERO NP June 29, 2018 12:28
--- NOTE | 2018-06-29 15:30 | CONS ---
Consult Date/Type/Reason Admit Date/Time June 23, 2018 at 20:27 Initial Consult Date 06/28/18 Type of Consultation: Pulm Requesting Provider: MATILDA WHITE MD Date/Time of Note DATE: 06/29/18 TIME: 15:30 Subjective No events overnight. Mildly confused. Objective Vitals Vital Signs Date Temp Pulse Resp B/P (MAP) Pulse Ox O2 O2 Flow FiO2 Time Delivery Rate 06/29/18 61 12:33 06/29/18 97.7 16 123/58 95 11:20 (79) 06/27/18 Room Air 15:14 Intake and Output 06/28/18 06/28/18 06/29/18 1515:00 23:00 07:00 IntakeIntake Total 450 ml 400 ml OutputOutput Total 800 ml BalanceBalance -350 ml 400 ml Exam HEENT: Neck supple; no JVD; no LAD CVS: RRR, S1 and S2 CHEST: Diminished BS ABD: Soft, NT, + BS EXT: No c/c/e Results/Medications Result Diagram: 06/29/18 0434 06/29/18 0434 Results 24 hrs Laboratory Tests Test 06/29/18 04:34 06/29/18 07:30 White Blood Count 7.3 # Red Blood Count 2.59 L Hemoglobin 8.4 L Hematocrit 25.7 L Mean Corpuscular Volume 99.2 Mean Corpuscular Hemoglobin 32.4 Mean Corpuscular Hemoglobin Concent 32.7 Red Cell Distribution Width 13.5 Platelet Count 125 L Mean Platelet Volume 11.3 H Immature Granulocytes % 0.600 H Neutrophils % 88.2 H Lymphocytes % 9.1 L Monocytes % 2.1 Eosinophils % 0.0 Basophils % 0.0 Nucleated Red Blood Cells % 0.0 Immature Granulocytes # 0.040 H Neutrophils # 6.4 Lymphocytes # 0.7 L Monocytes # 0.2 L Eosinophils # 0.0 Basophils # 0.0 Nucleated Red Blood Cells # 0.0 Prothrombin Time 13.9 Prothrombin Time Ratio 1.1 INR International Normalized Ratio 1.06 Sodium Level 145 H Potassium Level 4.7 Chloride Level 115 H Carbon Dioxide Level 20 L Anion Gap 10 Blood Urea Nitrogen 62 H Creatinine 3.38 H Est Glomerular Filtrat Rate mL/min Glucose Level 180 Calcium Level 8.9 Phosphorus Level 4.9 Total Bilirubin 0.1 L Direct Bilirubin 0.00 Indirect Bilirubin 0.1 Aspartate Amino Transf (AST/SGOT) 14 L Alanine Aminotransferase (ALT/SGPT) 23 Alkaline Phosphatase 76 Total Protein 6.5 Albumin 3.1 L Globulin 3.40 H Albumin/Globulin Ratio 0.91 Urine Color YELLOW Urine Clarity SLIGHTLY CLOUDY A Urine pH 5.0 Urine Specific [place] 1.014 Urine Ketones TRACE A Urine Nitrite NEGATIVE Urine Bilirubin NEGATIVE Urine Urobilinogen NEGATIVE Urine Leukocyte Esterase 2+ H Urine Microscopic RBC 9 H Urine Microscopic WBC 22 H Urine Squamous Epithelial Cells FEW Urine Bacteria FEW A Urine Hemoglobin 2+ H Urine Glucose 1+ H Urine Total Protein 2+ H Home Meds Active Scripts Metoprolol Succinate* (Toprol XL*) 100 Mg Tab.sr.24h, 200 MG PO DAILY, #30 TAB Prov:MIRANDA COLLINS [employer] 04/16/18 Tamsulosin Hcl* (Flomax*) 0.4 Mg Cap.er.24h, 0.4 MG PO BID, #60 CAP Prov:MIRANDA COLLINS [employer]ERK 04/16/18 Reported Medications Furosemide* (Furosemide*) 40 Mg Tablet, 40 MG PO DAILY for 90 Days 06/23/18 Docusate Sodium (Col-Rite) 100 Mg Capsule, 100 MG PO TID for 90 Days, #270 take 1 capsule by mouth three times a day 06/23/18 Valsartan (Valsartan) 320 Mg Tablet, 320 MG PO DAILY for 90 Days, #90 take 1 tablet by mouth once daily 06/23/18 Atenolol* (Atenolol*) 50 Mg Tablet, 50 MG PO DAILY for 90 Days, #90 take 1 tablet by mouth once daily 06/23/18 Clonidine Patch (CLONIDINE PATCH) 0.2 Mg/24 Hr Patch, 1 PATCH.WK TD Q7D, #4 PATCH.WK 06/23/18 Clonidine Hcl* (Clonidine Hcl*) 0.2 Mg Tablet, 0.2 MG PO TID for 30 Days, #90 06/23/18 Febuxostat* (Uloric*) 40 Mg Tablet, 40 MG PO QHS, TAB 04/15/18 Donepezil* (Donepezil*) 5 Mg Tablet, 5 MG PO DAILY, #30 TAB take 1 tablet by mouth once daily 04/15/18 Docusate Sodium* (Docusate Sodium*) 100 Mg Capsule, 100 MG PO TID, #30 CAP 04/15/18 Ferrous Sulfate* (Ferrous Sulfate*) 325 Mg Tabec, 325 MG PO TID, TAB 04/15/18 Bimatoprost* (Lumigan*) 0.01%-2.5 Ml Opht Drops, 1 DROP BOTH EYES HS, EA 07/15/16 Calcitriol* (Rocaltrol*) 0.25 Mcg Capsule, 0.25 MCG PO FIVE TIMES WEEKLY, CAP 07/15/16 Famotidine* (Famotidine*) 20 Mg Tablet, 20 MG PO DAILY, #30 TAB take 1 tablet by mouth once daily 07/15/16 Alendronate Sodium* (Fosamax*) 70 Mg Tablet, 70 MG PO ON SATURDAYS, TAB 07/28/14 Amlodipine Besylate* (Amlodipine Besylate*) 10 Mg Tablet, 10 MG PO QAM, TAB 07/29/13 Aspirin (Aspirin) 81 Mg Chew, 81 MG PO DAILY take 1 tablet by mouth once daily 12/20/12 Simvastatin (Simvastatin) 20 Mg Tablet, 20 MG PO HS 12/20/12 Medications Current Medications IV Flush (NS 3 ml) 3 ml PER PROTOCOL IV ; Start 06/24/18 at 00:00 Ondansetron HCl (Zofran Inj) 4 mg Q6H PRN IV NAUSEA/VOMITING; Start 06/24/18 at 00:00 Acetaminophen (Tylenol Tab) 650 mg Q6H PRN PO .PAIN 1-3 OR TEMP Last administ ered on 06/27/18at 06:29; Admin Dose 650 MG; Start 06/24/18 at 00:00 Acetaminophen/ Hydrocodone Bitart ([place] (5/325)) 1 tab Q6H PRN PO .PAIN 4-6 Last administered on 06/27/18at 01:44; Admin Dose 1 TAB; Start 06/24/18 at 00:00 Albuterol/ Ipratropium (Duoneb) 3 ml Q2H RESP THERAPY PRN HHN SHORTNESS OF BREATH; Start 06/24/18 at 00:00 Latanoprost (Xalatan) 1 drop HS BOTH EYES Last administered on 06/28/18at 20:42; Admin Dose 1 DROP; Start 06/24/18 at 21:00 Donepezil HCl (Aricept) 5 mg DAILY PO Last administered on 06/29/18 08:11; Admin Dose 5 MG; Start 06/24/18 at 09:00 Famotidine (Pepcid) 20 mg DAILY PO Last administered on 06/29/18 08:12; Admin Dose 20 MG; Start 06/24/18 at 09:00 Febuxostat (Uloric) 40 mg QHS PO Last administered on 06/28/18 20:43; Admin Dose 40 MG; Start 06/24/18 at 21:00 Metoprolol Succinate (Toprol Xl) 200 mg DAILY PO Last administered on 06/28/18 12:03; Admin Dose 200 MG; Start 06/24/18 at 09:00 Tamsulosin HCl (Flomax) 0.4 mg BID PO Last administered on 06/29/18 08:11; Admin Dose 0.4 MG; Start 06/24/18 at 09:00 Hydralazine HCl (Apresoline) 10 mg Q6 PRN IV SBP>160 Last administered on 06/24/18 12:26; Admin Dose 10 MG; Start 06/24/18 at 12:00 Nifedipine (Procardia Xl) 90 mg DAILY PO Last administered on 06/29/18 08:10; Admin Dose 90 MG; Start 06/28/18 at 09:00 Cefepime HCl 50 ml @ 100 mls/hr Q24H IVPB Last administered on 06/28/18 16:05; Admin Dose 100 MLS/HR; Start 06/27/18 at 17:00 Dexamethasone (Decadron) 4 mg Q8 IV Last administered on 06/29/18 14:19; Admin Dose 4 MG; Start 06/28/18 at 16:00 Docusate Sodium (Colace) 100 mg DAILY PO ; Start 06/30/18 at 09:00 Ferrous Sulfate (Ferrous Sulfate (Ec)) 325 mg TID PO ; Start 07/02/18 at 09:00 Heparin Sodium (Porcine) (Heparin (5000 Units/1ml)) 5,000 unit BID SC ; Start 07/01/18 at 09:00 Aspirin (Halfprin) 81 mg DAILY PO ; Start 07/01/18 at 09:00 Assessment/Plan Assessment/Plan (Daily) IMP: 1. 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 Await CT-guided bx on Saturday. RONDA TORRES MD June 29, 2018 15:30
[2018-06-29] MEDS: CEFEPIME 1GM/50 ML (PMX) 50 ML IVPB SCH (16:15)
[2018-06-29] MEDS: LATANOPROST 0.005% 2.5 ML OPH BOTH EYES SCH (20:14)
[2018-06-29] MEDS: FEBUXOSTAT 40 MG TABLET PO SCH (20:15)
[2018-06-30] VITALS (13 sets, daily range): BP systolic 119–144; BP diastolic 60–68; PULSE 67–83; RESP 16–19
[2018-06-30] MEDS: DEXAMETHASONE 4 MG/ML 1 ML INJ IV SCH ×3 (06:36→21:11)
--- NOTE | 2018-06-30 08:31 | PN ---
DATE: 06/30/2018 SUBJECTIVE: The patient is stable, no events overnight. OBJECTIVE: VITAL SIGNS: Blood pressure is 137/61, respirations 16, pulse 67, temperature 98.2. HEENT: Head is normocephalic. LUNGS: Show diminished breath sounds at the base. ABDOMEN: Soft, nontender to palpation without rebound or guarding. EXTREMITIES: Negative for clubbing, cyanosis, no edema. DERMATOLOGIC: No rashes. MUSCULOSKELETAL: No joint effusions. NEUROLOGIC: No change in exam. MEDICATIONS: Have been reviewed. LABORATORY DATA: Has been reviewed. ASSESSMENT AND PLAN: 1. Nonoliguric acute kidney injury on top of chronic kidney disease with previous baseline creatinin e of 2.2 to 2.5 mg/dL. Etiology of acute kidney injury is secondary to hemodynamics. Patient was re cently on diuretic therapy. Renal function has declined in the last 24 hours. At this point, would recommend to hold diuretic therapy. Repeat urinalysis was reviewed with evidence of pyuria, hematuri a. Recommendation would be to continue current treatment plan, supportive care, renally dose all med s, no immediate need for renal replacement therapy at this time. 2. Hypernatremia, improved. 3. Anemia. Monitor hemoglobin and hematocrit levels. 4. Mineral bone disorder, monitor calcium and phosphorus levels. 5. Hypertension. Continue current blood pressure regimen. 6. History of diastolic heart failure. The patient is currently compensated on exam. Continue to m onitor. 7. History of cerebrovascular accident with coleman deficit. Continue to monitor. 8. Lung mass concerning for malignancy. Continue to monitor. Follow up with pulmonary, patient may require a biopsy. 9. Possible brain mass. The patient is currently on Decadron. Will continue. 10. Dyslipidemia. Continue statin therapy. 11. Arrhythmia with history of pacemaker. 12. Systemic inflammatory response syndrome. Continue to monitor. Dictated By: CAMPOS JOHNSTON DO NR/NTS Conf#: [id number] DID#: [id number] CC: HIEU RENEE MD;*EndCC*
[2018-06-30] MEDS: DOCUSATE SODIUM 100 MG CAP PO SCH (09:00)
[2018-06-30] MEDS ORDERED: HEPARIN 5,000 UNIT/1 ML VIAL SC SCH (09:00)
[2018-06-30] MEDS: FAMOTIDINE 20 MG TAB PO SCH (09:00)
[2018-06-30] MEDS: TAMSULOSIN (SR) 0.4 MG CAP PO SCH ×2 (09:00→21:11)
[2018-06-30] MEDS: DONEPEZIL 5 MG TAB PO SCH (09:00)
[2018-06-30] MEDS: METOPROLOL (XL) 100 MG TAB PO SCH (09:01)
[2018-06-30] MEDS: NIFEdipine (XL) 90 MG TAB PO SCH (09:01)
[2018-06-30] MEDS ORDERED: LIDOCAINE 1% (MPF) 5 ML VIAL ONE (13:34)
[2018-06-30] MEDS ORDERED: MIDAZOLAM 1 MG/ML 2 ML INJ ONE (14:32)
[2018-06-30] MEDS ORDERED: SOD CHLORIDE 0.9% 500 ML ONE (14:32)
[2018-06-30] MEDS ORDERED: FENTAnyl 50 MCG/ML VIAL ONE (14:32)
--- NOTE | 2018-06-30 14:35 | CONS ---
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 UNFORTUNATELY PT CANNOT HAVE CT HEAD WITH CONTRAST DUE TO RENAL INSUFFICIENCY -HAVE CALLED RAD ONC TO SEE, BUT WILL LIKELY AWAIT PATHOLOGY CONFIRMING MALIGNANCY BEFORE STARTING XRT. Since he has metastatic disease and with multiple comorbidities and ECO, he would not be a candidate for a high risk neurosurgery. -With the patient's comorbidities, the types of palliative chemotherapy are limited. If this is confirmed as lung ca, would recommend testing PDL-1 to see if he is a candidate for immunotherapy which would likely be the only therapy he would tolerate. -He is a chronic tobacco abuser and thus unlikely to have a driver examiner mutation but recommend running EGFR, ALK, ROS1, and BRAF. -he has been told by Dr Daniel as well as the family that if this is lung cancer with mets to the brain that he has and incurable cancer but hopefully we can palliate his symptoms with possible immunotherapy. -Radiation to the brain is palliative as well. Consultation Date/Type/Reason Admit Date/Time June 23, 2018 at 20:27 Initial Consult Date 06/28/18 Requesting Provider: MATILDA WHITE MD Date/Time of Note DATE: 06/30/18 TIME: 14:34 Exam/Review of Systems Exam Vitals Vital Signs Date Temp Pulse Resp B/P (MAP) Pulse Ox O2 O2 Flow FiO2 Time Delivery Rate 06/30/18 83 12:00 06/30/18 98.2 16 144/66 95 11:29 (92) 06/27/18 Room Air 15:14 Intake and Output 06/29/18 06/29/18 06/30/18 1515:00 23:00 07:00 IntakeIntake Total 500 ml 400 ml OutputOutput Total 650 ml BalanceBalance -150 ml 400 ml Results Result Diagram: 06/30/18 0632 06/30/18 0632 Results 24hrs Laboratory Tests Test 06/30/18 06:32 White Blood Count 10.9 #H Red Blood Count 2.42 L Hemoglobin 8.0 L Hematocrit 23.9 L Mean Corpuscular Volume 98.8 Mean Corpuscular Hemoglobin 33.1 H Mean Corpuscular Hemoglobin Concent 33.5 Red Cell Distribution Width 13.2 Platelet Count 159 # Mean Platelet Volume 10.6 H Immature Granulocytes % 1.100 H Neutrophils % 89.6 H Lymphocytes % 6.0 L Monocytes % 3.2 Eosinophils % 0.0 Basophils % 0.1 Nucleated Red Blood Cells % 0.0 Immature Granulocytes # 0.120 H Neutrophils # 9.8 H Lymphocytes # 0.7 L Monocytes # 0.4 Eosinophils # 0.0 Basophils # 0.0 Nucleated Red Blood Cells # 0.0 Prothrombin Time 14.5 Prothrombin Time Ratio 1.1 INR International Normalized Ratio 1.12 Sodium Level 144 Potassium Level 4.6 Chloride Level 114 H Carbon Dioxide Level 18 L Anion Gap 12 Blood Urea Nitrogen 90 H Creatinine 4.06 H Est Glomerular Filtrat Rate mL/min Glucose Level 172 Calcium Level 8.8 Magnesium Level 2.4 Medications Medication Current Medications IV Flush (NS 3 ml) 3 ml PER PROTOCOL IV ; Start 06/24/18 at 00:00 Ondansetron HCl (Zofran Inj) 4 mg Q6H PRN IV NAUSEA/VOMITING; Start 06/24/18 at 00:00 Acetaminophen (Tylenol Tab) 650 mg Q6H PRN PO .PAIN 1-3 OR TEMP Last administered on 06/27/18at 06:29; Admin Dose 650 MG; Start 06/24/18 at 00:00 Acetaminophen/ Hydrocodone Bitart ([place] (5/325)) 1 tab Q6H PRN PO .PAIN 4-6 Last administered on 06/27/18at 01:44; Admin Dose 1 TAB; Start 06/24/18 at 00:00 Albuterol/ Ipratropium (Duoneb) 3 ml Q2H RESP THERAPY PRN HHN SHORTNESS OF BREATH; Start 06/24/18 at 00:00 Latanoprost (Xalatan) 1 drop HS BOTH EYES Last administered on 06/29/18at 20:14; Admin Dose 1 DROP; Start 06/24/18 at 21:00 Donepezil HCl (Aricept) 5 mg DAILY PO Last administered on 06/30/18at 09:00; Admin Dose 5 MG; Start 06/24/18 at 09:00 Famotidine (Pepcid) 20 mg DAILY PO Last administered on 06/30/18at 09:00; Admin Dose 20 MG; Start 06/24/18 at 09:00 Febuxostat (Uloric) 40 mg QHS PO Last administered on 06/29/18 20:15; Admin Dose 40 MG; Start 06/24/18 at 21:00 Metoprolol Succinate (Toprol Xl) 200 mg DAILY PO Last administered on 06/30/18 09:01; Admin Dose 200 MG; Start 06/24/18 at 09:00 Tamsulosin HCl (Flomax) 0.4 mg BID PO Last administered on 06/30/18 09:00; Admin Dose 0.4 MG; Start 06/24/18 at 09:00 Hydralazine HCl (Apresoline) 10 mg Q6 PRN IV SBP>160 Last administered on 06/24/18 12:26; Admin Dose 10 MG; Start 06/24/18 at 12:00 Nifedipine (Procardia Xl) 90 mg DAILY PO Last administered on 06/30/18 09:01; Admin Dose 90 MG; Start 06/28/18 at 09:00 Cefepime HCl 50 ml @ 100 mls/hr Q24H IVPB Last administered on 06/29/18 16:15; Admin Dose 100 MLS/HR; Start 06/27/18 at 17:00 Dexamethasone (Decadron) 4 mg Q8 IV Last administered on 06/30/18 06:36; Admin Dose 4 MG; Start 06/28/18 at 16:00 Docusate Sodium (Colace) 100 mg DAILY PO Last administered on 06/30/18 09:00; Admin Dose 100 MG; Start 06/30/18 at 09:00 Ferrous Sulfate (Ferrous Sulfate (Ec)) 325 mg TID PO ; Start 07/02/18 at 09:00 Heparin Sodium (Porcine) (Heparin (5000 Units/1ml)) 5,000 unit BID SC ; Start 07/01/18 at 09:00 Aspirin (Halfprin) 81 mg DAILY PO ; Start 07/01/18 at 09:00 SUE SILVERIO June 30, 2018 14:35
--- NOTE | 2018-06-30 14:49 | PN ---
Date/Time of Note Date/Time of Note DATE: 06/30/18 TIME: 14:47 Assessment/Plan VTE Prophylaxis Risk score (from Ns)>0 risk: 10 SCD applied (from Ns): Yes Pharmacological prophylaxis: heparin Lines/Catheters IV Catheter Type (from [facility]): Saline Lock Urinary Cath still in place: No Assessment/Plan Hospital Course SUBJECTIVE: Denies any complaints. OBJECTIVE: Physical Exam General: Adequately build 83 year-old male lying in bed in no apparent distress. HEENT: Normocephalic, atraumatic. Eyes: Anicteric sclerae, conjunctivae clear. ENT: Nasal septum midline, oral mucosa moist. Neck supple, no JVD noticed. Respiratory: Bilaterally diminished breath sounds. No use of accessory muscles of respiration. No adventitious breath sounds. Cardiovascular: S1, S2 heard. Regular rate and rhythm. Abdomen: Obese and distended. Bowel sounds positive in all 4 quadrants. Genitourinary: Deferred. Extremities: No cyanosis, no clubbing, no edema. Peripheral pulses palpable. Neurologic: Cranial nerves II through XII grossly intact. The patient is awake, alert, and oriented. Labs & Vitals per chart ASSESSMENT & PLAN 83-year-old male with comorbidities including hypertension, chronic kidney disease, permanent pacemaker, stroke, CAD, peripheral artery disease, and remote history of pericardial effusion status post pericardiocentesis in December 2012. The patient came to the emergency room with chief complaint of headache and dizziness. CT scan of the brain was showing moderate vasogenic edema within the left thalamus with an underlying 11 mm lesion. The patient was admitted to inpatient setting for further treatment and evaluation. 1. Brain mass with underlying cerebral edema. -Status post evaluation by neurosurgery. -To rule out systemic malignancy. -Continue Decadron. 2. Posterolateral right upper lobe parenchymal lung mass concerning for neoplasm. -Suspected metastatic lung cancer. -CT-guided biopsy ordered. -Being followed by oncology and pulmonology. 3. Acute on chronic kidney disease -Being followed by nephrology. -Use nephrotoxic drugs with caution. 4. Hypertension. -Continue antihypertensives. 5. History of CVA. -Continue aspirin and statins. 6. Normocytic anemia. -Most probably anemia of chronic disease -Monitor H&H closely. 7. History of SVT. -Status post interrogation of pacemaker upon recent admission. 8. E. coli bacteremia. -On appropriate antimicrobials. 9. Prostate hypertrophy. -Continue Flomax. 10. Left gluteal abscess. -Surgical consult pending. 11. Fluids, electrolytes, and nutrition. -Low-cholesterol diet. 12. DVT prophylaxis. -Subcutaneous heparin. 13. Plan. -Continue inpatient monitoring. -Await CT-guided needle biopsy of the lung lesion. -Await further recommendations from consultants. The patient was seen in collaboration with Dr. Hi. Result Diagram: 06/30/18 0632 06/30/18 0632 Results 24hrs Laboratory Tests Test 06/30/18 06:32 White Blood Count 10.9 #H Red Blood Count 2.42 L Hemoglobin 8.0 L Hematocrit 23.9 L Mean Corpuscular Volume 98.8 Mean Corpuscular Hemoglobin 33.1 H Mean Corpuscular Hemoglobin Concent 33.5 Red Cell Distribution Width 13.2 Platelet Count 159 # Mean Platelet Volume 10.6 H Immature Granulocytes % 1.100 H Neutrophils % 89.6 H Lymphocytes % 6.0 L Monocytes % 3.2 Eosinophils % 0.0 Basophils % 0.1 Nucleated Red Blood Cells % 0.0 Immature Granulocytes # 0.120 H Neutrophils # 9.8 H Lymphocytes # 0.7 L Monocytes # 0.4 Eosinophils # 0.0 Basophils # 0.0 Nucleated Red Blood Cells # 0.0 Prothrombin Time 14.5 Prothrombin Time Ratio 1.1 INR International Normalized Ratio 1.12 Sodium Level 144 Potassium Level 4.6 Chloride Level 114 H Carbon Dioxide Level 18 L Anion Gap 12 Blood Urea Nitrogen 90 H Creatinine 4.06 H Est Glomerular Filtrat Rate mL/min Glucose Level 172 Calcium Level 8.8 Magnesium Level 2.4 Exam/Review of Systems Exam Vitals Vital Signs Date Temp Pulse Resp B/P (MAP) Pulse Ox O2 O2 Flow FiO2 Time Delivery Rate 06/30/18 83 12:00 06/30/18 98.2 16 144/66 95 11:29 (92) 06/27/18 Room Air 15:14 Intake and Output 06/29/18 06/29/18 06/30/18 1414:59 22:59 06:59 IntakeIntake Total 500 ml 400 ml OutputOutput Total 650 ml BalanceBalance -150 ml 400 ml Results Results 24hrs Laboratory Tests Test 06/30/18 06:32 White Blood Count 10.9 #H Red Blood Count 2.42 L Hemoglobin 8.0 L Hematocrit 23.9 L Mean Corpuscular Volume 98.8 Mean Corpuscular Hemoglobin 33.1 H Mean Corpuscular Hemoglobin Concent 33.5 Red Cell Distribution Width 13.2 Platelet Count 159 # Mean Platelet Volume 10.6 H Immature Granulocytes % 1.100 H Neutrophils % 89.6 H Lymphocytes % 6.0 L Monocytes % 3.2 Eosinophils % 0.0 Basophils % 0.1 Nucleated Red Blood Cells % 0.0 Immature Granulocytes # 0.120 H Neutrophils # 9.8 H Lymphocytes # 0.7 L Monocytes # 0.4 Eosinophils # 0.0 Basophils # 0.0 Nucleated Red Blood Cells # 0.0 Prothrombin Time 14.5 Prothrombin Time Ratio 1.1 INR International Normalized Ratio 1.12 Sodium Level 144 Potassium Level 4.6 Chloride Level 114 H Carbon Dioxide Level 18 L Anion Gap 12 Blood Urea Nitrogen 90 H Creatinine 4.06 H Est Glomerular Filtrat Rate mL/min Glucose Level 172 Calcium Level 8.8 Magnesium Level 2.4 Medications Medication Current Medications IV Flush (NS 3 ml) 3 ml PER PROTOCOL IV ; Start 06/24/18 at 00:00 Ondansetron HCl (Zofran Inj) 4 mg Q6H PRN IV NAUSEA/VOMITING; Start 06/24/18 at 00:00 Acetaminophen (Tylenol Tab) 650 mg Q6H PRN PO .PAIN 1-3 OR TEMP Last administered on 06/27/18at 06:29; Admin Dose 650 MG; Start 06/24/18 at 00:00 Acetaminophen/ Hydrocodone Bitart ([place] (5/325)) 1 tab Q6H PRN PO .PAIN 4-6 Last administered on 06/27/18at 01:44; Admin Dose 1 TAB; Start 06/24/18 at 00:00 Albuterol/ Ipratropium (Duoneb) 3 ml Q2H RESP THERAPY PRN HHN SHORTNESS OF BREATH; Start 06/24/18 at 00:00 Latanoprost (Xalatan) 1 drop HS BOTH EYES Last administered on 06/29/18at 20:14; Admin Dose 1 DROP; Start 06/24/18 at 21:00 Donepezil HCl (Aricept) 5 mg DAILY PO Last administered on 06/30/18at 09:00; Admin Dose 5 MG; Start 06/24/18 at 09:00 Famotidine (Pepcid) 20 mg DAILY PO Last administered on 06/30/18 09:00; Admin Dose 20 MG; Start 06/24/18 at 09:00 Febuxostat (Uloric) 40 mg QHS PO Last administered on 06/29/18 20:15; Admin Dose 40 MG; Start 06/24/18 at 21:00 Metoprolol Succinate (Toprol Xl) 200 mg DAILY PO Last administered on 06/30/18 09:01; Admin Dose 200 MG; Start 06/24/18 at 09:00 Tamsulosin HCl (Flomax) 0.4 mg BID PO Last administered on 06/30/18 09:00; Admin Dose 0.4 MG; Start 06/24/18 at 09:00 Hydralazine HCl (Apresoline) 10 mg Q6 PRN IV SBP>160 Last administered on 06/24/18 12:26; Admin Dose 10 MG; Start 06/24/18 at 12:00 Nifedipine (Procardia Xl) 90 mg DAILY PO Last administered on 06/30/18 09:01; Admin Dose 90 MG; Start 06/28/18 at 09:00 Cefepime HCl 50 ml @ 100 mls/hr Q24H IVPB Last administered on 06/29/18 16:15; Admin Dose 100 MLS/HR; Start 06/27/18 at 17:00 Dexamethasone (Decadron) 4 mg Q8 IV Last administered on 06/30/18 06:36; Admin Dose 4 MG; Start 06/28/18 at 16:00 Docusate Sodium (Colace) 100 mg DAILY PO Last administered on 06/30/18 09:00; Admin Dose 100 MG; Start 06/30/18 at 09:00 Ferrous Sulfate (Ferrous Sulfate (Ec)) 325 mg TID PO ; Start 07/02/18 at 09:00 Heparin Sodium (Porcine) (Heparin (5000 Units/1ml)) 5,000 unit BID SC ; Start 07/01/18 at 09:00 Aspirin (Halfprin) 81 mg DAILY PO ; Start 07/01/18 at 09:00 TOBY COREA NP June 30, 2018 14:48
--- NOTE | 2018-06-30 15:18 | CONS ---
Assessment/Plan Assessment/Plan Hospital Course (Demo Recall) Patient is awake looks comfortable denies pain no fevers overnight no nausea vomiting diarrhea WBC 10.9 neutrophils 89.6 BUN 90 creatinine 4.06 Microbiology: Blood culture on admission grew E. coli, repeat blood cultures negative, urine culture negative Antimicrobials: Cefepime Physical examination: Well-developed elderly man who is in no distress. Head atraumatic normocephalic neck is supple chest rise symmetrical breath sounds diminished bases. Heart: S1-S2. Abdomen soft bowel sounds present. Assessment: 1. E. coli bacteremia unclear etiology 2. Suspected metastatic lung cancer with mets to the liver and brain 3. Chronic tobacco abuser 4. Coronary artery disease with a history of permanent pacemaker 5. History of CVA Plan: Patient is scheduled for lung biopsy, he is clinically stable we will change antibiotics to oral ciprofloxacin in a.m. Consultation Date/Type/Reason Admit Date/Time June 23, 2018 at 20:27 Initial Consult Date 06/28/18 Type of Consult id Requesting Provider: MATILDA WHITE MD Date/Time of Note DATE: 06/30/18 TIME: 15:18 Exam/Review of Systems Exam Vitals Vital Signs Date Temp Pulse Resp B/P (MAP) Pulse Ox O2 O2 Flow FiO2 Time Delivery Rate 06/30/18 83 12:00 06/30/18 98.2 16 144/66 95 11:29 (92) 06/27/18 Room Air 15:14 Intake and Output 06/29/18 06/29/18 06/30/18 1515:00 23:00 07:00 IntakeIntake Total 500 ml 400 ml OutputOutput Total 650 ml BalanceBalance -150 ml 400 ml Results Result Diagram: 06/30/18 0632 06/30/18 0632 Results 24hrs Laboratory Tests Test 06/30/18 06:32 White Blood Count 10.9 #H Red Blood Count 2.42 L Hemoglobin 8.0 L Hematocrit 23.9 L Mean Corpuscular Volume 98.8 Mean Corpuscular Hemoglobin 33.1 H Mean Corpuscular Hemoglobin Concent 33.5 Red Cell Distribution Width 13.2 Platelet Count 159 # Mean Platelet Volume 10.6 H Immature Granulocytes % 1.100 H Neutrophils % 89.6 H Lymphocytes % 6.0 L Monocytes % 3.2 Eosinophils % 0.0 Basophils % 0.1 Nucleated Red Blood Cells % 0.0 Immature Granulocytes # 0.120 H Neutrophils # 9.8 H Lymphocytes # 0.7 L Monocytes # 0.4 Eosinophils # 0.0 Basophils # 0.0 Nucleated Red Blood Cells # 0.0 Prothrombin Time 14.5 Prothrombin Time Ratio 1.1 INR International Normalized Ratio 1.12 Sodium Level 144 Potassium Level 4.6 Chloride Level 114 H Carbon Dioxide Level 18 L Anion Gap 12 Blood Urea Nitrogen 90 H Creatinine 4.06 H Est Glomerular Filtrat Rate mL/min Glucose Level 172 Calcium Level 8.8 Magnesium Level 2.4 Medications Medication Current Medications IV Flush (NS 3 ml) 3 ml PER PROTOCOL IV ; Start 06/24/18 at 00:00 Ondansetron HCl (Zofran Inj) 4 mg Q6H PRN IV NAUSEA/VOMITING; Start 06/24/18 at 00:00 Acetaminophen (Tylenol Tab) 650 mg Q6H PRN PO .PAIN 1-3 OR TEMP Last ad ministered on 06/27/18at 06:29; Admin Dose 650 MG; Start 06/24/18 at 00:00 Acetaminophen/ Hydrocodone Bitart ([place] (5/325)) 1 tab Q6H PRN PO .PAIN 4-6 Last administered on 06/27/18at 01:44; Admin Dose 1 TAB; Start 06/24/18 at 00:00 Albuterol/ Ipratropium (Duoneb) 3 ml Q2H RESP THERAPY PRN HHN SHORTNESS OF BREATH; Start 06/24/18 at 00:00 Latanoprost (Xalatan) 1 drop HS BOTH EYES Last administered on 06/29/18at 20:14; Admin Dose 1 DROP; Start 06/24/18 at 21:00 Donepezil HCl (Aricept) 5 mg DAILY PO Last administered on 06/30/18 09:00; Admin Dose 5 MG; Start 06/24/18 at 09:00 Famotidine (Pepcid) 20 mg DAILY PO Last administered on 06/30/18 09:00; Admin Dose 20 MG; Start 06/24/18 at 09:00 Febuxostat (Uloric) 40 mg QHS PO Last administered on 06/29/18at 20:15; Admin Dose 40 MG; Start 06/24/18 at 21:00 Metoprolol Succinate (Toprol Xl) 200 mg DAILY PO Last administered on 06/30/18 09:01; Admin Dose 200 MG; Start 06/24/18 at 09:00 Tamsulosin HCl (Flomax) 0.4 mg BID PO Last administered on 06/30/18 09:00; Admin Dose 0.4 MG; Start 06/24/18 at 09:00 Hydralazine HCl (Apresoline) 10 mg Q6 PRN IV SBP>160 Last administered on 06/24/18 12:26; Admin Dose 10 MG; Start 06/24/18 at 12:00 Nifedipine (Procardia Xl) 90 mg DAILY PO Last administered on 06/30/18 09:01; Admin Dose 90 MG; Start 06/28/18 at 09:00 Cefepime HCl 50 ml @ 100 mls/hr Q24H IVPB Last administered on 06/29/18 16:15; Admin Dose 100 MLS/HR; Start 06/27/18 at 17:00 Dexamethasone (Decadron) 4 mg Q8 IV Last administered on 06/30/18 06:36; Admin Dose 4 MG; Start 06/28/18 at 16:00 Docusate Sodium (Colace) 100 mg DAILY PO Last administered on 06/30/18 09:00; Admin Dose 100 MG; Start 06/30/18 at 09:00 Ferrous Sulfate (Ferrous Sulfate (Ec)) 325 mg TID PO ; Start 07/02/18 at 09:00 Heparin Sodium (Porcine) (Heparin (5000 Units/1ml)) 5,000 unit BID SC ; Start 07/01/18 at 09:00 Aspirin (Halfprin) 81 mg DAILY PO ; Start 07/01/18 at 09:00 Atorvastatin Calcium (Lipitor) 20 mg HS PO ; Start 06/30/18 at 21:00 YOLANDA ANNE NP June 30, 2018 15:18
--- NOTE | 2018-06-30 15:41 | CONS ---
Consult Date/Type/Reason Admit Date/Time June 23, 2018 at 20:27 Initial Consult Date 06/28/18 Type of Consult Pulmonary Requesting Provider: MATILDA WHITE MD Date/Time of Note DATE: 06/30/18 TIME: 15:41 Subjective Patient comfortable today having CT-guided biopsy Objective Vital Signs Date Temp Pulse Resp B/P (MAP) Pulse Ox O2 O2 Flow FiO2 Time Delivery Rate 06/30/18 83 12:00 06/30/18 98.2 16 144/66 95 11:29 (92) 06/27/18 Room Air 15:14 Intake and Output 06/29/18 06/29/18 06/30/18 1515:00 23:00 07:00 IntakeIntake Total 500 ml 400 ml OutputOutput Total 650 ml BalanceBalance -150 ml 400 ml Exam GENERAL: Elderly gentleman comfortable at rest VITAL SIGNS: per chart NECK: Supple. No JVD or lymphadenopathy. CARDIAC EXAM: S1, S2. No added sounds or murmurs. CHEST: clear bilaterally, No added sounds, rales or wheezes ABDOMEN: Soft, nontender. No guarding or rebound. EXTREMITIES: No cyanosis, clubbing or edema. NEUROLOGIC: Generalized weakness. No focal deficits. Results/Medications Result Diagram: 06/30/18 0632 06/30/18 0632 Results 24 hrs Laboratory Tests Test 06/30/18 06:32 White Blood Count 10.9 #H Red Blood Count 2.42 L Hemoglobin 8.0 L Hematocrit 23.9 L Mean Corpuscular Volume 98.8 Mean Corpuscular Hemoglobin 33.1 H Mean Corpuscular Hemoglobin Concent 33.5 Red Cell Distribution Width 13.2 Platelet Count 159 # Mean Platelet Volume 10.6 H Immature Granulocytes % 1.100 H Neutrophils % 89.6 H Lymphocytes % 6.0 L Monocytes % 3.2 Eosinophils % 0.0 Basophils % 0.1 Nucleated Red Blood Cells % 0.0 Immature Granulocytes # 0.120 H Neutrophils # 9.8 H Lymphocytes # 0.7 L Monocytes # 0.4 Eosinophils # 0.0 Basophils # 0.0 Nucleated Red Blood Cells # 0.0 Prothrombin Time 14.5 Prothrombin Time Ratio 1.1 INR International Normalized Ratio 1.12 Sodium Level 144 Potassium Level 4.6 Chloride Level 114 H Carbon Dioxide Level 18 L Anion Gap 12 Blood Urea Nitrogen 90 H Creatinine 4.06 H Est Glomerular Filtrat Rate mL/min Glucose Level 172 Calcium Level 8.8 Magnesium Level 2.4 Medications Current Medications IV Flush (NS 3 ml) 3 ml PER PROTOCOL IV ; Start 06/24/18 at 00:00 Ondansetron HCl (Zofran Inj) 4 mg Q6H PRN IV NAUSEA/VOMITING; Start 06/24/18 at 00:00 Acetaminophen (Tylenol Tab) 650 mg Q6H PRN PO .PAIN 1-3 OR TEMP Last administered on 06/27/18 06:29; Admin Dose 650 MG; Start 06/24/18 at 00:00 Acetaminophen/ Hydrocodone Bitart ([place] (5/325)) 1 tab Q6H PRN PO .PAIN 4-6 Last administered on 06/27/18 01:44; Admin Dose 1 TAB; Start 06/24/18 at 00:00 Albuterol/ Ipratropium (Duoneb) 3 ml Q2H RESP THERAPY PRN HHN SHORTNESS OF BREATH; Start 06/24/18 at 00:00 Latanoprost (Xalatan) 1 drop HS BOTH EYES Last administered on 06/29/18 20:14; Admin Dose 1 DROP; Start 06/24/18 at 21:00 Donepezil HCl (Aricept) 5 mg DAILY PO Last administered on 06/30/18 09:00; Admin Dose 5 MG; Start 06/24/18 at 09:00 Famotidine (Pepcid) 20 mg DAILY PO Last administered on 06/30/18 09:00; Admin Dose 20 MG; Start 06/24/18 at 09:00 Febuxostat (Uloric) 40 mg QHS PO Last administered on 06/29/18 20:15; Admin Dose 40 MG; Start 06/24/18 at 21:00 Metoprolol Succinate (Toprol Xl) 200 mg DAILY PO Last administered on 06/30/18 09:01; Admin Dose 200 MG; Start 06/24/18 at 09:00 Tamsulosin HCl (Flomax) 0.4 mg BID PO Last administered on 06/30/18 09:00; Admin Dose 0.4 MG; Start 06/24/18 at 09:00 Hydralazine HCl (Apresoline) 10 mg Q6 PRN IV SBP>160 Last administered on 5/7/19at 12:26; Admin Dose 10 MG; Start 06/24/18 at 12:00 Nifedipine (Procardia Xl) 90 mg DAILY PO Last administered on 06/30/18at 09:01; Admin Dose 90 MG; Start 06/28/18 at 09:00 Cefepime HCl 50 ml @ 100 mls/hr Q24H IVPB Last administered on 06/29/18at 16:15; Admin Dose 100 MLS/HR; Start 06/27/18 at 17:00 Dexamethasone (Decadron) 4 mg Q8 IV Last administered on 06/30/18at 06:36; Admin Dose 4 MG; Start 06/28/18 at 16:00 Docusate Sodium (Colace) 100 mg DAILY PO Last administered on 06/30/18at 09:00; Admin Dose 100 MG; Start 06/30/18 at 09:00 Ferrous Sulfate (Ferrous Sulfate (Ec)) 325 mg TID PO ; Start 07/02/18 at 09:00 Heparin Sodium (Porcine) (Heparin (5000 Units/1ml)) 5,000 unit BID SC ; Start 07/01/18 at 09:00 Aspirin (Halfprin) 81 mg DAILY PO ; Start 07/01/18 at 09:00 Atorvastatin Calcium (Lipitor) 20 mg HS PO ; Start 06/30/18 at 21:00 Assessment/Plan Hospital Course (Demo Recall) MP: 1. 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 CT-guided biopsy today await results HATTIE LARA MD, [facility] June 30, 2018 15:41
[2018-06-30] MEDS: CEFEPIME 1GM/50 ML (PMX) 50 ML IVPB SCH (17:11)
[2018-06-30] MEDS: LATANOPROST 0.005% 2.5 ML OPH BOTH EYES SCH (21:10)
[2018-06-30] MEDS: ATORVASTATIN 20 MG TAB PO SCH (21:11)
[2018-06-30] MEDS: FEBUXOSTAT 40 MG TABLET PO SCH (21:11)
[2018-07-01] VITALS (11 sets, daily range): BP systolic 133–166; BP diastolic 61–72; PULSE 63–74; RESP 17–20
[2018-07-01] MEDS: DEXAMETHASONE 4 MG/ML 1 ML INJ IV SCH ×3 (06:34→21:01)
[2018-07-01] MEDS: TAMSULOSIN (SR) 0.4 MG CAP PO SCH ×2 (08:07→21:01)
[2018-07-01] MEDS: ASPIRIN (EC) 81 MG TAB PO SCH (08:07)
[2018-07-01] MEDS: FAMOTIDINE 20 MG TAB PO SCH (08:07)
[2018-07-01] MEDS: DOCUSATE SODIUM 100 MG CAP PO SCH (08:07)
[2018-07-01] MEDS: NIFEdipine (XL) 90 MG TAB PO SCH (08:08)
[2018-07-01] MEDS: METOPROLOL (XL) 100 MG TAB PO SCH (08:08)
[2018-07-01] MEDS: HEPARIN 5,000 UNIT/1 ML VIAL SC SCH ×2 (08:12→21:00)
[2018-07-01] MEDS: DONEPEZIL 5 MG TAB PO SCH (08:17)
--- NOTE | 2018-07-01 08:22 | PN ---
DATE: 07/01/2018 SUBJECTIVE: The patient is stable. No events overnight. No fevers, chills, nausea or vomiting. OBJECTIVE: VITAL SIGNS: Blood pressure is 136/65, respirations 20, pulse 67, temperature 98.2. HEENT: Head is normocephalic. NECK: Supple. HEART: Regular rate. LUNGS: Show diminished breath sounds at the base. ABDOMEN: Soft, nontender to palpation without rebound or guarding. EXTREMITIES: Negative for clubbing, cyanosis, no edema. DERMATOLOGIC: No rashes. MUSCULOSKELETAL: No joint effusion. NEUROLOGIC: No change in exam. MEDICATIONS: Reviewed. LABORATORY DATA: Shows sodium 145, potassium 4.8, chloride 116, bicarbonate 19, BUN is 107, creatini ne 3.92, phosphorus 5, magnesium 2.8. ASSESSMENT AND PLAN: 1. Nonoliguric acute kidney injury on top of chronic kidney disease stage III/IV with a baseline cre atinine around 2.2 to 2.5 mg/dL. Etiology of current acute kidney injury is likely secondary to hemo dynamics, diuretic therapy. The possibility of tubular injury is also a consideration. The patient' s renal function appears to have stabilized in last 24 hours. Please note, the patient does have a s ignificant azotemia. This is in part due to hypercatabolic state and steroids. At this point, we wi ll continue current treatment plan, supportive care, renally dose all medications, no immediate need for renal replacement therapy. 2. Hypernatremia, encourage free water intake. 3. Anemia. Continue to monitor hemoglobin and hematocrit levels. We will give Epogen as needed. 4. Mineral bone disorder, monitor calcium and phosphorus levels. 5. Hypertension. Blood pressure is controlled. Continue current blood pressure regimen. 6. Diastolic heart failure. The patient appears compensated. Continue to monitor. 7. History of cerebrovascular accident with hemideficit. Continue to monitor. 8. Lung mass concerning for malignancy. Continue to monitor. Follow up with pulmonary. The patien t may have a stage IV non-small cell lung cancer. The patient is unable to have a biopsy performed. We will follow up with pulmonary for further recommendations. 9. Possible brain mass. Etiology may be metastatic disease. The patient is being seen by Hematolog y/Oncology, continue workup. The patient is on Decadron. We will continue to monitor. 10. Dyslipidemia. Continue statin therapy. 11. Arrhythmia with history of pacemaker. 12. Systemic inflammatory response syndrome. Continue to monitor. Dictated By: CAMPOS JOHNSTON DO NR/RINKU Conf#: [id number] DID#: [id number] CC: HIEU RENEE MD; YOLANDA ANNE NP; BIBIANA SUH MD;*EndCC*
--- NOTE | 2018-07-01 10:50 | CONS ---
Assessment/Plan Assessment/Plan Hospital Course (Demo Recall) 1. Left buttock abscess; recurrent versus unresolved; history of multiple abscesses in the same area; CT:Chronic left perirectal abscess with foci of air measures 4.0 x 3.0 x 1.7 cm slightly decreased in size compared to 2017 CT with skin track extending to the medial aspect of left gluteal region. -Wound culture -Spontaneously draining> heating pad to promote drainage -will need colorectal surgeon evaluation 2. 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 CKD -Limit nephrotoxic meds -Renally dose meds -Per renal 4. Hypertension: -Encourage weight loss -Medical management 5. Leukocytosis: Afebrile; currently on dexamethasone -Monitor 6. Normocytic normochromic anemia: -Monitor and transfuse as needed 7. Hypernatremia -Judicious fluid correction 8. Bacteremia: -Antibiotics per sensitivities 9. Small bilateral pleural effusions: -Fluid management Thank you. Patient seen and examined in collaboration with Dr. Terell Schaefer. Consultation Date/Type/Reason Admit Date/Time June 23, 2018 at 20:27 Date of Consultation: July 01, 2018 Type of Consult Surgical Reason for Consultation Left buttock abscess Requesting Provider: BIBIANA SUH MD Date/Time of Note DATE: 07/01/18 TIME: 10:19 Hx of Present Illness Santo Gaming is an 83-year-old man with multiple comorbidities who presented to the ED with complaints of headaches, dizziness and blurry vision x1 day prior to presentation. On further work-up, he was noted to have moderate vasogenic edema with in the left thalamus with an underlying 11 mm lesion, malignancy with metastasis. He is currently being managed by oncology with plans for starting radiation therapy. While in-house, he was noted to have a left buttock open area with draining purulent material. Associated symptoms include left buttock discomfort. Notably, his reports that he has had multiple abscesses in the same area. There have been no recent fevers, chills, congested cough, myalgias, labored breathing, shortness of breath, nausea, vomiting, diarrhea, seizure, rash. General surgery was asked to evaluate. 12 point review of systems was performed and is negative except for as stated in HPI. Past Medical History hypertension Dyslipidemia CAD Left eye glaucoma CVA with right-sided deficit CKD CHF Pacemaker SVT Pericardial effusion status post pericardiocentesis Multiple left buttock abscesses status post repeated incision and drainage Medical History: other (See HPI) Home Meds Active Scripts Metoprolol Succinate* (Toprol XL*) 100 Mg Tab.sr.24h, 200 MG PO DAILY, #30 TAB Prov:COLLINS,MIRANDA [employer] 04/16/18 Tamsulosin Hcl* (Flomax*) 0.4 Mg Cap.er.24h, 0.4 MG PO BID, #60 CAP Prov:COLLINS,MIRANDA [employer] 04/16/18 Reported Medications Furosemide* (Furosemide*) 40 Mg Tablet, 40 MG PO DAILY for 90 Days 06/23/18 Docusate Sodium (Col-Rite) 100 Mg Capsule, 100 MG PO TID for 90 Days, #270 take 1 capsule by mouth three times a day 06/23/18 Valsartan (Valsartan) 320 Mg Tablet, 320 MG PO DAILY for 90 Days, #90 take 1 tablet by mouth once daily 06/23/18 Atenolol* (Atenolol*) 50 Mg Tablet, 50 MG PO DAILY for 90 Days, #90 take 1 tablet by mouth once daily 06/23/18 Clonidine Patch (CLONIDINE PATCH) 0.2 Mg/24 Hr Patch, 1 PATCH.WK TD Q7D, #4 PATCH.WK 06/23/18 Clonidine Hcl* (Clonidine Hcl*) 0.2 Mg Tablet, 0.2 MG PO TID for 30 Days, #90 06/23/18 Febuxostat* (Uloric*) 40 Mg Tablet, 40 MG PO QHS, TAB 04/15/18 Donepezil* (Donepezil*) 5 Mg Tablet, 5 MG PO DAILY, #30 TAB take 1 tablet by mouth once daily 04/15/18 Docusate Sodium* (Docusate Sodium*) 100 Mg Capsule, 100 MG PO TID, #30 CAP 04/15/18 Ferrous Sulfate* (Ferrous Sulfate*) 325 Mg Tabec, 325 MG PO TID, TAB 04/15/18 Bimatoprost* (Lumigan*) 0.01%-2.5 Ml Opht Drops, 1 DROP BOTH EYES HS, EA 07/15/16 Calcitriol* (Rocaltrol*) 0.25 Mcg Capsule, 0.25 MCG PO FIVE TIMES WEEKLY, CAP 07/15/16 Famotidine* (Famotidine*) 20 Mg Tablet, 20 MG PO DAILY, #30 TAB take 1 tablet by mouth once daily 07/15/16 Alendronate Sodium* (Fosamax*) 70 Mg Tablet, 70 MG PO ON SATURDAYS, TAB 07/28/14 Amlodipine Besylate* (Amlodipine Besylate*) 10 Mg Tablet, 10 MG PO QAM, TAB 07/29/13 Aspirin (Aspirin) 81 Mg Chew, 81 MG PO DAILY take 1 tablet by mouth once daily 12/20/12 Simvastatin (Simvastatin) 20 Mg Tablet, 20 MG PO HS 12/20/12 Medications Current Medications IV Flush (NS 3 ml) 3 ml PER PROTOCOL IV ; Start 06/24/18 at 00:00 Ondansetron HCl (Zofran Inj) 4 mg Q6H PRN IV NAUSEA/VOMITING; Start 06/24/18 at 00:00 Acetaminophen (Tylenol Tab) 650 mg Q6H PRN PO .PAIN 1-3 OR TEMP Last administered on 06/27/18at 06:29; Admin Dose 650 MG; Start 06/24/18 at 00:00 Acetaminophen/ Hydrocodone Bitart ([place] (5/325)) 1 tab Q6H PRN PO .PAIN 4-6 L ast administered on 06/27/18at 01:44; Admin Dose 1 TAB; Start 06/24/18 at 00:00 Albuterol/ Ipratropium (Duoneb) 3 ml Q2H RESP THERAPY PRN HHN SHORTNESS OF BREATH; Start 06/24/18 at 00:00 Latanoprost (Xalatan) 1 drop HS BOTH EYES Last administered on 06/30/18 21:10; Admin Dose 1 DROP; Start 06/24/18 at 21:00 Donepezil HCl (Aricept) 5 mg DAILY PO Last administered on 07/01/18 08:17; Admin Dose 5 MG; Start 06/24/18 at 09:00 Famotidine (Pepcid) 20 mg DAILY PO Last administered on 07/01/18 08:07; Admin Dose 20 MG; Start 06/24/18 at 09:00 Febuxostat (Uloric) 40 mg QHS PO Last administered on 06/30/18 21:11; Admin Dose 40 MG; Start 06/24/18 at 21:00 Metoprolol Succinate (Toprol Xl) 200 mg DAILY PO Last administered on 07/01/18 08:08; Admin Dose 200 MG; Start 06/24/18 at 09:00 Tamsulosin HCl (Flomax) 0.4 mg BID PO Last administered on 07/01/18 08:07; Admin Dose 0.4 MG; Start 06/24/18 at 09:00 Hydralazine HCl (Apresoline) 10 mg Q6 PRN IV SBP>160 Last administered on 06/24/18 12:26; Admin Dose 10 MG; Start 06/24/18 at 12:00 Nifedipine (Procardia Xl) 90 mg DAILY PO Last administered on 07/01/18 08:08; Admin Dose 90 MG; Start 06/28/18 at 09:00 Cefepime HCl 50 ml @ 100 mls/hr Q24H IVPB Last administered on 06/30/18 17:11; Admin Dose 100 MLS/HR; Start 06/27/18 at 17:00 Dexamethasone (Decadron) 4 mg Q8 IV Last administered on 07/01/18 06:34; Admin Dose 4 MG; Start 06/28/18 at 16:00 Docusate Sodium (Colace) 100 mg DAILY PO Last administered on 07/01/18 08:07; Admin Dose 100 MG; Start 06/30/18 at 09:00 Ferrous Sulfate (Ferrous Sulfate (Ec)) 325 mg TID PO ; Start 07/02/18 at 09:00 Heparin Sodium (Porcine) (Heparin (5000 Units/1ml)) 5,000 unit BID SC Last administered on 07/01/18 08:12; Admin Dose 5,000 UNIT; Start 07/01/18 at 09:00 Aspirin (Halfprin) 81 mg DAILY PO Last administered on 07/01/18 08:07; Admin Dose 81 MG; Start 07/01/18 at 09:00 Atorvastatin Calcium (Lipitor) 20 mg HS PO Last administered on 06/30/18 21:11; Admin Dose 20 MG; Start 06/30/18 at 21:00 Allergies: Coded Allergies: epoetin kayley (Verified Allergy, Severe, ITCHING AND FACE SWELLING, 04/15/18) PER PT AND Past Surgical History Past Surgical Hx: other (See HPI) Family History Significant Family History: no pertinent family hx Social History Alcohol Use: none Smoking Status: Current every day smoker Drug Use: none Exam/Review of Systems Exam Vitals Vital Signs Date Temp Pulse Resp B/P (MAP) Pulse Ox O2 O2 Flow FiO2 Time Delivery Rate 07/01/18 74 08:01 07/01/18 98.2 20 136/65 97 Room Air 07:15 (88) Intake and Output 06/30/18 06/30/18 07/01/18 1515:00 23:00 07:00 IntakeIntake Total 100 ml 350 ml OutputOutput Total 300 ml 450 ml BalanceBalance -200 ml -100 ml Constitutional: alert, oriented Psych: nl mood/affect; No anxiety Head: normocephalic, atraumatic Eyes: nl conjunctiva, EOMI, nl lids, nl sclera ENMT: nl external ears & nose, nl lips & teeth, mucosa pink and moist, other (Nose: Multiple lesions) Neck: non-tender; No jvd Respiratory: normal air movement; No labored breathing Cardiovascular: regular rate and rhythm, nl pulses; No edema Gastrointestinal: soft, non-tender; No distended Musculoskeletal: nl extremities to inspection; No nl gait and stance (Right-sided weakness) Extremities: normal pulses; No edema Neurological: other (Right-sided weakness); No nl speech (Minimal slurred), No nl strength Skin: rash or lesions (Nose: Multiple lesions; mid back: Lesions (nontender, soft)), other (Left buttock: Small opening with purulent drainage, 2 mm depth, with surrounding induration) Results Result Diagram: 07/01/1815 07/01/1815 Results 24hrs Laboratory Tests Test 07/01/18 06:15 White Blood Count 11.2 H Red Blood Count 2.67 L Hemoglobin 8.8 L Hematocrit 26.5 L Mean Corpuscular Volume 99.3 Mean Corpuscular Hemoglobin 33.0 Mean Corpuscular Hemoglobin Concent 33.2 Red Cell Distribution Width 13.2 Platelet Count 208 # Mean Platelet Volume 10.9 H Immature Granulocytes % 1.500 H Neutrophils % 90.6 H Lymphocytes % 5.1 L Monocytes % 2.6 Eosinophils % 0.0 Basophils % 0.2 Nucleated Red Blood Cells % 0.0 Immature Granulocytes # 0.170 H Neutrophils # 10.2 H Lymphocytes # 0.6 L Monocytes # 0.3 Eosinophils # 0.0 Basophils # 0.0 Nucleated Red Blood Cells # 0.0 Sodium Level 145 H Potassium Level 4.8 Chloride Level 116 H Carbon Dioxide Level 19 L Anion Gap 10 Blood Urea Nitrogen 107 H Creatinine 3.92 H Est Glomerular Filtrat Rate mL/min Glucose Level 185 Calcium Level 9.3 Phosphorus Level 5.0 H Magnesium Level 2.8 H Medications Medication Current Medications IV Flush (NS 3 ml) 3 ml PER PROTOCOL IV ; Start 06/24/18 at 00:00 Ondansetron HCl (Zofran Inj) 4 mg Q6H PRN IV NAUSEA/VOMITING; Start 06/24/18 at 00:00 Acetaminophen (Tylenol Tab) 650 mg Q6H PRN PO .PAIN 1-3 OR TEMP Last administered on 06/27/18 06:29; Admin Dose 650 MG; Start 06/24/18 at 00:00 Acetaminophen/ Hydrocodone Bitart ([place] (5/325)) 1 tab Q6H PRN PO .PAIN 4-6 Last administered on 06/27/18 01:44; Admin Dose 1 TAB; Start 06/24/18 at 00:00 Albuterol/ Ipratropium (Duoneb) 3 ml Q2H RESP THERAPY PRN HHN SHORTNESS OF BREATH; Start 06/24/18 at 00:00 Latanoprost (Xalatan) 1 drop HS BOTH EYES Last administered on 06/30/18 21:10; Admin Dose 1 DROP; Start 06/24/18 at 21:00 Donepezil HCl (Aricept) 5 mg DAILY PO Last administered on 07/01/18 08:17; Admin Dose 5 MG; Start 06/24/18 at 09:00 Famotidine (Pepcid) 20 mg DAILY PO Last administered on 07/01/18 08:07; Admin Dose 20 MG; Start 06/24/18 at 09:00 Febuxostat (Uloric) 40 mg QHS PO Last administered on 06/30/18 21:11; Admin Dose 40 MG; Start 06/24/18 at 21:00 Metoprolol Succinate (Toprol Xl) 200 mg DAILY PO Last administered on 07/01/18 08:08; Admin Dose 200 MG; Start 06/24/18 at 09:00 Tamsulosin HCl (Flomax) 0.4 mg BID PO Last administered on 07/01/18 08:07; Admin Dose 0.4 MG; Start 06/24/18 at 09:00 Hydralazine HCl (Apresoline) 10 mg Q6 PRN IV SBP>160 Last administered on 06/24/18 12:26; Admin Dose 10 MG; Start 06/24/18 at 12:00 Nifedipine (Procardia Xl) 90 mg DAILY PO Last administered on 07/01/18 08:08; Admin Dose 90 MG; Start 06/28/18 at 09:00 Cefepime HCl 50 ml @ 100 mls/hr Q24H IVPB Last administered on 06/30/18 17:11; Admin Dose 100 MLS/HR; Start 06/27/18 at 17:00 Dexamethasone (Decadron) 4 mg Q8 IV Last administered on 07/01/18 06:34; Admin Dose 4 MG; Start 06/28/18 at 16:00 Docusate Sodium (Colace) 100 mg DAILY PO Last administered on 07/01/18 08:07; Admin Dose 100 MG; Start 06/30/18 at 09:00 Ferrous Sulfate (Ferrous Sulfate (Ec)) 325 mg TID PO ; Start 07/02/18 at 09:00 Heparin Sodium (Porcine) (Heparin (5000 Units/1ml)) 5,000 unit BID SC Last administered on 07/01/18 08:12; Admin Dose 5,000 UNIT; Start 07/01/18 at 09:00 Aspirin (Halfprin) 81 mg DAILY PO Last administered on 07/01/18 08:07; Admin Dose 81 MG; Start 07/01/18 at 09:00 Atorvastatin Calcium (Lipitor) 20 mg HS PO Last administered on 06/30/18 21:11; Admin Dose 20 MG; Start 06/30/18 at 21:00 OTONIEL ISABEL NP July 01, 2018 10:29
--- NOTE | 2018-07-01 12:45 | PN ---
Date/Time of Note Date/Time of Note DATE: 07/01/18 TIME: 12:43 Assessment/Plan VTE Prophylaxis Risk score (from Nsg)>0 risk: 7 SCD applied (from Nsg): Yes Pharmacological prophylaxis: heparin Lines/Catheters IV [facility] Type [facility] Saline Lock Assessment/Plan Hospital Course SUBJECTIVE: Complaints of poor appetite. OBJECTIVE: Physical Exam General: Adequately build 83 year-old male lying in bed in no apparent distress. HEENT: Normocephalic, atraumatic. Eyes: Anicteric sclerae, conjunctivae clear. ENT: Nasal septum midline, oral mucosa moist. Neck supple, no JVD noticed. Respiratory: Bilaterally diminished breath sounds. No use of accessory muscles of respiration. No adventitious breath sounds. Cardiovascular: S1, S2 heard. Regular rate and rhythm. Abdomen: Obese and distended. Bowel sounds positive in all 4 quadrants. Genitourinary: Deferred. Extremities: No cyanosis, no clubbing, no edema. Peripheral pulses palpable. Neurologic: Cranial nerves II through XII grossly intact. The patient is awake, alert, and oriented. Labs & Vitals per chart ASSESSMENT & PLAN 83-year-old male with comorbidities including hypertension, chronic kidney di sease, permanent pacemaker, stroke, CAD, peripheral artery disease, and remote history of pericardial effusion status post pericardiocentesis in December 2012. The patient came to the emergency room with chief complaint of headache and dizziness. CT scan of the brain was showing moderate vasogenic edema within the left thalamus with an underlying 11 mm lesion. The patient was admitted to inpatient setting for further treatment and evaluation. 1. Brain mass with underlying cerebral edema. -Status post evaluation by neurosurgery. -To rule out systemic malignancy. -Continue Decadron. 2. Posterolateral right upper lobe parenchymal lung mass concerning for neoplasm. -Suspected metastatic lung cancer. -CT-guided biopsy could not be performed because of difficult access. -Thoracentesis for obtaining pleural fluid for cytology ordered. -Being followed by oncology and pulmonology. 3. Acute on chronic kidney disease -Being followed by nephrology. -Use nephrotoxic drugs with caution. 4. Hypertension. -Continue antihypertensives. 5. History of CVA. -Continue aspirin and statins. 6. Normocytic anemia. -Most probably anemia of chronic disease -Monitor H&H closely. 7. History of SVT. -Status post interrogation of pacemaker upon recent admission. 8. E. coli bacteremia. -On appropriate antimicrobials. 9. Prostate hypertrophy. -Continue Flomax. 10. Left gluteal abscess. -Surgical consult ongoing. 11. Fluids, electrolytes, and nutrition. -Low-cholesterol diet. 12. DVT prophylaxis. -Subcutaneous heparin. 13. Plan. -Continue inpatient monitoring. -Thoracentesis for obtaining pleural fluid for cytology ordered. The patient was seen in collaboration with Dr. Hi. Result Diagram: 07/01/1815 07/01/1815 Results 24hrs Laboratory Tests Test 07/01/18 06:15 White Blood Count 11.2 H Red Blood Count 2.67 L Hemoglobin 8.8 L Hematocrit 26.5 L Mean Corpuscular Volume 99.3 Mean Corpuscular Hemoglobin 33.0 Mean Corpuscular Hemoglobin Concent 33.2 Red Cell Distribution Width 13.2 Platelet Count 208 # Mean Platelet Volume 10.9 H Immature Granulocytes % 1.500 H Neutrophils % 90.6 H Lymphocytes % 5.1 L Monocytes % 2.6 Eosinophils % 0.0 Basophils % 0.2 Nucleated Red Blood Cells % 0.0 Immature Granulocytes # 0.170 H Neutrophils # 10.2 H Lymphocytes # 0.6 L Monocytes # 0.3 Eosinophils # 0.0 Basophils # 0.0 Nucleated Red Blood Cells # 0.0 Sodium Level 145 H Potassium Level 4.8 Chloride Level 116 H Carbon Dioxide Level 19 L Anion Gap 10 Blood Urea Nitrogen 107 H Creatinine 3.92 H Est Glomerular Filtrat Rate mL/min Glucose Level 185 Calcium Level 9.3 Phosphorus Level 5.0 H Magnesium Level 2.8 H Exam/Review of Systems Exam Vitals Vital Signs Date Temp Pulse Resp B/P (MAP) Pulse Ox O2 O2 Flow FiO2 Time Delivery Rate 07/01/18 63 12:15 07/01/18 98.0 20 133/64 96 Room Air 11:34 (87) Intake and Output 06/30/18 06/30/18 07/01/18 1515:00 23:00 07:00 IntakeIntake Total 100 ml 350 ml OutputOutput Total 300 ml 450 ml BalanceBalance -200 ml -100 ml Results Results 24hrs Laboratory Tests Test 07/01/18 06:15 White Blood Count 11.2 H Red Blood Count 2.67 L Hemoglobin 8.8 L Hematocrit 26.5 L Mean Corpuscular Volume 99.3 Mean Corpuscular Hemoglobin 33.0 Mean Corpuscular Hemoglobin Concent 33.2 Red Cell Distribution Width 13.2 Platelet Count 208 # Mean Platelet Volume 10.9 H Immature Granulocytes % 1.500 H Neutrophils % 90.6 H Lymphocytes % 5.1 L Monocytes % 2.6 Eosinophils % 0.0 Basophils % 0.2 Nucleated Red Blood Cells % 0.0 Immature Granulocytes # 0.170 H Neutrophils # 10.2 H Lymphocytes # 0.6 L Monocytes # 0.3 Eosinophils # 0.0 Basophils # 0.0 Nucleated Red Blood Cells # 0.0 Sodium Level 145 H Potassium Level 4.8 Chloride Level 116 H Carbon Dioxide Level 19 L Anion Gap 10 Blood Urea Nitrogen 107 H Creatinine 3.92 H Est Glomerular Filtrat Rate mL/min Glucose Level 185 Calcium Level 9.3 Phosphorus Level 5.0 H Magnesium Level 2.8 H Medications Medication Current Medications IV Flush (NS 3 ml) 3 ml PER PROTOCOL IV ; Start 06/24/18 at 00:00 Ondansetron HCl (Zofran Inj) 4 mg Q6H PRN IV NAUSEA/VOMITING; Start 06/24/18 at 00:00 Acetaminophen (Tylenol Tab) 650 mg Q6H PRN PO .PAIN 1-3 OR TEMP Last administered on 06/27/18 06:29; Admin Dose 650 MG; Start 06/24/18 at 00:00 Acetaminophen/ Hydrocodone Bitart ([place] (5/325)) 1 tab Q6H PRN PO .PAIN 4-6 Last administered on 06/27/18at 01:44; Admin Dose 1 TAB; Start 06/24/18 at 00:00 Albuterol/ Ipratropium (Duoneb) 3 ml Q2H RESP THERAPY PRN HHN SHORTNESS OF BREATH; Start 06/24/18 at 00:00 Latanoprost (Xalatan) 1 drop HS BOTH EYES Last administered on 06/30/18 21:10; Admin Dose 1 DROP; Start 06/24/18 at 21:00 Donepezil HCl (Aricept) 5 mg DAILY PO Last administered on 07/01/18 08:17; Admin Dose 5 MG; Start 06/24/18 at 09:00 Famotidine (Pepcid) 20 mg DAILY PO Last administered on 07/01/18 08:07; Admin Dose 20 MG; Start 06/24/18 at 09:00 Febuxostat (Uloric) 40 mg QHS PO Last administered on 06/30/18 21:11; Admin Dose 40 MG; Start 06/24/18 at 21:00 Metoprolol Succinate (Toprol Xl) 200 mg DAILY PO Last administered on 07/01/18 08:08; Admin Dose 200 MG; Start 06/24/18 at 09:00 Tamsulosin HCl (Flomax) 0.4 mg BID PO Last administered on 07/01/18 08:07; Admin Dose 0.4 MG; Start 06/24/18 at 09:00 Hydralazine HCl (Apresoline) 10 mg Q6 PRN IV SBP>160 Last administered on 06/24/18 12:26; Admin Dose 10 MG; Start 06/24/18 at 12:00 Nifedipine (Procardia Xl) 90 mg DAILY PO Last administered on 07/01/18 08:08; Admin Dose 90 MG; Start 06/28/18 at 09:00 Cefepime HCl 50 ml @ 100 mls/hr Q24H IVPB Last administered on 06/30/18 17:11; Admin Dose 100 MLS/HR; Start 06/27/18 at 17:00 Dexamethasone (Decadron) 4 mg Q8 IV Last administered on 07/01/18 06:34; Admin Dose 4 MG; Start 06/28/18 at 16:00 Docusate Sodium (Colace) 100 mg DAILY PO Last administered on 07/01/18 08:07; Admin Dose 100 MG; Start 06/30/18 at 09:00 Ferrous Sulfate (Ferrous Sulfate (Ec)) 325 mg TID PO ; Start 07/02/18 at 09:00 Heparin Sodium (Porcine) (Heparin (5000 Units/1ml)) 5,000 unit BID SC Last administered on 07/01/18 08:12; Admin Dose 5,000 UNIT; Start 07/01/18 at 09:00 Aspirin (Halfprin) 81 mg DAILY PO Last administered on 07/01/18 08:07; Admin Dose 81 MG; Start 07/01/18 at 09:00 Atorvastatin Calcium (Lipitor) 20 mg HS PO Last administered on 06/30/18 21:11; Admin Dose 20 MG; Start 06/30/18 at 21:00 TOBY COREA NP 14, 2019 12:45
--- NOTE | 2018-07-01 15:25 | CONS ---
Assessment/Plan Assessment/Plan Hospital Course (Demo Recall) All noted, no acute events, looks comfortable Microbiology: Blood culture on admission grew E. coli, repeat blood cultures negative, urine culture negative Antimicrobials: Cefepime Physical examination: Well-developed elderly man who is in no distress. Head atraumatic normocephalic neck is supple chest rise symmetrical breath sounds diminished bases. Heart: S1-S2. Abdomen soft bowel sounds present. Assessment: 1. E. coli bacteremia unclear etiology 2. Suspected metastatic lung cancer with mets to the liver and brain 3. Chronic tobacco abuser 4. Coronary artery disease with a history of permanent pacemaker 5. History of CVA Plan: Clinically stable, CT-guided biopsy could not be performed because of difficult access, pending thoracic surgery evaluation, change abx to Cipro. Consultation Date/Type/Reason Admit Date/Time June 23, 2018 at 20:27 Initial Consult Date 06/28/18 Type of Consult id Requesting Provider: BIBIANA SUH MD Date/Time of Note DATE: 07/01/18 TIME: 15:24 Exam/Review of Systems Exam Vitals Vital Signs Date Temp Pulse Resp B/P (MAP) Pulse Ox O2 O2 Flow FiO2 Time Delivery Rate 07/01/18 63 12:15 07/01/18 98.0 20 133/64 96 Room Air 11:34 (87) Intake and Output 06/30/18 06/30/18 07/01/18 1515:00 23:00 07:00 IntakeIntake Total 100 ml 350 ml OutputOutput Total 300 ml 450 ml BalanceBalance -200 ml -100 ml Results Result Diagram: 07/01/18 0615 07/01/18 0615 Results 24hrs Laboratory Tests Test 07/01/18 06:15 White Blood Count 11.2 H Red Blood Count 2.67 L Hemoglobin 8.8 L Hematocrit 26.5 L Mean Corpuscular Volume 99.3 Mean Corpuscular Hemoglobin 33.0 Mean Corpuscular Hemoglobin Concent 33.2 Red Cell Distribution Width 13.2 Platelet Count 208 # Mean Platelet Volume 10.9 H Immature Granulocytes % 1.500 H Neutrophils % 90.6 H Lymphocytes % 5.1 L Monocytes % 2.6 Eosinophils % 0.0 Basophils % 0.2 Nucleated Red Blood Cells % 0.0 Immature Granulocytes # 0.170 H Neutrophils # 10.2 H Lymphocytes # 0.6 L Monocytes # 0.3 Eosinophils # 0.0 Basophils # 0.0 Nucleated Red Blood Cells # 0.0 Sodium Level 145 H Potassium Level 4.8 Chloride Level 116 H Carbon Dioxide Level 19 L Anion Gap 10 Blood Urea Nitrogen 107 H Creatinine 3.92 H Est Glomerular Filtrat Rate mL/min Glucose Level 185 Calcium Level 9.3 Phosphorus Level 5.0 H Magnesium Level 2.8 H Medications Medication Current Medications IV Flush (NS 3 ml) 3 ml PER PROTOCOL IV ; Start 06/24/18 at 00:00 Ondansetron HCl (Zofran Inj) 4 mg Q6H PRN IV NAUSEA/VOMITING; Start 06/24/18 at 00:00 Acetaminophen (Tylenol Tab) 650 mg Q6H PRN PO .PAIN 1-3 OR TEMP Last administered on 06/27/18 06:29; Admin Dose 650 MG; Start 06/24/18 at 00:00 Acetaminophen/ Hydrocodone Bitart ([place] (5/325)) 1 tab Q6H PRN PO .PAIN 4-[address] administered on 06/27/18at 01:44; Admin Dose 1 TAB; Start 06/24/18 at 00:00 Albuterol/ Ipratropium (Duoneb) 3 ml Q2H RESP THERAPY PRN HHN SHORTNESS OF BREATH; Start 06/24/18 at 00:00 Latanoprost (Xalatan) 1 drop HS BOTH EYES Last administered on 06/30/18 21:10; Admin Dose 1 DROP; Start 06/24/18 at 21:00 Donepezil HCl (Aricept) 5 mg DAILY PO Last administered on 07/01/18 08:17; Admin Dose 5 MG; Start 06/24/18 at 09:00 Famotidine (Pepcid) 20 mg DAILY PO Last administered on 07/01/18 08:07; Admin Dose 20 MG; Start 06/24/18 at 09:00 Febuxostat (Uloric) 40 mg QHS PO Last administered on 06/30/18 21:11; Admin Dose 40 MG; Start 06/24/18 at 21:00 Metoprolol Succinate (Toprol Xl) 200 mg DAILY PO Last administered on 07/01/18 08:08; Admin Dose 200 MG; Start 06/24/18 at 09:00 Tamsulosin HCl (Flomax) 0.4 mg BID PO Last administered on 07/01/18 08:07; Admin Dose 0.4 MG; Start 06/24/18 at 09:00 Hydralazine HCl (Apresoline) 10 mg Q6 PRN IV SBP>160 Last administered on 06/24/18 12:26; Admin Dose 10 MG; Start 06/24/18 at 12:00 Nifedipine (Procardia Xl) 90 mg DAILY PO Last administered on 07/01/18 08:08; Admin Dose 90 MG; Start 06/28/18 at 09:00 Cefepime HCl 50 ml @ 100 mls/hr Q24H IVPB Last administered on 06/30/18 17:11; Admin Dose 100 MLS/HR; Start 06/27/18 at 17:00 Dexamethasone (Decadron) 4 mg Q8 IV Last administered on 07/01/18 14:25; Admin Dose 4 MG; Start 06/28/18 at 16:00 Docusate Sodium (Colace) 100 mg DAILY PO Last administered on 07/01/18 08:07; Admin Dose 100 MG; Start 06/30/18 at 09:00 Ferrous Sulfate (Ferrous Sulfate (Ec)) 325 mg TID PO ; Start 07/02/18 at 09:00 Heparin Sodium (Porcine) (Heparin (5000 Units/1ml)) 5,000 unit BID SC Last administered on 07/01/18 08:12; Admin Dose 5,000 UNIT; Start 07/01/18 at 09:00 Aspirin (Halfprin) 81 mg DAILY PO Last administered on 07/01/18 08:07; Admin Dose 81 MG; Start 07/01/18 at 09:00 Atorvastatin Calcium (Lipitor) 20 mg HS PO Last administered on 06/30/18 21:11; Admin Dose 20 MG; Start 06/30/18 at 21:00 YOLANDA ANNE NP July 01, 2018 15:25
--- NOTE | 2018-07-01 15:53 | CONS ---
Consult Date/Type/Reason Admit Date/Time June 23, 2018 at 20:27 Initial Consult Date 06/28/18 Type of Consult Pulmonary Requesting Provider: BIBIANA SUH MD Date/Time of Note DATE: 07/01/18 TIME: 15:52 Subjective Patient appears comfortable this morning. Objective Vital Signs Date Temp Pulse Resp B/P (MAP) Pulse Ox O2 O2 Flow FiO2 Time Delivery Rate 07/01/18 98.4 66 20 134/61 94 Room Air 15:41 (85) Intake and Output 06/30/18 06/30/18 07/01/18 1515:00 23:00 07:00 IntakeIntake Total 100 ml 350 ml OutputOutput Total 300 ml 450 ml BalanceBalance -200 ml -100 ml Exam GENERAL: Elderly gentleman comfortable at rest VITAL SIGNS: per chart NECK: Supple. No JVD or lymphadenopathy. CARDIAC EXAM: S1, S2. No added sounds or murmurs. CHEST: clear bilaterally, No added sounds, rales or wheezes ABDOMEN: Soft, nontender. No guarding or rebound. EXTREMITIES: No cyanosis, clubbing or edema. NEUROLOGIC: Generalized weakness. No focal deficits. Results/Medications Result Diagram: 07/01/18 0615 07/01/18 0615 Results 24 hrs Laboratory Tests Test 07/01/18 06:15 White Blood Count 11.2 H Red Blood Count 2.67 L Hemoglobin 8.8 L Hematocrit 26.5 L Mean Corpuscular Volume 99.3 Mean Corpuscular Hemoglobin 33.0 Mean Corpuscular Hemoglobin Concent 33.2 Red Cell Distribution Width 13.2 Platelet Count 208 # Mean Platelet Volume 10.9 H Immature Granulocytes % 1.500 H Neutrophils % 90.6 H Lymphocytes % 5.1 L Monocytes % 2.6 Eosinophils % 0.0 Basophils % 0.2 Nucleated Red Blood Cells % 0.0 Immature Granulocytes # 0.170 H Neutrophils # 10.2 H Lymphocytes # 0.6 L Monocytes # 0.3 Eosinophils # 0.0 Basophils # 0.0 Nucleated Red Blood Cells # 0.0 Sodium Level 145 H Potassium Level 4.8 Chloride Level 116 H Carbon Dioxide Level 19 L Anion Gap 10 Blood Urea Nitrogen 107 H Creatinine 3.92 H Est Glomerular Filtrat Rate mL/min Glucose Level 185 Calcium Level 9.3 Phosphorus Level 5.0 H Magnesium Level 2.8 H Medications Current Medications IV Flush (NS 3 ml) 3 ml PER PROTOCOL IV ; Start 06/24/18 at 00:00 Ondansetron HCl (Zofran Inj) 4 mg Q6H PRN IV NAUSEA/VOMITING; Start 06/24/18 at 00:00 Acetaminophen (Tylenol Tab) 650 mg Q6H PRN PO .PAIN 1-3 OR TEMP Last administered on 06/27/18 06:29; Admin Dose 650 MG; Start 06/24/18 at 00:00 Acetaminophen/ Hydrocodone Bitart ([place] (5/325)) 1 tab Q6H PRN PO .PAIN 4-6 Last administered on 06/27/18 01:44; Admin Dose 1 TAB; Start 06/24/18 at 00:00 Albuterol/ Ipratropium (Duoneb) 3 ml Q2H RESP THERAPY PRN HHN SHORTNESS OF BREATH; Start 06/24/18 at 00:00 Latanoprost (Xalatan) 1 drop HS BOTH EYES Last administered on 06/30/18 21:10; Admin Dose 1 DROP; Start 06/24/18 at 21:00 Donepezil HCl (Aricept) 5 mg DAILY PO Last administered on 07/01/18 08:17; Admin Dose 5 MG; Start 06/24/18 at 09:00 Famotidine (Pepcid) 20 mg DAILY PO Last administered on 07/01/18 08:07; Admin Dose 20 MG; Start 06/24/18 at 09:00 Febuxostat (Uloric) 40 mg QHS PO Last administered on 06/30/18 21:11; Admin Dose 40 MG; Start 06/24/18 at 21:00 Metoprolol Succinate (Toprol Xl) 200 mg DAILY PO Last administered on 07/01/18 08:08; Admin Dose 200 MG; Start 06/24/18 at 09:00 Tamsulosin HCl (Flomax) 0.4 mg BID PO Last administered on 07/01/18 08:07; Admin Dose 0.4 MG; Start 06/24/18 at 09:00 Hydralazine HCl (Apresoline) 10 mg Q6 PRN IV SBP>160 Last administered on 06/24/18 12:26; Admin Dose 10 MG; Start 06/24/18 at 12:00 Nifedipine (Procardia Xl) 90 mg DAILY PO Last administered on 07/01/18 08:08; Admin Dose 90 MG; Start 06/28/18 at 09:00 Dexamethasone (Decadron) 4 mg Q8 IV Last administered on 07/01/18 14:25; Admin Dose 4 MG; Start 06/28/18 at 16:00 Docusate Sodium (Colace) 100 mg DAILY PO Last administered on 07/01/18 08:07; Admin Dose 100 MG; Start 06/30/18 at 09:00 Ferrous Sulfate (Ferrous Sulfate (Ec)) 325 mg TID PO ; Start 07/02/18 at 09:00 Heparin Sodium (Porcine) (Heparin (5000 Units/1ml)) 5,000 unit BID SC Last administered on 07/01/18 08:12; Admin Dose 5,000 UNIT; Start 07/01/18 at 09:00 Aspirin (Halfprin) 81 mg DAILY PO Last administered on 07/01/18 08:07; Admin Dose 81 MG; Start 07/01/18 at 09:00 Atorvastatin Calcium (Lipitor) 20 mg HS PO Last administered on 06/30/18at 21:11; Admin Dose 20 MG; Start 06/30/18 at 21:00 Ciprofloxacin (Cipro) 500 mg Q24H PO ; Start 07/01/18 at 18:00 Assessment/Plan Hospital Course (Demo Recall) MP: 1. 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 CT-guided biopsy today await results Radiology findings noted. No safe window for biopsy. Lesion is also too peripheral for bronchoscopy. HATTIE LARA MD, [facility] July 01, 2018 15:53
[2018-07-01] MEDS: CIPROFLOXACIN 500 MG TAB PO SCH (17:30)
[2018-07-01] MEDS: LATANOPROST 0.005% 2.5 ML OPH BOTH EYES SCH (21:00)
[2018-07-01] MEDS: FEBUXOSTAT 40 MG TABLET PO SCH (21:01)
[2018-07-01] MEDS: ATORVASTATIN 20 MG TAB PO SCH (21:01)
[2018-07-02] VITALS (12 sets, daily range): BP systolic 133–160; BP diastolic 62–88; PULSE 62–94; RESP 18–20
[2018-07-02] MEDS: hydrALAzine 20 MG INJ IV PRN (02:50)
--- NOTE | 2018-07-02 05:57 | PN ---
Date/Time of Note Date/Time of Note DATE: 07/02/18 TIME: 05:57 Assessment/Plan VTE Prophylaxis Risk score (from Nsg)>0 risk: 7 SCD applied (from Nsg): Yes Pharmacological prophylaxis: heparin Lines/Catheters IV Catheter Type (from [facility]): Peripheral IV Assessment/Plan Hospital Course SUBJECTIVE: Complaints of poor appetite. OBJECTIVE: Physical Exam General: Adequately build 83 year-old male lying in bed in no apparent distress. HEENT: Normocephalic, atraumatic. Eyes: Anicteric sclerae, conjunctivae clear. ENT: Nasal septum midline, oral mucosa moist. Neck supple, no JVD noticed. Respiratory: Bilaterally diminished breath sounds. No use of accessory muscles of respiration. No adventitious breath sounds. Cardiovascular: S1, S2 heard. Regular rate and rhythm. Abdomen: Obese and distended. Bowel sounds positive in all 4 quadrants. Genitourinary: Deferred. Extremities: No cyanosis, no clubbing, no edema. Peripheral pulses palpable. Neurologic: Cranial nerves II through XII grossly intact. The patient is awake, alert, and oriented. Labs & Vitals per chart ASSESSMENT & PLAN 83-year-old male with comorbidities including hypertension, chronic kidney disease, permanent pacemaker, stroke, CAD, peripheral artery disease, and remote history of pericardial effusion status post pericardiocentesis in December 2012. The patient came to the emergency room with chief complaint of headache and dizziness. CT scan of the brain was showing moderate vasogenic edema within the left thalamus with an underlying 11 mm lesion. [facility] for further treatment and evaluation. 1. Brain mass with underlying cerebral edema. -Status post evaluation by neurosurgery. -To rule out systemic malignancy. -Continue Decadron. 2. Posterolateral right upper lobe parenchymal lung mass concerning for neoplasm. -Suspected metastatic lung cancer. -CT-guided biopsy could not be performed because of difficult access. -Thoracentesis for obtaining pleural fluid for cytology ordered. -Being followed by oncology and pulmonology. 3. Acute on chronic kidney disease -Being followed by nephrology. -Use nephrotoxic drugs with caution. 4. Hypertension. -Continue antihypertensives. 5. History of CVA. -Continue aspirin and statins. 6. Normocytic anemia. -Most probably anemia of chronic disease -Monitor H&H closely. 7. History of SVT. -Status post interrogation of pacemaker upon recent admission. 8. E. coli bacteremia. -On appropriate antimicrobials. 9. Prostate hypertrophy. -Continue Flomax. 10. Left gluteal abscess. -Surgical consult ongoing. 11. Fluids, electrolytes, and nutrition. -Low-cholesterol diet. 12. DVT prophylaxis. -Subcutaneous heparin. 13. Plan. -Continue inpatient monitoring. -Thoracentesis for obtaining pleural fluid for cytology ordered. The patient was seen in collaboration with Dr. Hi. Result Diagram: 07/01/1815 07/01/1815 Results 24hrs Laboratory Tests Test 07/01/18 06:15 White Blood Count 11.2 H Red Blood Count 2.67 L Hemoglobin 8.8 L Hematocrit 26.5 L Mean Corpuscular Volume 99.3 Mean Corpuscular Hemoglobin 33.0 Mean Corpuscular Hemoglobin Concent 33.2 Red Cell Distribution Width 13.2 Platelet Count 208 # Mean Platelet Volume 10.9 H Immature Granulocytes % 1.500 H Neutrophils % 90.6 H Lymphocytes % 5.1 L Monocytes % 2.6 Eosinophils % 0.0 Basophils % 0.2 Nucleated Red Blood Cells % 0.0 Immature Granulocytes # 0.170 H Neutrophils # 10.2 H Lymphocytes # 0.6 L Monocytes # 0.3 Eosinophils # 0.0 Basophils # 0.0 Nucleated Red Blood Cells # 0.0 Sodium Level 145 H Potassium Level 4.8 Chloride Level 116 H Carbon Dioxide Level 19 L Anion Gap 10 Blood Urea Nitrogen 107 H Creatinine 3.92 H Est Glomerular Filtrat Rate mL/min Glucose Level 185 Calcium Level 9.3 Phosphorus Level 5.0 H Magnesium Level 2.8 H Exam/Review of Systems Exam Vitals Vital Signs Date Temp Pulse Resp B/P (MAP) Pulse Ox O2 O2 Flow FiO2 Time Delivery Rate 07/02/18 79 04:42 07/02/18 97.8 155/69 99 03:25 (97) 07/01/18 17 23:12 07/01/18 Room Air 15:41 Intake and Output 07/01/18 07/01/18 07/02/18 1515:00 23:00 07:00 IntakeIntake Total 250 ml 1200 ml OutputOutput Total 600 ml 400 ml BalanceBalance -350 ml 800 ml Results Results 24hrs Laboratory Tests Test 07/01/18 06:15 White Blood Count 11.2 H Red Blood Count 2.67 L Hemoglobin 8.8 L Hematocrit 26.5 L Mean Corpuscular Volume 99.3 Mean Corpuscular Hemoglobin 33.0 Mean Corpuscular Hemoglobin Concent 33.2 Red Cell Distribution Width 13.2 Platelet Count 208 # Mean Platelet Volume 10.9 H Immature Granulocytes % 1.500 H Neutrophils % 90.6 H Lymphocytes % 5.1 L Monocytes % 2.6 Eosinophils % 0.0 Basophils % 0.2 Nucleated Red Blood Cells % 0.0 Immature Granulocytes # 0.170 H Neutrophils # 10.2 H Lymphocytes # 0.6 L Monocytes # 0.3 Eosinophils # 0.0 Basophils # 0.0 Nucleated Red Blood Cells # 0.0 Sodium Level 145 H Potassium Level 4.8 Chloride Level 116 H Carbon Dioxide Level 19 L Anion Gap 10 Blood Urea Nitrogen 107 H Creatinine 3.92 H Est Glomerular Filtrat Rate mL/min Glucose Level 185 Calcium Level 9.3 Phosphorus Level 5.0 H Magnesium Level 2.8 H Medications Medication Current Medications IV Flush (NS 3 ml) 3 ml PER PROTOCOL IV ; Start 06/24/18 at 00:00 Ondansetron HCl (Zofran Inj) 4 mg Q6H PRN IV NAUSEA/VOMITING; Start 06/24/18 at 00:00 Acetaminophen (Tylenol Tab) 650 mg Q6H PRN PO .PAIN 1-3 OR TEMP Last administered on 06/27/18at 06:29; Admin Dose 650 MG; Start 06/24/18 at 00:00 Acetaminophen/ Hydrocodone Bitart ([place] (5/325)) 1 tab Q6H PRN PO .PAIN 4-6 Last administered on 06/27/18at 01:44; Admin Dose 1 TAB; Start 06/24/18 at 00:00 Albuterol/ Ipratropium (Duoneb) 3 ml Q2H RESP THERAPY PRN HHN SHORTNESS OF BREATH; Start 06/24/18 at 00:00 Latanoprost (Xalatan) 1 drop HS BOTH EYES Last administered on 07/01/18at 21:00; Admin Dose 1 DROP; Start 06/24/18 at 21:00 Donepezil HCl (Aricept) 5 mg DAILY PO Last administered on 07/01/18at 08:17; Admin Dose 5 MG; Start 06/24/18 at 09:00 Famotidine (Pepcid) 20 mg DAILY PO Last administered on 07/01/18 08:07; Admin Dose 20 MG; Start 06/24/18 at 09:00 Febuxostat (Uloric) 40 mg QHS PO Last administered on 07/01/18 21:01; Admin Dose 40 MG; Start 06/24/18 at 21:00 Metoprolol Succinate (Toprol Xl) 200 mg DAILY PO Last administered on 07/01/18 08:08; Admin Dose 200 MG; Start 06/24/18 at 09:00 Tamsulosin HCl (Flomax) 0.4 mg BID PO Last administered on 07/01/18 21:01; Admin Dose 0.4 MG; Start 06/24/18 at 09:00 Hydralazine HCl (Apresoline) 10 mg Q6 PRN IV SBP>160 Last administered on 07/02/18 02:50; Admin Dose 10 MG; Start 06/24/18 at 12:00 Nifedipine (Procardia Xl) 90 mg DAILY PO Last administered on 07/01/18 08:08; Admin Dose 90 MG; Start 06/28/18 at 09:00 Dexamethasone (Decadron) 4 mg Q8 IV Last administered on 07/01/18 21:01; Admin Dose 4 MG; Start 06/28/18 at 16:00 Docusate Sodium (Colace) 100 mg DAILY PO Last administered on 07/01/18 08:07; Admin Dose 100 MG; Start 06/30/18 at 09:00 Ferrous Sulfate (Ferrous Sulfate (Ec)) 325 mg TID PO ; Start 07/02/18 at 09:00 Heparin Sodium (Porcine) (Heparin (5000 Units/1ml)) 5,000 unit BID SC Last administered on 07/01/18 08:12; Admin Dose 5,000 UNIT; Start 07/01/18 at 09:00 Aspirin (Halfprin) 81 mg DAILY PO Last administered on 07/01/18 08:07; Admin Dose 81 MG; Start 07/01/18 at 09:00 Atorvastatin Calcium (Lipitor) 20 mg HS PO Last administered on 07/01/18 21:01; Admin Dose 20 MG; Start 06/30/18 at 21:00 Ciprofloxacin (Cipro) 500 mg Q24H PO Last administered on 07/01/18 17:30; Admin Dose 500 MG; Start 07/01/18 at 18:00 Multivit/Ca Carb/ B Cmplx/FA/Prenat ([place]) 1 tab DAILY PO ; Start 07/02/18 at 09:00 TOBY COREA NP July 02, 2018 05:57
[2018-07-02] MEDS: DEXAMETHASONE 4 MG/ML 1 ML INJ IV SCH ×3 (06:00→21:12)
[2018-07-02] MEDS: TAMSULOSIN (SR) 0.4 MG CAP PO SCH ×2 (08:23→21:12)
[2018-07-02] MEDS: NIFEdipine (XL) 90 MG TAB PO SCH (08:23)
[2018-07-02] MEDS: FERROUS SULFATE (EC) 325 MG TAB PO SCH ×3 (08:23→21:12)
[2018-07-02] MEDS: DOCUSATE SODIUM 100 MG CAP PO SCH (08:23)
[2018-07-02] MEDS: METOPROLOL (XL) 100 MG TAB PO SCH (08:23)
[2018-07-02] MEDS: DONEPEZIL 5 MG TAB PO SCH (08:24)
[2018-07-02] MEDS: ASPIRIN (EC) 81 MG TAB PO SCH ×2 (08:24→12:18)
[2018-07-02] MEDS: MULTIVIT/CA CARB/B CMPLX/FA TAB PO SCH (08:24)
[2018-07-02] MEDS: FAMOTIDINE 20 MG TAB PO SCH (08:24)
[2018-07-02] MEDS: HEPARIN 5,000 UNIT/1 ML VIAL SC SCH ×2 (08:24→21:23)
--- NOTE | 2018-07-02 09:21 | PN ---
DATE: 07/02/2018 SUBJECTIVE: The patient is stable, no acute events overnight. The patient's urinary output has been marginal. No other events noted. OBJECTIVE: VITAL SIGNS: Blood pressure is 159/88, respirations 18, pulse 65, temperature 98.4. HEENT: Head is normocephalic. NECK: Supple. HEART: Regular rate. LUNGS: Show diminished breath sounds at the base. ABDOMEN: Soft, nontender to palpation without rebound or guarding. EXTREMITIES: Negative for clubbing, cyanosis. Trace edema. DERMATOLOGIC: No rashes. MUSCULOSKELETAL: No joint effusion. NEUROLOGIC: No change in exam. MEDICATIONS: Reviewed. LABORATORY DATA: From 07/02/2018 was reviewed. ASSESSMENT AND PLAN: 1. Nonoliguric acute kidney injury on top of chronic kidney disease stage IIIB/IV with previous base line creatinine of 2.2 to 2.5 mg/dL. Etiology of acute kidney injury is secondary to hemodynamics, p ossible tubular injury. The patient's renal function has declined, although stabilized in the last 4 8 hours. Please note, the patient does have significant azotemia, which is likely due to hypercatabo lic state and steroids. At this point, we will continue to monitor closely. The patient is showing some mild uremic symptoms. His appetite has been poor. We will continue current treatment plans, zhao pportive care, renally dose all medications. 2. Hypernatremia, improved. 3. Anemia. Continue to monitor hemoglobin and hematocrit levels. We will give Epogen as needed. 4. Mineral bone disorder, monitor calcium and phosphorus levels. 5. Hypertension. Continue current blood pressure regimen. 6. Diastolic heart failure. The patient appears compensated. Continue to monitor. 7. Lung mass with possible metastasis to the brain. The patient is being followed by oncology and p ulmonary. Workup is ongoing. 8. Possible brain mass. The patient remains on Decadron. Continue to monitor. 9. Dyslipidemia. Continue statin therapy. 10. Arrhythmia with history of pacemaker. 11. Systemic inflammatory response syndrome. 12. History of cerebrovascular accident. Dictated By: CAMPOS JOHNSTON DO NR/NTS Conf#: [id number] DID#: [id number] CC: BIBIANA SUH MD; HIEU RENEE MD; YOLANDA ANNE NP;*EndCC*
[2018-07-02] MEDS ORDERED: LIDOCAINE 1% (MPF) 5 ML VIAL ONE (10:22)
--- NOTE | 2018-07-02 13:27 | CONS ---
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 UNFORTUNATELY PT CANNOT HAVE CT HEAD WITH CONTRAST DUE TO RENAL INSUFFICIENCY -HAVE CALLED RAD ONC TO SEE, BUT WILL LIKELY AWAIT PATHOLOGY CONFIRMING MALIGNANCY BEFORE STARTING XRT. Since he has metastatic disease and with multiple comorbidities and ECO, he would not be a candidate for a high risk neurosurgery. -With the patient's comorbidities, the types of palliative chemotherapy are limited. If this is confirmed as lung ca, would recommend testing PDL-1 to see if he is a candidate for immunotherapy which would likely be the only therapy he would tolerate. -He is a chronic tobacco abuser and thus unlikely to have a peg driver mutation but recommend running EGFR, ALK, ROS1, and BRAF. -he has been told by Dr Daniel as well as the family that if this is lung cancer with mets to the brain that he has and incurable cancer but hopefully we can palliate his symptoms with possible immunotherapy. -Radiation to the brain is palliative as well. -await to see if we can confirm dx on cytology from thoracentesis, if non diagnostic will ask IR if possible to biopsy liver lesion or mediastinal LAD Consultation Date/Type/Reason Admit Date/Time June 23, 2018 at 20:27 Initial Consult Date 06/28/18 Requesting Provider: BIBIANA SUH MD Date/Time of Note DATE: 07/02/18 TIME: 13:26 24 HR Interval Summary Free Text/Dictation s/p US guided thoracentesis with only 200cc aspirated IR unable to biopsy lung lesion as no safe window for biopsy could be found despite multiple various positions Exam/Review of Systems Exam Vitals Vital Signs Date Temp Pulse Resp B/P (MAP) Pulse Ox O2 O2 Flow FiO2 Time Delivery Rate 07/02/18 98.0 66 18 160/68 98 Room Air 11:07 (98) Intake and Output 07/01/18 07/01/18 07/02/18 1515:00 23:00 07:00 IntakeIntake Total 250 ml 1200 ml 150 ml OutputOutput Total 600 ml 400 ml 350 ml BalanceBalance -350 ml 800 ml -200 ml Constitutional: frail Results Result Diagram: 07/02/18 0635 07/02/18 0635 Results 24hrs Laboratory Tests Test 07/02/18 06:35 07/02/18 10:20 White Blood Count 10.2 Red Blood Count 2.76 L Hemoglobin 9.0 L Hematocrit 27.2 L Mean Corpuscular Volume 98.6 Mean Corpuscular Hemoglobin 32.6 Mean Corpuscular Hemoglobin Concent 33.1 Red Cell Distribution Width 13.0 Platelet Count 225 Mean Platelet Volume 10.3 Immature Granulocytes % 3.600 H Neutrophils % 85.2 H Lymphocytes % 5.5 L Monocytes % 5.4 Eosinophils % 0.0 Basophils % 0.3 Nucleated Red Blood Cells % 0.0 Immature Granulocytes # 0.370 H Neutrophils # 8.7 H Lymphocytes # 0.6 L Monocytes # 0.6 Eosinophils # 0.0 Basophils # 0.0 Nucleated Red Blood Cells # 0.0 Sodium Level 143 Potassium Level 4.8 Chloride Level 114 H Carbon Dioxide Level 18 L Anion Gap 11 Blood Urea Nitrogen 118 H Creatinine 3.90 H Est Glomerular Filtrat Rate mL/min Glucose Level 160 Calcium Level 9.5 Phosphorus Level 5.2 H Magnesium Level 2.7 H Lactate Dehydrogenase 636 H Body Fluid Type PLEURAL FLUID Body Fluid Volume 200.0 Body Fluid Color YELLOW Body Fluid Appearance HAZY Body Fluid WBC 90 Body Fluid RBC (Auto) < 2000 Body Fluid Polynuclear WBCs (%) 30.0 Body Fluid Mononuclear Cells % Auto 70.0 Body Fluid Glucose 152 Body Fluid Total Protein < 2.0 Body Fluid Lactate Dehydrogenase 171 Medications Medication Current Medications IV Flush (NS 3 ml) 3 ml PER PROTOCOL IV ; Start 06/24/18 at 00:00 Ondansetron HCl (Zofran Inj) 4 mg Q6H PRN IV NAUSEA/VOMITING; Start 06/24/18 at 00:00 Acetaminophen (Tylenol Tab) 650 mg Q6H PRN PO .PAIN 1-3 OR TEMP Last administered on 06/27/18at 06:29; Admin Dose 650 MG; Start 06/24/18 at 00:00 Acetaminophen/ Hydrocodone Bitart ([place] (5/325)) 1 tab Q6H PRN PO .PAIN 4-6 Last administered on 06/27/18at 01:44; Admin Dose 1 TAB; Start 06/24/18 at 00:00 Albuterol/ Ipratropium (Duoneb) 3 ml Q2H RESP THERAPY PRN HHN SHORTNESS OF BREATH; Start 06/24/18 at 00:00 Latanoprost (Xalatan) 1 drop HS BOTH EYES Last administered on 07/01/18 21:00; Admin Dose 1 DROP; Start 06/24/18 at 21:00 Donepezil HCl (Aricept) 5 mg DAILY PO Last administered on 07/02/18 08:24; Admin Dose 5 MG; Start 06/24/18 at 09:00 Famotidine (Pepcid) 20 mg DAILY PO Last administered on 07/02/18 08:24; Admin Dose 20 MG; Start 06/24/18 at 09:00 Febuxostat (Uloric) 40 mg QHS PO Last administered on 07/01/18 21:01; Admin Dose 40 MG; Start 06/24/18 at 21:00 Metoprolol Succinate (Toprol Xl) 200 mg DAILY PO Last administered on 07/02/18 08:23; Admin Dose 200 MG; Start 06/24/18 at 09:00 Tamsulosin HCl (Flomax) 0.4 mg BID PO Last administered on 07/02/18 08:23; Admin Dose 0.4 MG; Start 06/24/18 at 09:00 Hydralazine HCl (Apresoline) 10 mg Q6 PRN IV SBP>160 Last administered on 07/02/18 02:50; Admin Dose 10 MG; Start 06/24/18 at 12:00 Nifedipine (Procardia Xl) 90 mg DAILY PO Last administered on 07/02/18 08:23; Admin Dose 90 MG; Start 06/28/18 at 09:00 Dexamethasone (Decadron) 4 mg Q8 IV Last administered on 07/02/18 06:00; Admin Dose 4 MG; Start 06/28/18 at 16:00 Docusate Sodium (Colace) 100 mg DAILY PO Last administered on 07/02/18 08:23; Admin Dose 100 MG; Start 06/30/18 at 09:00 Ferrous Sulfate (Ferrous Sulfate (Ec)) 325 mg TID PO Last administered on 07/02/18 12:18; Admin Dose 325 MG; Start 07/02/18 at 09:00 Heparin Sodium (Porcine) (Heparin (5000 Units/1ml)) 5,000 unit BID SC Last administered on 07/01/18 08:12; Admin Dose 5,000 UNIT; Start 07/01/18 at 09:00 Aspirin (Halfprin) 81 mg DAILY PO Last administered on 07/02/18 12:18; Admin Dose 81 MG; Start 07/01/18 at 09:00 Atorvastatin Calcium (Lipitor) 20 mg HS PO Last administered on 07/01/18 21:01; Admin Dose 20 MG; Start 06/30/18 at 21:00 Ciprofloxacin (Cipro) 500 mg Q24H PO Last administered on 07/01/18at 17:30; Admin Dose 500 MG; Start 07/01/18 at 18:00 Multivit/Ca Carb/ B Cmplx/FA/Prenat ([place]) 1 tab DAILY PO Last administered on 07/02/18 08:24; Admin Dose 1 TAB; Start 07/02/18 at 09:00 SUE SILVERIO July 02, 2018 13:27
[2018-07-02] MEDS: ACETAMINOPHEN 325 MG TAB PO PRN (13:31)
--- NOTE | 2018-07-02 14:43 | CONS ---
Assessment/Plan Assessment/Plan Hospital Course (Demo Recall) All noted, no acute events, looks comfortable, status post diagnostic thoracentesis in a.m. Microbiology: Blood culture on admission grew E. coli, repeat blood cultures negative, urine culture negative Antimicrobials: Cipro Physical examination: Well-developed elderly man who is in no distress. Head atraumatic normocephalic neck is supple chest rise symmetrical breath sounds diminished bases. Heart: S1-S2. Abdomen soft bowel sounds present. Assessment: 1. E. coli bacteremia unclear etiology 2. 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 Chronic tobacco abuser 4. Coronary artery disease with a history of permanent pacemaker 5. History of CVA Plan: Clinically stable, CT-guided biopsy could not be performed because of difficult access, status post thoracentesis, will await for fluid cultures and analysis, oncology recommendations noted. Consultation Date/Type/Reason Admit Date/Time June 23, 2018 at 20:27 Initial Consult Date 06/28/18 Type of Consult id Requesting Provider: BIBIANA SUH MD Date/Time of Note DATE: 07/02/18 TIME: 14:42 Exam/Review of Systems Exam Vitals Vital Signs Date Temp Pulse Resp B/P (MAP) Pulse Ox O2 O2 Flow FiO2 Time Delivery Rate 07/02/18 68 14:11 07/02/18 98.0 18 160/68 98 Room Air 11:07 (98) Intake and Output 07/01/18 07/01/18 07/02/18 1515:00 23:00 07:00 IntakeIntake Total 250 ml 1200 ml 150 ml OutputOutput Total 600 ml 400 ml 350 ml BalanceBalance -350 ml 800 ml -200 ml Results Result Diagram: 07/02/18 0635 07/02/18 0635 Results 24hrs Laboratory Tests Test 07/02/18 06:35 07/02/18 10:20 White Blood Count 10.2 Red Blood Count 2.76 L Hemoglobin 9.0 L Hematocrit 27.2 L Mean Corpuscular Volume 98.6 Mean Corpuscular Hemoglobin 32.6 Mean Corpuscular Hemoglobin Concent 33.1 Red Cell Distribution Width 13.0 Platelet Count 225 Mean Platelet Volume 10.3 Immature Granulocytes % 3.600 H Neutrophils % 85.2 H Lymphocytes % 5.5 L Monocytes % 5.4 Eosinophils % 0.0 Basophils % 0.3 Nucleated Red Blood Cells % 0.0 Immature Granulocytes # 0.370 H Neutrophils # 8.7 H Lymphocytes # 0.6 L Monocytes # 0.6 Eosinophils # 0.0 Basophils # 0.0 Nucleated Red Blood Cells # 0.0 Sodium Level 143 Potassium Level 4.8 Chloride Level 114 H Carbon Dioxide Level 18 L Anion Gap 11 Blood Urea Nitrogen 118 H Creatinine 3.90 H Est Glomerular Filtrat Rate mL/min Glucose Level 160 Calcium Level 9.5 Phosphorus Level 5.2 H Magnesium Level 2.7 H Lactate Dehydrogenase 636 H Body Fluid Type PLEURAL FLUID Body Fluid Volume 200.0 Body Fluid Color YELLOW Body Fluid Appearance HAZY Body Fluid WBC 90 Body Fluid RBC (Auto) < 2000 Body Fluid Polynuclear WBCs (%) 30.0 Body Fluid Mononuclear Cells % Auto 70.0 Body Fluid Glucose 152 Body Fluid Total Protein < 2.0 Body Fluid Lactate Dehydrogenase 171 Medications Medication Current Medications IV Flush (NS 3 ml) 3 ml PER PROTOCOL IV ; Start 06/24/18 at 00:00 Ondansetron HCl (Zofran Inj) 4 mg Q6H PRN IV NAUSEA/VOMITING; Start 06/24/18 at 00:00 Acetaminophen (Tylenol Tab) 650 mg Q6H PRN PO .PAIN 1-3 OR TEMP Last administered on 07/02/18at 13:31; Admin Dose 650 MG; Start 06/24/18 at 00:00 Acetaminophen/ Hydrocodone Bitart ([place] (5/325)) 1 tab Q6H PRN PO .PAIN 4-6 Last administered on 06/27/18at 01:44; Admin Dose 1 TAB; Start 06/24/18 at 00:00 Albuterol/ Ipratropium (Duoneb) 3 ml Q2H RESP THERAPY PRN HHN SHORTNESS OF BREATH; Start 06/24/18 at 00:00 Latanoprost (Xalatan) 1 drop HS BOTH EYES Last administered on 07/01/18 21:00; Admin Dose 1 DROP; Start 06/24/18 at 21:00 Donepezil HCl (Aricept) 5 mg DAILY PO Last administered on 07/02/18 08:24; Admin Dose 5 MG; Start 06/24/18 at 09:00 Famotidine (Pepcid) 20 mg DAILY PO Last administered on 07/02/18 08:24; Admin Dose 20 MG; Start 06/24/18 at 09:00 Febuxostat (Uloric) 40 mg QHS PO Last administered on 07/01/18 21:01; Admin Dose 40 MG; Start 06/24/18 at 21:00 Metoprolol Succinate (Toprol Xl) 200 mg DAILY PO Last administered on 07/02/18 08:23; Admin Dose 200 MG; Start 06/24/18 at 09:00 Tamsulosin HCl (Flomax) 0.4 mg BID PO Last administered on 07/02/18 08:23; Admin Dose 0.4 MG; Start 06/24/18 at 09:00 Hydralazine HCl (Apresoline) 10 mg Q6 PRN IV SBP>160 Last administered on 07/02/18 02:50; Admin Dose 10 MG; Start 06/24/18 at 12:00 Nifedipine (Procardia Xl) 90 mg DAILY PO Last administered on 07/02/18 08:23; Admin Dose 90 MG; Start 06/28/18 at 09:00 Dexamethasone (Decadron) 4 mg Q8 IV Last administered on 07/02/18 13:31; Admin Dose 4 MG; Start 06/28/18 at 16:00 Docusate Sodium (Colace) 100 mg DAILY PO Last administered on 07/02/18 08:23; Admin Dose 100 MG; Start 06/30/18 at 09:00 Ferrous Sulfate (Ferrous Sulfate (Ec)) 325 mg TID PO Last administered on 07/02/18 12:18; Admin Dose 325 MG; Start 07/02/18 at 09:00 Heparin Sodium (Porcine) (Heparin (5000 Units/1ml)) 5,000 unit BID SC Last adm inistered on 07/01/18 08:12; Admin Dose 5,000 UNIT; Start 07/01/18 at 09:00 Aspirin (Halfprin) 81 mg DAILY PO Last administered on 07/02/18 12:18; Admin Dose 81 MG; Start 07/01/18 at 09:00 Atorvastatin Calcium (Lipitor) 20 mg HS PO Last administered on 07/01/18 21:01; Admin Dose 20 MG; Start 06/30/18 at 21:00 Ciprofloxacin (Cipro) 500 mg Q24H PO Last administered on 5/14/19at 17:30; Admin Dose 500 MG; Start 07/01/18 at 18:00 Multivit/Ca Carb/ B Cmplx/FA/Prenat ([place]) 1 tab DAILY PO Last administered on 07/02/18at 08:24; Admin Dose 1 TAB; Start 07/02/18 at 09:00 YOLANDA ANNE NP July 02, 2018 14:43
--- NOTE | 2018-07-02 15:01 | CONS ---
Consult Date/Type/Reason Admit Date/Time June 23, 2018 at 20:27 Initial Consult Date 06/28/18 Type of Consult Pulmonary Requesting Provider: BIBIANA SUH MD Date/Time of Note DATE: 07/02/18 TIME: 15:01 Subjective Patient remains comfortable following thoracentesis 200 cc. Objective Vital Signs Date Temp Pulse Resp B/P (MAP) Pulse Ox O2 O2 Flow FiO2 Time Delivery Rate 07/02/18 68 14:11 07/02/18 98.0 18 160/68 98 Room Air 11:07 (98) Intake and Output 07/01/18 07/01/18 07/02/18 1414:59 22:59 06:59 IntakeIntake Total 250 ml 1200 ml 150 ml OutputOutput Total 600 ml 400 ml 350 ml BalanceBalance -350 ml 800 ml -200 ml Exam GENERAL: VITAL SIGNS: per chart NECK: Supple. No JVD or lymphadenopathy. CARDIAC EXAM: S1, S2. No added sounds or murmurs. CHEST: Diminished air entry bilaterally ABDOMEN: Soft, nontender. No guarding or rebound. EXTREMITIES: No cyanosis, clubbing or edema. NEUROLOGIC: Generalized weakness. No focal deficits. Results/Medications Result Diagram: 07/02/18 0635 07/02/18 0635 Results 24 hrs Laboratory Tests Test 07/02/18 06:35 07/02/18 10:20 White Blood Count 10.2 Red Blood Count 2.76 L Hemoglobin 9.0 L Hematocrit 27.2 L Mean Corpuscular Volume 98.6 Mean Corpuscular Hemoglobin 32.6 Mean Corpuscular Hemoglobin Concent 33.1 Red Cell Distribution Width 13.0 Platelet Count 225 Mean Platelet Volume 10.3 Immature Granulocytes % 3.600 H Neutrophils % 85.2 H Lymphocytes % 5.5 L Monocytes % 5.4 Eosinophils % 0.0 Basophils % 0.3 Nucleated Red Blood Cells % 0.0 Immature Granulocytes # 0.370 H Neutrophils # 8.7 H Lymphocytes # 0.6 L Monocytes # 0.6 Eosinophils # 0.0 Basophils # 0.0 Nucleated Red Blood Cells # 0.0 Sodium Level 143 Potassium Level 4.8 Chloride Level 114 H Carbon Dioxide Level 18 L Anion Gap 11 Blood Urea Nitrogen 118 H Creatinine 3.90 H Est Glomerular Filtrat Rate mL/min Glucose Level 160 Calcium Level 9.5 Phosphorus Level 5.2 H Magnesium Level 2.7 H Lactate Dehydrogenase 636 H Body Fluid Type PLEURAL FLUID Body Fluid Volume 200.0 Body Fluid Color YELLOW Body Fluid Appearance HAZY Body Fluid WBC 90 Body Fluid RBC (Auto) < 2000 Body Fluid Polynuclear WBCs (%) 30.0 Body Fluid Mononuclear Cells % Auto 70.0 Body Fluid Glucose 152 Body Fluid Total Protein < 2.0 Body Fluid Lactate Dehydrogenase 171 Medications Current Medications IV Flush (NS 3 ml) 3 ml PER PROTOCOL IV ; Start 06/24/18 at 00:00 Ondansetron HCl (Zofran Inj) 4 mg Q6H PRN IV NAUSEA/VOMITING; Start 06/24/18 at 00:00 Acetaminophen (Tylenol Tab) 650 mg Q6H PRN PO .PAIN 1-3 OR TEMP Last admi nistered on 07/02/18 13:31; Admin Dose 650 MG; Start 06/24/18 at 00:00 Acetaminophen/ Hydrocodone Bitart ([place] (5/325)) 1 tab Q6H PRN PO .PAIN 4-6 Last administered on 06/27/18 01:44; Admin Dose 1 TAB; Start 06/24/18 at 00:00 Albuterol/ Ipratropium (Duoneb) 3 ml Q2H RESP THERAPY PRN HHN SHORTNESS OF BREATH; Start 06/24/18 at 00:00 Latanoprost (Xalatan) 1 drop HS BOTH EYES Last administered on 07/01/18 21:00; Admin Dose 1 DROP; Start 06/24/18 at 21:00 Donepezil HCl (Aricept) 5 mg DAILY PO Last administered on 07/02/18 08:24; Admin Dose 5 MG; Start 06/24/18 at 09:00 Famotidine (Pepcid) 20 mg DAILY PO Last administered on 07/02/18 08:24; Admin Dose 20 MG; Start 06/24/18 at 09:00 Febuxostat (Uloric) 40 mg QHS PO Last administered on 07/01/18 21:01; Admin Dose 40 MG; Start 06/24/18 at 21:00 Metoprolol Succinate (Toprol Xl) 200 mg DAILY PO Last administered on 07/02/18 08:23; Admin Dose 200 MG; Start 06/24/18 at 09:00 Tamsulosin HCl (Flomax) 0.4 mg BID PO Last administered on 07/02/18 08:23; Admin Dose 0.4 MG; Start 06/24/18 at 09:00 Hydralazine HCl (Apresoline) 10 mg Q6 PRN IV SBP>160 Last administered on 07/02/18 02:50; Admin Dose 10 MG; Start 06/24/18 at 12:00 Nifedipine (Procardia Xl) 90 mg DAILY PO Last administered on 07/02/18 08:23; Admin Dose 90 MG; Start 06/28/18 at 09:00 Dexamethasone (Decadron) 4 mg Q8 IV Last administered on 07/02/18 13:31; Admin Dose 4 MG; Start 06/28/18 at 16:00 Docusate Sodium (Colace) 100 mg DAILY PO Last administered on 07/02/18 08:23; Admin Dose 100 MG; Start 06/30/18 at 09:00 Ferrous Sulfate (Ferrous Sulfate (Ec)) 325 mg TID PO Last administered on 07/02/18 12:18; Admin Dose 325 MG; Start 07/02/18 at 09:00 Heparin Sodium (Porcine) (Heparin (5000 Units/1ml)) 5,000 unit BID SC Last administered on 07/01/18 08:12; Admin Dose 5,000 UNIT; Start 07/01/18 at 09:00 Aspirin (Halfprin) 81 mg DAILY PO Last administered on 07/02/18 12:18; Admin Dose 81 MG; Start 07/01/18 at 09:00 Atorvastatin Calcium (Lipitor) 20 mg HS PO Last administered on 07/01/18 21:01; Admin Dose 20 MG; Start 06/30/18 at 21:00 Ciprofloxacin (Cipro) 500 mg Q24H PO Last administered on 07/01/18 17:30; Admin Dose 500 MG; Start 07/01/18 at 18:00 Multivit/Ca Carb/ B Cmplx/FA/Prenat ([place]) 1 tab DAILY PO Last administered on 07/02/18 08:24; Admin Dose 1 TAB; Start 07/02/18 at 09:00 Assessment/Plan Hospital Course (Demo Recall) MP: 1. 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 CT-guided biopsy today await results Radiology findings noted. No safe window for biopsy. Lesion is also too peripheral for bronchoscopy. Status post thoracentesis 200 cc from right lung, will await cytology. 2. 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 HATTIE LARA MD, [facility] July 02, 2018 15:01
[2018-07-02] MEDS: CIPROFLOXACIN 500 MG TAB PO SCH (17:13)
[2018-07-02] MEDS: ATORVASTATIN 20 MG TAB PO SCH (21:12)
[2018-07-02] MEDS: FEBUXOSTAT 40 MG TABLET PO SCH (21:12)
[2018-07-02] MEDS: LATANOPROST 0.005% 2.5 ML OPH BOTH EYES SCH (21:13)
[2018-07-03] VITALS (11 sets, daily range): BP systolic 144–172; BP diastolic 63–81; PULSE 62–88; RESP 18–20
[2018-07-03] MEDS: hydrALAzine 20 MG INJ IV PRN ×3 (00:16→21:29)
--- NOTE | 2018-07-03 02:46 | PN ---
Date/Time of Note Date/Time of Note DATE: 07/02/18 TIME: 22:42 Assessment/Plan Lines/Catheters IV Catheter Type (from [facility]): Peripheral IV Assessment/Plan Chief Complaint/Hosp Course 1. Left buttock abscess; recurrent versus unresolved; history of multiple abscesses in the same area; CT:Chronic left perirectal abscess with foci of air measures 4.0 x 3.0 x 1.7 cm slightly decreased in size compared to 2017 CT with skin track extending to the medial aspect of left gluteal region. -Wound culture -Spontaneously draining > heating pad to promote drainage -eventual colorectal surgeon evaluation 2. 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 CKD -Limit nephrotoxic meds -Renally dose meds -Per renal 4. Hypertension: -Encourage weight loss -Medical management 5. Leukocytosis: Afebrile; currently on dexamethasone -Monitor 6. Normocytic normochromic anemia: -Monitor and transfuse as needed 7. Hypernatremia -Judicious fluid correction 8. Bacteremia: -Antibiotics per sensitivities 9. Small bilateral pleural effusions: -Fluid management Thank you, Late entry 07/02 Subjective 24 Hr Interval Summary No recent fevers, chills, congested cough, myalgias, labored breathing, shortness of breath, nausea, vomiting, diarrhea, seizure, rash. Labs noted. Exam/Review of Systems Vital Signs Vitals Vital Signs Date Temp Pulse Resp B/P (MAP) Pulse Ox O2 O2 Flow FiO2 Time Delivery Rate 07/03/18 98.4 69 18 160/73 98 00:00 (102) 07/02/18 Room Air 11:07 Intake and Output 07/02/18 07/02/18 07/03/18 1515:00 23:00 07:00 IntakeIntake Total 720 ml OutputOutput Total 200 ml 680 ml BalanceBalance -200 ml 40 ml Exam Free Text/Dictation Constitutional: alert, oriented Psych: nl mood/affect; No anxiety Head: normocephalic, atraumatic Eyes: nl conjunctiva, EOMI, nl lids, nl sclera ENMT: nl external ears & nose, nl lips & teeth, mucosa pink and moist, other (Nose: Multiple lesions) Neck: non-tender; No jvd Respiratory: normal air movement; No labored breathing Cardiovascular: regular rate and rhythm, nl pulses; No edema Gastrointestinal: soft, non-tender; No distended Musculoskeletal: nl extremities to inspection; No nl gait and stance (Right-sided weakness) Extremities: normal pulses; No edema Neurological: other (Right-sided weakness); No nl speech (Minimal slurred), No nl strength Skin: rash or lesions (Nose: Multiple lesions; mid back: Lesions (nontender, soft)), other (Left buttock: Small opening with purulent drainage, 2 mm depth, with surrounding induration) Results Result Diagram: 07/02/18 0635 07/02/18 0635 REGULO JACQUES MD July 03, 2018 02:46
[2018-07-03] MEDS: DEXAMETHASONE 4 MG/ML 1 ML INJ IV SCH ×3 (05:29→23:46)
[2018-07-03] MEDS: ACETAMINOPHEN 325 MG TAB PO PRN (06:46)
[2018-07-03] MEDS: HYDROCODONE/APAP (5/325) TAB PO PRN ×2 (08:17→18:57)
--- NOTE | 2018-07-03 08:40 | PN ---
DATE: 07/03/2018 SUBJECTIVE: The patient is stable. The patient has poor p.o. intake. No other acute events noted. No hemoptysis, hematemesis or hematochezia. OBJECTIVE: VITAL SIGNS: Blood pressure is 161/81, respirations 20, pulse 69, temperature 98.4. HEENT: Head is normocephalic. NECK: Supple. HEART: Regular rate. LUNGS: Show diminished breath sounds at the base. ABDOMEN: Soft, nontender to palpation. No rebound or guarding. EXTREMITIES: Negative for clubbing, cyanosis, no edema. DERMATOLOGIC: No rashes. MUSCULOSKELETAL: No joint effusion. NEUROLOGIC: No change in exam. MEDICATIONS: Reviewed. LABORATORY DATA: Has been reviewed. ASSESSMENT AND PLAN: 1. Nonoliguric acute kidney injury on top of chronic kidney disease stage IIIB/IV with previous base line creatinine 2.2 to 2.5 mg/dL. Etiology is secondary to hemodynamics, possible tubular injury. T he patient's renal function appears to be improving over the last 72 hours. The patient does have si gnificant azotemia, in part due to steroid use. At this point, would continue current treatment plan s, supportive care, renally dose all meds, no immediate need for renal replacement therapy. Please n ote the patient does have some mild uremic symptoms; will monitor closely. 2. Hypernatremia. Continue to encourage free water intake. 3. Anemia. Continue to monitor hemoglobin and hematocrit levels. Give Epogen as needed. 4. Mineral bone disorder, monitor calcium and phosphorus levels. 5. Hypertension. Continue current blood pressure regimen. 6. History of diastolic heart failure. The patient appears compensated. Continue to monitor. 7. Lung mass with possible mets to brain. The patient is unable to have CT-guided biopsy, status po st thoracentesis. Follow up cytology. Follow up with oncology. The patient remains on Decadron. 8. Dyslipidemia. Continue statin therapy. 9. Arrhythmia, history of pacemaker. 10. Gluteal abscess. Continue to monitor. Follow up with general surgery. 11. History of cerebrovascular accident. 12. Escherichia coli bacteremia. Continue current antibiotic therapy. Follow up with infectious di flores. Dictated By: CAMPOS BAIN/RINKU Conf#: [id number] DID#: [id number] CC: HIEU RENEE MD;*[facility]*
[2018-07-03] MEDS: FERROUS SULFATE (EC) 325 MG TAB PO SCH ×3 (08:53→22:09)
[2018-07-03] MEDS: DOCUSATE SODIUM 100 MG CAP PO SCH (08:53)
[2018-07-03] MEDS: TAMSULOSIN (SR) 0.4 MG CAP PO SCH ×2 (08:53→22:09)
[2018-07-03] MEDS: NIFEdipine (XL) 90 MG TAB PO SCH (08:53)
[2018-07-03] MEDS: METOPROLOL (XL) 100 MG TAB PO SCH (08:53)
[2018-07-03] MEDS: MULTIVIT/CA CARB/B CMPLX/FA TAB PO SCH (08:53)
[2018-07-03] MEDS: DONEPEZIL 5 MG TAB PO SCH (08:53)
[2018-07-03] MEDS: ASPIRIN (EC) 81 MG TAB PO SCH (08:53)
[2018-07-03] MEDS: FAMOTIDINE 20 MG TAB PO SCH (08:53)
[2018-07-03] MEDS: HEPARIN 5,000 UNIT/1 ML VIAL SC SCH ×2 (09:22→22:10)
--- NOTE | 2018-07-03 11:28 | PN ---
Date/Time of Note Date/Time of Note DATE: 07/03/18 TIME: 11:27 Assessment/Plan VTE Prophylaxis Risk score (from Nsg)>0 risk: 6 SCD applied (from Nsg): Yes Pharmacological prophylaxis: heparin Lines/Catheters IV Catheter Type (from [facility]): Peripheral IV Assessment/Plan Hospital Course SUBJECTIVE: Complaints of poor appetite. OBJECTIVE: Physical Exam General: Adequately build 83 year-old male lying in bed in no apparent distress. HEENT: Normocephalic, atraumatic. Eyes: Anicteric sclerae, conjunctivae clear. ENT: Nasal septum midline, oral mucosa moist. Neck supple, no JVD noticed. Respiratory: Bilaterally diminished breath sounds. No use of accessory muscles of respiration. No adventitious breath sounds. Cardiovascular: S1, S2 heard. Regular rate and rhythm. Abdomen: Obese and distended. Bowel sounds positive in all 4 quadrants. Genitourinary: Deferred. Extremities: No cyanosis, no clubbing, no edema. Peripheral pulses palpable. Neurologic: Cranial nerves II through XII grossly intact. The patient is awake, alert, and oriented. Labs & Vitals per chart ASSESSMENT & PLAN 83-year-old male with comorbidities including hypertension, chronic kidney disease, permanent pacemaker, stroke, CAD, peripheral artery disease, and remote history of pericardial effusion status post pericardiocentesis in December 2012. The patient came to the emergency room with chief complaint of headache and dizziness. CT scan of the brain was showing moderate vasogenic edema within the left thalamus with an underlying 11 mm lesion. The patient was admitted to [facility]up health system setting for further treatment and evaluation. 1. Brain mass with underlying cerebral edema. -Status post evaluation by neurosurgery. -To rule out systemic malignancy. -Continue Decadron. 2. Posterolateral right upper lobe parenchymal lung mass concerning for neoplasm. -Suspected metastatic lung cancer. -CT-guided biopsy could not be performed because of difficult access. -S/P thoracentesis for obtaining pleural fluid for cytology on 07/02/2018. -Being followed by oncology and pulmonology. 3. Acute on chronic kidney disease -Being followed by nephrology. -Use nephrotoxic drugs with caution. 4. Hypertension. -Continue antihypertensives. 5. History of CVA. -Continue aspirin and statins. 6. Normocytic anemia. -Most probably anemia of chronic disease -Monitor H&H closely. 7. History of SVT. -Status post interrogation of pacemaker upon recent admission. 8. E. coli bacteremia. -On appropriate antimicrobials. 9. Prostate hypertrophy. -Continue Flomax. 10. Left gluteal abscess. -Surgical consult ongoing. -Spontaneously draining. -Growing polymicrobials. 11. Fluids, electrolytes, and nutrition. -Low-cholesterol diet. 12. DVT prophylaxis. -Subcutaneous heparin. 13. Plan. -Continue inpatient monitoring. -S/P thoracentesis for obtaining pleural fluid for cytology. -Await pathology results. -May be moved to Med/Surg. The patient was seen in collaboration with Dr. Hi. Result Diagram: 07/03/1819 07/03/1819 Results 24hrs Laboratory Tests Test 07/03/18 06:19 White Blood Count 14.0 #H Red Blood Count 2.79 L Hemoglobin 9.0 L Hematocrit 27.3 L Mean Corpuscular Volume 97.8 Mean Corpuscular Hemoglobin 32.3 Mean Corpuscular Hemoglobin Concent 33.0 Red Cell Distribution Width 13.0 Platelet Count 258 Mean Platelet Volume 10.3 Immature Granulocytes % 3.300 H Neutrophils % 85.8 H Lymphocytes % 5.6 L Monocytes % 5.1 Eosinophils % 0.0 Basophils % 0.2 Nucleated Red Blood Cells % 0.1 H Immature Granulocytes # 0.460 H Neutrophils # 12.0 H Lymphocytes # 0.8 Monocytes # 0.7 Eosinophils # 0.0 Basophils # 0.0 Nucleated Red Blood Cells # 0.0 Sodium Level 145 H Potassium Level 5.0 Chloride Level 118 H Carbon Dioxide Level 18 L Anion Gap 9 Blood Urea Nitrogen 119 H Creatinine 3.38 H Est Glomerular Filtrat Rate mL/min Glucose Level 147 Calcium Level 9.7 Phosphorus Level 5.8 H Magnesium Level 2.9 H Exam/Review of Systems Exam Vitals Vital Signs Date Temp Pulse Resp B/P (MAP) Pulse Ox O2 O2 Flow FiO2 Time Delivery Rate 07/03/18 98.5 62 18 144/63 96 Room Air 11:07 (90) Intake and Output 07/02/18 07/02/18 07/03/18 1515:00 23:00 07:00 IntakeIntake Total 720 ml OutputOutput Total 200 ml 680 ml BalanceBalance -200 ml 40 ml Results Results 24hrs Laboratory Tests Test 07/03/18 06:19 White Blood Count 14.0 #H Red Blood Count 2.79 L Hemoglobin 9.0 L Hematocrit 27.3 L Mean Corpuscular Volume 97.8 Mean Corpuscular Hemoglobin 32.3 Mean Corpuscular Hemoglobin Concent 33.0 Red Cell Distribution Width 13.0 Platelet Count 258 Mean Platelet Volume 10.3 Immature Granulocytes % 3.300 H Neutrophils % 85.8 H Lymphocytes % 5.6 L Monocytes % 5.1 Eosinophils % 0.0 Basophils % 0.2 Nucleated Red Blood Cells % 0.1 H Immature Granulocytes # 0.460 H Neutrophils # 12.0 H Lymphocytes # 0.8 Monocytes # 0.7 Eosinophils # 0.0 Basophils # 0.0 Nucleated Red Blood Cells # 0.0 Sodium Level 145 H Potassium Level 5.0 Chloride Level 118 H Carbon Dioxide Level 18 L Anion Gap 9 Blood Urea Nitrogen 119 H Creatinine 3.38 H Est Glomerular Filtrat Rate mL/min Glucose Level 147 Calcium Level 9.7 Phosphorus Level 5.8 H Magnesium Level 2.9 H Medications Medication Current Medications IV Flush (NS 3 ml) 3 ml PER PROTOCOL IV ; Start 06/24/18 at 00:00 Ondansetron HCl (Zofran Inj) 4 mg Q6H PRN IV NAUSEA/VOMITING; Start 06/24/18 at 00:00 Acetaminophen (Tylenol Tab) 650 mg Q6H PRN PO .PAIN 1-3 OR TEMP Last administered on 07/03/18at 06:46; Admin Dose 650 MG; Start 06/24/18 at 00:00 Acetaminophen/ Hydrocodone Bitart ([place] (5/325)) 1 tab Q6H PRN PO .PAIN 4-6 Last administered on 07/03/18at 08:17; Admin Dose 1 TAB; Start 06/24/18 at 00:00 Albuterol/ Ipratropium (Duoneb) 3 ml Q2H RESP THERAPY PRN HHN SHORTNESS OF BREATH; Start 06/24/18 at 00:00 Latanoprost (Xalatan) 1 drop HS BOTH EYES Last administered on 07/02/18at 21:13; Admin Dose 1 DROP; Start 06/24/18 at 21:00 Donepezil HCl (Aricept) 5 mg DAILY PO Last administered on 07/03/18at 08:53; Admin Dose 5 MG; Start 06/24/18 at 09:00 Famotidine (Pepcid) 20 mg DAILY PO Last administered on 07/03/18 08:53; Admin Dose 20 MG; Start 06/24/18 at 09:00 Febuxostat (Uloric) 40 mg QHS PO Last administered on 07/02/18 21:12; Admin Dose 40 MG; Start 06/24/18 at 21:00 Metoprolol Succinate (Toprol Xl) 200 mg DAILY PO Last administered on 07/03/18 08:53; Admin Dose 200 MG; Start 06/24/18 at 09:00 Tamsulosin HCl (Flomax) 0.4 mg BID PO Last administered on 07/03/18 08:53; Admin Dose 0.4 MG; Start 06/24/18 at 09:00 Hydralazine HCl (Apresoline) 10 mg Q6 PRN IV SBP>160 Last administered on 07/03/18 00:16; Admin Dose 10 MG; Start 06/24/18 at 12:00 Nifedipine (Procardia Xl) 90 mg DAILY PO Last administered on 07/03/18 08:53; Admin Dose 90 MG; Start 06/28/18 at 09:00 Dexamethasone (Decadron) 4 mg Q8 IV Last administered on 07/03/18 05:29; Admin Dose 4 MG; Start 06/28/18 at 16:00 Docusate Sodium (Colace) 100 mg DAILY PO Last administered on 07/03/18 08:53; Admin Dose 100 MG; Start 06/30/18 at 09:00 Ferrous Sulfate (Ferrous Sulfate (Ec)) 325 mg TID PO Last administered on 07/03/18 08:53; Admin Dose 325 MG; Start 07/02/18 at 09:00 Heparin Sodium (Porcine) (Heparin (5000 Units/1ml)) 5,000 unit BID SC Last administered on 07/03/18 09:22; Admin Dose 5,000 UNIT; Start 07/01/18 at 09:00 Aspirin (Halfprin) 81 mg DAILY PO Last administered on 07/03/18 08:53; Admin Dose 81 MG; Start 07/01/18 at 09:00 Atorvastatin Calcium (Lipitor) 20 mg HS PO Last administered on 07/02/18 21:12; Admin Dose 20 MG; Start 06/30/18 at 21:00 Multivit/Ca Carb/ B Cmplx/FA/Prenat ([place]) 1 tab DAILY PO Last administered on 07/03/18at 08:53; Admin Dose 1 TAB; Start 07/02/18 at 09:00 Piperacillin Sod/ Tazobactam Sod 100 ml @ 200 mls/hr Q8 IVPB ; Start 07/03/18 at 14:00; Status UNV Vancomycin HCl (Vanco Iv Per Pharmacy) VANCOMYCIN PER PHARMACY PER PROTOCOL XX ; Start 07/03/18 at 11:30; Status UNV TOBY COREA NP July 03, 2018 11:28
[2018-07-03] MEDS ORDERED: VANCOMYCIN IV PER PHARMACY XX SCH (11:30)
[2018-07-03] MEDS ORDERED: BISACODYL (EC) 5 MG TAB PO PRN (12:00)
--- NOTE | 2018-07-03 12:03 | CONS ---
Consult Date/Type/Reason Admit Date/Time June 23, 2018 at 20:27 Initial Consult Date 06/28/18 Type of Consult Pulmonary Requesting Provider: BIBIANA SUH MD Date/Time of Note DATE: 07/03/18 TIME: 12:00 Subjective Condition remains largely unchanged. Objective Vital Signs Date Temp Pulse Resp B/P (MAP) Pulse Ox O2 O2 Flow FiO2 Time Delivery Rate 07/03/18 98.5 62 18 144/63 96 Room Air 11:07 (90) Intake and Output 07/02/18 07/02/18 07/03/18 1515:00 23:00 07:00 IntakeIntake Total 720 ml OutputOutput Total 200 ml 680 ml BalanceBalance -200 ml 40 ml Exam GENERAL: Elderly gentleman in room air. VITAL SIGNS: per chart NECK: Supple. No JVD or lymphadenopathy. CARDIAC EXAM: S1, S2. No added sounds or murmurs. CHEST: Diminished air entry bilaterally ABDOMEN: Soft, nontender. No guarding or rebound. EXTREMITIES: No cyanosis, clubbing or edema. NEUROLOGIC: Generalized weakness. No focal deficits. Results/Medications Result Diagram: 07/03/1819 07/03/1819 Results 24 hrs Laboratory Tests Test 07/03/18 06:19 White Blood Count 14.0 #H Red Blood Count 2.79 L Hemoglobin 9.0 L Hematocrit 27.3 L Mean Corpuscular Volume 97.8 Mean Corpuscular Hemoglobin 32.3 Mean Corpuscular Hemoglobin Concent 33.0 Red Cell Distribution Width 13.0 Platelet Count 258 Mean Platelet Volume 10.3 Immature Granulocytes % 3.300 H Neutrophils % 85.8 H Lymphocytes % 5.6 L Monocytes % 5.1 Eosinophils % 0.0 Basophils % 0.2 Nucleated Red Blood Cells % 0.1 H Immature Granulocytes # 0.460 H Neutrophils # 12.0 H Lymphocytes # 0.8 Monocytes # 0.7 Eosinophils # 0.0 Basophils # 0.0 Nucleated Red Blood Cells # 0.0 Sodium Level 145 H Potassium Level 5.0 Chloride Level 118 H Carbon Dioxide Level 18 L Anion Gap 9 Blood Urea Nitrogen 119 H Creatinine 3.38 H Est Glomerular Filtrat Rate mL/min Glucose Level 147 Calcium Level 9.7 Phosphorus Level 5.8 H Magnesium Level 2.9 H Medications Current Medications IV Flush (NS 3 ml) 3 ml PER PROTOCOL IV ; Start 06/24/18 at 00:00 Ondansetron HCl (Zofran Inj) 4 mg Q6H PRN IV NAUSEA/VOMITING; Start 06/24/18 at 00:00 Acetaminophen (Tylenol Tab) 650 mg Q6H PRN PO .PAIN 1-3 OR TEMP Last administered on 07/03/18 06:46; Admin Dose 650 MG; Start 06/24/18 at 00:00 Acetaminophen/ Hydrocodone Bitart ([place] (5/325)) 1 tab Q6H PRN PO .PAIN 4-6 Last administered on 07/03/18 08:17; Admin Dose 1 TAB; Start 06/24/18 at 00:00 Albuterol/ Ipratropium (Duoneb) 3 ml Q2H RESP THERAPY PRN HHN SHORTNESS OF ANNIE TH; Start 06/24/18 at 00:00 Latanoprost (Xalatan) 1 drop HS BOTH EYES Last administered on 07/02/18 21:13; Admin Dose 1 DROP; Start 06/24/18 at 21:00 Donepezil HCl (Aricept) 5 mg DAILY PO Last administered on 07/03/18 08:53; Admin Dose 5 MG; Start 06/24/18 at 09:00 Famotidine (Pepcid) 20 mg DAILY PO Last administered on 07/03/18 08:53; Admin Dose 20 MG; Start 06/24/18 at 09:00 Febuxostat (Uloric) 40 mg QHS PO Last administered on 07/02/18 21:12; Admin Dose 40 MG; Start 06/24/18 at 21:00 Metoprolol Succinate (Toprol Xl) 200 mg DAILY PO Last administered on 07/03/18 08:53; Admin Dose 200 MG; Start 06/24/18 at 09:00 Tamsulosin HCl (Flomax) 0.4 mg BID PO Last administered on 07/03/18 08:53; Admin Dose 0.4 MG; Start 06/24/18 at 09:00 Hydralazine HCl (Apresoline) 10 mg Q6 PRN IV SBP>160 Last administered on 07/03/18 00:16; Admin Dose 10 MG; Start 06/24/18 at 12:00 Nifedipine (Procardia Xl) 90 mg DAILY PO Last administered on 07/03/18 08:53; Admin Dose 90 MG; Start 06/28/18 at 09:00 Dexamethasone (Decadron) 4 mg Q8 IV Last administered on 07/03/18 05:29; Admin Dose 4 MG; Start 06/28/18 at 16:00 Docusate Sodium (Colace) 100 mg DAILY PO Last administered on 07/03/18 08:53; Admin Dose 100 MG; Start 06/30/18 at 09:00 Ferrous Sulfate (Ferrous Sulfate (Ec)) 325 mg TID PO Last administered on 07/03/18 08:53; Admin Dose 325 MG; Start 07/02/18 at 09:00 Heparin Sodium (Porcine) (Heparin (5000 Units/1ml)) 5,000 unit BID SC Last administered on 07/03/18 09:22; Admin Dose 5,000 UNIT; Start 07/01/18 at 09:00 Aspirin (Halfprin) 81 mg DAILY PO Last administered on 07/03/18 08:53; Admin Dose 81 MG; Start 07/01/18 at 09:00 Atorvastatin Calcium (Lipitor) 20 mg HS PO Last administered on 07/02/18 21:12; Admin Dose 20 MG; Start 06/30/18 at 21:00 Multivit/Ca Carb/ B Cmplx/FA/Prenat ([place]) 1 tab DAILY PO Last administered on 07/03/18 08:53; Admin Dose 1 TAB; Start 07/02/18 at 09:00 Piperacillin Sod/ Tazobactam Sod 100 ml @ 200 mls/hr Q8 IVPB ; Start 07/03/18 at 14:00; Status UNV Vancomycin HCl (Vanco Iv Per Pharmacy) VANCOMYCIN PER PHARMACY PER PROTOCOL XX ; Start 07/03/18 at 11:30; Status UNV Polyethylene Glycol (Miralax) 17 gm BID PO ; Start 07/03/18 at 21:00; Status UNV Bisacodyl (Dulcolax) 10 mg DAILY PRN PO CONSTIPATION; Start 07/03/18 at 12:00; Status UNV Assessment/Plan Hospital Course (Demo Recall) MP: 1. 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 CT-guided biopsy today await results Radiology findings noted. No safe window for biopsy. Lesion is also too peripheral for bronchoscopy. Cytology for malignancy is negative. Limited safe options for pulmonary tissue diagnosis. Patient would require thoracic surgery which he does not appears stable to proceed with. 2. Continue dexamethasone for [employer] lesion. Consider family conference to discuss goals of care HATTIE LARA MD, [facility] July 03, 2018 12:03
[2018-07-03] MEDS: PIPER-TAZO 2.25 GM (PMX) 50 ML IVPB SCH ×3 (12:40→23:46)
--- NOTE | 2018-07-03 13:38 | CONS ---
Assessment/Plan Assessment/Plan Hospital Course (Demo Recall) Patient is in no distress looks comfortable denies pain. Microbiology: Blood culture on admission grew E. coli, repeat blood cultures negative, urine culture negative. Left buttock abscess drainage grew enterococcus and staph species also diphtheroids Antimicrobials: Cathy Brice Physical examination: Well-developed elderly man who is in no distress. Head atraumatic normocephalic neck is supple chest rise symmetrical breath sounds diminished bases. Heart: S1-S2. Abdomen soft bowel sounds present. Assessment: 1. E. coli bacteremia unclear etiology 2. 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 Chronic tobacco abuser 4. Coronary artery disease with a history of permanent pacemaker 5. History of CVA Plan: Clinically stable, CT-guided biopsy could not be performed because of difficult access, status post thoracentesis yesterday, will await for fluid cultures and analysis, oncology/surgical recommendations Consultation Date/Type/Reason Admit Date/Time June 23, 2018 at 20:27 Initial Consult Date 06/28/18 Type of Consult id Requesting Provider: BIBIANA SUH MD Date/Time of Note DATE: 07/03/18 TIME: 13:36 Exam/Review of Systems Exam Vitals Vital Signs Date Temp Pulse Resp B/P (MAP) Pulse Ox O2 O2 Flow FiO2 Time Delivery Rate 07/03/18 65 12:08 07/03/18 98.5 18 144/63 96 Room Air 11:07 (90) Intake and Output 07/02/18 07/02/18 07/03/18 1515:00 23:00 07:00 IntakeIntake Total 720 ml OutputOutput Total 200 ml 680 ml BalanceBalance -200 ml 40 ml Results Result Diagram: 07/03/1861807/03/1819 Results 24hrs Laboratory Tests Test 07/03/18 06:19 White Blood Count 14.0 #H Red Blood Count 2.79 L Hemoglobin 9.0 L Hematocrit 27.3 L Mean Corpuscular Volume 97.8 Mean Corpuscular Hemoglobin 32.3 Mean Corpuscular Hemoglobin Concent 33.0 Red Cell Distribution Width 13.0 Platelet Count 258 Mean Platelet Volume 10.3 Immature Granulocytes % 3.300 H Neutrophils % 85.8 H Lymphocytes % 5.6 L Monocytes % 5.1 Eosinophils % 0.0 Basophils % 0.2 Nucleated Red Blood Cells % 0.1 H Immature Granulocytes # 0.460 H Neutrophils # 12.0 H Lymphocytes # 0.8 Monocytes # 0.7 Eosinophils # 0.0 Basophils # 0.0 Nucleated Red Blood Cells # 0.0 Sodium Level 145 H Potassium Level 5.0 Chloride Level 118 H Carbon Dioxide Level 18 L Anion Gap 9 Blood Urea Nitrogen 119 H Creatinine 3.38 H Est Glomerular Filtrat Rate mL/min Glucose Level 147 Calcium Level 9.7 Phosphorus Level 5.8 H Magnesium Level 2.9 H Medications Medication Current Medications IV Flush (NS 3 ml) 3 ml PER PROTOCOL IV ; Start 06/24/18 at 00:00 Ondansetron HCl (Zofran Inj) 4 mg Q6H PRN IV NAUSEA/VOMITING; Start 06/24/18 at 00:00 Acetaminophen (Tylenol Tab) 650 mg Q6H PRN PO .PAIN 1-3 OR TEMP Last administered on 07/03/18 06:46; Admin Dose 650 MG; Start 06/24/18 at 00:00 Acetaminophen/ Hydrocodone Bitart ([place] (5/325)) 1 tab Q6H PRN PO .PAIN 4-6 Last administered on 07/03/18 08:17; Admin Dose 1 TAB; Start 06/24/18 at 00:00 Albuterol/ Ipratropium (Duoneb) 3 ml Q2H RESP THERAPY PRN HHN SHORTNESS OF BREATH; Start 06/24/18 at 00:00 Latanoprost (Xalatan) 1 drop HS BOTH EYES Last administered on 07/02/18at 21:13; Admin Dose 1 DROP; Start 06/24/18 at 21:00 Donepezil HCl (Aricept) 5 mg DAILY PO Last administered on 07/03/18 08:53; Admin Dose 5 MG; Start 06/24/18 at 09:00 Famotidine (Pepcid) 20 mg DAILY PO Last administered on 07/03/18 08:53; Admin Dose 20 MG; Start 06/24/18 at 09:00 Febuxostat (Uloric) 40 mg QHS PO Last administered on 07/02/18at 21:12; Admin Dose 40 MG; Start 06/24/18 at 21:00 Metoprolol Succinate (Toprol Xl) 200 mg DAILY PO Last administered on 07/03/18 08:53; Admin Dose 200 MG; Start 06/24/18 at 09:00 Tamsulosin HCl (Flomax) 0.4 mg BID PO Last administered on 07/03/18 08:53; Admin Dose 0.4 MG; Start 06/24/18 at 09:00 Hydralazine HCl (Apresoline) 10 mg Q6 PRN IV SBP>160 Last administered on 07/03/18 00:16; Admin Dose 10 MG; Start 06/24/18 at 12:00 Nifedipine (Procardia Xl) 90 mg DAILY PO Last administered on 07/03/18 08:53; Admin Dose 90 MG; Start 06/28/18 at 09:00 Dexamethasone (Decadron) 4 mg Q8 IV Last administered on 07/03/18 05:29; Admin Dose 4 MG; Start 06/28/18 at 16:00 Docusate Sodium (Colace) 100 mg DAILY PO Last administered on 07/03/18 08:53; Admin Dose 100 MG; Start 06/30/18 at 09:00 Ferrous Sulfate (Ferrous Sulfate (Ec)) 325 mg TID PO Last administered on 07/03/18 12:45; Admin Dose 325 MG; Start 07/02/18 at 09:00 Heparin Sodium (Porcine) (Heparin (5000 Units/1ml)) 5,000 unit BID SC Last administered on 07/03/18 09:22; Admin Dose 5,000 UNIT; Start 07/01/18 at 09:00 Aspirin (Halfprin) 81 mg DAILY PO Last administered on 07/03/18 08:53; Admin Dose 81 MG; Start 07/01/18 at 09:00 Atorvastatin Calcium (Lipitor) 20 mg HS PO Last administered on 07/02/18 21:12; Admin Dose 20 MG; Start 06/30/18 at 21:00 Multivit/Ca Carb/ B Cmplx/FA/Prenat ([place]) 1 tab DAILY PO Last administered on 07/03/18 08:53; Admin Dose 1 TAB; Start 07/02/18 at 09:00 Piperacillin Sod/ Tazobactam Sod 50 ml @ 200 mls/hr Q6 IVPB Last administered on 07/03/18 12:40; Admin Dose 200 MLS/HR; Start 07/03/18 at 12:30 Vancomycin HCl (Vanco Iv Per Pharmacy) VANCOMYCIN PER PHARMACY PER PROTOCOL XX ; Start 07/03/18 at 11:30 Polyethylene Glycol (Miralax) 17 gm BID PO ; Start 07/03/18 at 21:00 Bisacodyl (Dulcolax) 10 mg DAILY PRN PO CONSTIPATION; Start 07/03/18 at 12:00 Vancomycin HCl 1.5 gm/Sodium Chloride 250 ml @ 83.333 mls/ hr ONCE IVPB ; Start 07/03/18 at 14:00; Stop 07/03/18 at 19:00 Vancomycin HCl 1.25 gm/Sodium Chloride 250 ml @ 83.333 mls/ hr Q72H IVPB ; Start 07/06/18 at 09:00 YOLANDA ANNE NP July 03, 2018 13:38
[2018-07-03] MEDS ORDERED: VANCOMYCIN HCL 1.5 GM in SOD CHLORIDE 0.9% 250 ML IVPB SCH (14:00)
--- NOTE | 2018-07-03 18:11 | PN ---
Date/Time of Note Date/Time of Note DATE: 07/03/18 TIME: 18:07 Assessment/Plan Lines/Catheters IV [facility] (from [facility]): Peripheral IV Assessment/Plan Chief Complaint/Hosp Course 1. Left buttock abscess; recurrent versus unresolved; history of multiple abscesses in the same area; CT:Chronic left perirectal abscess with foci of air measures 4.0 x 3.0 x 1.7 cm slightly decreased in size compared to 2017 CT with skin track extending to the medial aspect of left gluteal region. -Wound culture noted -Spontaneously draining >continue heating pad to promote drainage -eventual colorectal surgeon evaluation 2. 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 CKD -Limit nephrotoxic meds -Renally dose meds -Per renal 4. Hypertension: -Encourage weight loss -Medical management 5. Leukocytosis: Afebrile; currently on dexamethasone -Monitor 6. Normocytic normochromic anemia: -Monitor and transfuse as needed 7. Hypernatremia -Judicious fluid correction 8. Bacteremia: -Antibiotics per sensitivities 9. Small bilateral pleural effusions: -Fluid management No fevers, chills, sob, congested cough, cp, palpitations, baum, dizziness, n/v/d/dysuria. Subjective 24 Hr Interval Summary Feels well. Abscess continuing to drain. No fevers, chills, sob, congested cough, cp, palpitations, baum, dizziness, n/v/d/dysuria. Exam/Review of Systems Vital Signs Vitals Vital Signs Date Temp Pulse Resp B/P (MAP) Pulse Ox O2 O2 Flow FiO2 Time Delivery Rate 07/03/18 64 16:15 07/03/18 97.6 18 158/75 97 Room Air 15:07 (102) Intake and Output 07/02/18 07/02/18 07/03/18 1414:59 22:59 06:59 IntakeIntake Total 720 ml OutputOutput Total 200 ml 680 ml BalanceBalance -200 ml 40 ml Exam Free Text/Dictation Constitutional: alert, oriented Psych: nl mood/affect; No anxiety Head: normocephalic, atraumatic Eyes: nl conjunctiva, EOMI, nl lids, nl sclera ENMT: nl external ears & nose, nl lips & teeth, mucosa pink and moist, other (Nose: Multiple lesions) Neck: non-tender; No jvd Respiratory: normal air movement; No labored breathing Cardiovascular: regular rate and rhythm, nl pulses; No edema Gastrointestinal: soft, non-tender; No distended Musculoskeletal: nl extremities to inspection; No nl gait and stance (Right-sided weakness) Extremities: normal pulses; No edema Neurological: other (Right-sided weakness); No nl speech (Minimal slurred), No nl strength Skin: rash or lesions (Nose: Multiple lesions; mid back: Lesions (nontender, soft)), other (Left buttock: Small opening with purulent drainage, 2 mm depth, with surrounding induration) Results Result Diagram: 07/03/18 0619 07/03/18 0619 OTONIEL ISABEL NP July 03, 2018 18:11
[2018-07-03] MEDS: POLYETHYLENE GLYCOL 17 GM PACKET PO SCH (22:08)
[2018-07-03] MEDS: FEBUXOSTAT 40 MG TABLET PO SCH (22:09)
[2018-07-03] MEDS: ATORVASTATIN 20 MG TAB PO SCH (22:09)
[2018-07-03] MEDS: LATANOPROST 0.005% 2.5 ML OPH BOTH EYES SCH (23:47)
[2018-07-04 02:00] VITALS: BP 175/75; PULSE 79; RESP 17
[2018-07-04] MEDS: hydrALAzine 20 MG INJ IV PRN (03:17)
[2018-07-04 05:00] VITALS: BP 150/82
[2018-07-04] MEDS: PIPER-TAZO 2.25 GM (PMX) 50 ML IVPB SCH ×2 (05:21→12:22)
[2018-07-04] MEDS: DEXAMETHASONE 4 MG/ML 1 ML INJ IV SCH ×3 (05:22→21:50)
[2018-07-04] MEDS: HYDROCODONE/APAP (5/325) TAB PO PRN ×2 (07:13→16:40)
[2018-07-04 08:00] VITALS: BP 160/86; PULSE 86; RESP 18
--- NOTE | 2018-07-04 08:29 | PN ---
DATE: 07/04/2018 SUBJECTIVE: The patient was transferred from med/surg to telemetry. Overnight Patient was asymptoma tic. No hemoptysis, hematemesis or hematochezia. OBJECTIVE: VITAL SIGNS: Blood pressure is 175/75, respirations 17, pulse 79, temperature 98.2. HEENT: Head is normocephalic. NECK: Supple. HEART: Regular rate. LUNGS: Show diminished breath sounds at the base. ABDOMEN: Soft, nontender to palpation without rebound or guarding. EXTREMITIES: Negative for clubbing, cyanosis, no edema. DERMATOLOGIC: No rashes. MUSCULOSKELETAL: No joint effusion. NEUROLOGIC: No change in exam. MEDICATIONS: Reviewed. LABORATORY DATA: From 07/04/2018 was reviewed. ASSESSMENT AND PLAN: 1. Nonoliguric acute kidney injury on top of chronic kidney disease stage IIIB/IV with previous base line creatinine 2 to 2.5 mg/dL. Etiology of current acute kidney injury is secondary to hemodynamics , tubular injury. The patient's renal function is fluctuating, has declined in the last 24 to 48 breezy rs. At this point, would continue current treatment plan, supportive care, renally dose all meds. W ill give the patient a course of gentle IV hydration, monitor closely. If renal function should furt her decline, the patient may require renal replacement therapy. 2. Mild hyperkalemia. Etiology is secondary to acute kidney injury, chronic kidney disease. The pa tient will continue low-potassium diet and monitor potassium levels closely. 3. Hypernatremia. The patient has free water deficit approximately 2 liters. We will start the pat ient on hypotonic fluid and monitor. 4. Metabolic acidosis secondary to acute kidney injury. Continue to monitor. 5. Mineral bone disorder. The patient is hyperphosphatemic secondary to acute kidney injury. Angelique nue to monitor. Consider starting phosphate binders. 6. Hypermagnesemia secondary to acute kidney injury and chronic kidney disease. Continue to observe . 7. Hypertension. Continue current blood pressure regimen. 8. History of diastolic heart failure. Patient is compensated, continue to monitor. 9. Lung mass, possible with bone mets to the brain. Continue current medical management. Fol low up cytology from thoracentesis. Follow up with oncology. Continue Decadron. 10. Dyslipidemia. Continue statin therapy. 11. Arrhythmia, status post pacemaker. 12. History of gluteal abscess. Continue to monitor. 13. History of cerebrovascular accident. 14. Bacteremia. The patient is completing antibiotic course. Dictated By: CAMPOS JOHNSTON DO NR/NTS Conf#: [id number] DID#: [id number] CC: HIEU RENEE MD;*EndCC*
[2018-07-04] MEDS: FERROUS SULFATE (EC) 325 MG TAB PO SCH ×3 (09:35→20:59)
[2018-07-04] MEDS: MULTIVIT/CA CARB/B CMPLX/FA TAB PO SCH (09:35)
[2018-07-04] MEDS: DOCUSATE SODIUM 100 MG CAP PO SCH (09:35)
[2018-07-04] MEDS: POLYETHYLENE GLYCOL 17 GM PACKET PO SCH ×2 (09:35→20:59)
[2018-07-04] MEDS: TAMSULOSIN (SR) 0.4 MG CAP PO SCH ×2 (09:35→20:59)
[2018-07-04] MEDS: DONEPEZIL 5 MG TAB PO SCH (09:35)
[2018-07-04] MEDS: ASPIRIN (EC) 81 MG TAB PO SCH (09:35)
[2018-07-04] MEDS: FAMOTIDINE 20 MG TAB PO SCH (09:35)
[2018-07-04] MEDS: DEXTROSE 5% 1,000 ML IV SCH (09:36)
[2018-07-04] MEDS: HEPARIN 5,000 UNIT/1 ML VIAL SC SCH ×2 (09:41→21:00)
[2018-07-04] MEDS: NIFEdipine (XL) 90 MG TAB PO SCH (09:42)
[2018-07-04] MEDS: METOPROLOL (XL) 100 MG TAB PO SCH (09:42)
--- NOTE | 2018-07-04 13:01 | CONS ---
Assessment/Plan Assessment/Plan Hospital Course (Demo Recall) Patient is in no distress looks comfortable Microbiology: Blood culture on admission grew E. coli, repeat blood cultures negative, urine culture negative. Left buttock abscess drainage grew e nterococcus, corynebact and staph species Antimicrobials: Cathy Brice Physical examination: Well-developed elderly man who is in no distress. Head atraumatic normocephalic neck is supple chest rise symmetrical breath sounds diminished bases. Heart: S1-S2. Abdomen soft bowel sounds present. Assessment: 1. E. coli bacteremia unclear etiology 2. 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 L buttock abscess==> surgery on case 4. Coronary artery disease with a history of permanent pacemaker 5. History of CVA Plan: Clinically unchanged, CT-guided biopsy could not be performed because of difficult access, fluid cultures neg, no malignancy per patho, change abx to Ampicillin IV and po Doxycycline, anticipate increase in wbc 2 to Decadron, management per oncology. Anticipate dc on PO Levaquin last dose 07/11 to complete treatment for bacteremia unless he develops other medical problems during this hospitalization Consultation Date/Type/Reason Admit Date/Time June 23, 2018 at 20:27 Initial Consult Date 06/28/18 Type of Consult id Requesting Provider: BIBIANA SUH MD Date/Time of Note DATE: 07/04/18 TIME: 12:57 Exam/Review of Systems Exam Vitals Vital Signs Date Temp Pulse Resp B/P (MAP) Pulse Ox O2 O2 Flow FiO2 Time Delivery Rate 07/04/18 98.8 86 18 160/86 96 08:00 (110) 07/04/18 Room Air 02:00 Intake and Output 07/03/18 07/03/18 07/04/18 1515:00 23:00 07:00 IntakeIntake Total 540 ml 100 ml OutputOutput Total 400 ml BalanceBalance 540 ml -300 ml Results Result Diagram: 07/04/18 0423 07/04/18 0423 Results 24hrs Laboratory Tests Test 07/04/18 04:23 White Blood Count 13.4 H Red Blood Count 3.00 L Hemoglobin 9.9 L Hematocrit 30.0 L Mean Corpuscular Volume 100.0 Mean Corpuscular Hemoglobin 33.0 Mean Corpuscular Hemoglobin Concent 33.0 Red Cell Distribution Width 13.2 Platelet Count 289 Mean Platelet Volume 10.5 H Immature Granulocytes % 6.100 H Neutrophils % 85.8 H Segmented Neutrophils % (Manual) 95 H Lymphocytes % 4.9 L Lymphocytes % (Manual) 3 L Monocytes % 2.8 Monocytes % (Manual) 1 Eosinophils % 0.0 Basophils % 0.4 Myelocytes % (Manual) 1 H Nucleated Red Blood Cells % 0.1 H Immature Granulocytes # 0.820 H Neutrophils # 11.5 H Lymphocytes (Manual) 0.4 L Lymphocytes # 0.7 L Monocytes # 0.4 Monocytes # (Manual) 0.1 L Eosinophils # 0.0 Basophils # 0.1 Myelocytes # 0.1 H Nucleated Red Blood Cells # 0.0 Platelet Estimate NORMAL Polychromasia 1+ Poikilocytosis 2+ Sodium Level 147 H Potassium Level 5.2 H Chloride Level 121 H Carbon Dioxide Level 19 L Anion Gap 7 Blood Urea Nitrogen 118 H Creatinine 3.82 H Est Glomerular Filtrat Rate mL/min Glucose Level 166 Calcium Level 9.8 Phosphorus Level 6.4 H Magnesium Level 3.1 H Medications Medication Current Medications IV Flush (NS 3 ml) 3 ml PER PROTOCOL IV ; Start 06/24/18 at 00:00 Ondansetron HCl (Zofran Inj) 4 mg Q6H PRN IV NAUSEA/VOMITING; Start 06/24/18 at 00:00 Acetaminophen (Tylenol Tab) 650 mg Q6H PRN PO .PAIN 1-3 OR TEMP Last a dministered on 07/03/18at 06:46; Admin Dose 650 MG; Start 06/24/18 at 00:00 Acetaminophen/ Hydrocodone Bitart ([place] (5/325)) 1 tab Q6H PRN PO .PAIN 4-6 Last administered on 07/04/18at 07:13; Admin Dose 1 TAB; Start 06/24/18 at 00:00 Albuterol/ Ipratropium (Duoneb) 3 ml Q2H RESP THERAPY PRN HHN SHORTNESS OF BREATH; Start 06/24/18 at 00:00 Latanoprost (Xalatan) 1 drop HS BOTH EYES Last administered on 07/03/18at 23:47; Admin Dose 1 DROP; Start 06/24/18 at 21:00 Donepezil HCl (Aricept) 5 mg DAILY PO Last administered on 07/04/18 09:35; Admin Dose 5 MG; Start 06/24/18 at 09:00 Famotidine (Pepcid) 20 mg DAILY PO Last administered on 07/04/18 09:35; Admin Dose 20 MG; Start 06/24/18 at 09:00 Febuxostat (Uloric) 40 mg QHS PO Last administered on 07/03/18 22:09; Admin Dose 40 MG; Start 06/24/18 at 21:00 Metoprolol Succinate (Toprol Xl) 200 mg DAILY PO Last administered on 07/04/18 09:42; Admin Dose 200 MG; Start 06/24/18 at 09:00 Tamsulosin HCl (Flomax) 0.4 mg BID PO Last administered on 07/04/18 09:35; Admin Dose 0.4 MG; Start 06/24/18 at 09:00 Hydralazine HCl (Apresoline) 10 mg Q6 PRN IV SBP>160 Last administered on 07/04/18 03:17; Admin Dose 10 MG; Start 06/24/18 at 12:00 Nifedipine (Procardia Xl) 90 mg DAILY PO Last administered on 07/04/18 09:42; Admin Dose 90 MG; Start 06/28/18 at 09:00 Dexamethasone (Decadron) 4 mg Q8 IV Last administered on 07/04/18 05:22; Admin Dose 4 MG; Start 06/28/18 at 16:00 Docusate Sodium (Colace) 100 mg DAILY PO Last administered on 07/04/18 09:35; Admin Dose 100 MG; Start 06/30/18 at 09:00 Ferrous Sulfate (Ferrous Sulfate (Ec)) 325 mg TID PO Last administered on 07/04/18 09:35; Admin Dose 325 MG; Start 07/02/18 at 09:00 Heparin Sodium (Porcine) (Heparin (5000 Units/1ml)) 5,000 unit BID SC Last administered on 07/04/18 09:41; Admin Dose 5,000 UNIT; Start 07/01/18 at 09:00 Aspirin (Halfprin) 81 mg DAILY PO Last administered on 07/04/18 09:35; Admin Dose 81 MG; Start 07/01/18 at 09:00 Atorvastatin Calcium (Lipitor) 20 mg HS PO Last administered on 07/03/18at 22:09; Admin Dose 20 MG; Start 06/30/18 at 21:00 Multivit/Ca Carb/ B Cmplx/FA/Prenat ([place]-Star) 1 tab DAILY PO Last administered on 07/04/18at 09:35; Admin Dose 1 TAB; Start 07/02/18 at 09:00 Piperacillin Sod/ Tazobactam Sod 50 ml @ 100 mls/hr Q6 IVPB Last administered on 07/04/18at 12:22; Admin Dose 100 MLS/HR; Start 07/03/18 at 12:30 Vancomycin HCl (Vanco Iv Per Pharmacy) VANCOMYCIN PER PHARMACY PER PROTOCOL XX ; Start 07/03/18 at 11:30 Polyethylene Glycol (Miralax) 17 gm BID PO Last administered on 07/04/18at 09:35; Admin Dose 17 GM; Start 07/03/18 at 21:00 Bisacodyl (Dulcolax) 10 mg DAILY PRN PO CONSTIPATION; Start 07/03/18 at 12:00 Vancomycin HCl 1.25 gm/Sodium Chloride 250 ml @ 83.333 mls/ hr Q72H IVPB ; Start 07/06/18 at 09:00 Dextrose 1,000 ml @ 50 mls/hr Q20H IV Last administered on 07/04/18at 09:36; Admin Dose 50 MLS/HR; Start 07/04/18 at 08:30 YOLANDA ANNE NP July 04, 2018 13:01
--- NOTE | 2018-07-04 13:16 | CONS ---
Assessment/Plan Assessment/Plan Hospital Course (Demo Recall) # suspected stage IV lung cancer with mets to the liver and brain unfortunately we do not have a tissue diagnosis, IR could not obtain safe window for biopsy of lung lesion, spoke to pulmonary Dr Vazquez--bronch unlikely to reach lesion. I HAVE CALLED IR AND LEFT MESSAGE TO DISCUSS IF LIVER LESION CAN BE BIOPSIED -WITHOUT A CONFIRMED TISSUE DIAGNOSIS WE CANNOT RECOMMEND TREATMENT -In terms of the brain met, pt is on dexamethasone . UNFORTUNATELY PT CANNOT HAVE CT HEAD WITH CONTRAST DUE TO RENAL INSUFFICIENCY OR MRI DUETO PACER -HAVE CALLED RAD ONC TO SEE, BUT WILL LIKELY AWAIT PATHOLOGY CONFIRMING MALIGNANCY BEFORE STARTING XRT. Since he has metastatic disease and with multiple comorbidities and ECO, he would not be a candidate for neurosurgery. -With the patient's comorbidities, the types of palliative chemotherapy are limited. If this is confirmed as lung ca, would recommend testing PDL-1 to see if he is a candidate for immunotherapy which would likely be the only therapy he would tolerate. -He is a chronic tobacco abuser and thus unlikely to have a residential driver mutation but recommend running EGFR, ALK, ROS1, and BRAF. -he has been told by Dr Daniel as well as the family that if this is lung cancer with mets to the brain that he has and incurable cancer but hopefully we can palliate his symptoms with possible immunotherapy. -Radiation to the brain is palliative as well. I explained to the with the help of latvian speaking staff that elucidating the primary has been difficult. await call back from rad on. I explained that he might be too high risk for biopsy and we cannot "empirically"tx with chemo without confirmed diagnosis - Consultation Date/Type/Reason Admit Date/Time June 23, 2018 at 20:27 Initial Consult Date 06/28/18 Requesting Provider: BIBIANA SUH MD Date/Time of Note DATE: 07/04/18 TIME: 13:13 24 HR Interval Summary Free Text/Dictation pt resting comfortably Exam/Review of Systems Exam Vitals Vital Signs Date Temp Pulse Resp B/P (MAP) Pulse Ox O2 O2 Flow FiO2 Time Delivery Rate 07/04/18 98.8 86 18 160/86 96 08:00 (110) 07/04/18 Room Air 02:00 Intake and Output 07/03/18 07/03/18 07/04/18 1515:00 23:00 07:00 IntakeIntake Total 540 ml 100 ml OutputOutput Total 400 ml BalanceBalance 540 ml -300 ml Results Result Diagram: 07/04/18 0423 07/04/18 0423 Results 24hrs Laboratory Tests Test 07/04/18 04:23 White Blood Count 13.4 H Red Blood Count 3.00 L Hemoglobin 9.9 L Hematocrit 30.0 L Mean Corpuscular Volume 100.0 Mean Corpuscular Hemoglobin 33.0 Mean Corpuscular Hemoglobin Concent 33.0 Red Cell Distribution Width 13.2 Platelet Count 289 Mean Platelet Volume 10.5 H Immature Granulocytes % 6.100 H Neutrophils % 85.8 H Segmented Neutrophils % (Manual) 95 H Lymphocytes % 4.9 L Lymphocytes % (Manual) 3 L Monocytes % 2.8 Monocytes % (Manual) 1 Eosinophils % 0.0 Basophils % 0.4 Myelocytes % (Manual) 1 H Nucleated Red Blood Cells % 0.1 H Immature Granulocytes # 0.820 H Neutrophils # 11.5 H Lymphocytes (Manual) 0.4 L Lymphocytes # 0.7 L Monocytes # 0.4 Monocytes # (Manual) 0.1 L Eosinophils # 0.0 Basophils # 0.1 Myelocytes # 0.1 H Nucleated Red Blood Cells # 0.0 Platelet Estimate NORMAL Polychromasia 1+ Poikilocytosis 2+ Sodium Level 147 H Potassium Level 5.2 H Chloride Level 121 H Carbon Dioxide Level 19 L Anion Gap 7 Blood Urea Nitrogen 118 H Creatinine 3.82 H Est Glomerular Filtrat Rate mL/min Glucose Level 166 Calcium Level 9.8 Phosphorus Level 6.4 H Magnesium Level 3.1 H Medications Medication Current Medications IV Flush (NS 3 ml) 3 ml PER PROTOCOL IV ; Start 06/24/18 at 00:00 Ondansetron HCl (Zofran Inj) 4 mg Q6H PRN IV NAUSEA/VOMITING; Start 06/24/18 at 00:00 Acetaminophen (Tylenol Tab) 650 mg Q6H PRN PO .PAIN 1-3 OR TEMP Last administered on 07/03/18at 06:46; Admin Dose 650 MG; Start 06/24/18 at 00:00 Acetaminophen/ Hydrocodone Bitart ([place] (5/325)) 1 tab Q6H PRN PO .PAIN 4-6 Last administered on 07/04/18at 07:13; Admin Dose 1 TAB; Start 06/24/18 at 00:00 Albuterol/ Ipratropium (Duoneb) 3 ml Q2H RESP THERAPY PRN HHN SHORTNESS OF BREATH; Start 06/24/18 at 00:00 Latanoprost (Xalatan) 1 drop HS BOTH EYES Last administered on 07/03/18 23:47; Admin Dose 1 DROP; Start 06/24/18 at 21:00 Donepezil HCl (Aricept) 5 mg DAILY PO Last administered on 07/04/18 09:35; Admin Dose 5 MG; Start 06/24/18 at 09:00 Famotidine (Pepcid) 20 mg DAILY PO Last administered on 07/04/18 09:35; Admin Dose 20 MG; Start 06/24/18 at 09:00 Febuxostat (Uloric) 40 mg QHS PO Last administered on 07/03/18 22:09; Admin Dose 40 MG; Start 06/24/18 at 21:00 Metoprolol Succinate (Toprol Xl) 200 mg DAILY PO Last administered on 07/04/18 09:42; Admin Dose 200 MG; Start 06/24/18 at 09:00 Tamsulosin HCl (Flomax) 0.4 mg BID PO Last administered on 07/04/18 09:35; Admin Dose 0.4 MG; Start 06/24/18 at 09:00 Hydralazine HCl (Apresoline) 10 mg Q6 PRN IV SBP>160 Last administered on 07/04/18 03:17; Admin Dose 10 MG; Start 06/24/18 at 12:00 Nifedipine (Procardia Xl) 90 mg DAILY PO Last administered on 07/04/18 09:42; Admin Dose 90 MG; Start 06/28/18 at 09:00 Dexamethasone (Decadron) 4 mg Q8 IV Last administered on 07/04/18 05:22; Admin Dose 4 MG; Start 06/28/18 at 16:00 Docusate Sodium (Colace) 100 mg DAILY PO Last administered on 07/04/18 09:35; Admin Dose 100 MG; Start 06/30/18 at 09:00 Ferrous Sulfate (Ferrous Sulfate (Ec)) 325 mg TID PO Last administered on 07/04/18 09:35; Admin Dose 325 MG; Start 07/02/18 at 09:00 Heparin Sodium (Porcine) (Heparin (5000 Units/1ml)) 5,000 unit BID SC Last administered on 07/04/18 09:41; Admin Dose 5,000 UNIT; Start 07/01/18 at 09:00 Aspirin (Halfprin) 81 mg DAILY PO Last administered on 07/04/18 09:35; Admin Dose 81 MG; Start 07/01/18 at 09:00 Atorvastatin Calcium (Lipitor) 20 mg HS PO Last administered on 07/03/18at 22:09; Admin Dose 20 MG; Start 06/30/18 at 21:00 Multivit/Ca Carb/ B Cmplx/FA/Prenat ([place]-Star) 1 tab DAILY PO Last administered on 07/04/18 09:35; Admin Dose 1 TAB; Start 07/02/18 at 09:00 Piperacillin Sod/ Tazobactam Sod 50 ml @ 100 mls/hr Q6 IVPB Last administered on 07/04/18 05:21; Admin Dose 200 MLS/HR; Start 07/03/18 at 12:30 Vancomycin HCl (Vanco Iv Per Pharmacy) VANCOMYCIN PER PHARMACY PER PROTOCOL XX ; Start 07/03/18 at 11:30 Polyethylene Glycol (Miralax) 17 gm BID PO Last administered on 07/04/18 09:35; Admin Dose 17 GM; Start 07/03/18 at 21:00 Bisacodyl (Dulcolax) 10 mg DAILY PRN PO CONSTIPATION; Start 07/03/18 at 12:00 Vancomycin HCl 1.25 gm/Sodium Chloride 250 ml @ 83.333 mls/ hr Q72H IVPB ; Start 07/06/18 at 09:00 Dextrose 1,000 ml @ 50 mls/hr Q20H IV Last administered on 07/04/18at 09:36; Admin Dose 50 MLS/HR; Start 07/04/18 at 08:30 SUE SILVERIO July 04, 2018 13:16
[2018-07-04 14:00] VITALS: BP 162/76; PULSE 84; RESP 20
--- NOTE | 2018-07-04 14:10 | PN ---
Date/Time of Note Date/Time of Note DATE: 07/04/18 TIME: 14:08 Assessment/Plan VTE Prophylaxis Risk score (from Ns)>0 risk: 7 SCD applied (from Ns): Yes Pharmacological prophylaxis: heparin Lines/Catheters IV C[facility] Type [facility]from [facility] Saline Lock Assessment/Plan Hospital Course SUBJECTIVE: Complaints of poor appetite. OBJECTIVE: Physical Exam General: Adequately build 83 year-old male lying in bed in no apparent distress. HEENT: Normocephalic, atraumatic. Eyes: Anicteric sclerae, conjunctivae clear. ENT: Nasal septum midline, oral mucosa moist. Neck supple, no JVD noticed. Respiratory: Bilaterally diminished breath sounds. No use of accessory muscles of respiration. No adventitious breath sounds. Cardiovascular: S1, S2 heard. Regular rate and rhythm. Abdomen: Obese and distended. Bowel sounds positive in all 4 quadrants. Genitourinary: Deferred. Extremities: No cyanosis, no clubbing, no edema. Peripheral pulses palpable. Neurologic: Cranial nerves II through XII grossly intact. The patient is awake, alert, and oriented. Labs & Vitals per chart ASSESSMENT & PLAN 83-year-old male with comorbidities including hypertension, chronic kidney di sease, permanent pacemaker, stroke, CAD, peripheral artery disease, and remote history of pericardial effusion status post pericardiocentesis in December 2012. The patient came to the emergency room with chief complaint of headache and dizziness. CT scan of the brain was showing moderate vasogenic edema within the left thalamus with an underlying 11 mm lesion. The patient was admitted to inpatient setting for further treatment and evaluation. 1. Brain mass with underlying cerebral edema. -Status post evaluation by neurosurgery. -To rule out systemic malignancy. -Continue Decadron. 2. Posterolateral right upper lobe parenchymal lung mass concerning for neoplasm. -Suspected metastatic lung cancer. -CT-guided biopsy could not be performed because of difficult access. -S/P thoracentesis for obtaining pleural fluid for cytology on 07/02/2018. Cytology negative for any malignant cells. -Being followed by oncology and pulmonology. 3. Acute on chronic kidney disease -Being followed by nephrology. -Use nephrotoxic drugs with caution. 4. Hypertension. -Continue antihypertensives. 5. History of CVA. -Continue aspirin and statins. 6. Normocytic anemia. -Most probably anemia of chronic disease -Monitor H&H closely. 7. History of SVT. -Status post interrogation of pacemaker upon recent admission. 8. E. coli bacteremia. -On appropriate antimicrobials. 9. Prostate hypertrophy. -Continue Flomax. 10. Left gluteal abscess. -Surgical consult ongoing. -Spontaneously draining. -Growing polymicrobials. 11. Fluids, electrolytes, and nutrition. -Low-cholesterol diet. 12. DVT prophylaxis. -Subcutaneous heparin. 13. Plan. -Continue inpatient monitoring. -S/P thoracentesis for obtaining pleural fluid for cytology. Unfortunately pleural fluid study inconclusive. -Needs alternative approach for confirming diagnosis before the patient can be started on appropriate therapy. The patient was seen in collaboration with Dr. Hi. Result Diagram: 07/04/18 0423 07/04/18 0423 Results 24hrs Laboratory Tests Test 07/04/18 04:23 White Blood Count 13.4 H Red Blood Count 3.00 L Hemoglobin 9.9 L Hematocrit 30.0 L Mean Corpuscular Volume 100.0 Mean Corpuscular Hemoglobin 33.0 Mean Corpuscular Hemoglobin Concent 33.0 Red Cell Distribution Width 13.2 Platelet Count 289 Mean Platelet Volume 10.5 H Immature Granulocytes % 6.100 H Neutrophils % 85.8 H Segmented Neutrophils % (Manual) 95 H Lymphocytes % 4.9 L Lymphocytes % (Manual) 3 L Monocytes % 2.8 Monocytes % (Manual) 1 Eosinophils % 0.0 Basophils % 0.4 Myelocytes % (Manual) 1 H Nucleated Red Blood Cells % 0.1 H Immature Granulocytes # 0.820 H Neutrophils # 11.5 H Lymphocytes (Manual) 0.4 L Lymphocytes # 0.7 L Monocytes # 0.4 Monocytes # (Manual) 0.1 L Eosinophils # 0.0 Basophils # 0.1 Myelocytes # 0.1 H Nucleated Red Blood Cells # 0.0 Platelet Estimate NORMAL Polychromasia 1+ Poikilocytosis 2+ Sodium Level 147 H Potassium Level 5.2 H Chloride Level 121 H Carbon Dioxide Level 19 L Anion Gap 7 Blood Urea Nitrogen 118 H Creatinine 3.82 H Est Glomerular Filtrat Rate mL/min Glucose Level 166 Calcium Level 9.8 Phosphorus Level 6.4 H Magnesium Level 3.1 H Exam/Review of Systems Exam Vitals Vital Signs Date Temp Pulse Resp B/P (MAP) Pulse Ox O2 O2 Flow FiO2 Time Delivery Rate 07/04/18 98.8 86 18 160/86 96 08:00 (110) 07/04/18 Room Air 02:00 Intake and Output 07/03/18 07/03/18 07/04/18 1515:00 23:00 07:00 IntakeIntake Total 540 ml 100 ml OutputOutput Total 400 ml BalanceBalance 540 ml -300 ml Results Results 24hrs Laboratory Tests Test 07/04/18 04:23 White Blood Count 13.4 H Red Blood Count 3.00 L Hemoglobin 9.9 L Hematocrit 30.0 L Mean Corpuscular Volume 100.0 Mean Corpuscular Hemoglobin 33.0 Mean Corpuscular Hemoglobin Concent 33.0 Red Cell Distribution Width 13.2 Platelet Count 289 Mean Platelet Volume 10.5 H Immature Granulocytes % 6.100 H Neutrophils % 85.8 H Segmented Neutrophils % (Manual) 95 H Lymphocytes % 4.9 L Lymphocytes % (Manual) 3 L Monocytes % 2.8 Monocytes % (Manual) 1 Eosinophils % 0.0 Basophils % 0.4 Myelocytes % (Manual) 1 H Nucleated Red Blood Cells % 0.1 H Immature Granulocytes # 0.820 H Neutrophils # 11.5 H Lymphocytes (Manual) 0.4 L Lymphocytes # 0.7 L Monocytes # 0.4 Monocytes # (Manual) 0.1 L Eosinophils # 0.0 Basophils # 0.1 Myelocytes # 0.1 H Nucleated Red Blood Cells # 0.0 Platelet Estimate NORMAL Polychromasia 1+ Poikilocytosis 2+ Sodium Level 147 H Potassium Level 5.2 H Chloride Level 121 H Carbon Dioxide Level 19 L Anion Gap 7 Blood Urea Nitrogen 118 H Creatinine 3.82 H Est Glomerular Filtrat Rate mL/min Glucose Level 166 Calcium Level 9.8 Phosphorus Level 6.4 H Magnesium Level 3.1 H Medications Medication Current Medications IV Flush (NS 3 ml) 3 ml PER PROTOCOL IV ; Start 06/24/18 at 00:00 Ondansetron HCl (Zofran Inj) 4 mg Q6H PRN IV NAUSEA/VOMITING; Start 06/24/18 at 00:00 Acetaminophen (Tylenol Tab) 650 mg Q6H PRN PO .PAIN 1-3 OR TEMP Last ad ministered on 07/03/18at 06:46; Admin Dose 650 MG; Start 06/24/18 at 00:00 Acetaminophen/ Hydrocodone Bitart ([place] (5/325)) 1 tab Q6H PRN PO .PAIN 4-6 Last administered on 07/04/18 07:13; Admin Dose 1 TAB; Start 06/24/18 at 00:00 Albuterol/ Ipratropium (Duoneb) 3 ml Q2H RESP THERAPY PRN HHN SHORTNESS OF BREATH; Start 06/24/18 at 00:00 Latanoprost (Xalatan) 1 drop HS BOTH EYES Last administered on 07/03/18 23:47; Admin Dose 1 DROP; Start 06/24/18 at 21:00 Donepezil HCl (Aricept) 5 mg DAILY PO Last administered on 07/04/18 09:35; Admin Dose 5 MG; Start 06/24/18 at 09:00 Famotidine (Pepcid) 20 mg DAILY PO Last administered on 07/04/18 09:35; Admin Dose 20 MG; Start 06/24/18 at 09:00 Febuxostat (Uloric) 40 mg QHS PO Last administered on 07/03/18 22:09; Admin Dose 40 MG; Start 06/24/18 at 21:00 Metoprolol Succinate (Toprol Xl) 200 mg DAILY PO Last administered on 07/04/18 09:42; Admin Dose 200 MG; Start 06/24/18 at 09:00 Tamsulosin HCl (Flomax) 0.4 mg BID PO Last administered on 07/04/18 09:35; Admin Dose 0.4 MG; Start 06/24/18 at 09:00 Hydralazine HCl (Apresoline) 10 mg Q6 PRN IV SBP>160 Last administered on 07/04/18 03:17; Admin Dose 10 MG; Start 06/24/18 at 12:00 Nifedipine (Procardia Xl) 90 mg DAILY PO Last administered on 07/04/18 09:42; Admin Dose 90 MG; Start 06/28/18 at 09:00 Dexamethasone (Decadron) 4 mg Q8 IV Last administered on 07/04/18 13:23; Admin Dose 4 MG; Start 06/28/18 at 16:00 Docusate Sodium (Colace) 100 mg DAILY PO Last administered on 07/04/18 09:35; Admin Dose 100 MG; Start 06/30/18 at 09:00 Ferrous Sulfate (Ferrous Sulfate (Ec)) 325 mg TID PO Last administered on 07/04/18 13:23; Admin Dose 325 MG; Start 07/02/18 at 09:00 Heparin Sodium (Porcine) (Heparin (5000 Units/1ml)) 5,000 unit BID SC Last administered on 07/04/18 09:41; Admin Dose 5,000 UNIT; Start 07/01/18 at 09:00 Aspirin (Halfprin) 81 mg DAILY PO Last administered on 07/04/18 09:35; Admin Dose 81 MG; Start 07/01/18 at 09:00 Atorvastatin Calcium (Lipitor) 20 mg HS PO Last administered on 07/03/18 22:09; Admin Dose 20 MG; Start 06/30/18 at 21:00 Multivit/Ca Carb/ B Cmplx/FA/Prenat ([place]) 1 tab DAILY PO Last administered on 07/04/18 09:35; Admin Dose 1 TAB; Start 07/02/18 at 09:00 Polyethylene Glycol (Miralax) 17 gm BID PO Last administered on 07/04/18 09 :35; Admin Dose 17 GM; Start 07/03/18 at 21:00 Bisacodyl (Dulcolax) 10 mg DAILY PRN PO CONSTIPATION; Start 07/03/18 at 12:00 Dextrose 1,000 ml @ 50 mls/hr Q20H IV Last administered on 07/04/18 09:36; Admin Dose 50 MLS/HR; Start 07/04/18 at 08:30 Ampicillin 50 ml @ 100 mls/hr Q8 IVPB ; Start 07/04/18 at 14:00 Doxycycline Hyclate (Vibramycin) 100 mg BID PO ; Start 07/04/18 at 21:00 TOBY COREA NP July 04, 2018 14:10
--- NOTE | 2018-07-04 14:21 | CONS ---
Consult Date/Type/Reason Admit Date/Time June 23, 2018 at 20:27 Initial Consult Date 06/28/18 Type of Consult Pulmonary Requesting Provider: BIBIANA SUH MD Date/Time of Note DATE: 07/04/18 TIME: 14:20 Subjective Patient comfortable this morning no respiratory distress. Objective Vital Signs Date Temp Pulse Resp B/P (MAP) Pulse Ox O2 O2 Flow FiO2 Time Delivery Rate 07/04/18 98.8 86 18 160/86 96 08:00 (110) 07/04/18 Room Air 02:00 Intake and Output 07/03/18 07/03/18 07/04/18 1515:00 23:00 07:00 IntakeIntake Total 540 ml 100 ml OutputOutput Total 400 ml BalanceBalance 540 ml -300 ml Exam GENERAL: Elderly gentleman in room air. VITAL SIGNS: per chart NECK: Supple. No JVD or lymphadenopathy. CARDIAC EXAM: S1, S2. No added sounds or murmurs. CHEST: Diminished air entry bilaterally ABDOMEN: Soft, nontender. No guarding or rebound. EXTREMITIES: No cyanosis, clubbing or edema. NEUROLOGIC: Generalized weakness. No focal deficits. Results/Medications Result Diagram: 07/04/18 0423 07/04/18 0423 Results 24 hrs Laboratory Tests Test 07/04/18 04:23 White Blood Count 13.4 H Red Blood Count 3.00 L Hemoglobin 9.9 L Hematocrit 30.0 L Mean Corpuscular Volume 100.0 Mean Corpuscular Hemoglobin 33.0 Mean Corpuscular Hemoglobin Concent 33.0 Red Cell Distribution Width 13.2 Platelet Count 289 Mean Platelet Volume 10.5 H Immature Granulocytes % 6.100 H Neutrophils % 85.8 H Segmented Neutrophils % (Manual) 95 H Lymphocytes % 4.9 L Lymphocytes % (Manual) 3 L Monocytes % 2.8 Monocytes % (Manual) 1 Eosinophils % 0.0 Basophils % 0.4 Myelocytes % (Manual) 1 H Nucleated Red Blood Cells % 0.1 H Immature Granulocytes # 0.820 H Neutrophils # 11.5 H Lymphocytes (Manual) 0.4 L Lymphocytes # 0.7 L Monocytes # 0.4 Monocytes # (Manual) 0.1 L Eosinophils # 0.0 Basophils # 0.1 Myelocytes # 0.1 H Nucleated Red Blood Cells # 0.0 Platelet Estimate NORMAL Polychromasia 1+ Poikilocytosis 2+ Sodium Level 147 H Potassium Level 5.2 H Chloride Level 121 H Carbon Dioxide Level 19 L Anion Gap 7 Blood Urea Nitrogen 118 H Creatinine 3.82 H Est Glomerular Filtrat Rate mL/min Glucose Level 166 Calcium Level 9.8 Phosphorus Level 6.4 H Magnesium Level 3.1 H Medications Current Medications IV Flush (NS 3 ml) 3 ml PER PROTOCOL IV ; Start 06/24/18 at 00:00 Ondansetron HCl (Zofran Inj) 4 mg Q6H PRN IV NAUSEA/VOMITING; Start 06/24/18 at 00:00 Acetaminophen (Tylenol Tab) 650 mg Q6H PRN PO .PAIN 1-3 OR TEMP Last administered on 07/03/18 06:46; Admin Dose 650 MG; Start 06/24/18 at 00:00 Acetaminophen/ Hydrocodone Bitart ([place] (5/325)) 1 tab Q6H PRN PO .PAIN 4-6 Last administered on 07/04/18 07:13; Admin Dose 1 TAB; Start 06/24/18 at 00:00 Albuterol/ Ipratropium (Duoneb) 3 ml Q2H RESP THERAPY PRN HHN SHORTNESS OF BREATH; Start 06/24/18 at 00:00 Latanoprost (Xalatan) 1 drop HS BOTH EYES Last administered on 07/03/18 23:47; Admin Dose 1 DROP; Start 06/24/18 at 21:00 Donepezil HCl (Aricept) 5 mg DAILY PO Last administered on 07/04/18 09:35; Admin Dose 5 MG; Start 06/24/18 at 09:00 Famotidine (Pepcid) 20 mg DAILY PO Last administered on 07/04/18 09:35; Admin Dose 20 MG; Start 06/24/18 at 09:00 Febuxostat (Uloric) 40 mg QHS PO Last administered on 07/03/18 22:09; Admin Dose 40 MG; Start 06/24/18 at 21:00 Metoprolol Succinate (Toprol Xl) 200 mg DAILY PO Last administered on 07/04/18 09:42; Admin Dose 200 MG; Start 06/24/18 at 09:00 Tamsulosin HCl (Flomax) 0.4 mg BID PO Last administered on 07/04/18 09:35; Admin Dose 0.4 MG; Start 06/24/18 at 09:00 Hydralazine HCl (Apresoline) 10 mg Q6 PRN IV SBP>160 Last administered on 07/04/18 03:17; Admin Dose 10 MG; Start 06/24/18 at 12:00 Nifedipine (Procardia Xl) 90 mg DAILY PO Last administered on 07/04/18 09:42; Admin Dose 90 MG; Start 06/28/18 at 09:00 Dexamethasone (Decadron) 4 mg Q8 IV Last administered on 07/04/18 13:23; Admin Dose 4 MG; Start 06/28/18 at 16:00 Docusate Sodium (Colace) 100 mg DAILY PO Last administered on 07/04/18 09:35; Admin Dose 100 MG; Start 06/30/18 at 09:00 Ferrous Sulfate (Ferrous Sulfate (Ec)) 325 mg TID PO Last administered on 07/04/18 13:23; Admin Dose 325 MG; Start 07/02/18 at 09:00 Heparin Sodium (Porcine) (Heparin (5000 Units/1ml)) 5,000 unit BID SC Last administered on 07/04/18 09:41; Admin Dose 5,000 UNIT; Start 07/01/18 at 09:00 Aspirin (Halfprin) 81 mg DAILY PO Last administered on 07/04/18 09:35; Admin Dose 81 MG; Start 07/01/18 at 09:00 Atorvastatin Calcium (Lipitor) 20 mg HS PO Last administered on 07/03/18 22:09; Admin Dose 20 MG; Start 06/30/18 at 21:00 Multivit/Ca Carb/ B Cmplx/FA/Prenat ([place]) 1 tab DAILY PO Last administered on 07/04/18 09:35; Admin Dose 1 TAB; Start 07/02/18 at 09:00 Polyethylene Glycol (Miralax) 17 gm BID PO Last administered on 07/04/18 09:35; Admin Dose 17 GM; Start 07/03/18 at 21:00 Bisacodyl (Dulcolax) 10 mg DAILY PRN PO CONSTIPATION; Start 07/03/18 at 12:00 Dextrose 1,000 ml @ 50 mls/hr Q20H IV Last administered on 5/17/19at 09:36; Admin Dose 50 MLS/HR; Start 07/04/18 at 08:30 Ampicillin 50 ml @ 100 mls/hr Q8 IVPB ; Start 07/04/18 at 14:00 Doxycycline Hyclate (Vibramycin) 100 mg BID PO ; Start 07/04/18 at 21:00 Assessment/Plan Hospital Course (Demo Recall) MP: 1. 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 CT-guided biopsy today await results Radiology findings noted. No safe window for biopsy. Lesion is also too peripheral for bronchoscopy. Cytology for malignancy is negative. Limited safe options for pulmonary tissue diagnosis. Patient would require thoracic surgery which he does not appears stable to proceed with. 2. Continue dexamethasone for [employer] lesion. Case discussed with hematology oncology. Liver lesion noted may be possible target for biopsy. Oncology team to discuss goals of care with family and plan if they declined liver biopsy. HATTIE LARA MD, [facility] July 04, 2018 14:21
[2018-07-04] MEDS: AMPICILLIN 1 GM/NS (PMX) 50 ML IVPB SCH ×2 (15:04→21:50)
--- NOTE | 2018-07-04 16:29 | PN ---
Date/Time of Note Date/Time of Note DATE: 07/04/18 TIME: 16:27 Assessment/Plan Lines/Catheters IV Catheter Type (from [facility]): Saline Lock Assessment/Plan Chief Complaint/Hosp Course 1. Left buttock abscess; recurrent versus unresolved; history of multiple abscesses in the same area; CT:Chronic left perirectal abscess with foci of air measures 4.0 x 3.0 x 1.7 cm slightly decreased in size compared to 2017 CT with skin track extending to the medial aspect of left gluteal region. -Wound culture noted -Spontaneously draining > continue heating pad to promote drainage -Colorectal surgeon evaluation 2. 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 CKD -Limit nephrotoxic meds -Renally dose meds -Per renal 4. Hypertension: -Encourage weight loss -Medical management 5. Leukocytosis: Afebrile; currently on dexamethasone -Monitor 6. Normocytic normochromic anemia: -Monitor and transfuse as needed 7. Hypernatremia -Judicious fluid correction 8. Bacteremia: -Antibiotics per sensitivities 9. Small bilateral pleural effusions: -Fluid management Thank you, Subjective 24 Hr Interval Summary Abscess continuing to drain. No fevers, chills, sob, congested cough, cp, palpitations, baum, dizziness, n/v/d/dysuria. Exam/Review of Systems Vital Signs Vitals Vital Signs Date Temp Pulse Resp B/P (MAP) Pulse Ox O2 O2 Flow FiO2 Time Delivery Rate 07/04/18 98.9 84 20 162/76 96 14:00 (104) 07/04/18 Room Air 02:00 Intake and Output 07/03/18 07/03/18 07/04/18 1515:00 23:00 07:00 IntakeIntake Total 540 ml 100 ml OutputOutput Total 400 ml BalanceBalance 540 ml -300 ml Exam Free Text/Dictation Constitutional: alert, oriented Psych: nl mood/affect; No anxiety Head: normocephalic, atraumatic Eyes: nl conjunctiva, EOMI, nl lids, nl sclera ENMT: nl external ears & nose, nl lips & teeth, mucosa pink and moist, other (Nose: Multiple lesions) Neck: non-tender; No jvd Respiratory: normal air movement; No labored breathing Cardiovascular: regular rate and rhythm, nl pulses; No edema Gastrointestinal: soft, non-tender; No distended Musculoskeletal: nl extremities to inspection; No nl gait and stance (Right-sided weakness) Extremities: normal pulses; No edema Neurological: other (Right-sided weakness); No nl speech (Minimal slurred), No nl strength Skin: rash or lesions (Nose: Multiple lesions; mid back: Lesions (nontender, soft)), other (Left buttock: Small opening with purulent drainage, 2 mm depth, with surrounding induration) Results Result Diagram: 07/04/18 0423 07/04/18 0423 REGULO JACQUES MD July 04, 2018 16:29
[2018-07-04 17:39] VITALS: BP 149/78; PULSE 80; RESP 18
[2018-07-04 20:00] VITALS: BP 156/68; PULSE 67; RESP 18
[2018-07-04] MEDS: DOXYCYCLINE 100 MG TAB PO SCH (20:59)
[2018-07-04] MEDS: FEBUXOSTAT 40 MG TABLET PO SCH (20:59)
[2018-07-04] MEDS: ATORVASTATIN 20 MG TAB PO SCH (20:59)
[2018-07-04] MEDS: LATANOPROST 0.005% 2.5 ML OPH BOTH EYES SCH (21:09)
[2018-07-05] VITALS (8 sets, daily range): BP systolic 136–200; BP diastolic 62–101; PULSE 62–99; RESP 18–20
[2018-07-05] MEDS: HYDROCODONE/APAP (5/325) TAB PO PRN ×3 (02:13→16:23)
[2018-07-05] MEDS: DEXTROSE 5% 1,000 ML IV SCH ×3 (06:03→23:57)
[2018-07-05] MEDS: DEXAMETHASONE 4 MG/ML 1 ML INJ IV SCH ×3 (06:04→22:06)
[2018-07-05] MEDS: AMPICILLIN 1 GM/NS (PMX) 50 ML IVPB SCH ×3 (06:04→22:06)
[2018-07-05] MEDS: ALBUTEROL/IPRATROPIUM (NEB) 3 ML AMP HHN PRN (06:19)
[2018-07-05] MEDS: MULTIVIT/CA CARB/B CMPLX/FA TAB PO SCH (08:21)
[2018-07-05] MEDS: DONEPEZIL 5 MG TAB PO SCH (08:21)
[2018-07-05] MEDS: HEPARIN 5,000 UNIT/1 ML VIAL SC SCH ×2 (08:21→20:45)
[2018-07-05] MEDS: FAMOTIDINE 20 MG TAB PO SCH (08:22)
[2018-07-05] MEDS: POLYETHYLENE GLYCOL 17 GM PACKET PO SCH ×2 (08:22→20:42)
[2018-07-05] MEDS: TAMSULOSIN (SR) 0.4 MG CAP PO SCH ×2 (08:22→20:43)
[2018-07-05] MEDS: DOCUSATE SODIUM 100 MG CAP PO SCH (08:22)
[2018-07-05] MEDS: ASPIRIN (EC) 81 MG TAB PO SCH (08:22)
[2018-07-05] MEDS: FERROUS SULFATE (EC) 325 MG TAB PO SCH ×3 (08:22→20:44)
[2018-07-05] MEDS: NIFEdipine (XL) 90 MG TAB PO SCH (08:23)
[2018-07-05] MEDS: METOPROLOL (XL) 100 MG TAB PO SCH (08:23)
[2018-07-05] MEDS: DOXYCYCLINE 100 MG TAB PO SCH ×2 (09:11→20:43)
--- NOTE | 2018-07-05 10:36 | PN ---
DATE: 07/05/2018 SUBJECTIVE: The patient is stable. Patient remains weak, frail. No other events noted. No hemopty sis, hematemesis, hematochezia. The patient has poor oral intake. OBJECTIVE: VITAL SIGNS: Blood pressure is 175/77, respiration 18, pulse 76, temperature 97.7. HEENT: Head is normocephalic. NECK: Supple. HEART: Regular rate. LUNGS: Show diminished breath sounds at base. ABDOMEN: Soft, nontender to palpation without rebound or guarding. EXTREMITIES: Negative for clubbing, cyanosis, no edema. DERMATOLOGIC: No rashes. MUSCULOSKELETAL: No joint effusions. NEUROLOGIC: No change in exam. MEDICATIONS: Have been reviewed. LABORATORY DATA: Has been reviewed. IMAGING STUDIES: Have been reviewed. ASSESSMENT AND PLAN: 1. Nonoliguric acute kidney injury on top of chronic kidney disease stage IIIB/IV with previous base line creatinine around 2 to 2.5 mg/dL. Etiology of current acute kidney injury is secondary to hemod ynamics, tubular injury. The patient's renal function has declined, remains fluctuating, somewhat st able in the last 24 hours. At this point, continue current treatment plan. Continue hypertonic flui ds, continue supportive care, renally dose all meds. Will continue to monitor patient's signs and sy mptoms closely. Patient may require renal replacement therapy as he is developing some uremic signs and symptoms. 2. Mild hyperkalemia, resolved. Continue to monitor. 3. Hypernatremia. The patient has ongoing free water deficit. Will increase D5 water to 75 mL an h our. 4. Metabolic acidosis secondary to acute kidney injury. Continue to monitor. 5. Mineral bone disorder, monitor calcium and phosphorus levels. 6. Hypomagnesemia secondary to acute kidney injury. Continue to monitor. 7. Hypertension. Continue current blood pressure regimen. 8. History of diastolic heart failure, currently compensated. 9. Likely metastatic lung cancer. The patient, however, does not have a tissue biopsy. Continue to monitor. Follow up with oncology. 10. Dyslipidemia, continue statin therapy. 11. Arrhythmia, status post pacemaker. 12. History of gluteal abscess. 13. History of cerebrovascular accident. 14. Bacteremia. Patient is completing antibiotic course. Dictated By: CAMPOS BAIN/RINKU Conf#: [id number] [facility]#: [id number] CC: HIEU RNEEE MD;*End*
--- NOTE | 2018-07-05 11:30 | CONS ---
Consult Date/Type/Reason Admit Date/Time June 23, 2018 at 20:27 Initial Consult Date 06/28/18 Type of Consult Pulmonary Requesting Provider: BIBIANA SUH MD Date/Time of Note DATE: 07/05/18 TIME: 11:30 Subjective No significant changes. Continues dexamethasone. Family liver biopsy pending. Objective Vital Signs Date Temp Pulse Resp B/P (MAP) Pulse Ox O2 O2 Flow FiO2 Time Delivery Rate 07/05/18 81 158/70 09:20 (99) 07/05/18 97.7 18 98 08:01 07/05/18 21 06:25 07/04/18 Room Air 02:00 Intake and Output 07/04/18 07/04/18 07/05/18 1414:59 22:59 06:59 IntakeIntake Total 1150 ml 475 ml 915 ml OutputOutput Total 400 ml BalanceBalance 750 ml 475 ml 915 ml Exam GENERAL: Elderly gentleman in room air. VITAL SIGNS: per chart NECK: Supple. No JVD or lymphadenopathy. CARDIAC EXAM: S1, S2. No added sounds or murmurs. CHEST: Diminished air entry bilaterally ABDOMEN: Soft, nontender. No guarding or rebound. EXTREMITIES: No cyanosis, clubbing or edema. NEUROLOGIC: Generalized weakness. No focal deficits. Vent Setting Fraction of Inspired Oxygen pe: 21 Results/Medications Result Diagram: 07/05/18 0510 07/05/18 0510 Results 24 hrs Laboratory Tests Test 07/05/18 05:10 White Blood Count 19.8 #H Red Blood Count 2.85 L Hemoglobin 9.4 L Hematocrit 28.6 L Mean Corpuscular Volume 100.4 Mean Corpuscular Hemoglobin 33.0 Mean Corpuscular Hemoglobin Concent 32.9 Red Cell Distribution Width 13.4 Platelet Count 333 Mean Platelet Volume 10.5 H Immature Granulocytes % 5.300 H Neutrophils % Segmented Neutrophils % (Manual) 94 H Lymphocytes % Lymphocytes % (Manual) 4 L Monocytes % Eosinophils % Basophils % Metamyelocytes % (manual) 2 H Nucleated Red Blood Cells % 0.0 Immature Granulocytes # 1.040 H Neutrophils # Lymphocytes (Manual) 0.7 L Lymphocytes # Monocytes # Eosinophils # Basophils # Metamyelocytes # 0.3 H Nucleated Red Blood Cells # Platelet Estimate NORMAL Polychromasia 1+ Poikilocytosis 1+ Anisocytosis 1+ Sodium Level 148 H Potassium Level 4.7 Chloride Level 121 H Carbon Dioxide Level 20 L Anion Gap 7 Blood Urea Nitrogen 127 H Creatinine 3.79 H Est Glomerular Filtrat Rate mL/min Glucose Level 190 Calcium Level 9.5 Phosphorus Level 5.6 H Magnesium Level 3.2 H Medications Current Medications IV Flush (NS 3 ml) 3 ml PER PROTOCOL IV ; Start 06/24/18 at 00:00 Ondansetron HCl (Zofran Inj) 4 mg Q6H PRN IV NAUSEA/VOMITING; Start 06/24/18 at 00:00 Acetaminophen (Tylenol Tab) 650 mg Q6H PRN PO .PAIN 1-3 OR TEMP Last administered on 07/03/18 06:46; Admin Dose 650 MG; Start 06/24/18 at 00:00 Acetaminophen/ Hydrocodone Bitart ([place] (5/325)) 1 tab Q6H PRN PO .PAIN 4-6 Last administered on 07/05/18 08:22; Admin Dose 1 TAB; Start 06/24/18 at 00:00 Albuterol/ Ipratropium (Duoneb) 3 ml Q2H RESP THERAPY PRN HHN SHORTNESS OF BREATH Last administered on 07/05/18 06:19; Admin Dose 3 ML; Start 06/24/18 at 00:00 Latanoprost (Xalatan) 1 drop HS BOTH EYES Last administered on 07/04/18 21:09; Admin Dose 1 DROP; Start 06/24/18 at 21:00 Donepezil HCl (Aricept) 5 mg DAILY PO Last administered on 07/05/18 08:21; Admin Dose 5 MG; Start 06/24/18 at 09:00 Famotidine (Pepcid) 20 mg DAILY PO Last administered on 07/05/18 08:22; Admin Dose 20 MG; Start 06/24/18 at 09:00 Febuxostat (Uloric) 40 mg QHS PO Last administered on 07/04/18 20:59; Admin Dose 40 MG; Start 06/24/18 at 21:00 Metoprolol Succinate (Toprol Xl) 200 mg DAILY PO Last administered on 07/05/18 08:23; Admin Dose 200 MG; Start 06/24/18 at 09:00 Tamsulosin HCl (Flomax) 0.4 mg BID PO Last administered on 07/05/18 08:22; Admin Dose 0.4 MG; Start 06/24/18 at 09:00 Hydralazine HCl (Apresoline) 10 mg Q6 PRN IV SBP>160 Last administered on 07/04/18 03:17; Admin Dose 10 MG; Start 06/24/18 at 12:00 Nifedipine (Procardia Xl) 90 mg DAILY PO Last administered on 07/05/18 08:23; Admin Dose 90 MG; Start 06/28/18 at 09:00 Dexamethasone (Decadron) 4 mg Q8 IV Last administered on 07/05/18 06:04; Admin Dose 4 MG; Start 06/28/18 at 16:00 Docusate Sodium (Colace) 100 mg DAILY PO Last administered on 07/05/18 08:22; Admin Dose 100 MG; Start 06/30/18 at 09:00 Ferrous Sulfate (Ferrous Sulfate (Ec)) 325 mg TID PO Last administered on 08:22; Admin Dose 325 MG; Start 07/02/18 at 09:00 Heparin Sodium (Porcine) (Heparin (5000 Units/1ml)) 5,000 unit BID SC Last administered on 07/05/18 08:21; Admin Dose 5,000 UNIT; Start 07/01/18 at 09:00 Aspirin (Halfprin) 81 mg DAILY PO Last administered on 07/05/18 08:22; Admin Dose 81 MG; Start 07/01/18 at 09:00 Atorvastatin Calcium (Lipitor) 20 mg HS PO Last administered on 07/04/18 20:59; Admin Dose 20 MG; Start 06/30/18 at 21:00 Multivit/Ca Carb/ B Cmplx/FA/Prenat ([place]) 1 tab DAILY PO Last administered on 07/05/18 08:21; Admin Dose 1 TAB; Start 07/02/18 at 09:00 Polyethylene Glycol (Miralax) 17 gm BID PO Last administered on 07/05/18 08:22; Admin Dose 17 GM; Start 07/03/18 at 21:00 Bisacodyl (Dulcolax) 10 mg DAILY PRN PO CONSTIPATION; Start 07/03/18 at 12:00 Dextrose 1,000 ml @ 75 mls/hr [id number] IV Last administered on 07/05/18at 06:03; Admin Dose 50 MLS/HR; Start 07/04/18 at 08:30 Ampicillin 50 ml @ 100 mls/hr Q8 IVPB Last administered on 07/05/18at 06:04; Admin Dose 100 MLS/HR; Start 07/04/18 at 14:00 Doxycycline Hyclate (Vibramycin) 100 mg BID PO Last administered on 07/05/18at 09:11; Admin Dose 100 MG; Start 07/04/18 at 21:00 Assessment/Plan Hospital Course (Demo Recall) MP: 1. 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 CT-guided biopsy today await results Radiology findings noted. No safe window for biopsy. Lesion is also too peripheral for bronchoscopy. Cytology for malignancy is negative. Limited safe options for pulmonary tissue diagnosis. Patient would require thoracic surgery which he does not appears stable to proceed with. 2. Continue dexamethasone for [employer] lesion. Consider DC to snf facility on dexamethasone and wound care as well as family are considering options. HATTIE LARA MD, [facility] July 05, 2018 11:30
--- NOTE | 2018-07-05 14:43 | CONS ---
Consultation Date/Type/Reason Admit Date/Time June 23, 2018 at 20:27 Initial Consult Date 07/01/18 Type of Consult SUBJECTIVE: Patient is comfortably resting in bed, afebrile. No acute events over night. ==CT-guided biopsy could not be performed because of difficult access VS: stable T: 97.7 LABS: Reviewed. WBC- 19.8 Increased----Secondary to Decadron Microbiology: Blood culture on admission grew E. coli, repeat blood cultures negative, urine culture negative. Left buttock abscess drainage grew enterococcus, corynebact and staph species PATHOLOGY/cytology: MICROSCOPIC DIAGNOSIS: Right thoracentesis fluid for cytology: -- Negative for malignant cells. Antimicrobials: Vanco, Ampicillin IV and po Doxycycline Physical examination: GEN: Well-developed elderly man, who is in no distress. HENT: Head atraumatic normocephalic, neck is supple PULM: chest rise symmetrical breath sounds diminished bases. Heart: S1-S2. Abdomen: soft, bowel sounds present. Assessment: 1. E. coli bacteremia unclear etiology 2. 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 L buttock abscess==> surgery on case 4. Coronary artery disease with a history of permanent pacemaker 5. History of CVA Plan: Clinically unchanged. Fluid cultures neg, no malignancy per patho. Anticipated increase in WBC secondary to Decadron. Oncology following. - Anticipate dc on PO Levaquin last dose 07/11 to complete treatment for bacteremia unless he develops other medical problems during this hospitalization Requesting Provider: BIBIANA SUH MD Date/Time of Note DATE: 07/05/18 TIME: 14:37 Exam/Review of Systems Exam Vitals Vital Signs Date Temp Pulse Resp B/P (MAP) Pulse Ox O2 O2 Flow FiO2 Time Delivery Rate 07/05/18 81 158/70 09:20 (99) 07/05/18 97.7 18 98 08:01 07/05/18 21 06:25 07/04/18 Room Air 02:00 Intake and Output 07/04/18 07/04/18 07/05/18 1515:00 23:00 07:00 IntakeIntake Total 1150 ml 475 ml 915 ml OutputOutput Total 400 ml BalanceBalance 750 ml 475 ml 915 ml Results Result Diagram: 07/05/18 0510 07/05/18 0510 Results 24hrs Laboratory Tests Test 07/05/18 05:10 White Blood Count 19.8 #H Red Blood Count 2.85 L Hemoglobin 9.4 L Hematocrit 28.6 L Mean Corpuscular Volume 100.4 Mean Corpuscular Hemoglobin 33.0 Mean Corpuscular Hemoglobin Concent 32.9 Red Cell Distribution Width 13.4 Platelet Count 333 Mean Platelet Volume 10.5 H Immature Granulocytes % 5.300 H Neutrophils % Segmented Neutrophils % (Manual) 94 H Lymphocytes % Lymphocytes % (Manual) 4 L Monocytes % Eosinophils % Basophils % Metamyelocytes % (manual) 2 H Nucleated Red Blood Cells % 0.0 Immature Granulocytes # 1.040 H Neutrophils # Lymphocytes (Manual) 0.7 L Lymphocytes # Monocytes # Eosinophils # Basophils # Metamyelocytes # 0.3 H Nucleated Red Blood Cells # Platelet Estimate NORMAL Polychromasia 1+ Poikilocytosis 1+ Anisocytosis 1+ Sodium Level 148 H Potassium Level 4.7 Chloride Level 121 H Carbon Dioxide Level 20 L Anion Gap 7 Blood Urea Nitrogen 127 H Creatinine 3.79 H Est Glomerular Filtrat Rate mL/min Glucose Level 190 Calcium Level 9.5 Phosphorus Level 5.6 H Magnesium Level 3.2 H Medications Medication Current Medications IV Flush (NS 3 ml) 3 ml PER PROTOCOL IV ; Start 06/24/18 at 00:00 Ondansetron HCl (Zofran Inj) 4 mg Q6H PRN IV NAUSEA/VOMITING; Start 06/24/18 at 00:00 Acetaminophen (Tylenol Tab) 650 mg Q6H PRN PO .PAIN 1-3 OR TEMP Last administered on 07/03/18at 06:46; Admin Dose 650 MG; Start 06/24/18 at 00:00 Acetaminophen/ Hydrocodone Bitart ([place] (5/325)) 1 tab Q6H PRN PO .PAIN 4-6 Last administered on 07/05/18at 08:22; Admin Dose 1 TAB; Start 06/24/18 at 00:00 Albuterol/ Ipratropium (Duoneb) 3 ml Q2H RESP THERAPY PRN HHN SHORTNESS OF BREATH Last administered on 07/05/18at 06:19; Admin Dose 3 ML; Start 06/24/18 at 00:00 Latanoprost (Xalatan) 1 drop HS BOTH EYES Last administered on 07/04/18 21:09; Admin Dose 1 DROP; Start 06/24/18 at 21:00 Donepezil HCl (Aricept) 5 mg DAILY PO Last administered on 07/05/18 08:21; Admin Dose 5 MG; Start 06/24/18 at 09:00 Famotidine (Pepcid) 20 mg DAILY PO Last administered on 07/05/18 08:22; Admin Dose 20 MG; Start 06/24/18 at 09:00 Febuxostat (Uloric) 40 mg QHS PO Last administered on 07/04/18 20:59; Admin Do se 40 MG; Start 06/24/18 at 21:00 Metoprolol Succinate (Toprol Xl) 200 mg DAILY PO Last administered on 07/05/18 08:23; Admin Dose 200 MG; Start 06/24/18 at 09:00 Tamsulosin HCl (Flomax) 0.4 mg BID PO Last administered on 07/05/18 08:22; Admin Dose 0.4 MG; Start 06/24/18 at 09:00 Hydralazine HCl (Apresoline) 10 mg Q6 PRN IV SBP>160 Last administered on 07/04/18 03:17; Admin Dose 10 MG; Start 06/24/18 at 12:00 Nifedipine (Procardia Xl) 90 mg DAILY PO Last administered on 07/05/18 08:23; Admin Dose 90 MG; Start 06/28/18 at 09:00 Dexamethasone (Decadron) 4 mg Q8 IV Last administered on 07/05/18 13:55; Admin Dose 4 MG; Start 06/28/18 at 16:00 Docusate Sodium (Colace) 100 mg DAILY PO Last administered on 07/05/18 08:22; Admin Dose 100 MG; Start 06/30/18 at 09:00 Ferrous Sulfate (Ferrous Sulfate (Ec)) 325 mg TID PO Last administered on 07/05/18 13:55; Admin Dose 325 MG; Start 07/02/18 at 09:00 Heparin Sodium (Porcine) (Heparin (5000 Units/1ml)) 5,000 unit BID SC Last administered on 07/05/18 08:21; Admin Dose 5,000 UNIT; Start 07/01/18 at 09:00 Aspirin (Halfprin) 81 mg DAILY PO Last administered on 07/05/18 08:22; Admin Dose 81 MG; Start 07/01/18 at 09:00 Atorvastatin Calcium (Lipitor) 20 mg HS PO Last administered on 07/04/18 20:59; Admin Dose 20 MG; Start 06/30/18 at 21:00 Multivit/Ca Carb/ B Cmplx/FA/Prenat ([place]) 1 tab DAILY PO Last administered on 07/05/18 08:21; Admin Dose 1 TAB; Start 07/02/18 at 09:00 Polyethylene Glycol (Miralax) 17 gm BID PO Last administered on 07/05/18 08:22; Admin Dose 17 GM; Start 07/03/18 at 21:00 Bisacodyl (Dulcolax) 10 mg DAILY PRN PO CONSTIPATION; Start 07/03/18 at 12:00 Dextrose 1,000 ml @ 75 mls/hr [id number] IV Last administered on 07/05/18 06:03; Admin Dose 50 MLS/HR; Start 07/04/18 at 08:30 Ampicillin 50 ml @ 100 mls/hr Q8 IVPB Last administered on 07/05/18 06:04; Admin Dose 100 MLS/HR; Start 07/04/18 at 14:00 Doxycycline Hyclate (Vibramycin) 100 mg BID PO Last administered on 07/05/18 09:11; Admin Dose 100 MG; Start 07/04/18 at 21:00 MALVIN AMES July 05, 2018 14:43
--- NOTE | 2018-07-05 16:14 | PN ---
Date/Time of Note Date/Time of Note DATE: 07/05/18 TIME: 16:13 Assessment/Plan VTE Prophylaxis Risk score (from Ns)>0 risk: 9 SCD applied (from Ns): Yes Pharmacological prophylaxis: heparin Lines/Catheters IV C[facility]ter Type (from [facility] Peripheral IV Urinary Cath still in place: No Assessment/Plan Hospital Course SUBJECTIVE: Complaints of poor appetite. Patient confused too. OBJECTIVE: Physical Exam General: Adequately build 83 year-old male lying in bed in no apparent distress. HEENT: Normocephalic, atraumatic. Eyes: Anicteric sclerae, conjunctivae clear. ENT: Nasal septum midline, oral mucosa moist. Neck supple, no JVD noticed. Respiratory: Bilaterally diminished breath sounds. No use of accessory muscles of respiration. No adventitious breath sounds. Cardiovascular: S1, S2 heard. Regular rate and rhythm. Abdomen: Obese and distended. Bowel sounds positive in all 4 quadrants. Genitourinary: Deferred. Extremities: No cyanosis, no clubbing, no edema. Peripheral pulses palpable. Neurologic: Cranial nerves II through XII grossly intact. The patient is awake and alert. Labs & Vitals per chart ASSESSMENT & PLAN 83-year-old male with comorbidities including hypertension, chronic kidney disease, permanent pacemaker, stroke, CAD, peripheral artery disease, and remote history of pericardial effusion status post pericardiocentesis in December 2012. The patient came to the emergency room with chief complaint of headache and dizziness. CT scan of the brain was showing moderate vasogenic edema within the left thalamus with an underlying 11 mm lesion. The patient was admitted to inpatient setting for further treatment and evaluation. 1. Brain mass with underlying cerebral edema. -Status post evaluation by neurosurgery. -To rule out systemic malignancy. -Continue Decadron. 2. Posterolateral right upper lobe parenchymal lung mass concerning for neoplasm. -Suspected metastatic lung cancer. -CT-guided biopsy could not be performed because of difficult access. -S/P thoracentesis for obtaining pleural fluid for cytology on 07/02/2018. Cytology negative for any malignant cells. -Being followed by oncology and pulmonology. 3. Acute on chronic kidney disease -Being followed by nephrology. -Use nephrotoxic drugs with caution. 4. Hypertension. -Continue antihypertensives. 5. History of CVA. -Continue aspirin and statins. 6. Normocytic anemia. -Most probably anemia of chronic disease -Monitor H&H closely. 7. History of SVT. -Status post interrogation of pacemaker upon recent admission. 8. E. coli bacteremia. -On appropriate antimicrobials. 9. Prostate hypertrophy. -Continue Flomax. 10. Left gluteal abscess. -Surgical consult ongoing. -Spontaneously draining. -Growing polymicrobials. 11. Fluids, electrolytes, and nutrition. -Low-cholesterol diet. 12. DVT prophylaxis. -Subcutaneous heparin. 13. Plan. -Continue inpatient monitoring. -S/P thoracentesis for obtaining pleural fluid for cytology. Unfortunately pleural fluid study inconclusive. -Needs alternative approach for confirming diagnosis before the patient can be started on appropriate therapy. Had a long conversation with the patient's family including the patient's , patient's son, and patient's daughter at the bedside. The family was informed about the need for tissue diagnosis for identifying the type of cancer and to start the patient on appropriate therapy. The next option for tissue biopsy may include evaluation by a thoracic surgeon for resection/biopsy of the lung tumor. This was informed to the patient's family. The second option would be to make the patient comfortable and avoid further aggressive and invasive work-up. The patient's family wanted to discuss this with other family members before they could arrive at a decision. The patient's family also wanted to know if chemotherapy can possibly make him more deteriorated. I advised them that this question needs to be directed towards the patient's oncologist. Time spent: 35 minutes. The patient was seen in collaboration with Dr. Corea. Result Diagram: 07/05/18 0510 07/05/18 0510 Results 24hrs Laboratory Tests Test 07/05/18 05:10 White Blood Count 19.8 #H Red Blood Count 2.85 L Hemoglobin 9.4 L Hematocrit 28.6 L Mean Corpuscular Volume 100.4 Mean Corpuscular Hemoglobin 33.0 Mean Corpuscular Hemoglobin Concent 32.9 Red Cell Distribution Width 13.4 Platelet Count 333 Mean Platelet Volume 10.5 H Immature Granulocytes % 5.300 H Neutrophils % Segmented Neutrophils % (Manual) 94 H Lymphocytes % Lymphocytes % (Manual) 4 L Monocytes % Eosinophils % Basophils % Metamyelocytes % (manual) 2 H Nucleated Red Blood Cells % 0.0 Immature Granulocytes # 1.040 H Neutrophils # Lymphocytes (Manual) 0.7 L Lymphocytes # Monocytes # Eosinophils # Basophils # Metamyelocytes # 0.3 H Nucleated Red Blood Cells # Platelet Estimate NORMAL Polychromasia 1+ Poikilocytosis 1+ Anisocytosis 1+ Sodium Level 148 H Potassium Level 4.7 Chloride Level 121 H Carbon Dioxide Level 20 L Anion Gap 7 Blood Urea Nitrogen 127 H Creatinine 3.79 H Est Glomerular Filtrat Rate mL/min Glucose Level 190 Calcium Level 9.5 Phosphorus Level 5.6 H Magnesium Level 3.2 H Exam/Review of Systems Exam Vitals Vital Signs Date Temp Pulse Resp B/P (MAP) Pulse Ox O2 O2 Flow FiO2 Time Delivery Rate 07/05/18 81 158/70 09:20 (99) 07/05/18 97.7 18 98 08:01 07/05/18 21 06:25 07/04/18 Room Air 02:00 Intake and Output 07/04/18 07/04/18 07/05/18 1515:00 23:00 07:00 IntakeIntake Total 1150 ml 475 ml 915 ml OutputOutput Total 400 ml BalanceBalance 750 ml 475 ml 915 ml Results Results 24hrs Laboratory Tests Test 07/05/18 05:10 White Blood Count 19.8 #H Red Blood Count 2.85 L Hemoglobin 9.4 L Hematocrit 28.6 L Mean Corpuscular Volume 100.4 Mean Corpuscular Hemoglobin 33.0 Mean Corpuscular Hemoglobin Concent 32.9 Red Cell Distribution Width 13.4 Platelet Count 333 Mean Platelet Volume 10.5 H Immature Granulocytes % 5.300 H Neutrophils % Segmented Neutrophils % (Manual) 94 H Lymphocytes % Lymphocytes % (Manual) 4 L Monocytes % Eosinophils % Basophils % Metamyelocytes % (manual) 2 H Nucleated Red Blood Cells % 0.0 Immature Granulocytes # 1.040 H Neutrophils # Lymphocytes (Manual) 0.7 L Lymphocytes # Monocytes # Eosinophils # Basophils # Metamyelocytes # 0.3 H Nucleated Red Blood Cells # Platelet Estimate NORMAL Polychromasia 1+ Poikilocytosis 1+ Anisocytosis 1+ Sodium Level 148 H Potassium Level 4.7 Chloride Level 121 H Carbon Dioxide Level 20 L Anion Gap 7 Blood Urea Nitrogen 127 H Creatinine 3.79 H Est Glomerular Filtrat Rate mL/min Glucose Level 190 Calcium Level 9.5 Phosphorus Level 5.6 H Magnesium Level 3.2 H Medications Medication Current Medications IV Flush (NS 3 ml) 3 ml PER PROTOCOL IV ; Start 06/24/18 at 00:00 Ondansetron HCl (Zofran Inj) 4 mg Q6H PRN IV NAUSEA/VOMITING; Start 06/24/18 at 00:00 Acetaminophen (Tylenol Tab) 650 mg Q6H PRN PO .PAIN 1-3 OR TEMP Last administered on 07/03/18 06:46; Admin Dose 650 MG; Start 06/24/18 at 00:00 Acetaminophen/ Hydrocodone Bitart ([place] (5/325)) 1 tab Q6H PRN PO .PAIN 4-6 Last administered on 07/05/18 08:22; Admin Dose 1 TAB; Start 06/24/18 at 00:00 Albuterol/ Ipratropium (Duoneb) 3 ml Q2H RESP THERAPY PRN HHN SHORTNESS OF BREATH Last administered on 07/05/18 06:19; Admin Dose 3 ML; Start 06/24/18 at 00:00 Latanoprost (Xalatan) 1 drop HS BOTH EYES Last administered on 07/04/18 21:09; Admin Dose 1 DROP; Start 06/24/18 at 21:00 Donepezil HCl (Aricept) 5 mg DAILY PO Last administered on 07/05/18 08:21; Admin Dose 5 MG; Start 06/24/18 at 09:00 Famotidine (Pepcid) 20 mg DAILY PO Last administered on 07/05/18 08:22; Admin Dose 20 MG; Start 06/24/18 at 09:00 Febuxostat (Uloric) 40 mg QHS PO Last administered on 07/04/18 20:59; Admin Dose 40 MG; Start 06/24/18 at 21:00 Metoprolol Succinate (Toprol Xl) 200 mg DAILY PO Last administered on 07/05/18 08:23; Admin Dose 200 MG; Start 06/24/18 at 09:00 Tamsulosin HCl (Flomax) 0.4 mg BID PO Last administered on 07/05/18 08:22; Admin Dose 0.4 MG; Start 06/24/18 at 09:00 Hydralazine HCl (Apresoline) 10 mg Q6 PRN IV SBP>160 Last administered on 07/04/18 03:17; Admin Dose 10 MG; Start 06/24/18 at 12:00 Nifedipine (Procardia Xl) 90 mg DAILY PO Last administered on 07/05/18 08:23; Admin Dose 90 MG; Start 06/28/18 at 09:00 Dexamethasone (Decadron) 4 mg Q8 IV Last administered on 07/05/18 13:55; Admin Dose 4 MG; Start 06/28/18 at 16:00 Docusate Sodium (Colace) 100 mg DAILY PO Last administered on 07/05/18 08:22; Admin Dose 100 MG; Start 06/30/18 at 09:00 Ferrous Sulfate (Ferrous Sulfate (Ec)) 325 mg TID PO Last administered on 07/05/18 13:55; Admin Dose 325 MG; Start 07/02/18 at 09:00 Heparin Sodium (Porcine) (Heparin (5000 Units/1ml)) 5,000 unit BID SC Last administered on 07/05/18 08:21; Admin Dose 5,000 UNIT; Start 07/01/18 at 09:00 Aspirin (Halfprin) 81 mg DAILY PO Last administered on 07/05/18 08:22; Admin Dose 81 MG; Start 07/01/18 at 09:00 Atorvastatin Calcium (Lipitor) 20 mg HS PO Last administered on 07/04/18 20:59; Admin Dose 20 MG; Start 06/30/18 at 21:00 Multivit/Ca Carb/ B Cmplx/FA/Prenat ([place]) 1 tab DAILY PO Last administered on 07/05/18 08:21; Admin Dose 1 TAB; Start 07/02/18 at 09:00 Polyethylene Glycol (Miralax) 17 gm BID PO Last administered on 07/05/18 08:22; Admin Dose 17 GM; Start 07/03/18 at 21:00 Bisacodyl (Dulcolax) 10 mg DAILY PRN PO CONSTIPATION; Start 07/03/18 at 12:00 Dextrose 1,000 ml @ 75 mls/hr [id number] IV Last administered on 07/05/18 06:03; Admin Dose 50 MLS/HR; Start 07/04/18 at 08:30 Ampicillin 50 ml @ 100 mls/hr Q8 IVPB Last administered on 07/05/18 15:14; Admin Dose 100 MLS/HR; Start 07/04/18 at 14:00 Doxycycline Hyclate (Vibramycin) 100 mg BID PO Last administered on 07/05/18at 09:11; Admin Dose 100 MG; Start 07/04/18 at 21:00 TOBY COREA NP July 05, 2018 16:14
--- NOTE | 2018-07-05 17:02 | PN ---
Date/Time of Note Date/Time of Note DATE: 07/05/18 TIME: 16:54 Assessment/Plan Lines/Catheters IV Catheter Type (from [facility]): Peripheral IV Romero in Place (from [facility]): No Assessment/Plan Chief Complaint/Hosp Course 1. Left buttock abscess; recurrent versus unresolved; history of multiple abscesses in the same area; CT:Chronic left perirectal abscess with foci of air measures 4.0 x 3.0 x 1.7 cm slightly decreased in size compared to 2017 CT with skin track extending to the medial aspect of left gluteal region. -Wound culture noted -Spontaneously draining > continue heating pad to promote drainage -Colorectal surgeon evaluation once level of care is established 2. 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 CKD -Limit nephrotoxic meds -Renally dose meds -Per renal 4. Hypertension: -Encourage weight loss -Medical management 5. Leukocytosis: Afebrile; currently on dexamethasone -Monitor 6. Normocytic normochromic anemia: -Monitor and transfuse as needed 7. Hypernatremia -Judicious fluid correction 8. Bacteremia: -Antibiotics per sensitivities 9. Small bilateral pleural effusions: -Fluid management Thank you. Patient seen and examined in collaboration with Dr. Terell Schaefer. Subjective 24 Hr Interval Summary Generalized discomfort. Scant drainage from abscess. No fevers, chills, sob, co ngested cough, cp, palpitations, baum, dizziness, n/v/d/dysuria. Exam/Review of Systems Vital Signs Vitals Vital Signs Date Temp Pulse Resp B/P (MAP) Pulse Ox O2 O2 Flow FiO2 Time Delivery Rate 07/05/18 81 158/70 09:20 (99) 07/05/18 97.7 18 98 08:01 07/05/18 21 06:25 07/04/18 Room Air 02:00 Intake and Output 07/04/18 07/04/18 07/05/18 1515:00 23:00 07:00 IntakeIntake Total 1150 ml 475 ml 915 ml OutputOutput Total 400 ml BalanceBalance 750 ml 475 ml 915 ml Exam Free Text/Dictation Constitutional: alert, oriented Psych: nl mood/affect; No anxiety Head: normocephalic, atraumatic Eyes: nl conjunctiva, EOMI, nl lids, nl sclera ENMT: nl external ears & nose, nl lips & teeth, mucosa pink and moist, other (Nose: Multiple lesions) Neck: non-tender; No jvd Respiratory: normal air movement; No labored breathing Cardiovascular: regular rate and rhythm, nl pulses; No edema Gastrointestinal: soft, non-tender; No distended Musculoskeletal: nl extremities to inspection; No nl gait and stance (Right-sided weakness) Extremities: normal pulses; No edema Neurological: other (Right-sided weakness); No nl speech (Minimal slurred), No nl strength Skin: rash or lesions (Nose: Multiple lesions; mid back: Lesions (nontender, soft)), other (Left buttock: Small opening with scant purulent drainage, 2 mm depth, with surrounding induration) Results Result Diagram: 07/05/18 0510 07/05/18 0510 OTONIEL ISABEL NP July 05, 2018 17:02
[2018-07-05] MEDS: hydrALAzine 20 MG INJ IV PRN (20:34)
[2018-07-05] MEDS: FEBUXOSTAT 40 MG TABLET PO SCH (20:43)
[2018-07-05] MEDS: ATORVASTATIN 20 MG TAB PO SCH (20:44)
[2018-07-05] MEDS: LATANOPROST 0.005% 2.5 ML OPH BOTH EYES SCH (20:47)
[2018-07-05] MEDS ORDERED: HYDROmorphONE 0.5 MG/0.5 ML SYG IV PRN (22:00)
[2018-07-05] MEDS: HYDROmorphONE 0.5 MG/0.5 ML SYG IV PRN (22:06)
[2018-07-06 02:44] VITALS: BP 160/70; PULSE 70
[2018-07-06] MEDS: DEXAMETHASONE 4 MG/ML 1 ML INJ IV SCH ×3 (05:21→22:02)
[2018-07-06] MEDS: AMPICILLIN 1 GM/NS (PMX) 50 ML IVPB SCH ×3 (05:21→22:02)
[2018-07-06] MEDS: HYDROmorphONE 0.5 MG/0.5 ML SYG IV PRN ×2 (05:22→15:02)
[2018-07-06 08:10] VITALS: BP 156/67; PULSE 73; RESP 18
[2018-07-06] MEDS ORDERED: VANCOMYCIN HCL 1.25 GM in SOD CHLORIDE 0.9% 250 ML IVPB SCH (09:00)
[2018-07-06] MEDS: FERROUS SULFATE (EC) 325 MG TAB PO SCH ×3 (10:10→20:47)
[2018-07-06] MEDS: DONEPEZIL 5 MG TAB PO SCH (10:10)
[2018-07-06] MEDS: TAMSULOSIN (SR) 0.4 MG CAP PO SCH ×2 (10:10→20:47)
[2018-07-06] MEDS: DOCUSATE SODIUM 100 MG CAP PO SCH (10:10)
[2018-07-06] MEDS: POLYETHYLENE GLYCOL 17 GM PACKET PO SCH ×2 (10:11→20:47)
[2018-07-06] MEDS: MULTIVIT/CA CARB/B CMPLX/FA TAB PO SCH (10:11)
[2018-07-06] MEDS: ASPIRIN (EC) 81 MG TAB PO SCH (10:11)
[2018-07-06] MEDS: FAMOTIDINE 20 MG TAB PO SCH (10:11)
[2018-07-06] MEDS: DOXYCYCLINE 100 MG TAB PO SCH ×2 (10:14→20:47)
[2018-07-06] MEDS: METOPROLOL (XL) 100 MG TAB PO SCH (10:14)
[2018-07-06] MEDS: HEPARIN 5,000 UNIT/1 ML VIAL SC SCH ×2 (10:15→20:48)
[2018-07-06] MEDS: NIFEdipine (XL) 90 MG TAB PO SCH (10:17)
--- NOTE | 2018-07-06 11:42 | CONS ---
Consultation Date/Type/Reason Admit Date/Time June 23, 2018 at 20:27 Initial Consult Date 07/01/18 Type of Consult SUBJECTIVE: Patient is comfortably resting in bed, afebrile. No acute events over night. ==CT-guided biopsy could not be performed because of difficult access VS: stable T: 97.7 LABS: Reviewed. WBC- 19.3 ----Secondary to Decadron Microbiology: Blood culture on admission grew E. coli, repeat blood cultures negative, urine culture negative. Left buttock abscess drainage grew enterococcus, corynebact and staph species PATHOLOGY/cytology: MICROSCOPIC DIAGNOSIS: Right thoracentesis fluid for cytology: -- Negative for malignant cells. Antimicrobials: Vanco, Ampicillin IV and PO Doxycycline Physical examination: GEN: Well-developed elderly man, who is in no distress. HENT: Head atraumatic normocephalic, neck is supple PULM: chest rise symmetrical breath sounds diminished bases. Heart: S1-S2. Abdomen: soft, bowel sounds present. Assessment: 1. E. coli bacteremia unclear etiology 2. 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 L buttock abscess==> surgery on case 4. Coronary artery disease with a history of permanent pacemaker 5. History of CVA Plan: Clinically unchanged. Fluid cultures neg, no malignancy per patho. Oncology following. - Anticipate dc on PO Levaquin last dose 07/11 to complete treatment for bacteremia unless he develops other medical problems during this hospitalization Requesting Provider: BIBIANA SUH MD Date/Time of Note DATE: 07/06/18 TIME: 11:40 Exam/Review of Systems Exam Vitals Vital Signs Date Temp Pulse Resp B/P (MAP) Pulse Ox O2 O2 Flow FiO2 Time Delivery Rate 07/06/18 98.0 73 18 156/67 97 08:10 (96) 07/05/18 21 06:25 07/04/18 Room Air 02:00 Intake and Output 07/05/18 07/05/18 07/06/18 1515:00 23:00 07:00 IntakeIntake Total 540 ml 962 ml 1088 ml OutputOutput Total 400 ml 150 ml BalanceBalance 140 ml 812 ml 1088 ml Results Result Diagram: 07/06/18 0503 07/06/18 0503 Results 24hrs Laboratory Tests Test 07/06/18 05:03 White Blood Count 19.3 H Red Blood Count 2.67 L Hemoglobin 8.6 L Hematocrit 27.0 L Mean Corpuscular Volume 101.1 H Mean Corpuscular Hemoglobin 32.2 Mean Corpuscular Hemoglobin Concent 31.9 L Red Cell Distribution Width 13.8 Platelet Count 268 Mean Platelet Volume 10.6 H Immature Granulocytes % 3.200 H Neutrophils % 91.0 H Lymphocytes % 2.8 L Monocytes % 2.8 Eosinophils % 0.0 Basophils % 0.2 Nucleated Red Blood Cells % 0.0 Immature Granulocytes # 0.610 H Neutrophils # 17.6 H Lymphocytes # 0.5 L Monocytes # 0.5 Eosinophils # 0.0 Basophils # 0.0 Nucleated Red Blood Cells # 0.0 Sodium Level 144 Potassium Level 5.1 Chloride Level 121 H Carbon Dioxide Level 16 L Anion Gap 7 Blood Urea Nitrogen 137 H Creatinine 3.40 H Est Glomerular Filtrat Rate mL/min Glucose Level 205 Calcium Level 8.7 Phosphorus Level 5.3 H Magnesium Level 3.0 H Medications Medication Current Medications IV Flush (NS 3 ml) 3 ml PER PROTOCOL IV ; Start 06/24/18 at 00:00 Ondansetron HCl (Zofran Inj) 4 mg Q6H PRN IV NAUSEA/VOMITING; Start 06/24/18 at 00:00 Acetaminophen (Tylenol Tab) 650 mg Q6H PRN PO .PAIN 1-3 OR TEMP Last administered on 07/03/18at 06:46; Admin Dose 650 MG; Start 06/24/18 at 00:00 Acetaminophen/ Hydrocodone Bitart (Marshall (5/325)) 1 tab Q6H PRN PO .PAIN 4-6 Last administered on 07/05/18at 16:23; Admin Dose 1 TAB; Start 06/24/18 at 00:00 Albuterol/ Ipratropium (Duoneb) 3 ml Q2H RESP THERAPY PRN HHN SHORTNESS OF BREATH Last administered on 07/05/18at 06:19; Admin Dose 3 ML; Start 06/24/18 at 00:00 Latanoprost (Xalatan) 1 drop HS BOTH EYES Last administered on 07/05/18at 20:47; Admin Dose 1 DROP; Start 06/24/18 at 21:00 Donepezil HCl (Aricept) 5 mg DAILY PO Last administered on 07/06/18 10:10; Admin Dose 5 MG; Start 06/24/18 at 09:00 Famotidine (Pepcid) 20 mg DAILY PO Last administered on 07/06/18 10:11; Admin Dose 20 MG; Start 06/24/18 at 09:00 Febuxostat (Uloric) 40 mg QHS PO Last administered on 07/05/18 20:43; Admin Dose 40 MG; Start 06/24/18 at 21:00 Metoprolol Succinate (Toprol Xl) 200 mg DAILY PO Last administered on 07/06/18 10:14; Admin Dose 200 MG; Start 06/24/18 at 09:00 Tamsulosin HCl (Flomax) 0.4 mg BID PO Last administered on 07/06/18 10:10; Admin Dose 0.4 MG; Start 06/24/18 at 09:00 Hydralazine HCl (Apresoline) 10 mg Q6 PRN IV SBP>160 Last administered on 07/05/18 20:34; Admin Dose 10 MG; Start 06/24/18 at 12:00 Nifedipine (Procardia Xl) 90 mg DAILY PO Last administered on 07/06/18 10:17; Admin Dose 90 MG; Start 06/28/18 at 09:00 Dexamethasone (Decadron) 4 mg Q8 IV Last administered on 07/06/18 05:21; Admin Dose 4 MG; Start 06/28/18 at 16:00 Docusate Sodium (Colace) 100 mg DAILY PO Last administered on 07/06/18 10:10; Admin Dose 100 MG; Start 06/30/18 at 09:00 Ferrous Sulfate (Ferrous Sulfate (Ec)) 325 mg TID PO Last administered on 07/06/18 10:10; Admin Dose 325 MG; Start 07/02/18 at 09:00 Heparin Sodium (Porcine) (Heparin (5000 Units/1ml)) 5,000 unit BID SC Last ad ministered on 07/06/18 10:15; Admin Dose 5,000 UNIT; Start 07/01/18 at 09:00 Aspirin (Halfprin) 81 mg DAILY PO Last administered on 07/06/18 10:11; Admin Dose 81 MG; Start 07/01/18 at 09:00 Atorvastatin Calcium (Lipitor) 20 mg HS PO Last administered on 07/05/18 20:44; Admin Dose 20 MG; Start 06/30/18 at 21:00 Multivit/Ca Carb/ B Cmplx/FA/Prenat (Beverly-Star) 1 tab DAILY PO Last administered on 07/06/18 10:11; Admin Dose 1 TAB; Start 07/02/18 at 09:00 Polyethylene Glycol (Miralax) 17 gm BID PO Last administered on 07/06/18 10:11; Admin Dose 17 GM; Start 07/03/18 at 21:00 Bisacodyl (Dulcolax) 10 mg DAILY PRN PO CONSTIPATION; Start 07/03/18 at 12:00 Dextrose 1,000 ml @ 75 mls/hr [id number] IV Last administered on 07/05/18 23:57; Admin Dose 75 MLS/HR; Start 07/04/18 at 08:30 Ampicillin 50 ml @ 100 mls/hr Q8 IVPB Last administered on 07/06/18 05:21; Admin Dose 100 MLS/HR; Start 07/04/18 at 14:00 Doxycycline Hyclate (Vibramycin) 100 mg BID PO Last administered on 07/06/18 10:14; Admin Dose 100 MG; Start 07/04/18 at 21:00 Hydromorphone HCl (Dilaudid) 0.5 mg Q4H PRN IV SEVERE PAIN LEVEL 7-10 Last administered on 07/06/18 05:22; Admin Dose 0.5 MG; Start 07/05/18 at 22:00; S top 07/06/18 at 21:59 MALVIN AMES July 06, 2018 11:42
--- NOTE | 2018-07-06 13:18 | PN ---
Date/Time of Note Date/Time of Note DATE: 07/06/18 TIME: 13:14 Assessment/Plan Lines/Catheters IV Catheter Type (from [facility]): Peripheral IV Romero in Place (from [facility]): No Assessment/Plan Chief Complaint/Hosp Course 1. Left buttock abscess; recurrent versus unresolved; history of multiple abscesses in the same area; CT:Chronic left perirectal abscess with foci of air measures 4.0 x 3.0 x 1.7 cm slightly decreased in size compared to 2017 CT with skin track extending to the medial aspect of left gluteal region. -Wound culture noted -Spontaneously draining > continue heating pad to promote drainage -Colorectal surgeon evaluation once level of care is established 2. 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 CKD -Limit nephrotoxic meds -Renally dose meds -Per renal 4. Hypertension: -Encourage weight loss -Medical management 5. Leukocytosis: Afebrile; currently on dexamethasone -Monitor 6. Normocytic normochromic anemia: -Monitor and transfuse as needed 7. Hypernatremia -Judicious fluid correction 8. Bacteremia: -Antibiotics per sensitivities 9. Small bilateral pleural effusions: -Fluid management Thank you. Patient seen and examined in collaboration with Dr. Terell Schaefer. Subjective 24 Hr Interval Summary Feels well. No fevers, chills, sob, congested cough, cp, palpitations, baum, dizz iness, n/v/d/dysuria. Exam/Review of Systems Vital Signs Vitals Vital Signs Date Temp Pulse Resp B/P (MAP) Pulse Ox O2 O2 Flow FiO2 Time Delivery Rate 07/06/18 98.0 73 18 156/67 97 08:10 (96) 07/05/18 21 06:25 07/04/18 Room Air 02:00 Intake and Output 07/05/18 07/05/18 07/06/18 1515:00 23:00 07:00 IntakeIntake Total 540 ml 962 ml 1088 ml OutputOutput Total 400 ml 150 ml BalanceBalance 140 ml 812 ml 1088 ml Exam Free Text/Dictation Constitutional: alert, oriented Psych: nl mood/affect; No anxiety Head: normocephalic, atraumatic Eyes: nl conjunctiva, EOMI, nl lids, nl sclera ENMT: nl external ears & nose, nl lips & teeth, mucosa pink and moist, other ( Nose: Multiple lesions) Neck: non-tender; No jvd Respiratory: normal air movement; No labored breathing Cardiovascular: regular rate and rhythm, nl pulses; No edema Gastrointestinal: soft, non-tender; No distended Musculoskeletal: nl extremities to inspection; No nl gait and stance (Right-sided weakness) Extremities: normal pulses; No edema Neurological: other (Right-sided weakness); No nl speech (Minimal slurred), No nl strength Skin: rash or lesions (Nose: Multiple lesions; mid back: Lesions (nontender, soft)), other (Left buttock: Small opening with scant purulent drainage, 2 mm depth, with surrounding induration (improved)) Results Result Diagram: 07/06/18 0503 07/06/18 0503 OTONIEL ISABEL NP July 06, 2018 13:18
--- NOTE | 2018-07-06 13:21 | PN ---
DATE: 07/06/2018 SUBJECTIVE: The patient's mental status is declining. The patient is more confused. The patient's family had a long discussion yesterday about goals of care. The patient's family wants to pursue hem odialysis and they are also considering radiation therapy for patient's possible brain lesion. I inf ormed the patient's family of the risks and benefits of dialysis. They agreed and they wish to proce ed forward. No other events noted. OBJECTIVE: VITAL SIGNS: Blood pressure is 156/67, respiration 18, pulse 73, temperature 98.0. HEENT: Head is normocephalic. NECK: Supple. HEART: Regular rate. LUNGS: Show diminished breath sounds at the base. ABDOMEN: Soft, nontender to palpation without rebound or guarding. EXTREMITIES: Negative for clubbing, cyanosis, no edema. DERMATOLOGIC: No rashes. MUSCULOSKELETAL: No joint effusion. NEUROLOGIC: The patient is altered. MEDICATIONS: The patient's medications have been reviewed. LABORATORY DATA: Has been reviewed. ASSESSMENT AND PLAN: 1. Nonoliguric acute kidney injury on top of chronic kidney disease stage IIIB/IV with previous base line creatinine 2.5 mg/dL. Etiology of current acute kidney injury is secondary to hemodynamics, acu te tubular necrosis. Renal function is fluctuating, but the patient has a progressive azotemia and i s developing overt uremic symptoms including encephalopathy. The patient's family after a long discu ssion has agreed to proceed with hemodialysis. We will therefore have a Ednis catheter placed. On ce the catheter is placed, the patient will be initiated on dialysis. 2. Mild hyperkalemia, resolved. Continue to monitor. 3. Hypernatremia, improved. Continue D5 water. 4. Metabolic acidosis secondary to acute kidney injury. Continue to monitor. 5. Mineral bone disorder, monitor calcium and phosphorus levels. 6. Hypomagnesemia secondary to acute kidney injury. Continue to monitor. 7. Hypertension. Blood pressure control. 8. History of diastolic heart failure, currently compensated. 9. Likely metastatic lung carcinoma. The patient does not, however, have a tissue biopsy. Continue medical management. Consider possible radiation therapy for possible intracranial lesion. 10. Dyslipidemia. Continue statin therapy. 11. Arrhythmia, status post pacemaker. 12. History of gluteal abscess. 13. History of cerebrovascular accident. 14. Bacteremia. Patient is completing an antibiotic course. Dictated By: CAMPOS BAIN/RINKU Conf#: [id number] DID#: [id number] CC: BIBIANA SUH MD; HIEU RENEE MD; YOLANDA ANNE CONTRACTING OFFICER;*EndCC*
[2018-07-06 14:00] VITALS: BP 148/67; PULSE 63; RESP 18
--- NOTE | 2018-07-06 14:12 | PN ---
Date/Time of Note Date/Time of Note DATE: 07/06/18 TIME: 14:09 Assessment/Plan VTE Prophylaxis Risk score (from Ns)>0 risk: 9 SCD applied (from Ns): Yes Pharmacological prophylaxis: heparin Lines/Catheters IV Catheter Type (from [facility]): Peripheral IV Urinary Cath still in place: No Assessment/Plan Hospital Course SUBJECTIVE: Complaints of poor appetite. Patient confused too. OBJECTIVE: Physical Exam General: Adequately build 83 year-old male lying in bed in no apparent distress. HEENT: Normocephalic, atraumatic. Eyes: Anicteric sclerae, conjunctivae clear. ENT: Nasal septum midline, oral mucosa moist. Neck supple, no JVD noticed. Respiratory: Bilaterally diminished breath sounds. No use of accessory muscles of respiration. No adventitious breath sounds. Cardiovascular: S1, S2 heard. Regular rate and rhythm. Abdomen: Obese and distended. Bowel sounds positive in all 4 quadrants. Genitourinary: Deferred. Extremities: No cyanosis, no clubbing, no edema. Peripheral pulses palpable. Neurologic: Cranial nerves II through XII grossly intact. The patient is awake and alert. Labs & Vitals per chart ASSESSMENT & PLAN 83-year-old male with comorbidities including hypertension, chronic kidney disease, permanent pacemaker, stroke, CAD, peripheral artery disease, and remote history of pericardial effusion status post pericardiocentesis in December 2012. The patient came to the emergency room with chief complaint of headache and dizziness. CT scan of the brain was showing moderate vasogenic edema within the left thalamus with an underlying 11 mm lesion. The patient was admitted to inpatient setting for further treatment and evaluation. 1. Brain mass with underlying cerebral edema. -Status post evaluation by neurosurgery. -To rule out systemic malignancy. -Continue Decadron. 2. Posterolateral right upper lobe parenchymal lung mass concerning for neoplasm. -Suspected metastatic lung cancer. -CT-guided biopsy could not be performed because of difficult access. -S/P thoracentesis for obtaining pleural fluid for cytology on 07/02/2018. Cytology negative for any malignant cells. -Being followed by oncology and pulmonology. 3. Acute on chronic kidney disease -Being followed by nephrology. -Use nephrotoxic drugs with caution. -To be initiated on hemodialysis. 4. Hypertension. -Continue antihypertensives. 5. History of CVA. -Continue aspirin and statins. 6. Normocytic anemia. -Most probably anemia of chronic disease -Monitor H&H closely. 7. History of SVT. -Status post interrogation of pacemaker upon recent admission. 8. E. coli bacteremia. -On appropriate antimicrobials. 9. Prostate hypertrophy. -Continue Flomax. 10. Left gluteal abscess. -Surgical consult ongoing. Recommending [place]-rectal surgery. -Spontaneously draining. -Growing polymicrobials. 11. Fluids, electrolytes, and nutrition. -Low-cholesterol diet. 12. DVT prophylaxis. -Subcutaneous heparin. 13. Plan. -Continue inpatient monitoring. -S/P thoracentesis for obtaining pleural fluid for cytology. Unfortunately pleural fluid study inconclusive. -Needs alternative approach for confirming diagnosis before the patient can be started on appropriate therapy. On 07/05/2018, had a long conversation with the patient's family including the patient's , patient's son, and patient's daughter at the bedside. The family was informed about the need for tissue diagnosis for identifying the type of cancer and to start the patient on appropriate therapy. The next option for tissue biopsy may include evaluation by a thoracic surgeon for resection/biopsy of the lung tumor. This was informed to the patient's family. The second option would be to make the patient comfortable and avoid further aggressive and invasive work-up. The patient's family wanted to discuss this with other family members before they could arrive at a decision. The patient's family also wanted to know if chemotherapy can possibly make him more deteriorated. I advised them that this question needs to be directed towards the patient's oncologist. On 07/06/2018, the patient's son conveyed that they do not want aggressive ways for obtaining a tissue diagnosis. They just want "radiation" for the brain tumor and dialysis. The patient was seen in collaboration with Dr. Corea. Result Diagram: 07/06/18 0503 07/06/18 0503 Results 24hrs Laboratory Tests Test 07/06/18 05:03 White Blood Count 19.3 H Red Blood Count 2.67 L Hemoglobin 8.6 L Hematocrit 27.0 L Mean Corpuscular Volume 101.1 H Mean Corpuscular Hemoglobin 32.2 Mean Corpuscular Hemoglobin Concent 31.9 L Red Cell Distribution Width 13.8 Platelet Count 268 Mean Platelet Volume 10.6 H Immature Granulocytes % 3.200 H Neutrophils % 91.0 H Lymphocytes % 2.8 L Monocytes % 2.8 Eosinophils % 0.0 Basophils % 0.2 Nucleated Red Blood Cells % 0.0 Immature Granulocytes # 0.610 H Neutrophils # 17.6 H Lymphocytes # 0.5 L Monocytes # 0.5 Eosinophils # 0.0 Basophils # 0.0 Nucleated Red Blood Cells # 0.0 Sodium Level 144 Potassium Level 5.1 Chloride Level 121 H Carbon Dioxide Level 16 L Anion Gap 7 Blood Urea Nitrogen 137 H Creatinine 3.40 H Est Glomerular Filtrat Rate mL/min Glucose Level 205 Calcium Level 8.7 Phosphorus Level 5.3 H Magnesium Level 3.0 H Exam/Review of Systems Exam Vitals Vital Signs Date Temp Pulse Resp B/P (MAP) Pulse Ox O2 O2 Flow FiO2 Time Delivery Rate 07/06/18 98.0 73 18 156/67 97 08:10 (96) 07/05/18 21 06:25 07/04/18 Room Air 02:00 Intake and Output 07/05/18 07/05/18 07/06/18 1515:00 23:00 07:00 IntakeIntake Total 540 ml 962 ml 1088 ml OutputOutput Total 400 ml 150 ml BalanceBalance 140 ml 812 ml 1088 ml Results Results 24hrs Laboratory Tests Test 07/06/18 05:03 White Blood Count 19.3 H Red Blood Count 2.67 L Hemoglobin 8.6 L Hematocrit 27.0 L Mean Corpuscular Volume 101.1 H Mean Corpuscular Hemoglobin 32.2 Mean Corpuscular Hemoglobin Concent 31.9 L Red Cell Distribution Width 13.8 Platelet Count 268 Mean Platelet Volume 10.6 H Immature Granulocytes % 3.200 H Neutrophils % 91.0 H Lymphocytes % 2.8 L Monocytes % 2.8 Eosinophils % 0.0 Basophils % 0.2 Nucleated Red Blood Cells % 0.0 Immature Granulocytes # 0.610 H Neutrophils # 17.6 H Lymphocytes # 0.5 L Monocytes # 0.5 Eosinophils # 0.0 Basophils # 0.0 Nucleated Red Blood Cells # 0.0 Sodium Level 144 Potassium Level 5.1 Chloride Level 121 H Carbon Dioxide Level 16 L Anion Gap 7 Blood Urea Nitrogen 137 H Creatinine 3.40 H Est Glomerular Filtrat Rate mL/min Glucose Level 205 Calcium Level 8.7 Phosphorus Level 5.3 H Magnesium Level 3.0 H Medications Medication Current Medications IV Flush (NS 3 ml) 3 ml PER PROTOCOL IV ; Start 06/24/18 at 00:00 Ondansetron HCl (Zofran Inj) 4 mg Q6H PRN IV NAUSEA/VOMITING; Start 06/24/18 at 00:00 Acetaminophen (Tylenol Tab) 650 mg Q6H PRN PO .PAIN 1-3 OR TEMP Last administered on 07/03/18 06:46; Admin Dose 650 MG; Start 06/24/18 at 00:00 Acetaminophen/ Hydrocodone Bitart ([place] (5/325)) 1 tab Q6H PRN PO .PAIN 4-6 Last administered on 07/05/18 16:23; Admin Dose 1 TAB; Start 06/24/18 at 00:00 Albuterol/ Ipratropium (Duoneb) 3 ml Q2H RESP THERAPY PRN HHN SHORTNESS OF BREATH Last administered on 07/05/18 06:19; Admin Dose 3 ML; Start 06/24/18 at 00:00 Latanoprost (Xalatan) 1 drop HS BOTH EYES Last administered on 07/05/18 20:47; Admin Dose 1 DROP; Start 06/24/18 at 21:00 Donepezil HCl (Aricept) 5 mg DAILY PO Last administered on 07/06/18 10:10; Admin Dose 5 MG; Start 06/24/18 at 09:00 Famotidine (Pepcid) 20 mg DAILY PO Last administered on 07/06/18 10:11; Admin Dose 20 MG; Start 06/24/18 at 09:00 Febuxostat (Uloric) 40 mg QHS PO Last administered on 07/05/18 20:43; Admin Dose 40 MG; Start 06/24/18 at 21:00 Metoprolol Succinate (Toprol Xl) 200 mg DAILY PO Last administered on 07/06/18 10:14; Admin Dose 200 MG; Start 06/24/18 at 09:00 Tamsulosin HCl (Flomax) 0.4 mg BID PO Last administered on 07/06/18 10:10; Admin Dose 0.4 MG; Start 06/24/18 at 09:00 Hydralazine HCl (Apresoline) 10 mg Q6 PRN IV SBP>160 Last administered on 07/05/18 20:34; Admin Dose 10 MG; Start 06/24/18 at 12:00 Nifedipine (Procardia Xl) 90 mg DAILY PO Last administered on 07/06/18 10:17; Admin Dose 90 MG; Start 06/28/18 at 09:00 Dexamethasone (Decadron) 4 mg Q8 IV Last administered on 07/06/18 13:36; Admin Dose 4 MG; Start 06/28/18 at 16:00 Docusate Sodium (Colace) 100 mg DAILY PO Last administered on 07/06/18 10:10; Admin Dose 100 MG; Start 06/30/18 at 09:00 Ferrous Sulfate (Ferrous Sulfate (Ec)) 325 mg TID PO Last administered on 07/06/18 13:36; Admin Dose 325 MG; Start 07/02/18 at 09:00 Heparin Sodium (Porcine) (Heparin (5000 Units/1ml)) 5,000 unit BID SC Last administered on 07/06/18 10:15; Admin Dose 5,000 UNIT; Start 07/01/18 at 09:00 Aspirin (Halfprin) 81 mg DAILY PO Last administered on 07/06/18 10:11; Admin Dose 81 MG; Start 07/01/18 at 09:00 Atorvastatin Calcium (Lipitor) 20 mg HS PO Last administered on 07/05/18 20:44; Admin Dose 20 MG; Start 06/30/18 at 21:00 Multivit/Ca Carb/ B Cmplx/FA/Prenat ([place]-Star) 1 tab DAILY PO Last administered on 07/06/18 10:11; Admin Dose 1 TAB; Start 07/02/18 at 09:00 Polyethylene Glycol (Miralax) 17 gm BID PO Last administered on 07/06/18 10:11; Admin Dose 17 GM; Start 07/03/18 at 21:00 Bisacodyl (Dulcolax) 10 mg DAILY PRN PO CONSTIPATION; Start 07/03/18 at 12:00 Dextrose 1,000 ml @ 75 mls/hr [id number] IV Last administered on 07/05/18 23:57; Admin Dose 75 MLS/HR; Start 07/04/18 at 08:30 Ampicillin 50 ml @ 100 mls/hr Q8 IVPB Last administered on 07/06/18 13:35; Admin Dose 100 MLS/HR; Start 07/04/18 at 14:00 Doxycycline Hyclate (Vibramycin) 100 mg BID PO Last administered on 07/06/18at 10:14; Admin Dose 100 MG; Start 07/04/18 at 21:00 Hydromorphone HCl (Dilaudid) 0.5 mg Q4H PRN IV SEVERE PAIN LEVEL 7-10 Last adm inistered on 07/06/18at 05:22; Admin Dose 0.5 MG; Start 07/05/18 at 22:00; Stop 07/06/18 at 21:59 TOBY COREA NP July 06, 2018 14:12
[2018-07-06] MEDS: DEXTROSE 5% 1,000 ML IV SCH (15:24)
[2018-07-06] MEDS: morphine 2 MG INJ IV PRN (16:31)
[2018-07-06] MEDS ORDERED: HEPARIN 5,000 UNIT/1 ML VIAL CATHETER SCH (19:00)
--- NOTE | 2018-07-06 19:58 | OPR ---
DATE OF OPERATION: PREOPERATIVE DIAGNOSIS: Renal failure. POSTOPERATIVE DIAGNOSIS: Renal failure. OPERATION PERFORMED: Right femoral hemodialysis catheter placement. SURGEON: Iván Shukla MD ANESTHESIA: Local. CONSENT: Risks, benefits, complications, alternative therapies were explained to the patient and the family. Consent was obtained. OPERATIVE TECHNIQUE: The patient was placed in supine position, prepped and draped in usual sterile fashion. Time-out was called. Access was gained in the right common femoral vein. Guidewire was ad vanced through without any difficulty. Subcutaneous tissues were dilated. A 25 cm dialysis catheter was advanced over guidewire and secured to skin using silk sutures. Both ports of the catheter were aspirated and injected using heparinized saline solution. Appropriate dressings were applied. The patient tolerated procedure well. Dictated By: IVÁN SHUKLA MD FM/NTS Conf#: [id number] DID#: [id number] CC: YOLANDA ANNE NP; HIEU RENEE MD; BIBIANA SUH MD;*EndCC*
[2018-07-06 20:00] VITALS: BP 118/58; PULSE 91; RESP 18
[2018-07-06] MEDS: FEBUXOSTAT 40 MG TABLET PO SCH (20:47)
[2018-07-06] MEDS: LATANOPROST 0.005% 2.5 ML OPH BOTH EYES SCH (20:47)
[2018-07-06] MEDS: ATORVASTATIN 20 MG TAB PO SCH (20:47)
[2018-07-06] MEDS: ALBUTEROL/IPRATROPIUM (NEB) 3 ML AMP HHN PRN (22:14)
[2018-07-07] VITALS (13 sets, daily range): BP systolic 81–159; BP diastolic 52–84; PULSE 68–82; RESP 18–20
--- NOTE | 2018-07-07 01:11 | CONS ---
DATE OF ADMISSION: 06/23/2018 DATE OF CONSULTATION: REASON FOR CONSULTATION: Radiation therapy evaluation for management of probable brain metastases. HISTORY OF PRESENT ILLNESS: The patient is an 83-year-old gentleman, who presented to the emergency department at [facility] on 06/23/2018 with new onset headaches, dizziness, right e ye blurred vision. He was not experiencing seizure activity, nausea or vomiting. He had no pulmonar y or new musculoskeletal complaints either. He is a long-time smoker. He also does have a history o f multiple CVA's with resultant mild right hemiplegia. He underwent a CT of the brain without contra st on day 06/23/2018 and this observed moderate vasogenic edema within the left thalamus, extending i nto the cerebral peduncle and much of the mid brain. There appeared to be an 11 mm lesion in the inf erior left thalamus/cerebral peduncle. Chronic lacunar infarcts were noted in the left velasquez radiat a and left lentiform nucleus. There was no evidence of acute intracranial hemorrhage, mass effect or midline shift. Unfortunately, the patient was not able to undergo a brain MRI or CT head with contr ast due to the presence of the pacemaker and chronic kidney disease, respectively. He did undergo a CT chest, abdomen and pelvis on 06/25/2018 that did reveal a 2.1 cm mass in the posterolateral aspect of the right upper lobe extending along the major fissure. Also, noted was a multilocular moderate sized right-sided pleural effusion with loculation seen in the medial aspect of the right upper lobe. Enlarged mediastinal lymphadenopathy was noted with a dominant lymph in the right paratracheal rosemary on, measuring 2 cm as well as a 1.2 cm prevascular lymph node. A 1.6 cm hypodense lesion is observed in the caudate lobe of the liver slightly enlarged when compared to study from June 2016. At that ti me, the mass lesion measured 1 cm. A chronic left perirectal abscess was observed, measuring 4.0 x 3 .0 cm, decreased in size compared to 2017. An attempt was made for CT-guided biopsy of the lung mass on 06/30/2018, but due to adjacent chronic rib fractures, there was no safe window, in which the bio psy. Subsequently, the patient underwent an ultrasound-guided right thoracentesis of 200 mL on 07/02. Cytology is pending. Additionally, the patient denies any prior appetite or weight loss. PAST MEDICAL HISTORY: Coronary artery disease, history of multiple CVA's. 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 SURGICAL HISTORY: Pacemaker placement about 15 years ago. Pericardiocentesis in 2012. ALLERGIES TO MEDICATIONS: ERYTHROPOIETIN. CURRENT MEDICATIONS: 1. Simvastatin. 2. Amlodipine. 3. Metoprolol. 4. Flomax. 5. Donepezil. 6. Uloric. 7. Fosamax. 8. . SOCIAL HISTORY: He continues to smoke. No significant alcohol use. REVIEW OF SYSTEMS: GENERAL: No fevers, chills or sweats. ENT. No complaints of otalgia, dysphagia or hoarseness. NEUROLOGIC: As above. He also notes some numbness in the right upper and lower extremities. RESPIRATORY: Denies cough, hemoptysis or wheezing. CARDIOVASCULAR: No current chest pain. No palpitations. GASTROINTESTINAL: No nausea, vomiting, abdominal pain, diarrhea or rectal bleeding. GENITOURINARY: No dysuria or hematuria. ENDOCRINE: No history of thyroid disease or diabetes. SKIN: No history of lupus, scleroderma or shingles. MUSCULOSKELETAL: Denies any back, hip or rib pain. PHYSICAL EXAMINATION: GENERAL: A well-developed, elderly gentleman in no distress. HEENT: The right eye does not lateralize or move superiorly. Sclerae are anicteric. NODES: No cervical or supraclavicular adenopathy. LUNGS: Decreased breath sounds at the bases bilaterally without wheezes or rhonchi. ABDOMEN: Soft, nontender, without rebound, guarding or rigidity. EXTREMITIES: No cyanosis or edema. NEUROLOGIC: Awake and alert. MUSCULOSKELETAL: He moves all extremities without difficulty. Toes are downgoing. Strength appears to be 4/5 on the right, and 5/5 on the left. IMPRESSION: The patient is a 83-year-old gentleman, current smoker, admitted with neurologic complai nts including headaches, dizziness and right eye blurry vision. There was evidence of a right lung l esion and a solitary lesion involving the left thalamus and cerebral peduncle. PLAN: Thoracentesis was performed and results are pending. Presumably this scenario is consistent w ith metastatic carcinoma of the lung. It would be important, however, to obtain information on the m utational status. I am unsure whether this could be achieved with cytology. The treatment could imp act in such knowledge good impact systemic management. If the information is not available in this m atter, perhaps a liquid biopsy is possible. For an individual with a solitary brain metastasis, ideally this is borne out through optimal imaging such as an MRI. Here, we cannot clearly identify the remaining active disease within the brain, but also we cannot clearly define the margins of the initial lesion. At his age, if radiation therapy w ould be employed, ideally focal treatment would be utilized. This would minimize toxicity, specifica lly fatigue and neurocognitive dysfunction. However, I would not feel comfortable with single fracti on treatment given the accuracy. On the other hand, a focal regimen targeting the involved site with modest margin could be considered. It also hypofractionated the same time, either 5 fractions of 50 0 cGy each or perhaps 3600 cGy in in 12 fractions. We reviewed the new onsets of care in this instance. We discussed the limitations of the workup and the implications this may have on delivery of effective treatment. I will need to review matters wit h medical oncology. I am comfortable proceeding with radiation treatment. I was the patient and his family, chase workman, that given the extent of his neurologic compromise at this time, it is unclear whether his symptom s would be palliated even if the lesion itself responds. Side effects of treatment were reviewed inc luding, but not limited those of fatigue, symptoms of increased intracranial pressure and forms of ne urocognitive dysfunction. Questions were answered. Still, we do await the results of the cytologic evaluation of the pleural fluid. It was a pleasure participating with this patient's assessment and evaluation. Dictated By: MARVEL [place]/NTS Conf#: [id number] DID#: [id number] CC: YOLANDA ANNE NP; BIBIANA SUH MD; HIEU RENEE MD;*[facility]*
[2018-07-07] MEDS: morphine 2 MG INJ IV PRN (02:40)
[2018-07-07] MEDS: DEXAMETHASONE 4 MG/ML 1 ML INJ IV SCH ×3 (05:49→22:02)
[2018-07-07] MEDS: AMPICILLIN 1 GM/NS (PMX) 50 ML IVPB SCH ×2 (05:49→13:02)
[2018-07-07] MEDS: DEXTROSE 5% 1,000 ML IV SCH (05:50)
[2018-07-07] MEDS ORDERED: HEPARIN 1000 UNITS/ML 10 ML INJ CATHETER ONE (06:00)
[2018-07-07] MEDS ORDERED: MANNITOL 25% 50 ML INJ IV* ONE (08:00)
[2018-07-07] MEDS: POLYETHYLENE GLYCOL 17 GM PACKET PO SCH (09:45)
[2018-07-07] MEDS: FAMOTIDINE 20 MG TAB PO SCH (09:45)
[2018-07-07] MEDS: MULTIVIT/CA CARB/B CMPLX/FA TAB PO SCH (09:45)
[2018-07-07] MEDS: DOCUSATE SODIUM 100 MG CAP PO SCH (09:45)
[2018-07-07] MEDS: FERROUS SULFATE (EC) 325 MG TAB PO SCH ×2 (09:45→12:35)
[2018-07-07] MEDS: ASPIRIN (EC) 81 MG TAB PO SCH (09:45)
[2018-07-07] MEDS: HEPARIN 5,000 UNIT/1 ML VIAL SC SCH ×2 (09:45→21:45)
[2018-07-07] MEDS: TAMSULOSIN (SR) 0.4 MG CAP PO SCH ×2 (09:45→21:00)
[2018-07-07] MEDS: DONEPEZIL 5 MG TAB PO SCH (09:45)
[2018-07-07] MEDS: DOXYCYCLINE 100 MG TAB PO SCH (09:46)
[2018-07-07] MEDS: METOPROLOL (XL) 100 MG TAB PO SCH (09:56)
[2018-07-07] MEDS: NIFEdipine (XL) 90 MG TAB PO SCH (09:56)
--- NOTE | 2018-07-07 10:22 | PN ---
DATE: 07/07/2018 SUBJECTIVE: The patient is currently on hemodialysis, tolerating well. No other acute events noted. OBJECTIVE: VITAL SIGNS: Blood pressure is 159/70, pulse 74, respirations 18, temperature 97.4. HEENT: Head is normocephalic. NECK: Supple. HEART: Regular rate. LUNGS: Show diminished breath sounds at the base. ABDOMEN: Soft, nontender to palpation without rebound or guarding. EXTREMITIES: Negative for clubbing, cyanosis, no edema. DERMATOLOGIC: No rashes. MUSCULOSKELETAL: No joint effusion. NEUROLOGIC: No change in exam. MEDICATIONS: Reviewed. LABORATORY DATA: Reviewed. ASSESSMENT AND PLAN: 1. Nonoliguric acute kidney injury on top of chronic kidney disease stage IIIB/IV with previous base line creatinine of 2.5 mg/dL. The patient's etiology of acute kidney injury is secondary to acute tu bular necrosis. The patient was initiated on hemodialysis yesterday due to overt uremic symptoms. A nticipate daily dialysis for solute clearance and volume removal. Monitor closely. 2. Mild hypokalemia, resolved. 3. Hypernatremia, improved. Continue with D5 water. Continue dialysis on 140 sodium bath. 4. Metabolic acidosis secondary to acute kidney injury, improving with hemodialysis. 5. Mineral bone disorder. 6. Hypertension. Continue current blood pressure regimen. 7. History of diastolic heart failure, currently compensated likely metastatic lung cancer. The [facility] does not have a tissue biopsy. Continue current medical management, possible radiation oncology , follow up with primary team and oncology. 8. Dyslipidemia. Continue statin therapy. 9. Arrhythmia status post pacemaker. 10. History of cerebrovascular. 11. Bacteremia. She is completing antibiotic course. Dictated By: CAMPOS JOHNSTON DO NR/NTS Conf#: [id number] DID#: [id number] CC: YOLANDA ANNE NP; BIBIANA SUH MD; HIEU RENEE MD;*EndCC*
[2018-07-07] MEDS ORDERED: ALBUTEROL/IPRATROPIUM (NEB) 3 ML AMP HHN PRN (10:30)
[2018-07-07] MEDS ORDERED: GUAIFENESIN 20 MG/ML 5ML CUP PO PRN (10:30)
--- NOTE | 2018-07-07 12:04 | PN ---
Date/Time of Note Date/Time of Note DATE: 07/07/18 TIME: 12:02 Assessment/Plan Lines/Catheters IV Catheter Type (from [facility]): JOSE ANGEL CATHETER Romero in Place (from [facility]): No Assessment/Plan Chief Complaint/Hosp Course 1. Left buttock abscess; recurrent versus unresolved; history of multiple abscesses in the same area; CT:Chronic left perirectal abscess with foci of air measures 4.0 x 3.0 x 1.7 cm slightly decreased in size compared to 2017 CT with skin track extending to the medial aspect of left gluteal region. -Wound culture noted -Abx -Spontaneously draining > continue heating pad to promote drainage -Colorectal surgeon evaluation once level of care is established 2. Suspected stage IV lung cancer with metastasis to liver and brain: Currently on dexamethasone. Leukocytosis -Biopsies pending -Pending radiation/immunotherapy> per oncology 3. CKD -Limit nephrotoxic meds -Renally dose meds -Per renal 4. Hypertension: -Encourage weight loss -Medical management 5. Leukocytosis: Afebrile; currently on dexamethasone -Monitor 6. Normocytic normochromic anemia: -Monitor and transfuse as needed 7. Hypernatremia -Judicious fluid correction 8. Bacteremia: -Antibiotics per sensitivities 9. Small bilateral pleural effusions: -Fluid management Thank you Subjective 24 Hr Interval Summary Leukocytosis. Steroids. Feels well. No fevers, chills, sob, congested cough, cp, palpitations, baum, dizziness, n/v/d/dysuria. Exam/Review of Systems Vital Signs Vitals Vital Signs Date Temp Pulse Resp B/P (MAP) Pulse Ox O2 O2 Flow FiO2 Time Delivery Rate 07/07/18 Nasal 2.0 10:00 Cannula 07/07/18 97.4 74 18 159/70 92 08:57 (99) 07/06/18 21 22:14 Intake and Output 07/06/18 07/06/18 07/07/18 1515:00 23:00 07:00 IntakeIntake Total 50 ml 750 ml 1020 ml OutputOutput Total 800 ml BalanceBalance 50 ml 750 ml 220 ml Exam Free Text/Dictation Constitutional: alert, oriented Psych: nl mood/affect; No anxiety Head: normocephalic, atraumatic Eyes: nl conjunctiva, EOMI, nl lids, nl sclera ENMT: nl external ears & nose, nl lips & teeth, mucosa pink and moist, other (Nose: Multiple lesions) Neck: non-tender; No jvd Respiratory: normal air movement; No labored breathing Cardiovascular: regular rate and rhythm, nl pulses; No edema Gastrointestinal: soft, non-tender; No distended Musculoskeletal: nl extremities to inspection; No nl gait and stance (Right-sided weakness) Extremities: normal pulses; No edema Neurological: other (Right-sided weakness); No nl speech (Minimal slurred), No nl strength Skin: rash or lesions (Nose: Multiple lesions; mid back: Lesions (nontender, soft)), other (Left buttock: Small opening with scant purulent drainage, 2 mm depth, with surrounding induration (improved) Results Result Diagram: 07/07/18 0501 07/07/18 0501 REGULO JACQUES MD July 07, 2018 12:04
--- NOTE | 2018-07-07 14:08 | CONS ---
Assessment/Plan Assessment/Plan Hospital Course (Demo Recall) Patient is more congested today is awake in no distress no fevers overnight WBC today 24.8 with neutrophils 91.6 BUN 156 creatinine 3.81 Microbiology: Blood culture on admission grew E. coli, repeat blood cultures negative, urine culture negative. Left buttock abscess drainage grew enterococc us, corynebact and staph species Antimicrobials: Ampicillin, doxycycline Physical examination: Well-developed ill-appearing elderly man who is in no distress. Head atraumatic normocephalic neck is supple chest rise symmetrical, bilateral fine crackles, mild tachypnea. Heart: S1-S2. Abdomen soft bowel sounds present. Assessment: 1. Persistent leukocytosis possibly steroid-induced, cannot rule out infectious etiology 2. Severe congestion, possible aspiration versus fluid overload versus both 1. E. coli bacteremia unclear etiology 2. 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 L buttock abscess==> surgery on case 4. Coronary artery disease with a history of permanent pacemaker 5. History of CVA Plan: Repeat chest x-ray and cultures, change antibiotics to Vanco and Zosyn Consultation Date/Type/Reason Admit Date/Time June 23, 2018 at 20:27 Initial Consult Date 06/28/18 Type of Consult id Requesting Provider: BIBIANA SUH MD Date/Time of Note DATE: 07/07/18 TIME: 14:06 Exam/Review of Systems Exam Vitals Vital Signs Date Temp Pulse Resp B/P (MAP) Pulse Ox O2 O2 Flow FiO2 Time Delivery Rate 07/07/18 Nasal 2.0 10:00 Cannula 07/07/18 97.4 74 18 159/70 92 08:57 (99) 07/06/18 21 22:14 Intake and Output 07/06/18 07/06/18 07/07/18 1515:00 23:00 07:00 IntakeIntake Total 50 ml 750 ml 1020 ml OutputOutput Total 800 ml BalanceBalance 50 ml 750 ml 220 ml Results Result Diagram: 07/07/18 0501 07/07/18 0501 Results 24hrs Laboratory Tests Test 07/07/18 05:01 White Blood Count 24.8 #H Red Blood Count 2.36 L Hemoglobin 7.7 L Hematocrit 23.7 L Mean Corpuscular Volume 100.4 Mean Corpuscular Hemoglobin 32.6 Mean Corpuscular Hemoglobin Concent 32.5 Red Cell Distribution Width 13.4 Platelet Count 263 Mean Platelet Volume 10.9 H Immature Granulocytes % 2.800 H Neutrophils % 91.6 H Lymphocytes % 2.1 L Monocytes % 3.3 Eosinophils % 0.0 Basophils % 0.2 Nucleated Red Blood Cells % 0.0 Immature Granulocytes # 0.690 H Neutrophils # 22.7 H Lymphocytes # 0.5 L Monocytes # 0.8 Eosinophils # 0.0 Basophils # 0.0 Nucleated Red Blood Cells # 0.0 Sodium Level 146 H Potassium Level 5.1 Chloride Level 119 H Carbon Dioxide Level 17 L Anion Gap 10 Blood Urea Nitrogen 156 H Creatinine 3.81 H Est Glomerular Filtrat Rate mL/min Glucose Level 170 Calcium Level 8.8 Phosphorus Level 5.8 H Magnesium Level 2.9 H Hepatitis B Surface Antigen NEGATIVE Hepatitis B Surface Antibody NEGATIVE Medications Medication Current Medications IV Flush (NS 3 ml) 3 ml PER PROTOCOL IV ; Start 06/24/18 at 00:00 Ondansetron HCl (Zofran Inj) 4 mg Q6H PRN IV NAUSEA/VOMITING; Start 06/24/18 at 00:00 Acetaminophen (Tylenol Tab) 650 mg Q6H PRN PO .PAIN 1-3 OR TEMP Last administered on 07/03/18at 06:46; Admin Dose 650 MG; Start 06/24/18 at 00:00 Acetaminophen/ Hydrocodone Bitart ([place] (5/325)) 1 tab Q6H PRN PO .PAIN 4-6 Last administered on 07/05/18at 16:23; Admin Dose 1 TAB; Start 06/24/18 at 00:00 Albuterol/ Ipratropium (Duoneb) 3 ml Q2H RESP THERAPY PRN HHN SHORTNESS OF BREATH/COUGH Last administered on 07/06/18 22:14; Admin Dose 3 ML; Start 06/24/18 at 00:00 Latanoprost (Xalatan) 1 drop HS BOTH EYES Last administered on 07/06/18at 20:47; Admin Dose 1 DROP; Start 06/24/18 at 21:00 Donepezil HCl (Aricept) 5 mg DAILY PO Last administered on 07/07/18at 09:45; Admin Dose 5 MG; Start 06/24/18 at 09:00 Famotidine (Pepcid) 20 mg DAILY PO Last administered on 07/07/18 09:45; Admin Dose 20 MG; Start 06/24/18 at 09:00 Febuxostat (Uloric) 40 mg QHS PO Last administered on 07/06/18 20:47; Admin Dose 40 MG; Start 06/24/18 at 21:00 Metoprolol Succinate (Toprol Xl) 200 mg DAILY PO Last administered on 07/07/18 09:56; Admin Dose 200 MG; Start 06/24/18 at 09:00 Tamsulosin HCl (Flomax) 0.4 mg BID PO Last administered on 07/07/18 09:45; Admin Dose 0.4 MG; Start 06/24/18 at 09:00 Hydralazine HCl (Apresoline) 10 mg Q6 PRN IV SBP>160 Last administered on 20:34; Admin Dose 10 MG; Start 06/24/18 at 12:00 Nifedipine (Procardia Xl) 90 mg DAILY PO Last administered on 07/07/18 09:56; Admin Dose 90 MG; Start 06/28/18 at 09:00 Dexamethasone (Decadron) 4 mg Q8 IV Last administered on 07/07/18 13:02; Admin Dose 4 MG; Start 06/28/18 at 16:00 Docusate Sodium (Colace) 100 mg DAILY PO Last administered on 07/07/18 09:45; Admin Dose 100 MG; Start 06/30/18 at 09:00 Ferrous Sulfate (Ferrous Sulfate (Ec)) 325 mg TID PO Last administered on 07/07/18 09:45; Admin Dose 325 MG; Start 07/02/18 at 09:00 Heparin Sodium (Porcine) (Heparin (5000 Units/1ml)) 5,000 unit BID SC Last administered on 07/07/18 09:45; Admin Dose 5,000 UNIT; Start 07/01/18 at 09:00 Aspirin (Halfprin) 81 mg DAILY PO Last administered on 07/07/18 09:45; Admin Dose 81 MG; Start 07/01/18 at 09:00 Atorvastatin Calcium (Lipitor) 20 mg HS PO Last administered on 07/06/18 20:4 7; Admin Dose 20 MG; Start 06/30/18 at 21:00 Multivit/Ca Carb/ B Cmplx/FA/Prenat ([place]) 1 tab DAILY PO Last administered on 07/07/18 09:45; Admin Dose 1 TAB; Start 07/02/18 at 09:00 Polyethylene Glycol (Miralax) 17 gm BID PO Last administered on 07/07/18 09:45; Admin Dose 17 GM; Start 07/03/18 at 21:00 Bisacodyl (Dulcolax) 10 mg DAILY PRN PO CONSTIPATION; Start 07/03/18 at 12:00 Ampicillin 50 ml @ 100 mls/hr Q8 IVPB Last administered on 07/07/18 13:02; Admin Dose 100 MLS/HR; Start 07/04/18 at 14:00 Doxycycline Hyclate (Vibramycin) 100 mg BID PO Last administered on 07/07/18 09:46; Admin Dose 100 MG; Start 07/04/18 at 21:00 Morphine Sulfate (morphine) 1 mg Q4H PRN IV SEVERE PAIN LEVEL 7-10 Last administered on 07/07/18 02:40; Admin Dose 1 MG; Start 07/06/18 at 15:30 Guaifenesin (Robitussin Liquid Cup) 100 mg Q4H PRN PO COUGH Last administered on 07/07/18 13:02; Admin Dose 100 MG; Start 07/07/18 at 10:30 YOLANDA ANNE NP July 07, 2018 14:08
--- NOTE | 2018-07-07 14:21 | CONS ---
Consult Date/Type/Reason Admit Date/Time June 23, 2018 at 20:27 Initial Consult Date 06/28/18 Type of Consult Pulmonary Requesting Provider: BIBIANA SUH MD Date/Time of Note DATE: 07/07/18 TIME: 14:20 Subjective No significant changes from pulmonary standpoint Objective Vital Signs Date Temp Pulse Resp B/P (MAP) Pulse Ox O2 O2 Flow FiO2 Time Delivery Rate 07/07/18 Nasal 2.0 10:00 Cannula 07/07/18 97.4 74 18 159/70 92 08:57 (99) 07/06/18 21 22:14 Intake and Output 07/06/18 07/06/18 07/07/18 1515:00 23:00 07:00 IntakeIntake Total 50 ml 750 ml 1020 ml OutputOutput Total 800 ml BalanceBalance 50 ml 750 ml 220 ml Exam GENERAL: Elderly gentleman in room air. VITAL SIGNS: per chart NECK: Supple. No JVD or lymphadenopathy. CARDIAC EXAM: S1, S2. No added sounds or murmurs. CHEST: Diminished air entry bilaterally ABDOMEN: Soft, nontender. No guarding or rebound. EXTREMITIES: No cyanosis, clubbing or edema. NEUROLOGIC: Generalized weakness. No focal deficits. Vent Setting Fraction of Inspired Oxygen pe: 21 Results/Medications Result Diagram: 07/07/18 0501 07/07/18 0501 Results 24 hrs Laboratory Tests Test 07/07/18 05:01 White Blood Count 24.8 #H Red Blood Count 2.36 L Hemoglobin 7.7 L Hematocrit 23.7 L Mean Corpuscular Volume 100.4 Mean Corpuscular Hemoglobin 32.6 Mean Corpuscular Hemoglobin Concent 32.5 Red Cell Distribution Width 13.4 Platelet Count 263 Mean Platelet Volume 10.9 H Immature Granulocytes % 2.800 H Neutrophils % 91.6 H Lymphocytes % 2.1 L Monocytes % 3.3 Eosinophils % 0.0 Basophils % 0.2 Nucleated Red Blood Cells % 0.0 Immature Granulocytes # 0.690 H Neutrophils # 22.7 H Lymphocytes # 0.5 L Monocytes # 0.8 Eosinophils # 0.0 Basophils # 0.0 Nucleated Red Blood Cells # 0.0 Sodium Level 146 H Potassium Level 5.1 Chloride Level 119 H Carbon Dioxide Level 17 L Anion Gap 10 Blood Urea Nitrogen 156 H Creatinine 3.81 H Est Glomerular Filtrat Rate mL/min Glucose Level 170 Calcium Level 8.8 Phosphorus Level 5.8 H Magnesium Level 2.9 H Hepatitis B Surface Antigen NEGATIVE Hepatitis B Surface Antibody NEGATIVE Medications Current Medications IV Flush (NS 3 ml) 3 ml PER PROTOCOL IV ; Start 06/24/18 at 00:00 Ondansetron HCl (Zofran Inj) 4 mg Q6H PRN IV NAUSEA/VOMITING; Start 06/24/18 at 00:00 Acetaminophen (Tylenol Tab) 650 mg Q6H PRN PO .PAIN 1-3 OR TEMP Last administered on 07/03/18 06:46; Admin Dose 650 MG; Start 06/24/18 at 00:00 Acetaminophen/ Hydrocodone Bitart ([place] (5/325)) 1 tab Q6H PRN PO .PAIN 4-6 Last administered on 07/05/18 16:23; Admin Dose 1 TAB; Start 06/24/18 at 00:00 Albuterol/ Ipratropium (Duoneb) 3 ml Q2H RESP THERAPY PRN HHN SHORTNESS OF BREATH/COUGH Last administered on 07/06/18 22:14; Admin Dose 3 ML; Start 06/24/18 at 00:00 Latanoprost (Xalatan) 1 drop HS BOTH EYES Last administered on 07/06/18 20:47; Admin Dose 1 DROP; Start 06/24/18 at 21:00 Donepezil HCl (Aricept) 5 mg DAILY PO Last administered on 07/07/18 09:45; Admin Dose 5 MG; Start 06/24/18 at 09:00 Famotidine (Pepcid) 20 mg DAILY PO Last administered on 07/07/18 09:45; Admin Dose 20 MG; Start 06/24/18 at 09:00 Febuxostat (Uloric) 40 mg QHS PO Last administered on 07/06/18 20:47; Admin Dose 40 MG; Start 06/24/18 at 21:00 Metoprolol Succinate (Toprol Xl) 200 mg DAILY PO Last administered on 07/07/18 09:56; Admin Dose 200 MG; Start 06/24/18 at 09:00 Tamsulosin HCl (Flomax) 0.4 mg BID PO Last administered on 07/07/18 09:45; Admin Dose 0.4 MG; Start 06/24/18 at 09:00 Hydralazine HCl (Apresoline) 10 mg Q6 PRN IV SBP>160 Last administered on 07/05/18 20:34; Admin Dose 10 MG; Start 06/24/18 at 12:00 Nifedipine (Procardia Xl) 90 mg DAILY PO Last administered on 07/07/18 09:56; Admin Dose 90 MG; Start 06/28/18 at 09:00 Dexamethasone (Decadron) 4 mg Q8 IV Last administered on 07/07/18 13:02; Admin Dose 4 MG; Start 06/28/18 at 16:00 Docusate Sodium (Colace) 100 mg DAILY PO Last administered on 07/07/18 09:45; Admin Dose 100 MG; Start 06/30/18 at 09:00 Ferrous Sulfate (Ferrous Sulfate (Ec)) 325 mg TID PO Last administered on 07/07/18 09:45; Admin Dose 325 MG; Start 07/02/18 at 09:00 Heparin Sodium (Porcine) (Heparin (5000 Units/1ml)) 5,000 unit BID SC Last administered on 07/07/18 09:45; Admin Dose 5,000 UNIT; Start 07/01/18 at 09:00 Aspirin (Halfprin) 81 mg DAILY PO Last administered on 07/07/18 09:45; Admin Dose 81 MG; Start 07/01/18 at 09:00 Atorvastatin Calcium (Lipitor) 20 mg HS PO Last administered on 07/06/18 20:47; Admin Dose 20 MG; Start 06/30/18 at 21:00 Multivit/Ca Carb/ B Cmplx/FA/Prenat ([place]) 1 tab DAILY PO Last administered on 07/07/18 09:45; Admin Dose 1 TAB; Start 07/02/18 at 09:00 Polyethylene Glycol (Miralax) 17 gm BID PO Last administered on 07/07/18 09: 45; Admin Dose 17 GM; Start 07/03/18 at 21:00 Bisacodyl (Dulcolax) 10 mg DAILY PRN PO CONSTIPATION; Start 07/03/18 at 12:00 Morphine Sulfate (morphine) 1 mg Q4H PRN IV SEVERE PAIN LEVEL 7-10 Last ad ministered on 07/07/18 02:40; Admin Dose 1 MG; Start 07/06/18 at 15:30 Guaifenesin (Robitussin Liquid Cup) 100 mg Q4H PRN PO COUGH Last administered on 07/07/18at 13:02; Admin Dose 100 MG; Start 07/07/18 at 10:30 Vancomycin HCl (Vanco Iv Per Pharmacy) VANCOMYCIN PER PHARMACY PER PROTOCOL XX ; Start 07/07/18 at 14:30; Status UNV Assessment/Plan Hospital Course (Demo Recall) MP: 1. 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 CT-guided biopsy today await results Radiology findings noted. No safe window for biopsy. Lesion is also too peripheral for bronchoscopy. Cytology for malignancy is negative. Limited safe options for pulmonary tissue diagnosis. Patient would require thoracic surgery which he does not appears stable to proceed with. 2. Continue dexamethasone for [employer] lesion. Case discussed with hematology oncology, family declined liver biopsy then would recommend palliative care approach. HATTIE LARA MD, [facility] July 07, 2018 14:21
[2018-07-07] MEDS ORDERED: VANCOMYCIN IV PER PHARMACY XX SCH ×2 (14:30)
[2018-07-07] MEDS ORDERED: VANCOMYCIN HCL 1.5 GM in SOD CHLORIDE 0.9% 250 ML IVPB ONE (15:00)
--- NOTE | 2018-07-07 15:22 | CONS ---
Assessment/Plan Assessment/Plan Hospital Course (Demo Recall) # suspected stage IV lung cancer with mets to the liver and brain unfortunately we do not have a tissue diagnosis, IR could not obtain safe window for biopsy of lung lesion, spoke to pulmonary Dr Vazquez--bronch unlikely to reach lesion. family refused liver biopsy at this opint given pts age, poor performance status, multiple co morbidities I would recommend palliative care and hospice I discussed in detail the situation with the son over the phone and pt's at bedside. he has critical areas of mets in brain and liver. given clinical history this is likely lung ca. without biopsy cannot treat but furthermore, due to poor PS, pt is not a candidate for treatment they verbalized understanding of my recommendations to transition to a palliative mode recommend palliative care consult Consultation Date/Type/Reason Admit Date/Time June 23, 2018 at 20:27 Initial Consult Date 06/28/18 Requesting Provider: BIBIANA SUH MD Date/Time of Note DATE: 07/07/18 TIME: 15:20 24 HR Interval Summary Free Text/Dictation appreciate IR input family has refused further biopsy Exam/Review of Systems Exam Vitals Vital Signs Date Temp Pulse Resp B/P (MAP) Pulse Ox O2 O2 Flow FiO2 Time Delivery Rate 07/07/18 Nasal 2.0 10:00 Cannula 07/07/18 97.4 74 18 159/70 92 08:57 (99) 07/06/18 21 22:14 Intake and Output 07/06/18 07/06/18 07/07/18 1515:00 23:00 07:00 IntakeIntake Total 50 ml 750 ml 1020 ml OutputOutput Total 800 ml BalanceBalance 50 ml 750 ml 220 ml Results Result Diagram: 07/07/18 0501 07/07/18 0501 Results 24hrs Laboratory Tests Test 07/07/18 05:01 White Blood Count 24.8 #H Red Blood Count 2.36 L Hemoglobin 7.7 L Hematocrit 23.7 L Mean Corpuscular Volume 100.4 Mean Corpuscular Hemoglobin 32.6 Mean Corpuscular Hemoglobin Concent 32.5 Red Cell Distribution Width 13.4 Platelet Count 263 Mean Platelet Volume 10.9 H Immature Granulocytes % 2.800 H Neutrophils % 91.6 H Lymphocytes % 2.1 L Monocytes % 3.3 Eosinophils % 0.0 Basophils % 0.2 Nucleated Red Blood Cells % 0.0 Immature Granulocytes # 0.690 H Neutrophils # 22.7 H Lymphocytes # 0.5 L Monocytes # 0.8 Eosinophils # 0.0 Basophils # 0.0 Nucleated Red Blood Cells # 0.0 Sodium Level 146 H Potassium Level 5.1 Chloride Level 119 H Carbon Dioxide Level 17 L Anion Gap 10 Blood Urea Nitrogen 156 H Creatinine 3.81 H Est Glomerular Filtrat Rate mL/min Glucose Level 170 Calcium Level 8.8 Phosphorus Level 5.8 H Magnesium Level 2.9 H Hepatitis B Surface Antigen NEGATIVE Hepatitis B Surface Antibody NEGATIVE Medications Medication Current Medications IV Flush (NS 3 ml) 3 ml PER PROTOCOL IV ; Start 06/24/18 at 00:00 Ondansetron HCl (Zofran Inj) 4 mg Q6H PRN IV NAUSEA/VOMITING; Start 06/24/18 at 00:00 Acetaminophen (Tylenol Tab) 650 mg Q6H PRN PO .PAIN 1-3 OR TEMP Last administered on 07/03/18 06:46; Admin Dose 650 MG; Start 06/24/18 at 00:00 Acetaminophen/ Hydrocodone Bitart ([place] (5/325)) 1 tab Q6H PRN PO .PAIN 4-6 L ast administered on 07/05/18 16:23; Admin Dose 1 TAB; Start 06/24/18 at 00:00 Albuterol/ Ipratropium (Duoneb) 3 ml Q2H RESP THERAPY PRN HHN SHORTNESS OF BREATH/COUGH Last administered on 07/06/18 22:14; Admin Dose 3 ML; Start 06/24/18 at 00:00 Latanoprost (Xalatan) 1 drop HS BOTH EYES Last administered on 07/06/18 20:47; Admin Dose 1 DROP; Start 06/24/18 at 21:00 Donepezil HCl (Aricept) 5 mg DAILY PO Last administered on 07/07/18 09:45; Admin Dose 5 MG; Start 06/24/18 at 09:00 Famotidine (Pepcid) 20 mg DAILY PO Last administered on 07/07/18 09:45; Admin Dose 20 MG; Start 06/24/18 at 09:00 Febuxostat (Uloric) 40 mg QHS PO Last administered on 07/06/18 20:47; Admin Dose 40 MG; Start 06/24/18 at 21:00 Metoprolol Succinate (Toprol Xl) 200 mg DAILY PO Last administered on 07/07/18 09:56; Admin Dose 200 MG; Start 06/24/18 at 09:00 Tamsulosin HCl (Flomax) 0.4 mg BID PO Last administered on 07/07/18 09:45; Admin Dose 0.4 MG; Start 06/24/18 at 09:00 Hydralazine HCl (Apresoline) 10 mg Q6 PRN IV SBP>160 Last administered on 07/05/18 20:34; Admin Dose 10 MG; Start 06/24/18 at 12:00 Nifedipine (Procardia Xl) 90 mg DAILY PO Last administered on 07/07/18 09:56; Admin Dose 90 MG; Start 06/28/18 at 09:00 Dexamethasone (Decadron) 4 mg Q8 IV Last administered on 07/07/18 13:02; Admin Dose 4 MG; Start 06/28/18 at 16:00 Docusate Sodium (Colace) 100 mg DAILY PO Last administered on 07/07/18 09:45; Admin Dose 100 MG; Start 06/30/18 at 09:00 Ferrous Sulfate (Ferrous Sulfate (Ec)) 325 mg TID PO Last administered on 07/07/18 09:45; Admin Dose 325 MG; Start 07/02/18 at 09:00 Heparin Sodium (Porcine) (Heparin (5000 Units/1ml)) 5,000 unit BID SC Last administered on 07/07/18 09:45; Admin Dose 5,000 UNIT; Start 07/01/18 at 09:00 Aspirin (Halfprin) 81 mg DAILY PO Last administered on 07/07/18 09:45; Admin Dose 81 MG; Start 07/01/18 at 09:00 Atorvastatin Calcium (Lipitor) 20 mg HS PO Last administered on 07/06/18 20:47; Admin Dose 20 MG; Start 06/30/18 at 21:00 Multivit/Ca Carb/ B Cmplx/FA/Prenat ([place]) 1 tab DAILY PO Last administered on 07/07/18 09:45; Admin Dose 1 TAB; Start 07/02/18 at 09:00 Polyethylene Glycol (Miralax) 17 gm BID PO Last administered on 5/20/19at 09:45; Admin Dose 17 GM; Start 07/03/18 at 21:00 Bisacodyl (Dulcolax) 10 mg DAILY PRN PO CONSTIPATION; Start 07/03/18 at 12:00 Morphine Sulfate (morphine) 1 mg Q4H PRN IV SEVERE PAIN LEVEL 7-10 Last administered on 07/07/18at 02:40; Admin Dose 1 MG; Start 07/06/18 at 15:30 Guaifenesin (Robitussin Liquid Cup) 100 mg Q4H PRN PO COUGH Last administered on 07/07/18at 13:02; Admin Dose 100 MG; Start 07/07/18 at 10:30 Vancomycin HCl (Vanco Iv Per Pharmacy) VANCOMYCIN PER PHARMACY PER PROTOCOL XX ; Start 07/07/18 at 14:30 Vancomycin HCl 1.5 gm/Sodium Chloride 250 ml @ 83.333 mls/ hr ONCE ONCE IVPB ; Start 07/07/18 at 15:00; Stop 07/07/18 at 17:59 SUE SILVERIO July 07, 2018 15:22
--- NOTE | 2018-07-07 16:03 | PN ---
Date/Time of Note Date/Time of Note DATE: 07/07/18 TIME: 15:59 Assessment/Plan VTE Prophylaxis Risk score (from Nsg)>0 risk: 9 SCD applied (from Ns): Yes SCD contraindicated: low risk/ambulating Pharmacological prophylaxis: LMWH Lines/Catheters IV [facility]from [facility]): JOSE ANGEL CATHETER Urinary Cath still in place: No Assessment/Plan Hospital Course A/P 1. Suspected brain mets, vasogenic edema, unable to do MRI [pacemaker], or CT w contrast [CKD]. Cont supportive care/ steroids/ +/- xrt. 2. Lung mass; palliative chemo if able to obtain path- open lung biopsy/ liver biopsy? I doubt that he'd tolerate therapy, consider Hospice. 3. Past tobacco 4. Pacemaker status 5. Left glaucoma 6. History of SVT 7. Osteoporosis 8. Chronic hypertension 9. Chronic dyslipidemia 10. Chronic cad; hold asa till eating well 11. History of stroke right-sided deficits 12. Paroxysmal A. fib, probably not a candidate for long-term anticoagulation 13. Peripheral vascular disease? 13. History of ulcerative colitis chronic 15. History of pericardial effusion 16. Multiple lipomas 17. Pleural effusion, sp tap; minimal on Rt; worse on Left; HD 18. Suspected metastatic lung cancer, palliative vs Hospice. 19. Chronic kidney disease stage III-IV. Contrast would be challenging. Now HD status 20. Sepsis/ bacteremia? 21. Buttock abscess? cont wound care S: 06/28 no distress. Not oriented to year. No headache nausea vomiting fever. Speech clear possibly oriented to month. at bedside updated. 06/29: no distress 07/07: now on HD. hypoxic/ congested today. started hd. not eating much. still confused. spoke w ; wants snf. consider Hospice O: Vss except hypoxia PE No pallor; mild droop, chr left vision loss Appears reg; no m/r/g Diminished no tachypnea at rest Bs + nt nd no RRG overweight No edema Hemiparesis; hd access Result Diagram: 07/07/18 0501 07/07/18 0501 Results 24hrs Laboratory Tests Test 07/07/18 05:01 White Blood Count 24.8 #H Red Blood Count 2.36 L Hemoglobin 7.7 L Hematocrit 23.7 L Mean Corpuscular Volume 100.4 Mean Corpuscular Hemoglobin 32.6 Mean Corpuscular Hemoglobin Concent 32.5 Red Cell Distribution Width 13.4 Platelet Count 263 Mean Platelet Volume 10.9 H Immature Granulocytes % 2.800 H Neutrophils % 91.6 H Lymphocytes % 2.1 L Monocytes % 3.3 Eosinophils % 0.0 Basophils % 0.2 Nucleated Red Blood Cells % 0.0 Immature Granulocytes # 0.690 H Neutrophils # 22.7 H Lymphocytes # 0.5 L Monocytes # 0.8 Eosinophils # 0.0 Basophils # 0.0 Nucleated Red Blood Cells # 0.0 Sodium Level 146 H Potassium Level 5.1 Chloride Level 119 H Carbon Dioxide Level 17 L Anion Gap 10 Blood Urea Nitrogen 156 H Creatinine 3.81 H Est Glomerular Filtrat Rate mL/min Glucose Level 170 Calcium Level 8.8 Phosphorus Level 5.8 H Magnesium Level 2.9 H Hepatitis B Surface Antigen NEGATIVE Hepatitis B Surface Antibody NEGATIVE Exam/Review of Systems Exam Vitals Vital Signs Date Temp Pulse Resp B/P (MAP) Pulse Ox O2 O2 Flow FiO2 Time Delivery Rate 07/07/18 97.6 77 18 135/60 94 15:24 (85) 07/07/18 Nasal 2.0 10:00 Cannula 07/06/18 21 22:14 Intake and Output 07/06/18 07/06/18 07/07/18 1515:00 23:00 07:00 IntakeIntake Total 50 ml 750 ml 1020 ml OutputOutput Total 800 ml BalanceBalance 50 ml 750 ml 220 ml Results Results 24hrs Laboratory Tests Test 07/07/18 05:01 White Blood Count 24.8 #H Red Blood Count 2.36 L Hemoglobin 7.7 L Hematocrit 23.7 L Mean Corpuscular Volume 100.4 Mean Corpuscular Hemoglobin 32.6 Mean Corpuscular Hemoglobin Concent 32.5 Red Cell Distribution Width 13.4 Platelet Count 263 Mean Platelet Volume 10.9 H Immature Granulocytes % 2.800 H Neutrophils % 91.6 H Lymphocytes % 2.1 L Monocytes % 3.3 Eosinophils % 0.0 Basophils % 0.2 Nucleated Red Blood Cells % 0.0 Immature Granulocytes # 0.690 H Neutrophils # 22.7 H Lymphocytes # 0.5 L Monocytes # 0.8 Eosinophils # 0.0 Basophils # 0.0 Nucleated Red Blood Cells # 0.0 Sodium Level 146 H Potassium Level 5.1 Chloride Level 119 H Carbon Dioxide Level 17 L Anion Gap 10 Blood Urea Nitrogen 156 H Creatinine 3.81 H Est Glomerular Filtrat Rate mL/min Glucose Level 170 Calcium Level 8.8 Phosphorus Level 5.8 H Magnesium Level 2.9 H Hepatitis B Surface Antigen NEGATIVE Hepatitis B Surface Antibody NEGATIVE Medications Medication Current Medications IV Flush (NS 3 ml) 3 ml PER PROTOCOL IV ; Start 06/24/18 at 00:00 Ondansetron HCl (Zofran Inj) 4 mg Q6H PRN IV NAUSEA/VOMITING; Start 06/24/18 at 00:00 Acetaminophen (Tylenol Tab) 650 mg Q6H PRN PO .PAIN 1-3 OR TEMP Last administered on 07/03/18 06:46; Admin Dose 650 MG; Start 06/24/18 at 00:00 Acetaminophen/ Hydrocodone Bitart ([place]em[place] (5/325)) 1 tab Q6H PRN PO .PAIN 4-6 Last administered on 07/05/18 16:23; Admin Dose 1 TAB; Start 06/24/18 at 00:00 Albuterol/ Ipratropium (Duoneb) 3 ml Q2H RESP THERAPY PRN HHN SHORTNESS OF BREATH/COUGH Last administered on 07/06/18 22:14; Admin Dose 3 ML; Start 06/24/18 at 00:00 Latanoprost (Xalatan) 1 drop HS BOTH EYES Last administered on 07/06/18 20:47; Admin Dose 1 DROP; Start 06/24/18 at 21:00 Donepezil HCl (Aricept) 5 mg DAILY PO Last administered on 07/07/18 09:45; Admin Dose 5 MG; Start 06/24/18 at 09:00 Famotidine (Pepcid) 20 mg DAILY PO Last administered on 07/07/18 09:45; Admin Dose 20 MG; Start 06/24/18 at 09:00 Febuxostat (Uloric) 40 mg QHS PO Last administered on 07/06/18 20:47; Admin Dose 40 MG; Start 06/24/18 at 21:00 Metoprolol Succinate (Toprol Xl) 200 mg DAILY PO Last administered on 07/07/18 09:56; Admin Dose 200 MG; Start 06/24/18 at 09:00 Tamsulosin HCl (Flomax) 0.4 mg BID PO Last administered on 07/07/18 09:45; Admin Dose 0.4 MG; Start 06/24/18 at 09:00 Hydralazine HCl (Apresoline) 10 mg Q6 PRN IV SBP>160 Last administered on 07/05/18 20:34; Admin Dose 10 MG; Start 06/24/18 at 12:00 Nifedipine (Procardia Xl) 90 mg DAILY PO Last administered on 07/07/18 09:56; Admin Dose 90 MG; Start 06/28/18 at 09:00 Dexamethasone (Decadron) 4 mg Q8 IV Last administered on 07/07/18 13:02; Admin Dose 4 MG; Start 06/28/18 at 16:00 Docusate Sodium (Colace) 100 mg DAILY PO Last administered on 07/07/18 09:45; Admin Dose 100 MG; Start 06/30/18 at 09:00 Ferrous Sulfate (Ferrous Sulfate (Ec)) 325 mg TID PO Last administered on 07/07/18 09:45; Admin Dose 325 MG; Start 07/02/18 at 09:00 Heparin Sodium (Porcine) (Heparin (5000 Units/1ml)) 5,000 unit BID SC Last administered on 07/07/18 09:45; Admin Dose 5,000 UNIT; Start 07/01/18 at 09:00 Aspirin (Halfprin) 81 mg DAILY PO Last administered on 07/07/18 09:45; Admin Dose 81 MG; Start 07/01/18 at 09:00 Atorvastatin Calcium (Lipitor) 20 mg HS PO Last administered on 07/06/18 20:47; Admin Dose 20 MG; Start 06/30/18 at 21:00 Multivit/Ca Carb/ B Cmplx/FA/Prenat ([place]-Star) 1 tab DAILY PO Last administer ed on 07/07/18 09:45; Admin Dose 1 TAB; Start 07/02/18 at 09:00 Polyethylene Glycol (Miralax) 17 gm BID PO Last administered on 07/07/18 09:45; Admin Dose 17 GM; Start 07/03/18 at 21:00 Bisacodyl (Dulcolax) 10 mg DAILY PRN PO CONSTIPATION; Start 07/03/18 at 12:00 Morphine Sulfate (morphine) 1 mg Q4H PRN IV SEVERE PAIN LEVEL 7-10 Last administered on 07/07/18at 02:40; Admin Dose 1 MG; Start 07/06/18 at 15:30 Guaifenesin (Robitussin Liquid Cup) 100 mg Q4H PRN PO COUGH Last administered on 07/07/18at 13:02; Admin Dose 100 MG; Start 07/07/18 at 10:30 Vancomycin HCl (Vanco Iv Per Pharmacy) VANCOMYCIN PER PHARMACY PER PROTOCOL XX ; Start 07/07/18 at 14:30 Vancomycin HCl 1.5 gm/Sodium Chloride 250 ml @ 83.333 mls/ hr ONCE ONCE IVPB ; Start 07/07/18 at 15:00; Stop 07/07/18 at 17:59 BIBIANA SUH MD July 07, 2018 16:03
[2018-07-07] MEDS: ALBUTEROL/IPRATROPIUM (NEB) 3 ML AMP HHN PRN (17:08)
[2018-07-07] MEDS: ALBUTEROL/IPRATROPIUM (NEB) 3 ML AMP HHN SCH (20:35)
[2018-07-07] MEDS: FEBUXOSTAT 40 MG TABLET PO SCH (21:00)
[2018-07-07] MEDS: LATANOPROST 0.005% 2.5 ML OPH BOTH EYES SCH (21:47)
[2018-07-08] MEDS: ALBUTEROL/IPRATROPIUM (NEB) 3 ML AMP HHN SCH ×6 (01:21→22:38)
[2018-07-08 02:24] VITALS: BP 151/68; RESP 20
[2018-07-08] MEDS: morphine 2 MG INJ IV PRN ×3 (05:32→14:45)
[2018-07-08] MEDS: DEXAMETHASONE 4 MG/ML 1 ML INJ IV SCH ×3 (05:34→21:36)
[2018-07-08 07:55] VITALS: BP 119/79; PULSE 81; RESP 22
[2018-07-08] MEDS: FAMOTIDINE 20 MG TAB PO SCH (09:00)
[2018-07-08] MEDS: HEPARIN 5,000 UNIT/1 ML VIAL SC SCH (09:00)
[2018-07-08] MEDS: DONEPEZIL 5 MG TAB PO SCH (09:00)
[2018-07-08] MEDS: MULTIVIT/CA CARB/B CMPLX/FA TAB PO SCH (09:00)
[2018-07-08] MEDS: TAMSULOSIN (SR) 0.4 MG CAP PO SCH (09:00)
[2018-07-08] MEDS: NIFEdipine (XL) 90 MG TAB PO SCH (09:00)
[2018-07-08] MEDS: METOPROLOL (XL) 100 MG TAB PO SCH (09:00)
--- NOTE | 2018-07-08 09:17 | PN ---
DATE: 07/08/2018 SUBJECTIVE: The patient's family has made a decision to stop hemodialysis. The patient's family is aware of risks and benefits. They may be pursuing hospice care. No other events noted. OBJECTIVE: VITAL SIGNS: Blood pressure is 119/79, respirations 22, pulse 81, temperature 97.5. HEENT: Head is normocephalic. NECK: Supple. HEART: Regular rate. LUNGS: Show diminished breath sounds at the base. ABDOMEN: Soft, nontender to palpation. No rebound or guarding. EXTREMITIES: Negative for clubbing, cyanosis, no edema. DERMATOLOGIC: No rashes. MUSCULOSKELETAL: No joint effusion. NEUROLOGIC: No change in exam. MEDICATIONS: Reviewed. LABORATORY DATA: Has been reviewed. ASSESSMENT AND PLAN: 1. Nonoliguric acute kidney injury on top of chronic kidney disease stage IIIB with previous baselin e creatinine 2.5 mg/dL. Etiology of acute kidney injury is secondary to acute tubular necrosis. The patient had hemodialysis was initiated but now stopped, per family request. 2. Hypernatremia. The patient was previously on D5 water, discontinued. 3. Metabolic acidosis. 4. Mineral bone disorder. 5. Hypertension. 6. Diastolic heart failure. The patient appears compensated. 7. 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 We will continue to monitor as the patient's family may be pursuing hospice care. 8. Dyslipidemia. 9. History of arrhythmia. 10. History of cerebrovascular accident. 11. Bacteremia. Dictated By: CAMPOS BAIN/NTS Conf#: [id number] DID#: [id number] CC: HIEU RENEE MD;*EndCC*
--- NOTE | 2018-07-08 11:36 | PN ---
Date/Time of Note Date/Time of Note DATE: 07/08/18 TIME: 11:34 Assessment/Plan VTE Prophylaxis Risk score (from Nsg)>0 risk: 9 SCD applied (from Ns): Yes SCD contraindicated: low risk/ambulating Pharmacological prophylaxis: LMWH Lines/Catheters IV [facility] Type [facility]from [facility]): JOSE ANGEL CATHETER Urinary Cath still in place: No ( CONDOM CATHETER IN PLACE ) Assessment/Plan Hospital Course A/P 1. Suspected brain mets, vasogenic edema, unable to do MRI [pacemaker], or CT w contrast [CKD]. Cont supportive care/ steroids/ +/- xrt. 2. Lung mass; palliative chemo if able to obtain path- open lung biopsy/ liver biopsy? I doubt that he'd tolerate therapy. Spoke with and daughter regarding recommendation for Hospice. 3. Past tobacco 4. Pacemaker status 5. Left glaucoma 6. History of SVT 7. Osteoporosis 8. Chronic hypertension 9. Chronic dyslipidemia 10. Chronic cad; hold asa till eating well 11. History of stroke right-sided deficits 12. Paroxysmal A. fib, probably not a candidate for long-term anticoagulation 13. Peripheral vascular disease? 13. History of ulcerative colitis chronic 15. History of pericardial effusion 16. Multiple lipomas 17. Pleural effusion, sp tap; minimal on Rt; worse on Left; HD 18. Suspected metastatic lung cancer, palliative vs Hospice. 19. Chronic kidney disease stage III-IV. Contrast would be challenging. Now HD status. Does not wish to pursue further dialysis. 20. Sepsis/ bacteremia? 21. Buttock abscess? cont wound care S: 06/28 no distress. Not oriented to year. No headache nausea vomiting fever. Speech clear possibly oriented to month. at bedside updated. 06/29: no distress 07/07: now on HD. hypoxic/ congested today. started hd. not eating much. still confused. spoke w ; wants snf. consider Hospice 07/08: Possibly aspirated yesterday. Anemia noted, no active bleed. Hypoxic accessory muscle use obtunded, family wants to withdraw dialysis option. Recom mend they consider inpatient hospice. O: Vss except hypoxia PE No pallor; mild droop, chr left vision loss Appears reg; no m/r/g Diminished no tachypnea at rest Bs + nt nd no RRG overweight No edema Hemiparesis; hd access Result Diagram: 07/08/18 0649 07/08/18 0649 Results 24hrs Laboratory Tests Test 07/08/18 06:49 White Blood Count 32.7 #H Red Blood Count 2.01 L Hemoglobin 6.6 *L Hematocrit 20.6 L Mean Corpuscular Volume 102.5 H Mean Corpuscular Hemoglobin 32.8 Mean Corpuscular Hemoglobin Concent 32.0 Red Cell Distribution Width 14.1 Platelet Count 198 # Mean Platelet Volume 11.6 H Immature Granulocytes % 1.900 H Neutrophils % Segmented Neutrophils % (Manual) 96 H Lymphocytes % Lymphocytes % (Manual) 3 L Reactive Lymphocytes % (Manual) 1 H Monocytes % Eosinophils % Basophils % Nucleated Red Blood Cells % 0.2 H Immature Granulocytes # 0.630 H Neutrophils # Lymphocytes (Manual) 0.9 Lymphocytes # Reactive Lymphocytes # 0.3 H Monocytes # Eosinophils # Basophils # Nucleated Red Blood Cells # Platelet Estimate NORMAL Poikilocytosis 1+ Anisocytosis 1+ Macrocytosis 1+ Ovalocytes 1+ Sodium Level 144 Potassium Level 5.7 H Chloride Level 115 H Carbon Dioxide Level 19 L Anion Gap 10 Blood Urea Nitrogen 168 H Creatinine 4.08 H Est Glomerular Filtrat Rate mL/min Glucose Level 142 Calcium Level 8.4 Phosphorus Level 7.5 H Magnesium Level 2.6 H Exam/Review of Systems Exam Vitals Vital Signs Date Temp Pulse Resp B/P (MAP) Pulse Ox O2 O2 Flow FiO2 Time Delivery Rate 07/08/18 81 28 98 Nasal 6.0 09:20 Cannula 07/08/18 97.5 119/79 07:55 (92) 07/06/18 21 22:14 Intake and Output 07/07/18 07/07/18 07/08/18 1515:00 23:00 07:00 IntakeIntake Total 450 ml OutputOutput Total 1250 ml 700 ml BalanceBalance -800 ml -700 ml Results Results 24hrs Laboratory Tests Test 07/08/18 06:49 White Blood Count 32.7 #H Red Blood Count 2.01 L Hemoglobin 6.6 *L Hematocrit 20.6 L Mean Corpuscular Volume 102.5 H Mean Corpuscular Hemoglobin 32.8 Mean Corpuscular Hemoglobin Concent 32.0 Red Cell Distribution Width 14.1 Platelet Count 198 # Mean Platelet Volume 11.6 H Immature Granulocytes % 1.900 H Neutrophils % Segmented Neutrophils % (Manual) 96 H Lymphocytes % Lymphocytes % (Manual) 3 L Reactive Lymphocytes % (Manual) 1 H Monocytes % Eosinophils % Basophils % Nucleated Red Blood Cells % 0.2 H Immature Granulocytes # 0.630 H Neutrophils # Lymphocytes (Manual) 0.9 Lymphocytes # Reactive Lymphocytes # 0.3 H Monocytes # Eosinophils # Basophils # Nucleated Red Blood Cells # Platelet Estimate NORMAL Poikilocytosis 1+ Anisocytosis 1+ Macrocytosis 1+ Ovalocytes 1+ Sodium Level 144 Potassium Level 5.7 H Chloride Level 115 H Carbon Dioxide Level 19 L Anion Gap 10 Blood Urea Nitrogen 168 H Creatinine 4.08 H Est Glomerular Filtrat Rate mL/min Glucose Level 142 Calcium Level 8.4 Phosphorus Level 7.5 H Magnesium Level 2.6 H Medications Medication Current Medications IV Flush (NS 3 ml) 3 ml PER PROTOCOL IV ; Start 06/24/18 at 00:00 Ondansetron HCl (Zofran Inj) 4 mg Q6H PRN IV NAUSEA/VOMITING; Start 06/24/18 at 00:00 Acetaminophen (Tylenol Tab) 650 mg Q6H PRN PO .PAIN 1-3 OR TEMP Last administered on 07/03/18 06:46; Admin Dose 650 MG; Start 06/24/18 at 00:00 Acetaminophen/ Hydrocodone Bitart ([place] (5/325)) 1 tab Q6H PRN PO .PAIN 4-6 Last administered on 07/05/18 16:23; Admin Dose 1 TAB; Start 06/24/18 at 00:00 Albuterol/ Ipratropium (Duoneb) 3 ml Q2H RESP THERAPY PRN HHN SHORTNESS OF BREATH/COUGH Last administered on 07/07/18 17:08; Admin Dose 3 ML; Start 06/24/18 at 00:00 Latanoprost (Xalatan) 1 drop HS BOTH EYES Last administered on 07/07/18 21:47; Admin Dose 1 DROP; Start 06/24/18 at 21:00 Donepezil HCl (Aricept) 5 mg DAILY PO Last administered on 07/07/18 09:45; Admin Dose 5 MG; Start 06/24/18 at 09:00 Famotidine (Pepcid) 20 mg DAILY PO Last administered on 07/07/18 09:45; Admin Dose 20 MG; Start 06/24/18 at 09:00 Febuxostat (Uloric) 40 mg QHS PO Last administered on 07/06/18 20:47; Admin Dose 40 MG; Start 06/24/18 at 21:00 Metoprolol Succinate (Toprol Xl) 200 mg DAILY PO Last administered on 07/07/18 09:56; Admin Dose 200 MG; Start 06/24/18 at 09:00 Tamsulosin HCl (Flomax) 0.4 mg BID PO Last administered on 07/07/18 09:45; Admin Dose 0.4 MG; Start 06/24/18 at 09:00 Hydralazine HCl (Apresoline) 10 mg Q6 PRN IV SBP>160 Last administered on 07/05/18 20:34; Admin Dose 10 MG; Start 06/24/18 at 12:00 Nifedipine (Procardia Xl) 90 mg DAILY PO Last administered on 07/07/18 09:56; Admin Dose 90 MG; Start 06/28/18 at 09:00 Dexamethasone (Decadron) 4 mg Q8 IV Last administered on 07/08/18 05:34; Admin Dose 4 MG; Start 06/28/18 at 16:00 Heparin Sodium (Porcine) (Heparin (5000 Units/1ml)) 5,000 unit BID SC Last administered on 07/07/18 21:45; Admin Dose 5,000 UNIT; Start 07/01/18 at 09:00 Multivit/Ca Carb/ B Cmplx/FA/Prenat ([place]-Star) 1 tab DAILY PO Last administered on 07/07/18 09:45; Admin Dose 1 TAB; Start 07/02/18 at 09:00 Bisacodyl (Dulcolax) 10 mg DAILY PRN PO CONSTIPATION; Start 07/03/18 at 12:00 Morphine Sulfate (morphine) 1 mg Q4H PRN IV SEVERE PAIN LEVEL 7-10 Last administered on 07/08/18 09:42; Admin Dose 1 MG; Start 07/06/18 at 15:30 Guaifenesin (Robitussin Liquid Cup) 100 mg Q4H PRN PO COUGH Last administered on 07/07/18 13:02; Admin Dose 100 MG; Start 07/07/18 at 10:30 Vancomycin HCl (Vanco Iv Per Pharmacy) VANCOMYCIN PER PHARMACY PER PROTOCOL XX ; Start 07/07/18 at 14:30 Aspirin (Halfprin) 81 mg DAILY PO ; Start 07/14/18 at 09:00 Atorvastatin Calcium (Lipitor) 20 mg HS PO ; Start 07/14/18 at 21:00 Ferrous Sulfate (Ferrous Sulfate (Ec)) 325 mg TID PO ; Start 07/14/18 at 09:00 Albuterol/ Ipratropium (Duoneb) 3 ml Q4H RESP THERAPY HHN Last administered on 07/08/18at 09:51; Admin Dose 3 ML; Start 07/07/18 at 21:00 Docusate Sodium (Colace) 100 mg DAILY PO ; Start 07/14/18 at 09:00 BIBIANA SUH MD July 08, 2018 11:36
--- NOTE | 2018-07-08 11:37 | PN ---
Date/Time of Note Date/Time of Note DATE: 07/08/18 TIME: 11:35 Assessment/Plan Lines/Catheters IV Catheter Type (from [facility]): JOSE ANGEL CATHETER Romero in Place (from [facility]): No ( CONDOM CATHETER IN PLACE ) Assessment/Plan Chief Complaint/Hosp Course 1. Left buttock abscess; recurrent versus unresolved; history of multiple abscesses in the same area; CT:Chronic left perirectal abscess with foci of air measures 4.0 x 3.0 x 1.7 cm slightly decreased in size compared to 2017 CT with skin track extending to the medial aspect of left gluteal region. -Wound culture noted -Abx per id -Spontaneously drained & s/p heating pad to promote drainage -Colorectal surgeon evaluation once level of care is established> hospice eval pending 2. Suspected stage IV lung cancer with metastasis to liver and brain: Currently on dexamethasone. Leukocytosis -Biopsies pending -Pending radiation/immunotherapy> per oncology 3. CKD -Limit nephrotoxic meds -Renally dose meds -Per renal 4. Hypertension: -Encourage weight loss -Medical management 5. Leukocytosis: Afebrile; currently on dexamethasone -Monitor 6. Normocytic normochromic anemia: -Monitor and transfuse as needed 7. Hypernatremia -Judicious fluid correction 8. Bacteremia: -Antibiotics per sensitivities 9. Small bilateral pleural effusions: -Fluid management Thank you. Patient seen and examined in collaboration with Dr. Terell Schaefer. Subjective 24 Hr Interval Summary No fevers, chills, sob, congested cough, cp, palpitations, baum, dizziness, n/v/d/dysuria. Hospice eval pending. Exam/Review of Systems Vital Signs Vitals Vital Signs Date Temp Pulse Resp B/P (MAP) Pulse Ox O2 O2 Flow FiO2 Time Delivery Rate 07/08/18 81 28 98 Nasal 6.0 09:20 Cannula 07/08/18 97.5 119/79 07:55 (92) 07/06/18 21 22:14 Intake and Output 07/07/18 07/07/18 07/08/18 1515:00 23:00 07:00 IntakeIntake Total 450 ml OutputOutput Total 1250 ml 700 ml BalanceBalance -800 ml -700 ml Exam Free Text/Dictation Constitutional: alert, oriented Psych: nl mood/affect; No anxiety Head: normocephalic, atraumatic Eyes: nl conjunctiva, EOMI, nl lids, nl sclera ENMT: nl external ears & nose, nl lips & teeth, mucosa pink and moist, other (Nose: Multiple lesions) Neck: non-tender; No jvd Respiratory: normal air movement; No labored breathing Cardiovascular: regular rate and rhythm, nl pulses; No edema Gastrointestinal: soft, non-tender; No distended Musculoskeletal: nl extremities to inspection; No nl gait and stance (Right-sided weakness) Extremities: normal pulses; No edema Neurological: other (Right-sided weakness); No nl speech (Minimal slurred), No nl strength Skin: rash or lesions (Nose: Multiple lesions; mid back: Lesions (nontender, soft)), other (Left buttock: Small opening no drainage, 2 mm depth; no induration) Results Result Diagram: 07/08/18 0649 07/08/18 0649 OTONIEL ISABEL NP July 08, 2018 11:37
[2018-07-08 13:47] VITALS: BP 144/53; PULSE 76; RESP 18
--- NOTE | 2018-07-08 15:16 | CONS ---
Assessment/Plan Assessment/Plan Hospital Course (Demo Recall) All noted, no acute events, patient looks Comfortable, family at bedside Microbiology: Blood culture on admission grew E. coli, repeat blood cultures negative, urine culture negative. Left buttock abscess drainage grew enterococcus, corynebact and staph species Antimicrobials: Vanco, Zosytootie Physical examination: Well-developed ill-appearing elderly man who is in no distress. Head atraumatic normocephalic neck is supple chest rise symmetrical, bilateral fine crackles, mild tachypnea. Heart: S1-S2. Abdomen soft bowel sounds present. Assessment: 1. Persistent leukocytosis possibly steroid-induced, cannot rule out infectious etiology 2. Severe congestion, possible aspiration versus fluid overload versus both 1. E. coli bacteremia unclear etiology 2. 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 L buttock abscess==> surgery on case 4. Coronary artery disease with a history of permanent pacemaker 5. History of CVA Plan: Remains unchanged, pending hospice evaluation, continue present care and antibiotics for now Consultation Date/Type/Reason Admit Date/Time June 23, 2018 at 20:27 Initial Consult Date 06/28/18 Type of Consult id Requesting Provider: BIBIANA SUH MD Date/Time of Note DATE: 07/08/18 TIME: 15:15 Exam/Review of Systems Exam Vitals Vital Signs Date Temp Pulse Resp B/P (MAP) Pulse Ox O2 O2 Flow FiO2 Time Delivery Rate 07/08/18 97.0 76 18 144/53 99 13:47 (83) 07/08/18 Nasal 5.0 13:45 Cannula 07/06/18 21 22:14 Intake and Output 07/07/18 07/07/18 07/08/18 1515:00 23:00 07:00 IntakeIntake Total 450 ml OutputOutput Total 1250 ml 700 ml BalanceBalance -800 ml -700 ml Results Result Diagram: 07/08/18 0649 07/08/18 0649 Results 24hrs Laboratory Tests Test 07/08/18 06:49 White Blood Count 32.7 #H Red Blood Count 2.01 L Hemoglobin 6.6 *L Hematocrit 20.6 L Mean Corpuscular Volume 102.5 H Mean Corpuscular Hemoglobin 32.8 Mean Corpuscular Hemoglobin Concent 32.0 Red Cell Distribution Width 14.1 Platelet Count 198 # Mean Platelet Volume 11.6 H Immature Granulocytes % 1.900 H Neutrophils % Segmented Neutrophils % (Manual) 96 H Lymphocytes % Lymphocytes % (Manual) 3 L Reactive Lymphocytes % (Manual) 1 H Monocytes % Eosinophils % Basophils % Nucleated Red Blood Cells % 0.2 H Immature Granulocytes # 0.630 H Neutrophils # Lymphocytes (Manual) 0.9 Lymphocytes # Reactive Lymphocytes # 0.3 H Monocytes # Eosinophils # Basophils # Nucleated Red Blood Cells # Platelet Estimate NORMAL Poikilocytosis 1+ Anisocytosis 1+ Macrocytosis 1+ Ovalocytes 1+ Sodium Level 144 Potassium Level 5.7 H Chloride Level 115 H Carbon Dioxide Level 19 L Anion Gap 10 Blood Urea Nitrogen 168 H Creatinine 4.08 H Est Glomerular Filtrat Rate mL/min Glucose Level 142 Calcium Level 8.4 Phosphorus Level 7.5 H Magnesium Level 2.6 H Medications Medication Current Medications IV Flush (NS 3 ml) 3 ml PER PROTOCOL IV ; Start 06/24/18 at 00:00 Ondansetron HCl (Zofran Inj) 4 mg Q6H PRN IV NAUSEA/VOMITING; Start 06/24/18 at 00:00 Acetaminophen (Tylenol Tab) 650 mg Q6H PRN PO .PAIN 1-3 OR TEMP Last administered on 07/03/18at 06:46; Admin Dose 650 MG; Start 06/24/18 at 00:00 Acetaminophen/ Hydrocodone Bitart ([place] (5/325)) 1 tab Q6H PRN PO .PAIN 4-6 Last administered on 07/05/18at 16:23; Admin Dose 1 TAB; Start 06/24/18 at 00:00 Albuterol/ Ipratropium (Duoneb) 3 ml Q2H RESP THERAPY PRN HHN SHORTNESS OF BREATH/COUGH Last administered on 07/07/18at 17:08; Admin Dose 3 ML; Start 06/24/18 at 00:00 Latanoprost (Xalatan) 1 drop HS BOTH EYES Last administered on 07/07/18at 21:47; Admin Dose 1 DROP; Start 06/24/18 at 21:00 Donepezil HCl (Aricept) 5 mg DAILY PO Last administered on 07/07/18at 09:45; Admin Dose 5 MG; Start 06/24/18 at 09:00 Famotidine (Pepcid) 20 mg DAILY PO Last administered on 07/07/18 09:45; Admin Dose 20 MG; Start 06/24/18 at 09:00 Febuxostat (Uloric) 40 mg QHS PO Last administered on 07/06/18 20:47; Admin Dose 40 MG; Start 06/24/18 at 21:00 Metoprolol Succinate (Toprol Xl) 200 mg DAILY PO Last administered on 07/07/18 09:56; Admin Dose 200 MG; Start 06/24/18 at 09:00 Tamsulosin HCl (Flomax) 0.4 mg BID PO Last administered on 07/07/18 09:45; Admin Dose 0.4 MG; Start 06/24/18 at 09:00 Hydralazine HCl (Apresoline) 10 mg Q6 PRN IV SBP>160 Last administered on 20:34; Admin Dose 10 MG; Start 06/24/18 at 12:00 Nifedipine (Procardia Xl) 90 mg DAILY PO Last administered on 07/07/18 09:56; Admin Dose 90 MG; Start 06/28/18 at 09:00 Dexamethasone (Decadron) 4 mg Q8 IV Last administered on 07/08/18 14:29; Admin Dose 4 MG; Start 06/28/18 at 16:00 Heparin Sodium (Porcine) (Heparin (5000 Units/1ml)) 5,000 unit BID SC Last administered on 07/07/18 21:45; Admin Dose 5,000 UNIT; Start 07/01/18 at 09:00 Multivit/Ca Carb/ B Cmplx/FA/Prenat ([place]) 1 tab DAILY PO Last administered on 07/07/18 09:45; Admin Dose 1 TAB; Start 07/02/18 at 09:00 Bisacodyl (Dulcolax) 10 mg DAILY PRN PO CONSTIPATION; Start 07/03/18 at 12:00 Morphine Sulfate (morphine) 1 mg Q4H PRN IV SEVERE PAIN LEVEL 7-10 Last administered on 07/08/18 14:45; Admin Dose 1 MG; Start 07/06/18 at 15:30 Guaifenesin (Robitussin Liquid Cup) 100 mg Q4H PRN PO COUGH Last administered on 07/07/18 13:02; Admin Dose 100 MG; Start 07/07/18 at 10:30 Vancomycin HCl (Vanco Iv Per Pharmacy) VANCOMYCIN PER PHARMACY PER PROTOCOL XX ; Start 07/07/18 at 14:30 Aspirin (Halfprin) 81 mg DAILY PO ; Start 07/14/18 at 09:00 Atorvastatin Calcium (Lipitor) 20 mg HS PO ; Start 07/14/18 at 21:00 Ferrous Sulfate (Ferrous Sulfate (Ec)) 325 mg TID PO ; Start 07/14/18 at 09:00 Albuterol/ Ipratropium (Duoneb) 3 ml Q4H RESP THERAPY HHN Last administered on 07/08/18at 13:45; Admin Dose 3 ML; Start 07/07/18 at 21:00 Docusate Sodium (Colace) 100 mg DAILY PO ; Start 07/14/18 at 09:00 Miscellaneous Information (*Rx Drug Level Order Reminder*) 1 0500 ONCE XX ; Start 07/09/18 at 05:00; Stop 07/09/18 at 05:01 YOLANDA ANNE NP July 08, 2018 15:16
[2018-07-08] MEDS ORDERED: PIPER-TAZO 3.375 GM IV (PMX) 100 ML IVPB SCH (15:30)
[2018-07-08] MEDS ORDERED: PIPER-TAZO 2.25 GM/NS 50 ML IVPB SCH (16:30)
[2018-07-08] MEDS ORDERED: ATROPINE SULFATE 1% 5ML SL PRN (18:00)
[2018-07-08] MEDS ORDERED: SCOPOLAMINE 1.5 MG PATCH TRANSDERM SCH (18:00)
[2018-07-08] MEDS ORDERED: LORAZEPAM 2 MG INJ IV PRN (18:00)
[2018-07-08] MEDS ORDERED: morphine (DRIP) 100 MG/100 ML 100 ML IV SCH (19:00)
--- NOTE | 2018-07-08 19:22 | CONS ---
DATE OF ADMISSION: 06/23/2018 DATE OF CONSULTATION: 07/08/2018 REASON FOR ADMISSION: Metastatic lung cancer to the brain with comorbidities which include acute earlene al failure, anemia, leukocytosis, and encephalopathy, rapid decline. HISTORY OF PRESENT ILLNESS: The patient is a very unfortunate 83-year-old male with history of cerebrovascular accident with mild right-sided deficits, congestive heart failure, pacemaker plac ement, dyslipidemia, chronic kidney disease, lung cancer with vasogenic edema by imaging consists maria fernanda kerri most likely with a metastatic lung cancer to the brain, who presented to [facility] on 06/23/2018 with headaches, dizziness, blurred vision. Hospital course complicated by wor sening kidney function requiring dialysis, worsening mentation, leukocytosis, initiation of dialysis and worsening leukocytosis which may be steroid related. The patient noted to have worsening congest ion, possible aspiration. Also, was found to have bacteremia. The patient was placed on Decadron du e to brain mets. He also was found to have a left buttock abscess where a surgical consultation was obtained. Ultimately, the patient continued to decline and his prognosis is poor. It was ultimately decided to place him on hospice. Family consented the patient to be admitted under continuous care. PAST MEDICAL HISTORY: Include metastatic lung cancer to the brain, CVA, hypertension, CHF, CKD, dysl ipidemia, large pericardial effusion in the past, status post pericardiocentesis 2012, iron deficienc y anemia, anemia of chronic disease. SURGICAL HISTORY: Pacemaker placement. ALLERGIES: EPOGEN. SOCIAL HISTORY: Positive tobacco. Family members at bedside. PHYSICAL EXAMINATION: VITAL SIGNS: Temperature 97, pulse 72, respirations 20, blood pressure 144/ , saturation 99% on 4 liters. GENERAL: The patient is sick looking, confused. Increase oral secretion is noted. CARDIOVASCULAR: S1, S2. LUNGS: Mild bilateral rhonchi and wheezing. ABDOMEN: Soft. EXTREMITIES: Left upper extremity tremor is noted. Otherwise, no significant edema. LABORATORY DATA: White count is 32.7, hemoglobin 6.6, hematocrit 21, platelet count 198, neutrophils 96%, lymphocytes 3%. Chemistry: Sodium 144, potassium 5.7, chloride 115, bicarbonate 19, BUN 168, creatinine 4.08 and glucose of 142. ASSESSMENT AND PLAN: This is a very unfortunate 83-year-old male with history of metastatic lung cancer to the brain with comorbidity which include CKD, hypertension, anemia, left buttock absc ess and bacteremia with overall decline. The patient will be admitted to hospice care. 1. Metastatic lung cancer to the brain with respiratory failure, increased oral secretions, increase d confusion and acute renal failure. Dialysis was discontinued per family request. The patient was placed on hospice and comfort measure will be obtained. We will place the patient on a morphine drip to keep comfortable. Atropine and scopolamine to be given for increased secretions. Breathing jaquelin tment, O2 support and suctioning will be provided. The patient will be placed on Ativan p.r.n. for a nxiety and wound care will be continued and we provided. Case discussed with family, consent was sig jessica. Case is currently being discussed with nursing staff and family members to initiate all the abo ve comfort measures. The patient is appropriate. His prognosis is extremely poor. The patient was placed on continuous care for comfort measures. Dictated By: KATHRYN ARANDA/RINKU Conf#: [id number] DID#: [id number]
[2018-07-08 19:57] VITALS: BP 115/53; PULSE 72; RESP 20
[2018-07-14] MEDS ORDERED: FERROUS SULFATE (EC) 325 MG TAB PO SCH (09:00)
[2018-07-14] MEDS ORDERED: DOCUSATE SODIUM 100 MG CAP PO SCH (09:00)
[2018-07-14] MEDS ORDERED: ASPIRIN (EC) 81 MG TAB PO SCH (09:00)
[2018-07-14] MEDS ORDERED: ATORVASTATIN 20 MG TAB PO SCH (21:00)
== END 2018-07-09 03:24 | disposition expired | DRG 54 ==
LOC: E/R 17:16 → MS3 20:27 → TEL 06-24 20:00 → PP2 07-03 16:35
PROVIDERS: ADMIT Internal Medicine; ATTEND Internal Medicine
PROC: 0W993ZX Drainage of Right Pleural Cavity, Percutaneous Approach, Diagnostic (ICD-10-PCS; principal; 2018-07-02)
PROC: 06HM33Z Insertion of Infusion Device into Right Femoral Vein, Percutaneous Approach (ICD-10-PCS; 2018-07-06)
PROC: 5A1D70Z Performance of Urinary Filtration, Intermittent, Less than 6 Hours Per Day (ICD-10-PCS; 2018-07-08)
DX: C79.31 Secondary malignant neoplasm of brain (principal); J96.90 Respiratory failure, unspecified, unspecified whether with hypoxia or hypercapnia; G93.6 Cerebral edema; A41.51 Sepsis due to Escherichia coli [E. coli]; N17.0 Acute kidney failure with tubular necrosis; C34.90 Malignant neoplasm of unspecified part of unspecified bronchus or lung; G93.40 Encephalopathy, unspecified; I69.351 Hemiplegia and hemiparesis following cerebral infarction affecting right dominant side; Z66 Do not resuscitate; I13.0 Hypertensive heart and chronic kidney disease with heart failure and stage 1 through stage 4 chronic kidney disease, or unspecified chronic kidney disease; E87.0 Hyperosmolality and hypernatremia; N18.4 Chronic kidney disease, stage 4 (severe); L02.31 Cutaneous abscess of buttock; I50.32 Chronic diastolic (congestive) heart failure; C78.7 Secondary malignant neoplasm of liver and intrahepatic bile duct; H40.9 Unspecified glaucoma; I25.10 Atherosclerotic heart disease of native coronary artery without angina pectoris; E78.5 Hyperlipidemia, unspecified; F17.290 Nicotine dependence, other tobacco product, uncomplicated; D50.9 Iron deficiency anemia, unspecified; I69.328 Other speech and language deficits following cerebral infarction; M81.0 Age-related osteoporosis without current pathological fracture; I48.0 Paroxysmal atrial fibrillation; N40.0 Benign prostatic hyperplasia without lower urinary tract symptoms; E83.41 Hypermagnesemia; I73.9 Peripheral vascular disease, unspecified; J44.9 Chronic obstructive pulmonary disease, unspecified; Z95.0 Presence of cardiac pacemaker; Z79.82 Long term (current) use of aspirin
CPT/HCPCS: 36415; 70450; 71045; 71250; 74176; 76604; 76775; 76942; 80048; 80053; 80061; 80307; 81001; 81003; 82043; 82378; 82945; 83036; 83615; 83735; 84100; 84155; 84157; 84300; 84443; 84484; 85025; 85610; 85730; 86706; 87070; 87086; 87102; 87116; 87340; 88104; 88107; 88305; 89051; 89190; 90935; 92610; 93005; 94640; 94664; 97110; 97116; 97163; 97530; C1752; J0290; J0360; J0692; J1100; J1170; J1644; J1650; J1940; J2060; J2150; J2250; J2270; J2543; J3010; J3370; J7040; J7050; J7070